=== PATIENT | female | born 1945 | race Caucasian/White ===

== ENCOUNTER 2022-03-13 11:51 | Inpatient (IN) | payer MEDICARE, MEDICAID, SELFPAY ==
[2022-03-13] VITALS (14 sets, daily range): BP systolic 117–139; BP diastolic 43–86; PULSE 43–91; RESP 13–18; TEMP 36.3–37.3; O2SAT 95–99; BMI 39.4; BMI 38.9
--- NOTE | 2022-03-13 12:01 | EKG12_ITS ---
Test Reason : GENERAL ILLNESS Blood Pressure : / mmHG Vent. Rate : 044 BPM Atrial Rate : 100 BPM P-R Int : 000 ms QRS Dur : 076 ms QT Int : 490 ms P-R-T Axes : 041 -04 045 degrees QTc Int : 418 ms Sinus rhythm with complete heart block and Junctional bradycardia Abnormal ECG Confirmed by PRECIOUS MORGAN, LUCY ([id number]), online editor ELIZABETH STOUT ([id number]) on 03/16/2022 11:29:36 AM Referred By: YENNIFER Confirmed By:LUCY LANG MD
[2022-03-13 12:40] LABS: Absolute Lymphocyte Count 2.33 X10^3/uL (0.83-4.51); Absolute Neutrophil Count 5.2 X10^3/uL (2.0-7.7); Basophil# 0.06 X10^3/uL; Basophil% 0.7 % (0-1); Eosinophils% 3.4 % (0-5); Hematocrit 32.7 % (37-47); Hemoglobin 10.4 g/dL (12.0-15.0); Lymphocyte # 2.33 X10^3/ul (0.83-4.51); Lymphocyte % 26.4 % (19-41); Mean Corp Hgb Conc 31.8 g/dL (32-36); Mean Corpuscular Hgb 30.1 pg (27.0-32.0); Mean Corpuscular Volume 94.8 fL (81-99); Mean Platelet Vol. 11.4 fl (6.2-12.0); Monocyte# 0.88 X10^3/uL; NRBC Flagged by Analyzer 0 % (0-5); Neutrophil # 5.18 X10^3/uL (2.7-7.7); Neutrophil % 58.6 % (47-70); Platelet Count 231 K/mm3 (150-450); RBC Distribution Width CV 15.1 % (11.6-14.6); RBC Distribution Width SD 52.3 fl (35.1-43.9); Red Blood Count 3.45 M/mm3 (4.2-5.4); White Blood Count 8.8 K/mm3 (4.4-11.0)
[2022-03-13 12:47] LABS: ALB/GLOB Ratio 0.7 RATIO (0.9-2.4); AST(SGOT) 10 U/L (15-37); Alanine Aminotransfer ALT/SGPT 12 U/L (13-56); Albumin, Serum 2.7 g/dL (3.2-5.0); Alkaline Phosphatase 60 U/L (45-117); Anion Gap 8 (5-15); BUN 64 mg/dL (7-18); BUN/Creat Ratio 21.7 RATIO (10-20); Calcium,Total 9.1 mg/dL (8.5-10.1); Chloride 104 mmol/L (98-107); Creatinine, Serum 2.95 mg/dL (0.55-1.02); EST Glomerular Filtration Rate 16 mL/min (>60); Est Glom Filt Rate - Afr Amer 20 mL/min (>60); Estimated Creatinine Clearance 22.01 ml/min; Globulin 3.8 g/dL (2.2-4.2); Glucose 221 mg/dL (74-106); Protein, Total 6.5 g/dL (6.4-8.2); Sodium Level 135 mmol/L (136-145); Troponin-I HS 49 pg/mL (3.0-54.0)
--- NOTE | 2022-03-13 12:53 | EX.ED.DYSGE1 ---
HPI History of Present Illness Chief Complaint: General Illness Informant: patient and family Narrative Narrative: Patient is a 76-year-old female with history of diabetes mellitus, hypertension, diverticulitis polyps, and osteoporosis presenting with increased weakness, decreased oral intake and generalized malaise. Patient arrived via EMS but is with her daughter. Patient has been complaining of stomach pain as well as some neck pain for the past few days. This is not completely abnormal to the patient. Daughter was concerned as she started having shaking today and seemed more confused. She was worried she may be had COVID or urinary tract infection. Patient denies any chest pain or shortness of breath. Daughter notes has had decreased oral intake for the past 3 days. No other complaints at this time. [facility] Medical History (Updated 03/13/22 @ 15:[address] Yadi Poole DO) Diabetes Essential hypertension Non-smoker Osteoarthritis Allergy/AdvReac Type Severity Reaction Status Date / Time Iodinated Contrast Media Allergy Rash Verified 03/13/22 12:50 [CONTRASTS] oxaprozin [From Daypro] AdvReac Upset Verified 03/13/22 12:50 Stomach Surgical History History of appendectomy History of cholecystectomy Social History Smoking Status: Never smoker ROS ROS ED Review of Systems ROS Unobtainable: due to mental status EXAM Physical Exam Const Vital Signs: 03/13/22 11:52 03/13/22 12:19 03/13/22 12:40 Temperature 97.3 F L Temperature Source Temporal Pulse Rate 44 L 43 L Respiratory Rate 13 17 Respiratory Effort Normal Respiratory Pattern Normal Blood Pressure 122/49 H 118/43 L Blood Pressure Mean 73 68 Pulse Ox 97 96 Oxygen Delivery Method Room Air Room Air 03/13/22 14:53 Temperature 98.3 F Temperature Source Temporal Pulse Rate 43 L Respiratory Rate 15 Respiratory Effort Respiratory Pattern Blood Pressure 125/78 H Blood Pressure Mean 93 Pulse Ox 98 Oxygen Delivery Method Room Air Positive well nourished and well developed Constitutional Narrative: Somnolent, pale General Appearance ED: well developed and pallor HEENT Reports dry mucous membranes Mouth ED: Yes dry mucous membranes Mouth: dry mucous membranes Eyes PERRL and EOMs intact bilaterally Neck supple and no JVD Chest Wall inspection of chest normal and palpation of chest normal Resp normal respiratory effort and clear to auscultation bilaterally Cardio regular rhythm and no murmurs Rate: bradycardia GI normal to inspection, nondistended, normoactive bowel sounds and non-tender Extremity Extremity Narrative: + pedal General Extremety ED: Yes edema; Negative for tenderness General Extremity: edema Neuro no sensory deficits noted Sensorium / Orientation: alert and orientation impaired Motor Exam: general weakness Psych mental status grossly normal Skin no rashes or lesions noted and no wounds General Skin Exam: pallor MDM MDM MDM Narrative Medical decision making narrative: Patient evaluated for generalized malaise. Telemetry and EKG concerning for third-degree heart block 4. Patient is hemodynamically stable right now. She is found to have NIKO with a creatinine of 2.95. She has no known history of kidney disease. Clinically she does appear dehydrated is given IV fluids. She is mildly anemic at 10.4. Case is discussed with cardiology who will evaluate the patient further to see if we can give her pacemaker here or will need to transfer. Patient was placed on pacer pads empirically. Case discussed with cardiology on-call, Dr. Perez, as well as Dr. Winchester who agreed that patient would benefit from a pacer. Patient is admitted to the ICU but will go to the Central Office Technician for pacer placement first. Patient is given IV fluid bolus in the emergency room. Patient and daughter in agreement this plan of care. Patient is maintaining her blood pressure so she does not require emergent external pacing at this time. Lab Data Attestation: I reviewed the patient's lab results. Labs: Laboratory Results - last 24 hr 03/13/22 03/13/22 03/13/22 12:15 12:15 12:15 WBC 8.8 RBC 3.45 L Hgb 10.4 L Hct 32.7 L MCV 94.8 MCH 30.1 MCHC 31.8 L RDW Std Deviation 52.3 H RDW Coeff of Zainab 15.1 H Plt Count 231 MPV 11.4 Immature Gran % (Auto) 0.900 Neut % (Auto) 58.6 Lymph % (Auto) 26.4 [place] % (Auto) 10.0 Eos % (Auto) 3.4 Baso % (Auto) 0.7 Absolute Neuts (auto) 5.2 Absolute Lymphs (auto) 2.33 Nucleated RBC % 0 Sodium 135 L Potassium 5.0 Chloride 104 Carbon Dioxide 23.0 Anion Gap 8 BUN 64 H Creatinine 2.95 H Estim Creat Clear Calc 22.01 Est GFR (MDRD) Af Amer 20 L Est GFR (MDRD) Non-Af 16 L BUN/Creatinine Ratio 21.7 H Glucose 221 H Calcium 9.1 Total Bilirubin 0.70 AST 10 L ALT 12 L Alkaline Phosphatase 60 Troponin I High Sens 49 Total Protein 6.5 Albumin 2.7 L Globulin 3.8 Albumin/Globulin Ratio 0.7 L TSH 1.90 Radiography Chest X-Ray - ED: 1 View, Read by ED Physician, Cardiomegaly and No Infiltrates Diagnostic Testing: Clinical Impression(s) from Imaging Studies Chest X-Ray 03/13/22 12:55 IMPRESSION: Peribronchial cuffing and bilateral hilar prominence is seen, would recommend clinical correlation for bronchitis, airway disease or perihilar infiltrates, Electronically Signed: Marty Schuster MD at 13:12 EDT Reading Location ID and State: [facility] / [place] Tel , Service support , Rhythm Strip Rhythm Strip: Bradycardia Rate: 44 Ectopy: None EKG Initial EKG: Attestation: I personally reviewed and interpreted this EKG as follows: Comments: Third-degree AV block at a rate of 44 QRS 76 QTC [address] segments Critical Care Time Critical Care Time: Yes Critical care time (excluding procedures): 30-74 minutes (40), Discussing w/Patient &/or Family/Quality Management Nurse, Discussing w/Consultants and Arranging Admission or Transfer Discharge Plan Dx/Rx/DC Orders Clinical Impression: Complete heart block, Essential hypertension, NIKO (acute kidney injury) Disposition Disposition: Acute Care Hospital [facility] Discharge Date/Time: 03/13/22 14:55
--- NOTE | 2022-03-13 12:55 | RAD_ITS ---
INDICATION: weakness EXAMINATION/TECHNIQUE: X-RAY - XR Chest 1 View COMPARISON: None. FINDINGS: LINES/DEVICES: None. LUNGS: Peribronchial cuffing and bilateral hilar prominence is seen. Would recommend clinical correlation for perihilar infiltrates, no evidence of focal consolidation is seen. No evidence of pneumothorax or pleural effusion. No evidence of parenchymal lung mass. MEDIASTINUM AND CARDIOVASCULAR STRUCTURES: Cardiac silhouette not enlarged. Central airways and mediastinal contour are unremarkable. BONES AND SOFT TISSUES: Degenerative bone changes seen. RAD/Chest 1 View (Portable) IMPRESSION: Peribronchial cuffing and bilateral hilar prominence is seen, would recommend clinical correlation for bronchitis, airway disease or perihilar infiltrates, Electronically Signed: Marty Schuster MD at 13:12 EDT ,
[2022-03-13] MEDS: 0.9% Normal Saline 1,000 ML 999 ML IV (13:51)
--- NOTE | 2022-03-13 13:58 | NURSING ---
PALLET REPAIRER [facility] PACEMAKER
--- NOTE | 2022-03-13 13:58 | NURSING ---
DR MARTINEZ FOR DR MARIN
--- NOTE | 2022-03-13 14:17 | ECHOL_ITS ---
Reason For Study: Arrhythmia Procedure This was a limited 2D transthoracic echocardiogram. Exam performed portable in ED. Left Ventricle Mild Apical Hypokinesia. The estimated ejection fraction is 50 %. Right Ventricle Normal right ventricle. Normal systolic function. Atria Normal left atrium. Normal right atrium. Mitral Valve The mitral valve is structurally normal. No prolapse or stenosis seen. No mitral valve insufficiency. Tricuspid Valve Normal tricuspid valve. No tricuspid valve insufficiency. Aortic Valve Normal aortic valve. Pulmonic Valve The pulmonic valve is not well visualized. Great Vessels Normal aortic root. Pericardium/Pleural No pericardial effusion. MMode/2D Measurements & Calculations LVIDd: 4.0 cm IVSd: 1.4 cm LVAd ap4: 18.8 cm2 LVIDs: 2.3 cm LVPWd: 1.4 cm LVLd ap4: 6.2 cm RVDd: 3.8 cm FS: 43.0 % EDV(MOD-sp4): 47.1 ml EDV(sp4-el): 48.1 ml LVAs ap4: 8.4 cm2 LVLs ap4: 4.8 cm ESV(MOD-sp4): 12.7 ml ESV(sp4-el): 12.3 ml EF(MOD-sp4): 73.1 % EF(sp4-el): 74.3 % SV(MOD-sp4): 34.4 ml SV(sp4-el): 35.7 ml Doppler Measurements & Calculations MV V2 max: 179.6 cm/sec Ao V2 max: 187.4 cm/sec LV V1 max: 146.6 cm/sec MV max P.9 mmHg Ao max P.0 mmHg LV V1 max P.6 mmHg MV V2 mean: 109.5 cm/sec Ao V2 mean: 132.6 cm/sec MV mean P.4 mmHg Ao mean P.8 mmHg MV V2 VTI: 61.9 cm Ao V2 VTI: 42.3 cm TR max slava: 265.6 cm/sec TR max P.2 mmHg ECHO/Echo, Limited Study Interpretation Summary Mild Apical Hypokinesia The estimated ejection fraction is 50 %. Ordering Physician: Obed Winchester Referring Physician: Pako Serrano Performed By: Gita Barrera, MARY GRACECS, RVT
--- NOTE | 2022-03-13 14:20 | NURSING ---
ICU TERELETSKY 3RD DEGREE HEART BLOCK, NIKO
--- NOTE | 2022-03-13 15:47 | CON.PCM.CA_ITS ---
Assessment & Plan Assessment/Plan (1) Complete heart block: PLAN: Patient presented with complete heart block. The etiology is likely se condary to conduction system disease. I discussed with the patient and her daughter the risk benefits alternatives and he agreed. A permanent pacemaker was implanted today uneventfully. (2) Essential hypertension: PLAN: Her blood pressure is under good control. Plan to be to continue the current medical therapy. Thank you for allowing me to participate in the care of your patient. Please don't hesitate to call if any issues arise. HPI Consult Data Date of Consult: 03/13/22 HPI Narrative HPI Narrative: DESIRE CHUNG, is a 76 F who presents to the emergency room due to 3 to 4 days of weakness and lethargy. She denies any chest pain no paroxysmal nocturnal dyspnea or pedal edema she was brought in by her daughter. In the emergency room she was noted to be bradycardic and her EKG demonstrated A-V dissociation. The lab aide on-call was contacted and I was called to see whether we could put in a permanent pacemaker. On evaluation in the emergency room she denied any dizziness or diaphoresis or near syncope though she has been tired. She has not been on any medications which would slow down her heart rate. She had been previously on lisinopril. Her EKG demonstrated A-V dissociation with a rate of approximately 34 bpm. A stat echocardiogram demonstrated overall preserved left ventricular systolic function [facility] Medical History Diabetes Essential hypertension Non-smoker Osteoarthritis Allergy/AdvReac Type Severity Reaction Status Date / Time Iodinated Contrast Media Allergy Rash Verified 03/13/22 12:50 [CONTRASTS] oxaprozin [From Daypro] AdvReac Upset Verified 03/13/22 12:50 Stomach Surgical History History of appendectomy History of cholecystectomy Social History Smoking Status: Never smoker ROS Constitutional Constitutional: Denies fever(s) or weight loss Eyes Eyes: Reports systems reviewed and no addt'l complaints, except as documented ENT HEENT: Reports systems reviewed and no addt'l complaints, except as documented Cardiovascular Cardiovascular: Denies chest pain at rest, chest pain with activity, dyspnea at rest, dyspnea on exertion, edema, palpitations or paroxysmal nocturnal dyspnea Respiratory/Chest Respiratory/Chest: Denies dyspnea on exertion, productive cough, shortness of breath at rest or shortness of breath with exertion Gastrointestinal Gastrointestinal: Denies change in bowel habits, nausea, vomiting or weight changes Genitourinary Genitourinary: Denies difficulty urinating Musculoskeletal Musculoskeletal: Denies joint stiffness or muscle weakness Integumentary Integumentary: Denies lesions Neurologic Neurologic: Reports weakness; Denies dizziness or syncope Psychiatric Psychiatric: Denies anxiety Endocrine Endocrinology: Denies excessive sweating or fatigue Hematologic/Lymphatic Hematologic/Lymphatic: Denies anemia Allergic/Immunologic Allergic/Immunologic: Denies seasonal rhinorrhea Physical Exam Const alert, oriented x3 and no apparent distress General Appearance: cooperative HEENT hearing grossly normal bilaterally Head and Scalp: atraumatic Eyes EOMs intact bilaterally Neck General: normal visual inspection Chest inspection of chest normal and palpation of chest normal Resp normal respiratory effort Auscultation: clear to auscultation bilaterally Cardio regular rhythm, S1 normal heart sound and S2 normal heart sound Jugular Venous Distention: JVD Rate: bradycardia GI normal to inspection, nondistended, normoactive bowel sounds Extremity normal capillary refill and no pedal edema Peripheral Pulses: Yes pulses 2+ throughout and femoral pulses present Skin no rashes or lesions noted Neuro oriented x3 and CN's II-XII intact bilaterally Psych Appearance: grossly normal and appropriate Risk Stratification Risk Stratification Applicable: No Objective Data Vital Signs: Vital Signs Temp Pulse Resp BP Pulse Ox O2 Del Method 98.3 F 43 L 15 125/78 H 98 Room Air 03/13/22 14:53 03/13/22 14:53 03/13/22 14:53 03/13/22 14:53 03/13/22 14:53 03/13/22 14:53 Oxygen Delivery Method Room Air Weight: 195 lb 8.8 oz Body Mass Index (BMI) 39.4 Lab / Micro Data Result Diagrams: 03/13/22 12:15 03/13/22 12:15 Labs: Laboratory Results - last 24 hr 03/13/22 12:15: WBC 8.8, RBC 3.45 L, Hgb 10.4 L, Hct 32.7 L, MCV 94.8, MCH 30.1, MCHC 31.8 L, RDW Std Deviation 52.3 H, RDW Coeff of Zainab 15.1 H, Plt Count 231, MPV 11.4, Immature Gran % (Auto) 0.900, Neut % (Auto) 58.6, Lymph % (Auto) 26.4, [place] % (Auto) 10.0, Eos % (Auto) 3.4, Baso % (Auto) 0.7, Absolute Neuts (auto) 5.2, Absolute Lymphs (auto) 2.33, Nucleated RBC % 0 03/13/22 12:15: Sodium 135 L, Potassium 5.0, Chloride 104, Carbon Dioxide 23.0, Anion Gap 8, BUN 64 H, Creatinine 2.95 H, Estim Creat Clear Calc 22.01, Est GFR (MDRD) Af Amer 20 L, Est GFR (MDRD) Non-Af 16 L, BUN/Creatinine Ratio 21.7 H, Glucose 221 H, Calcium 9.1, Total Bilirubin 0.70, AST 10 L, ALT 12 L, Alkaline Phosphatase 60, Troponin I High Sens 49, Total Protein 6.5, Albumin 2.7 L, Globulin 3.8, Albumin/Globulin Ratio 0.7 L 03/13/22 12:15: TSH 1.90 Micro: Microbiology 03/13/22 12:53 Nasal Secretion SARS-CoV-2 Antigen (Rapid) - Final Rhythm Strip Rhythm Strip: Bradycardia Rate: 44 Ectopy: None Cardiology Labs/Tests 03/13/22 12:15: WBC 8.8, RBC 3.45 L, Hgb 10.4 L, Hct 32.7 L, MCV 94.8, MCH 30.1, MCHC 31.8 L, Plt Count 231, MPV 11.4, Immature Gran % (Auto) 0.900, Neut % (Auto) 58.6, Lymph % (Auto) 26.4, [place] % (Auto) 10.0, Eos % (Auto) 3.4, Baso % (Auto) 0.7, Absolute Neuts (auto) 5.2, Nucleated RBC % 0 03/13/22 12:15: Sodium 135 L, Potassium 5.0, Chloride 104, Carbon Dioxide 23.0, Anion Gap 8, BUN 64 H, Creatinine 2.95 H, Est GFR (MDRD) Af Amer 20 L, Est GFR (MDRD) Non-Af 16 L, BUN/Creatinine Ratio 21.7 H, Glucose 221 H, Calcium 9.1, Total Bilirubin 0.70 Rhythm: EKG: ECHO: Stress Test: Cardiac Cath: PCI: CT Surgery: Holter monitor: EPS: PPM: CXR: Chest CT Scan: Radiography Diagnostic Testing: Radiology Impression Chest X-Ray 03/13/22 12:55 IMPRESSION: Peribronchial cuffing and bilateral hilar prominence is seen, would recommend clinical correlation for bronchitis, airway disease or perihilar infiltrates, Electronically Signed: Marty Schuster MD at 13:12 EDT , Echocardiogram 03/13/22 14:17 Interpretation Summary Mild Apical Hypokinesia The estimated ejection fraction is 50 %. Ordering Physician: Obed Winchester Referring Physician: Pako Serrano Performed By: Gita Barrera, IRA, RVT
--- NOTE | 2022-03-13 17:06 | PCM.DC ---
Discharge Instructions Diet Discharge Diet: No restrictions Activity Discharge Activity: May Not Drive Additional Activity Instructions:: May shower or bathe on [day 3]. Do not scrub the incision or soak in the tub. Just wash with soap and let the water run over the incision. Gently pat dry with towel. Medications: Take your pain medication as directed. Refer to your discharge instruction sheet for a list of medications you are to take. Dressing / Incision Call your doctor if your incision/area has: Continuous Slow Oozing, Sudden Increased Bleeding, Increased Pain/ Swelling, Increased Redness, Foul Smelling Discharge and Swelling at the incision site Call your doctor if you observe: Fever of 101 or Higher, Shortness of breath, Dizziness, Fainting spells, Swelling in the ankles, Chest pain, Prolonged hiccupping and Increased palpitations (irregular heartbeat) Suture Line Care: Avoid Pulling/Pushing and Avoid Pinching/Bending Cleanse incision/area with: Keep Dressing Clean & Dry Additional Dressing/Incision Instructions:: When dressing is removed, wash and dry incision. Keep covered with a light bandage if it is rubbing against your clothing. Do not cover the incision with an airtight bandage. Change the bandage daily. Do not remove steri strips. The strips will fall off on their own. Follow Up Care Please Follow Up With: Obed Winchester MD When: Pacer follow up on at 9:30 AM at the pacer clinic Test Results: Test results from this visit will be discussed in further detail at your follow-up appointment, if applicable. Discharge Plan Admission Admit Date/Time: 03/13/22 15:44 Attending Provider: Eleazar Jamison Primary Care Provider: Pako Serrano NP Discharge Orders/Prescriptions Referrals / Follow Up: Pako Serrano NP, [facility] [Primary Care Provider] -
--- NOTE | 2022-03-13 17:16 | PCM.HP.STD ---
HPI - General General Date of Admission: 03/13/22 Date of Service: 03/13/22 Chief Complaint: Generalized weakness and malaise HPI Narrative DESIRE CHUNG, is a 76 F who presents to the emergency room at [facility] with a chief complaint of generalized weakness and malaise over the past few days. Patient denied any fevers or chills. EKG was obtained as part of the work-up in the emergency room, showed a third-degree heart block at 44, patient was hemodynamically stable however, her creatinine was found to be elevated at 2.95, hemoglobin was 10.4. Patient was taken to the [facility] and a pacemaker was inserted, there were no complications and the patient was admitted to PCU for further care. [facility] Medical History (Updated 03/13/22 @ 15:57 by Jazmine Tinajero) Diabetes Essential hypertension Non-smoker Osteoarthritis Home Medications atorvastatin 40 mg tablet 40 mg PO QHS cholesterol 03/13/22 [History Last Taken 03/12/22] furosemide 20 mg tablet 20 mg PO DAILY Check with primary doctor 03/13/22 [History Last Taken 03/13/22] gabapentin 300 mg capsule 300 mg PO TID Check with primary doctor 03/13/22 [History Last Taken 03/13/22] glipizide 5 mg tablet 7.5 mg PO DAILY Check with primary doctor 03/13/22 [History Last Taken 03/13/22] lisinopril 5 mg tablet 5 mg PO DAILY Check with primary doctor 03/13/22 [History Last Taken 03/13/22] metformin 1,000 mg tablet 1,000 mg PO BID Check with primary doctor 03/13/22 [History Last Taken 03/13/22] multivitamin 1 cap PO DAILY Check with primary doctor 03/13/22 [History Last Taken 03/13/22] pantoprazole 40 mg tablet,delayed release 40 mg PO DAILY Check with primary doctor 03/13/22 [History Last Taken 03/13/22] sucralfate 1 gram tablet 1 g PO DAILY Check with primary doctor 03/13/22 [History Last Taken 03/13/22] tramadol 50 mg tablet 50 mg PO QHS Check with primary doctor 03/13/22 [History Last Taken 03/12/22] Allergy/AdvReac Type Severity Reaction Status Date / Time Iodinated Contrast Media Allergy Rash Verified 03/13/22 12:50 [CONTRASTS] oxaprozin [From Daypro] AdvReac Upset Verified 03/13/22 12:50 Stomach Surgical History (Updated 03/13/22 @ 15:57 by Jazmine Tinajero) History of appendectomy History of cholecystectomy History of permanent cardiac pacemaker placement (03/13/22) Social History Smoking Status: Never smoker ROS Constitutional Constitutional: Reports fatigue, malaise and weakness; Denies anorexia, change in weight, fever(s) or night sweats Eyes Eyes: Denies blurry vision, change in vision, discharge from eye(s) or eye pain Cardiovascular Cardiovascular: Denies chest pain, claudication, dyspnea on exertion, edema, lightheadedness or palpitations Respiratory/Chest Respiratory/Chest: Denies cough, hemoptysis, shortness of breath at rest or shortness of breath with exertion Gastrointestinal Gastrointestinal: Denies abdominal pain, constipation, diarrhea, hematemesis, hematochezia, melena, nausea or vomiting Genitourinary Genitourinary: Denies dysuria, hematuria, urinary frequency, urinary hesitancy, urinary incontinence or urinary urgency Musculoskeletal Musculoskeletal: Denies back pain, joint pain, joint stiffness, joint swelling, myalgias or neck pain Neurologic Neurologic: Denies abnormal gait, abnormal speech, confusion, disequilibrium, dizziness, focal weakness, headache(s), loss of vision, numbness, other visual disturbances, paresthesias, syncope or tingling Psychiatric Psychiatric: Denies anxiety, cognitive impairment, depression, irritability, mood swings or suicidal ideation Endocrine Endocrinology: Denies change in body appearance, cold intolerance, excessive sweating, heat intolerance, polydipsia or polyuria Hematologic/Lymphatic Hematologic/Lymphatic: Denies none, anemia, easy bleeding, easy bruising or lymphadenopathy Allergic/Immunologic Allergic/Immunologic: Denies rhinitis, urticaria, eczemia or asthma Vital Signs Vital Signs Vital Signs: 03/13/22 11:52 03/13/22 12:19 03/13/22 12:40 Temperature 97.3 F L Temperature Source Temporal Pulse Rate 44 L 43 L Respiratory Rate 13 17 Respiratory Effort Normal Respiratory Pattern Normal Blood Pressure 122/49 H 118/43 L Blood Pressure [BP] Blood Pressure Mean 73 68 Blood Pressure Mean [BP] Blood Pressure Source Blood Pressure Source [BP] Blood Pressure Position Blood Pressure Position [BP] Blood Pressure Location Blood Pressure Location [BP] Pulse Ox 97 96 Oxygen Delivery Method Room Air Room Air 03/13/22 14:53 03/13/22 16:30 03/13/22 16:45 Temperature 98.3 F 98.3 F Temperature Source Temporal Oral Pulse Rate 43 L 84 79 Respiratory Rate 15 18 18 Respiratory Effort Respiratory Pattern Blood Pressure 125/78 H 128/52 H Blood Pressure [BP] 126/45 H Blood Pressure Mean 93 77 Blood Pressure Mean [BP] 72 Blood Pressure Source Monitor Blood Pressure Source [BP] Monitor Blood Pressure Position Semi-Fowlers Blood Pressure Position [BP] Semi-Fowlers Blood Pressure Location Right Arm Blood Pressure Location [BP] Right Arm Pulse Ox 98 96 96 Oxygen Delivery Method Room Air Room Air Room Air 03/13/22 17:00 Temperature Temperature Source Pulse Rate 81 Respiratory Rate 18 Respiratory Effort Respiratory Pattern Blood Pressure Blood Pressure [BP] 127/57 H Blood Pressure Mean Blood Pressure Mean [BP] 80 Blood Pressure Source Blood Pressure Source [BP] Monitor Blood Pressure Position Blood Pressure Position [BP] Semi-Fowlers Blood Pressure Location Blood Pressure Location [BP] Right Arm Pulse Ox 97 Oxygen Delivery Method Room Air Weight Weight: 87.6 kg Body Mass Index (BMI) 38.9 Physical Exam Const alert, oriented x3, no apparent distress, average body habitus and healthy appearing General Appearance: cooperative, well kempt and well developed Orientation / Consciousness: awake, oriented to person, oriented to place and oriented to time HEENT normocephalic and moist oral mucous membranes Eyes PERRL, EOMs intact bilaterally and conjunctivae normal Neck supple, no JVD, thyroid normal and no carotid bruits General: trachea midline Resp normal respiratory effort, no retractions, no use of accessory muscles and clear to auscultation bilaterally Auscultation: Negative for rales, rhonchi or wheezes Cardio regular rate, regular rhythm, S1 normal heart sound, S2 normal heart sound, no murmurs, no rub and no gallops GI normal to inspection, nondistended, normoactive bowel sounds, soft to palpation, non-tender and non-distended Extremity no clubbing, cyanosis or edema Skin no rashes or lesions noted General Skin Exam: no breakdown Neuro oriented x3, CN's II-XII intact bilaterally, moves all extremities, no focal motor deficits and no sensory deficits noted Sensorium / Orientation: awake and alert Speech: speech normal Psych affect normal Results Lab / Micro Data Result Diagrams: 03/13/22 12:15 03/13/22 12:15 Labs: Laboratory Results - last 24 hr 03/13/22 12:15: WBC 8.8, RBC 3.45 L, Hgb 10.4 L, Hct 32.7 L, MCV 94.8, MCH 30.1, MCHC 31.8 L, RDW Std Deviation 52.3 H, RDW Coeff of Zainab 15.1 H, Plt Count 231, MPV 11.4, Immature Gran % (Auto) 0.900, Neut % (Auto) 58.6, Lymph % (Auto) 26.4, [place] % (Auto) 10.0, Eos % (Auto) 3.4, Baso % (Auto) 0.7, Absolute Neuts (auto) 5.2, Absolute Lymphs (auto) 2.33, Nucleated RBC % 0 03/13/22 12:15: Sodium 135 L, Potassium 5.0, Chloride 104, Carbon Dioxide 23.0, Anion Gap 8, BUN 64 H, Creatinine 2.95 H, Estim Creat Clear Calc 22.01, Est GFR (MDRD) Af Amer 20 L, Est GFR (MDRD) Non-Af 16 L, BUN/Creatinine Ratio 21.7 H, Glucose 221 H, Calcium 9.1, Total Bilirubin 0.70, AST 10 L, ALT 12 L, Alkaline Phosphatase 60, Troponin I High Sens 49, Total Protein 6.5, Albumin 2.7 L, Globulin 3.8, Albumin/Globulin Ratio 0.7 L 03/13/22 12:15: TSH 1.90 Micro: Microbiology 03/13/22 12:53 Nasal Secretion SARS-CoV-2 Antigen (Rapid) - Final Rhythm Strip Rhythm Strip: Bradycardia Rate: 44 Ectopy: None Radiology Impression Chest X-Ray 03/13/22 12:55 IMPRESSION: Peribronchial cuffing and bilateral hilar prominence is seen, would recommend clinical correlation for bronchitis, airway disease or perihilar infiltrates, Electronically Signed: Marty Schuster MD at 13:12 EDT Reading Location ID and State: [facility] / [place] Tel , Service support , Echocardiogram 03/13/22 14:17 Interpretation Summary Mild Apical Hypokinesia The estimated ejection fraction is 50 %. Ordering Physician: Obed Winchester Referring Physician: Pako Serrano Performed By: Gita Barrera RDCS, RVT Assessment & Plan Assessment/Plan (1) Complete heart block: PLAN: Plan 1. Third-degree heart block-status post insertion of permanent pacemaker, patient will be admitted to PCU, she will be monitored., Patient will be seen by cardiology. #2 elevated creatinine-we do not have a baseline for the patient's creatinine, she states she has never had a history of kidney problems, patient will be given IV fluids, labs will be followed #3 type 2 diabetes-patient's oral diabetic medications will be held due to her renal function, patient's blood sugars will be monitored, sliding scale insulin will be administered as needed #4 hyperlipidemia-patient is on atorvastatin #5 essential hypertension-patient is on lisinopril, this will be held due to the patient's renal function #6 GERD-patient will continue on a PPI, I have elected to hold her Carafate-I am not sure why she is on this medication Charges/Coding Visit Charges Inpatient E&M: 18150 Init Hosp L3
[2022-03-13] MEDS: 0.9% Normal Saline 1,000 ML 100 ML IV (18:03)
[2022-03-13] MEDS: Heparin Injection (Vial) 5,000 UNIT/ML VIAL 5000 UNIT SC (22:44)
[2022-03-13] MEDS: 0.9% Saline Lock 10 ML Syringe IV (22:45)
[2022-03-13] MEDS: Atorvastatin Calcium 40 MG Tablet PO (22:50)
[2022-03-13] MEDS: Gabapentin 300 MG Capsule PO (22:50)
[2022-03-13] MEDS: oxyCODONE 5 MG Tablet PO (23:00)
[2022-03-13] MEDS: Acetaminophen 325 MG Tablet PO (23:00)
[2022-03-13 23:25] LABS: Bedside Glucose 120 mg/dL (74-106)
[2022-03-14] VITALS (7 sets, daily range): BP systolic 130–161; BP diastolic 60–77; PULSE 60–104; RESP 16–18; TEMP 36.8–37.2; O2SAT 97–98
[2022-03-14] MEDS: Gabapentin 300 MG Capsule PO ×3 (06:09→21:40)
[2022-03-14] MEDS: 0.9% Normal Saline 1,000 ML 100 ML IV ×2 (06:16→18:43)
--- NOTE | 2022-03-14 06:25 | RAD_ITS ---
EXAM: XR CHEST, 3 VIEWS CLINICAL INDICATION: Post permanant ICD/Pacemaker -- inspiration/expiration. Arms Down. Wet read to MD TECHNIQUE: Frontal, lateral and one additional view of the chest. This report was created using Ac[employer] report generation technology. COMPARISON: XR Chest dated 03/13/2022 FINDINGS: LUNGS AND PLEURAL SPACES: Normal. No consolidation or edema. No pneumothorax. No effusion. HEART: Normal. Normal heart size. MEDIASTINUM: Central airways and mediastinal contour are unremarkable. BONES/JOINTS: Normal. SOFT TISSUES: Normal. TUBES, LINES AND DEVICES: Interval placement of a 2-lead ventricular pacemaker wires. RAD/Chest 3 View IMPRESSION: Satisfactory pacemaker placement. No evidence of pneumothorax. Electronically Signed: Stevie El MD at 9:32 EDT ,
[2022-03-14 06:48] LABS: Anion Gap 6 (5-15); BUN 49 mg/dL (7-18); BUN/Creat Ratio 24.6 RATIO (10-20); Calcium,Total 8.8 mg/dL (8.5-10.1); Chloride 110 mmol/L (98-107); Creatinine, Serum 1.99 mg/dL (0.55-1.02); EST Glomerular Filtration Rate 26 mL/min (>60); Est Glom Filt Rate - Afr Amer 31 mL/min (>60); Estimated Creatinine Clearance 32.22 ml/min; Glucose 101 mg/dL (74-106); Potassium 4.7 mmol/L (3.5-5.1); Sodium Level 141 mmol/L (136-145)
[2022-03-14] MEDS: Heparin Injection (Vial) 5,000 UNIT/ML VIAL 5000 UNIT SC ×2 (08:58→21:38)
[2022-03-14] MEDS: Pantoprazole Sodium 40 MG Tablet PO (08:58)
[2022-03-14] MEDS: 0.9% Saline Lock 10 ML Syringe IV (08:59)
--- NOTE | 2022-03-14 10:30 | CASEMGMT ---
RN CHELITA Face to Face with patient for initial transition planning/care coordination assessment. RN CM introduced self and role at [facility]. Patient lying in bed, alert and oriented, daughter at bedside. Patient and daughter willing to participate in assessment and is able to answer all questions appropriately. Care providers, pharmacy, and demographics verified. Patient wishes to discharge home, denies need for home health at this time. Patient states she has no further needs or concerns at this time. CM to follow for discharge planning needs that may arise. PCP: Maggie [employer] Specialists: [facility] podiatry; Haider, GI; Mitchell, pain [facility] Insurance: [employer] Prescription Benefit: yes Living Will/HPOA: yes, daughter Mili Sanabria HPOA LNOK: daughter Living Arrangements: Patient lives with daughter in a mobile home with 4 steps and railing to enter the home. Per daughter, patient independent at home but daughter helps with bathing. Transportation: daughter DME/HHC: Patient states she has shower chair, BSC, raised toilet, walker, rollator, and medical alert at home. No previous HHC. Daughter refusing HHC at discharge and states she is able to care for patient. Patient is active with [employer] and has Cindy cazares CM at [facility]. Disposition Plan: Patient to discharge home with family support and follow-up plans in place. Cindy WALKER, RN, CM
[2022-03-14 11:09] LABS: Absolute Lymphocyte Count 2.48 X10^3/uL (0.83-4.51); Absolute Neutrophil Count 3.5 X10^3/uL (2.0-7.7); Basophil# 0.06 X10^3/uL; Basophil% 0.8 % (0-1); Eosinophil# 0.32 X10^3/uL; Eosinophils% 4.5 % (0-5); Hematocrit 29.5 % (37-47); Hemoglobin 9.5 g/dL (12.0-15.0); Lymphocyte # 2.48 X10^3/ul (0.83-4.51); Lymphocyte % 34.6 % (19-41); Mean Corp Hgb Conc 32.2 g/dL (32-36); Mean Corpuscular Hgb 30.2 pg (27.0-32.0); Mean Corpuscular Volume 93.7 fL (81-99); Mean Platelet Vol. 11.1 fl (6.2-12.0); Monocyte# 0.82 X10^3/uL; Monocyte% 11.5 % (0-10); NRBC Flagged by Analyzer 0 % (0-5); Neutrophil # 3.45 X10^3/uL (2.7-7.7); Neutrophil % 48.2 % (47-70); Platelet Count 204 K/mm3 (150-450); RBC Distribution Width CV 14.9 % (11.6-14.6); Red Blood Count 3.15 M/mm3 (4.2-5.4); White Blood Count 7.2 K/mm3 (4.4-11.0)
[2022-03-14 12:00] LABS: Bedside Glucose 97 mg/dL (74-106)
[2022-03-14] MEDS: Insulin Lispro 100 UNIT/ML INSULN.PEN SC ×3 (12:11→21:42)
[2022-03-14 12:36] LABS: Bedside Glucose 210 mg/dL (74-106)
--- NOTE | 2022-03-14 14:32 | PN.HOSP_ITS ---
Subjective Subjective Patient was seen and examined today, she appears weak and mildly confused. I talked with the daughter who was visiting her in her room today during the time my examination. Patient lives with her daughter, her daughter states that she does have some memory issues but she has never been diagnosed with dementia. T alked with cardiology briefly today, they stated from a cardiology standpoint that the patient was okay to be discharged. I called the patient's family practitioner's office and found out that her creatinine in July of last year was 1.06. Objective Data Objective Data Vital Signs: Vital Signs Temp Pulse Resp BP Pulse Ox O2 Del Method 98.2 F 88 16 146/76 H 97 Room Air 03/14/22 08:41 03/14/22 08:41 03/14/22 08:41 03/14/22 08:41 03/14/22 08:41 03/14/22 08:43 Oxygen Delivery Method Room Air Weight: 87.6 kg Body Mass Index (BMI) 38.9 Intake & Output: Intake and Output for Last 24 Hours 03/12/22 03/13/22 03/14/22 23:59 23:59 23:59 Intake Total 1000 / 1000 1550 / 1550 Output Total 450 / 650 1350 / 1350 Balance 550 / 350 200 / 200 Lab / Micro Data Result Diagrams: 03/14/22 05:59 03/14/22 05:39 Labs: Laboratory Results - last 24 hr 03/13/22 22:41: POC Glucose 120 H 03/14/22 05:39: Sodium 141, Potassium 4.7, Chloride 110 H, Carbon Dioxide 25.0, Anion Gap 6, BUN 49 H, Creatinine 1.99 H, Estim Creat Clear Calc 32.22, Est GFR (MDRD) Af Amer 31 L, Est GFR (MDRD) Non-Af 26 L, BUN/Creatinine Ratio 24.6 H, Glucose 101, Calcium 8.8 03/14/22 05:59: WBC 7.2, RBC 3.15 L, Hgb 9.5 L, Hct 29.5 L, MCV 93.7, MCH 30.2, MCHC 32.2, RDW Std Deviation 51.0 H, RDW Coeff of Zainab 14.9 H, Plt Count 204, MPV 11.1, Immature Gran % (Auto) 0.400, Neut % (Auto) 48.2, Lymph % (Auto) 34.6, [place] % (Auto) 11.5 H, Eos % (Auto) 4.5, Baso % (Auto) 0.8, Absolute Neuts (auto) 3.5, Absolute Lymphs (auto) 2.48, Nucleated RBC % 0 03/14/22 06:14: POC Glucose 97 03/14/22 12:10: POC Glucose 210 H Micro: Microbiology 03/13/22 12:53 Nasal Secretion SARS-CoV-2 Antigen (Rapid) - Final Radiography Diagnostic Testing: Radiology Impression Echocardiogram 03/13/22 14:17 Interpretation Summary Mild Apical Hypokinesia The estimated ejection fraction is 50 %. Ordering Physician: Obed Winchester Referring Physician: Pako Serrano Performed By: Gita Barrera, RDCS, RVT Chest X-Ray 03/14/22 06:25 IMPRESSION: Satisfactory pacemaker placement. No evidence of pneumothorax. Electronically Signed: Stevie El MD at 9:32 EDT , Rhythm Strip Rhythm Strip: Bradycardia Rate: 44 Ectopy: None Physical Exam Const alert, oriented x3, no apparent distress, average body habitus and healthy appearing Constitutional Narrative: Patient appears older than her stated age, she appears frail and unwell, she exhibits mild confusion General Appearance: cooperative, well kempt and well developed Orientation / Consciousness: awake HEENT normocephalic, head/scalp atraumatic and moist oral mucous membranes Eyes PERRL, EOMs intact bilaterally and conjunctivae normal Neck supple, no JVD and thyroid normal General: trachea midline Resp normal respiratory effort, no retractions, no use of accessory muscles and clear to auscultation bilaterally Auscultation: Negative for rales, rhonchi or wheezes Cardio regular rate, regular rhythm, S1 normal heart sound, S2 normal heart sound, no murmurs, no rub and no gallops GI normal to inspection, nondistended, normoactive bowel sounds, soft to palpation, non-tender and non-distended Extremity no clubbing, cyanosis or edema Skin no rashes or lesions noted General Skin Exam: no breakdown Neuro oriented x3, CN's II-XII intact bilaterally, moves all extremities, no focal motor deficits and no sensory deficits noted Sensorium / Orientation: awake and alert Speech: speech normal Psych affect normal Psych Narrative: Patient has flat affect, she exhibits mild confusion Assessment & Plan Assessment/Plan (1) Complete heart block: PLAN: Plan 1. Third-degree heart block-status post insertion of permanent pacemaker postop day #1, continue present care, cardiology states that from a cardiovascular standpoint she is stable at this time #2 Acute kidney injury-probably secondary to dehydration-continue patient's IV fluids for now, repeat labs tomorrow, patient's creatinine has improved to 1.99 today #3 type 2 diabetes-patient's oral diabetic medications will be held due to her renal function, patient's blood sugars will be monitored, sliding scale insulin will be administered as needed #4 hyperlipidemia-patient is on atorvastatin #5 essential hypertension-patient is on lisinopril, this will be held due to the patient's renal function #6 GERD-patient will continue on a PPI, I have elected to hold her Carafate-I am not sure why she is on this medication #7 anemia-etiology unclear, I will obtain serum iron and TIBC #8 mild metabolic encephalopathy-secondary to dehydration/acute kidney injury- complicates care, management, recovery, and prognosis. Physical therapy will see the patient today Charges/Coding Visit Charges Inpatient E&M: 75142 Subs Hosp L2
--- NOTE | 2022-03-14 15:03 | PCM.PN.CARD ---
Subjective Subjective Seen and evaluated at bedside along with the nursing staff, daughter at bedside at time of evaluation Minor discomfort at the site of the pacer implant. Objective Data Vital Signs: Vital Signs Temp Pulse Resp BP Pulse Ox O2 Del Method 98.2 F 88 16 146/76 H 97 Room Air 03/14/22 08:41 03/14/22 08:41 03/14/22 08:41 03/14/22 08:41 03/14/22 08:41 03/14/22 08:43 Oxygen Delivery Method Room Air Weight: 193 lb 1.999 oz Body Mass Index (BMI) 38.9 Intake & Output: Intake and Output for Last 24 Hours 03/12/22 03/13/22 03/14/22 23:59 23:59 23:59 Intake Total 1000 / 1000 1550 / 1550 Output Total 450 / 650 1350 / 1350 Balance 550 / 350 200 / 200 Lab / Micro Data Result Diagrams: 03/14/22 05:59 03/14/22 05:39 Labs: Laboratory Results - last 24 hr 03/13/22 22:41: POC Glucose 120 H 03/14/22 05:39: Sodium 141, Potassium 4.7, Chloride 110 H, Carbon Dioxide 25.0, Anion Gap 6, BUN 49 H, Creatinine 1.99 H, Estim Creat Clear Calc 32.22, Est GFR (MDRD) Af Amer 31 L, Est GFR (MDRD) Non-Af 26 L, BUN/Creatinine Ratio 24.6 H, Glucose 101, Calcium 8.8 03/14/22 05:59: WBC 7.2, RBC 3.15 L, Hgb 9.5 L, Hct 29.5 L, MCV 93.7, MCH 30.2, MCHC 32.2, RDW Std Deviation 51.0 H, RDW Coeff of Zainab 14.9 H, Plt Count 204, MPV 11.1, Immature Gran % (Auto) 0.400, Neut % (Auto) 48.2, Lymph % (Auto) 34.6, [place] % (Auto) 11.5 H, Eos % (Auto) 4.5, Baso % (Auto) 0.8, Absolute Neuts (auto) 3.5, Absolute Lymphs (auto) 2.48, Nucleated RBC % 0 03/14/22 06:14: POC Glucose 97 03/14/22 12:10: POC Glucose 210 H Micro: Microbiology 03/13/22 12:53 Nasal Secretion SARS-CoV-2 Antigen (Rapid) - Final Rhythm Strip Rhythm Strip: Bradycardia Rate: 44 Ectopy: None Cardiology Labs/Tests 03/14/22 05:39: Sodium 141, Potassium 4.7, Chloride 110 H, Carbon Dioxide 25.0, Anion Gap 6, BUN 49 H, Creatinine 1.99 H, Est GFR (MDRD) Af Amer 31 L, Est GFR (MDRD) Non-Af 26 L, BUN/Creatinine Ratio 24.6 H, Glucose 101, Calcium 8.8 03/14/22 05:59: WBC 7.2, RBC 3.15 L, Hgb 9.5 L, Hct 29.5 L, MCV 93.7, MCH 30.2, MCHC 32.2, Plt Count 204, MPV 11.1, Immature Gran % (Auto) 0.400, Neut % (Auto) 48.2, Lymph % (Auto) 34.6, [place] % (Auto) 11.5 H, Eos % (Auto) 4.5, Baso % (Auto) 0.8, Absolute Neuts (auto) 3.5, Nucleated RBC % 0 Rhythm: EKG: ECHO: Stress Test: Cardiac Cath: PCI: CT Surgery: Holter monitor: EPS: PPM: CXR: Chest CT Scan: Radiography Diagnostic Testing: Radiology Impression Echocardiogram 03/13/22 14:17 Interpretation Summary Mild Apical Hypokinesia The estimated ejection fraction is 50 %. Ordering Physician: Obed Winchester Referring Physician: Pako Serrano Performed By: Gita Barrera, RDCS, RVT Chest X-Ray 03/14/22 06:25 IMPRESSION: Satisfactory pacemaker placement. No evidence of pneumothorax. Electronically Signed: Stevie El MD at 9:32 EDT , Physical Exam Narrative Patient alert orientated x3 No evidence of hematoma noted at the site of the pacer implant/left pectoral region quality assurance monitor body showed paced, electronic ventricular cardiac rhythm. Cardiovascular exam; S1-S2 regular, no systolic or diastolic murmur Chest examination; clear to auscultation bilateral. Assessment & Plan Assessment/Plan (1) Essential hypertension: (2) Diabetes: (3) NIKO (acute kidney injury): (4) Complete heart block: (5) History of permanent cardiac pacemaker placement: PLAN: 76-year-old patient who presented to the ER with symptoms of fatigue. Patient seen and evaluated today at bedside with nursing staff and daughter at bedside at time of evaluation She had a history of hypertension also noted she has acute EKG in the ER revealed evidence of complete heart block She underwent bare-metal pacemaker by Dr. Winchester Cardiac care plan; 1. Chest x-ray showed no evidence of pneumothorax 2. Pacemaker interrogation normal function 3. From cardiac standpoint patient stable clinically we will follow-up with the primary haul cane brakeman for continuation of cardiac care And for monitoring of the pacemaker
[2022-03-14] MEDS: Acetaminophen 325 MG Tablet PO (15:27)
[2022-03-14] MEDS: Atorvastatin Calcium 40 MG Tablet PO (21:38)
[2022-03-14] MEDS: oxyCODONE 5 MG Tablet PO (22:16)
[2022-03-15 03:15] VITALS: BP 124/59; PULSE 84; RESP 16; TEMP 36.6; O2SAT 95
[2022-03-15 03:26] VITALS: PULSE 86
[2022-03-15] MEDS: 0.9% Normal Saline 1,000 ML 100 ML IV (04:20)
[2022-03-15] MEDS: Gabapentin 300 MG Capsule PO ×2 (05:52→13:52)
[2022-03-15 06:14] LABS: Absolute Lymphocyte Count 2.14 X10^3/uL (0.83-4.51); Absolute Neutrophil Count 3.7 X10^3/uL (2.0-7.7); Basophil# 0.03 X10^3/uL; Basophil% 0.4 % (0-1); Eosinophils% 2.9 % (0-5); Hematocrit 28.4 % (37-47); Hemoglobin 9.1 g/dL (12.0-15.0); Lymphocyte # 2.14 X10^3/ul (0.83-4.51); Lymphocyte % 31.5 % (19-41); Mean Corpuscular Hgb 29.5 pg (27.0-32.0); Mean Corpuscular Volume 92.2 fL (81-99); Mean Platelet Vol. 10.7 fl (6.2-12.0); Monocyte# 0.77 X10^3/uL; Monocyte% 11.3 % (0-10); NRBC Flagged by Analyzer 0 % (0-5); Neutrophil # 3.65 X10^3/uL (2.7-7.7); Neutrophil % 53.8 % (47-70); Platelet Count 201 K/mm3 (150-450); RBC Distribution Width CV 14.6 % (11.6-14.6); Red Blood Count 3.08 M/mm3 (4.2-5.4); White Blood Count 6.8 K/mm3 (4.4-11.0)
[2022-03-15 06:46] LABS: Anion Gap 5 (5-15); BUN 30 mg/dL (7-18); BUN/Creat Ratio 23.4 RATIO (10-20); Calcium,Total 8.4 mg/dL (8.5-10.1); Chloride 113 mmol/L (98-107); Creatinine, Serum 1.28 mg/dL (0.55-1.02); EST Glomerular Filtration Rate 43 mL/min (>60); Est Glom Filt Rate - Afr Amer 52 mL/min (>60); Estimated Creatinine Clearance 50.09 ml/min; Glucose 140 mg/dL (74-106); Iron 30 ug/dL (50-170); Iron Binding Capacity,Total 288 ug/dL (250-450); PERCENT IRON SATURATION 10.4 % (15.0-55.0); Potassium 4.3 mmol/L (3.5-5.1); Sodium Level 142 mmol/L (136-145)
[2022-03-15 07:00] VITALS: PULSE 87
--- NOTE | 2022-03-15 09:04 | PCM.PN.HOSP ---
Subjective Subjective Patient was seen and examined today, her creatinine is improved to 1.28, patient's iron level was low today, I have ordered Venofir for the patient. PT will reevaluate the patient today. Objective Data Objective Data Vital Signs: Vital Signs Temp Pulse Resp BP Pulse Ox O2 Del Method 97.9 F 87 16 124/59 H 95 Room Air 03/15/22 03:15 03/15/22 07:00 03/15/22 03:15 03/15/22 03:15 03/15/22 03:15 03/15/22 03:15 Oxygen Delivery Method Room Air Weight: 87.6 kg Body Mass Index (BMI) 38.9 Intake & Output: Intake and Output for Last 24 Hours 03/13/22 03/14/22 03/15/22 23:59 23:59 23:59 Intake Total 1000 / 1000 2790 / 2790 1081.67 / 1081.67 Output Total 450 / 650 2200 / 2200 350 / 350 Balance 550 / 350 590 / 590 731.67 / 731.67 Lab / Micro Data Result Diagrams: 03/15/22 04:58 03/15/22 04:58 Labs: Laboratory Results - last 24 hr 03/14/22 05:59: WBC 7.2, RBC 3.15 L, Hgb 9.5 L, Hct 29.5 L, MCV 93.7, MCH 30.2, MCHC 32.2, RDW Std Deviation 51.0 H, RDW Coeff of Zainab 14.9 H, Plt Count 204, MPV 11.1, Immature Gran % (Auto) 0.400, Neut % (Auto) 48.2, Lymph % (Auto) 34.6, [place] % (Auto) 11.5 H, Eos % (Auto) 4.5, Baso % (Auto) 0.8, Absolute Neuts (auto) 3.5, Absolute Lymphs (auto) 2.48, Nucleated RBC % 0 03/14/22 06:14: POC Glucose 97 03/14/22 12:10: POC Glucose 210 H 03/15/22 04:58: WBC 6.8, RBC 3.08 L, Hgb 9.1 L, Hct 28.4 L, MCV 92.2, MCH 29.5, MCHC 32.0, RDW Std Deviation 49.0 H, RDW Coeff of Zainab 14.6, Plt Count 201, MPV 10.7, Immature Gran % (Auto) 0.100, Neut % (Auto) 53.8, Lymph % (Auto) 31.5, [place] % (Auto) 11.3 H, Eos % (Auto) 2.9, Baso % (Auto) 0.4, Absolute Neuts (auto) 3.7, Absolute Lymphs (auto) 2.14, Nucleated RBC % 0 03/15/22 04:58: Sodium 142, Potassium 4.3, Chloride 113 H, Carbon Dioxide 24.0, Anion Gap 5, BUN 30 H, Creatinine 1.28 H, Estim Creat Clear Calc 50.09, Est GFR (MDRD) Af Amer 52 L, Est GFR (MDRD) Non-Af 43 L, BUN/Creatinine Ratio 23.4 H, Glucose 140 H, Calcium 8.4 L, Iron 30 L, TIBC 288, Iron Saturation 10.4 L Micro: Microbiology 03/13/22 12:53 Nasal Secretion SARS-CoV-2 Antigen (Rapid) - Final Radiography Diagnostic Testing: Radiology Impression Chest X-Ray 03/14/22 06:25 IMPRESSION: Satisfactory pacemaker placement. No evidence of pneumothorax. Electronically Signed: Stevie El MD at 9:32 EDT , Rhythm Strip Rhythm Strip: Bradycardia Rate: 44 Ectopy: None Physical Exam Const alert, oriented x3 and no apparent distress Constitutional Narrative: Patient appears older than her stated age, she appears frail and unwell, she exhibits mild confusion General Appearance: cooperative, well kempt and well developed Orientation / Consciousness: awake, oriented to person, oriented to place and oriented to time HEENT normocephalic, head/scalp atraumatic and moist oral mucous membranes Eyes PERRL, EOMs intact bilaterally and conjunctivae normal Neck supple, no JVD, thyroid normal and no carotid bruits General: trachea midline Resp normal respiratory effort, no retractions, no use of accessory muscles and clear to auscultation bilaterally Auscultation: Negative for rales, rhonchi or wheezes Cardio regular rate, regular rhythm, S1 normal heart sound, S2 normal heart sound, no murmurs, no rub and no gallops Cardio Narrative: Paced rhythm GI normal to inspection, nondistended, normoactive bowel sounds, soft to palpation, non-tender and non-distended Extremity no clubbing, cyanosis or edema Skin no rashes or lesions noted General Skin Exam: no breakdown Neuro oriented x3, CN's II-XII intact bilaterally, no focal motor deficits and no sensory deficits noted Sensorium / Orientation: awake and alert Speech: speech normal Psych affect normal Psych Narrative: Patient has flat affect, she exhibits mild confusion Assessment & Plan Assessment/Plan (1) History of permanent cardiac pacemaker placement: (2) Complete heart block: PLAN: Plan 1. Third-degree heart block-status post insertion of permanent pacemaker postop day #2, continue present care #2 Acute kidney injury-probably secondary to dehydration-continue patient's IV fluids for now, repeat labs tomorrow, patient's creatinine has improved to 1.28 today. #3 type 2 diabetes-patient's oral diabetic medications will be held due to her renal function, patient's blood sugars will be monitored, sliding scale insulin will be administered as needed #4 hyperlipidemia-patient is on atorvastatin #5 essential hypertension-patient is on lisinopril, this will be held due to the patient's renal function #6 GERD-patient will continue on a PPI, I have elected to hold her Carafate-I am not sure why she is on this medication #7 anemia-iron deficiency-patient was given Venofir today, she will need to take oral iron supplementation when she is discharged #8 mild metabolic encephalopathy-secondary to dehydration/acute kidney injury-complicates care, management, recovery, and prognosis. Physical therapy will see the patient today Charges/Coding Visit Charges Inpatient E&M: 21076 Subs Hosp L2
[2022-03-15 09:15] VITALS: BP 175/86; PULSE 91; RESP 17; TEMP 37.2; O2SAT 95
[2022-03-15] MEDS: Pantoprazole Sodium 40 MG Tablet PO (09:28)
[2022-03-15] MEDS: oxyCODONE 5 MG Tablet PO (09:30)
[2022-03-15] MEDS: Acetaminophen 325 MG Tablet 650 MG PO (09:30)
[2022-03-15] MEDS: Heparin Injection (Vial) 5,000 UNIT/ML VIAL 5000 UNIT SC (10:12)
--- NOTE | 2022-03-15 11:20 | DCINST_ITS ---
Discharge Instructions Diet Discharge Diet: No restrictions Activity Discharge Activity: Return to Normal Activity Additional Activity Instructions:: May shower or bathe on [day 3]. Do not scrub the incision or soak in the tub. Just wash with soap and let the water run over the incision. Gently pat dry with towel. Medications: Take your pain medication as directed. Refer to your discharge instruction sheet for a list of medications you are to take. Dressing / Incision Call your doctor if your incision/area has: Continuous Slow Oozing, Sudden Increased Bleeding, Increased Pain/ Swelling, Increased Redness, Foul Smelling Discharge and Swelling at the incision site Call your doctor if you observe: Fever of 101 or Higher, Shortness of breath, Dizziness, Fainting spells, Swelling in the ankles, Chest pain, Prolonged hiccupping and Increased palpitations (irregular heartbeat) Suture Line Care: Avoid Pulling/Pushing and Avoid Pinching/Bending Cleanse incision/area with: Keep Dressing Clean & Dry Additional Dressing/Incision Instructions:: When dressing is removed, wash and dry incision. Keep covered with a light bandage if it is rubbing against your clothing. Do not cover the incision with an airtight bandage. Change the bandage daily. Do not remove steri strips. The strips will fall off on their own. Follow Up Care Please Follow Up With: Obed Winchester MD Test Results: Test results from this visit will be discussed in further detail at your follow- up appointment, if applicable. Discharge Plan Admission Admit Date/Time: 03/13/22 16:50 Primary Reason for Your Visit: Third-degree heart block, pacemaker insertion Attending Provider: Eleazar Jamison Primary Care Provider: Pako Serrano NP Consulting Providers: Obed Winchester Discharge Orders/Prescriptions Prescriptions: New ferrous sulfate 324 mg (65 mg iron) tablet,delayed release (DR/EC) 324 mg PO BID Qty: 60 0RF Continued atorvastatin 40 mg tablet 40 mg PO QHS Label Comments: TAKE 1 TABLET BY MOUTH ONCE DAILY tramadol 50 mg tablet 50 mg PO QHS Label Comments: TAKE 1 TABLET BY MOUTH EVERY DAY AT BEDTIME NEEDED FOR PAIN pantoprazole 40 mg tablet,delayed release (DR/EC) 40 mg PO DAILY Label Comments: TAKE 1 TABLET BY MOUTH ONCE DAILY metformin 1,000 mg tablet 1,000 mg PO BID Label Comments: TAKE 1 TABLET BY MOUTH TWICE DAILY gabapentin 300 mg capsule 300 mg PO TID Label Comments: TAKE 1 CAPSULE BY MOUTH THREE TIMES DAILY lisinopril 5 mg tablet 5 mg PO DAILY Label Comments: TAKE 1 TABLET BY MOUTH ONCE DAILY furosemide 20 mg tablet 20 mg PO DAILY Label Comments: TAKE 1 TABLET BY MOUTH ONCE DAILY multivitamin Capsule 1 cap PO DAILY glipizide 5 mg tablet 7.5 mg PO DAILY Label Comments: TAKE 1.5 TABLETS BY MOUTH EVERY DAY Discontinued sucralfate 1 gram tablet 1 g PO DAILY Label Comments: TAKE 1 TABLET BY MOUTH TWICE DAILY BEFORE MEALS OR AT BEDTIME NEEDED FOR GASTRITIS Referrals / Follow Up: Obed Winchester MD [Med Staff - Active Staff] - See Referral Note (If you are not contacted by their office by Wednesday of this week, call to schedule a follow- up appointment) Pako Serrano NP, [employer] [Primary Care Provider] - See Referral Note (At your regularly scheduled appointment time) Disposition Disposition (needs filled in before D/C Order can be placed): Home, Self Care
[2022-03-15 12:06] VITALS: BP 145/77; PULSE 83; RESP 17; TEMP 37.2; O2SAT 95
[2022-03-16 00:30] LABS: Bedside Glucose 168 mg/dL (74-106)
--- NOTE | 2022-03-16 13:41 | CL.IE_ITS ---
Patient: DESIRE CHUNG Study Date: 03/13/2022 Performing: Obed Winchester MD : [id number] Age: 76 Gender: female PROCEDURES PERFORMED [id number])INITIAL PACER INSERT+DUAL LEADS INDICATIONS Atrioventricular (AV) block PROCEDURE DETAILS The patient was brought to the Catheterization Lab in the postabsorptive nonsedated state. Infor med consent was obtained prior to the procedure. Local anesthetic was given subcutaneously to the le ft subclavian region with Lidocaine 2%. Access was achieved and a guidewire was advanced into the lef t subclavian vein. Incision was made to the left upper chest. A peel-away sheath was inserted into th e left subclavian vein. PPM ventricular lead was inserted / positioned to right ventricular apex. PPM ventricular lead testing performed. PPM ventricular lead testing performed. The sheath was then olinda cecile. A peel-away sheath was inserted into the left subclavian vein. PPM atrial lead was inserted / po sitioned to the right atrial appendage. PPM atrial lead testing performed. The Atrial lead sutured in place with 2-0 Silk. The Ventricular PM lead sutured in place with 2-0 Silk. Device pocket was irrig ated with antibiotic. PPM generator was attached to the lead(s) and inserted into the pocket. PPM generator was then interrogated by the sql programmer analyst. Subcutaneous closure was completed wit h 3-0 Vicryl. Skin closure was completed with 4-0 Vicryl. The patient tolerated the procedure well. Estimated Blood Loss: 3 ml's IMPLANTED / EX-PLANTED DEVICES IMPLANTED DEVICE(S): PPM Generator - Shotblast Operator: [employer], Model # L111 , Serial # [id number] PPM Ventricular lead - Shotblast Operator: [employer], Model # [id number] , Serial # [id number] PPM Atrial lead - Shotblast Operator: [employer], Model # [id number] , Serial # [id number] DEVICE PARAMETERS ATRIAL LEAD PARAMETERS: P wave- 3.5 (mV) Current- 1.0 (mA) threshold- .6 (V) impedence- 623 (OHMS) VENTRICULAR LEAD PARAMETERS: Current- .6 (mA) threshold- .5 (V) impedence- 771 (OHMS) DEVICE PARAMETERS: Mode- ddd Lower rate- 60 Upper rate- 130 CONCLUSIONS / RECOMMENDATIONS Device Conclusions: Successful implantation of a dual chamber pacemaker Device Recommendations: Follow up with Primary Care Physician PROCEDURE MEDICATIONS Fentanyl 50 mcg IV Versed 1 mg IV Oxygen: 2 L/min via nasal cannula Ancef 2 Gm IV @ 03/13/2022 14:27:19 Signed By Obed Winchester MD On 03/16/2022 13:39:58 Obed Winchester MD
== END 2022-03-15 14:24 | disposition home or self-care (01) | DRG 242 ==
LOC: ED 13:36 → CLSP 13:45 → PCU 03-14 06:25
PROVIDERS: Admitting Provider Internal Medicine; Emergency Provider Emergency Medicine; PCP Nurse Practitioner Primary Care; Visit Provider Internal Medicine
DX: I44.2 Atrioventricular block, complete (principal); G93.41 Metabolic encephalopathy; N17.9 Acute kidney failure, unspecified; E11.9 Type 2 diabetes mellitus without complications; E78.5 Hyperlipidemia, unspecified; D64.9 Anemia, unspecified; I10 Essential (primary) hypertension; K21.9 Gastro-esophageal reflux disease without esophagitis; E86.0 Dehydration; Z87.19 Personal history of other diseases of the digestive system; M81.0 Age-related osteoporosis without current pathological fracture; Z79.84 Long term (current) use of oral hypoglycemic drugs; Z79.899 Other long term (current) drug therapy
CPT/HCPCS: 33208; 36415; 71045; 71047; 80048; 80053; 82962; 83540; 83550; 84443; 84484; 85025; 87811; 93005; 93308; 97162; 97530; 99152; 99153; 99285; J7030; J7050; A4216; C1894; J2916

== ENCOUNTER → 2022-08-17 | Outpatient (CLI) | payer MEDICARE, MEDICAID, SELFPAY ==
--- NOTE | 2022-08-17 17:54 | STRESSREP ---
Stress Test Report Pharmacologic myocardial perfusion stress test. 77-year-old lady with a history of chest pain and dyspnea Resting EKG demonstrates sinus rhythm with a rate of 72 bpm. Resting blood pressure is 138/74 mmHg. 0.4 mg of regadenoson was infused per usual protocol followed by rapid intravenous saline flush injection. Continuous EKG monitoring was performed. The maximum heart rate was 86 bpm which was 60% of max impacted heart rate the maximum workload was 1 metabolic equivalent. At rest there were no ST or T wave changes noted to suggest ischemia and at peak infusion nonspecific ST changes were noted with did not meet the criteria for ischemia. Occasional premature ventricular complexes noted. No clinical angina is noted. The final blood pressure was 122/64 mmHg. Myocardial perfusion protocol. 10.8 mCi of technetium 99m sestamibi was injected at rest. 0.4 mg of regadenoson was infused per usual protocol. At peak infusion 32.4 mCi of technetium 99m sestamibi was injected stress images were obtained stress and rest images were reconstructed and compared in the short axis vertical long and horizontal long axis. Gated images were also obtained. Perfusion SPECT analysis: Review of the stress images demonstrate normal uptake of tracer noted in all areas of the myocardium. The resting images similar demonstrated normal uptake of tracer noted in all areas of the myocardium. No areas of reversibility are noted to suggest ischemia and no previous infarct is noted. Gated SPECT analysis: The gated ejection fraction is 76%. Conclusion: Normal pharmacologic myocardial perfusion stress test. Preserved ejection fraction.
== END | disposition home or self-care (01) ==
LOC: CVS 07:15
PROVIDERS: PCP Nurse Practitioner Primary Care; Visit Provider Nurse Practitioner Family
DX: I49.3 Ventricular premature depolarization (principal); I44.2 Atrioventricular block, complete; E11.9 Type 2 diabetes mellitus without complications; R06.02 Shortness of breath; R53.83 Other fatigue; I10 Essential (primary) hypertension
CPT/HCPCS: 78452; 93017; A9500; A4216; J2785

== ENCOUNTER 2022-09-15 11:07 | Emergency (ER) | payer MEDICARE, MEDICAID, SELFPAY ==
[2022-09-15 11:08] VITALS: BP 147/66; PULSE 98; RESP 18; TEMP 36.8; O2SAT 100; BMI 38.1
[2022-09-15 12:36] LABS: Absolute Lymphocyte Count 1.33 X10^3/uL (0.83-4.51); Absolute Neutrophil Count 4.4 X10^3/uL (2.0-7.7); Basophil# 0.08 X10^3/uL; Basophil% 1.1 % (0-1); Eosinophil# 0.32 X10^3/uL; Eosinophils% 4.2 % (0-5); Hematocrit 37.3 % (37-47); Hemoglobin 11.9 g/dL (12.0-15.0); Lymphocyte # 1.33 X10^3/ul (0.83-4.51); Lymphocyte % 17.6 % (19-41); Mean Corp Hgb Conc 31.9 g/dL (32-36); Mean Corpuscular Hgb 30.7 pg (27.0-32.0); Mean Corpuscular Volume 96.1 fL (81-99); Mean Platelet Vol. 10.3 fl (6.2-12.0); Monocyte# 1.37 X10^3/uL; Monocyte% 18.2 % (0-10); NRBC Flagged by Analyzer 0 % (0-5); Neutrophil # 4.37 X10^3/uL (2.7-7.7); POSITIVE MORPHOLOGY YES; Platelet Count 203 K/mm3 (150-450); RBC Distribution Width CV 13.9 % (11.6-14.6); Red Blood Count 3.88 M/mm3 (4.2-5.4); White Blood Count 7.5 K/mm3 (4.4-11.0)
[2022-09-15 12:42] LABS: Differential Indicated SCAN CRITERIA MET
[2022-09-15 12:50] LABS: Anion Gap 9 (5-15); BUN 22 mg/dL (7-18); Calcium,Total 9.4 mg/dL (8.5-10.1); Chloride 106 mmol/L (98-107); Creatinine, Serum 1.69 mg/dL (0.55-1.02); EST Glomerular Filtration Rate 31 mL/min (>60); Est Glom Filt Rate - Afr Amer 38 mL/min (>60); Estimated Creatinine Clearance 36.53 ml/min; Glucose 106 mg/dL (74-106); Potassium 4.6 mmol/L (3.5-5.1); Sodium Level 140 mmol/L (136-145)
[2022-09-15 13:11] LABS: Differential Comment SCANNED
[2022-09-15 13:12] LABS: Atypical Lymphocyte 1+ %
--- NOTE | 2022-09-15 15:27 | CT_ITS ---
INDICATION: Abdominal pain, recent UTI EXAMINATION: CT ABDOMEN AND PELVIS WITHOUT CONTRAST - CT Abdomen And Pelvis W/O Contrast Injection TECHNIQUE: Helically acquired images were obtained of the abdomen and pelvis without oral or IV contrast. A radiation dose optimization technique was used for this scan. IV Contrast dosage and agent: None. Oral contrast: None. COMPARISON: None. FINDINGS: LOWER CHEST: Lung bases are clear. Mitral valve calcification. LIVER: Homogeneous. No focal mass. GALLBLADDER AND BILIARY TREE: Prior cholecystectomy. No intra- or extrahepatic biliary ductal dilation. PANCREAS: No focal cystic or solid mass. SPLEEN: Normal size without focal cystic or solid mass. ADRENAL GLANDS: No nodules. KIDNEYS AND URETERS: Normal renal size and position. No hydronephrosis. PERITONEUM: No ascites or free air. No other fluid collection. BOWEL: No evidence of acute appendicitis. No stomach or bowel distension. Low anterior small bowel anastomosis. No focal inflammatory change. LYMPH NODES: Prominent para-aortic lymph nodes. VESSELS: Aorta is non-dilated. Numerous prominent mesenteric vessels. URINARY BLADDER: Vague circumferential wall thickening and perivesical inflammatory stranding. REPRODUCTIVE ORGANS: Prior hysterectomy. Bilateral ovarian calcifications. ABDOMINAL WALL: No discrete abdominal or pelvic wall hernia. BONES: Lumbar scoliosis and degenerative change. CT/Abdomen/Pelvis without Cont IMPRESSION: 1. Appearance of the bladder and periaortic lymph nodes compatible with known recent UTI. 2. No other acute abnormal finding in the abdomen or pelvis. Electronically Signed: Kenn Briceño MD at 16:36 EST ,
--- NOTE | 2022-09-15 15:28 | ED.VIS.GI ---
HPI HPI - GI History of Present Illness Chief Complaint: Abd Pain Narrative Narrative: 77-year-old feels well presenting with abdominal pain. She describes it as suprapubic and left lower quadrant. Patient states she has had this pain for some time. Patient recently diagnosed with UTI by primary care physician. She has been on Bactrim for about 5 days but has been confused at home per her daughter. She is alert and oriented x3 however she is slow to respond per daughter and is a little bit confused even though she is alert. She had a slow fall yesterday which was controlled and she has not injured herself or hit her head. Has been ambulatory since then. Daughter is concerned for weakness. Patient has not had a fever. She also admits to constipation. [facility] Medical History Complete heart block Diabetes Essential hypertension Non-smoker Osteoarthritis Presence of permanent cardiac pacemaker Home Medications atorvastatin 40 mg tablet 40 mg PO QHS cholesterol 03/13/22 [History Last Taken 03/12/22] gabapentin 300 mg capsule 300 mg PO TID Check with primary doctor 03/13/22 [History Last Taken 03/13/22] multivitamin 1 cap PO DAILY Check with primary doctor 03/13/22 [History Last Taken 03/13/22] pantoprazole 40 mg tablet,delayed release 40 mg PO DAILY Check with primary doctor 03/13/22 [History Last Taken 03/13/22] tramadol 50 mg tablet 50 mg PO QHS Check with primary doctor 03/13/22 [History Last Taken 03/12/22] ferrous sulfate 324 mg (65 mg iron) tablet,delayed release 324 mg PO BID #60 tabs 03/15/22 [Rx Last Taken Unknown] furosemide 20 mg tablet 10 mg PO DAILY 04/14/22 [History Last Taken Unknown] glipizide 5 mg tablet 5 mg PO DAILY Check with primary doctor 04/14/22 [History Last Taken Unknown] multivitamin with minerals (Hair,Skin and Nails tablet) 1 tab PO DAILY 04/14/22 [History Last Taken Unknown] lisinopril 10 mg tablet 10 mg PO DAILY Check with primary doctor #30 tabs 07/17/22 [Rx Last Taken Unknown] metformin 1,000 mg tablet 500 mg PO DAILY Check with primary doctor 07/17/22 [History Last Taken Unknown] Allergy/AdvReac Type Severity Reaction Status Date / Time Iodinated Contrast Media Allergy Rash Verified 09/15/22 11:13 [CONTRASTS] oxaprozin [From Daypro] AdvReac Upset Verified 09/15/22 11:13 Stomach Family History Brother Cancer Brother Cancer Sister Cancer Mother Diabetes Asthma Surgical History (Updated 09/15/22 @ 15:40 by Julia Armenta) History of appendectomy History of carpal tunnel release of both wrists History of cholecystectomy History of hernia repair History of hysterectomy History of permanent cardiac pacemaker placement (03/13/22) Social History Smoking Status: Never smoker alcohol intake: never substance use type: does not use caffeine: Yes Type: tea ROS ROS ED Constitutional Constitutional ED: Denies chills or fever(s) ENT ENT ED: Denies rhinorrhea or sore throat Cardiovascular Cardiovascular: Denies chest pain or palpitations Respiratory/Chest Respiratory/Chest: Denies cough or dyspnea Gastrointestinal Gastrointestinal: Reports abdominal pain, constipation and nausea Genitourinary Genitourinary ED: Denies dysuria or hematuria Musculoskeletal Musculoskeletal: Denies arthralgias or back pain Integumentary Denies abscess or Abrasions Neurologic Neurologic: Denies headache(s) Psychiatric Psychiatric: Denies anxiety or depression Endocrine Endocrinology: Denies polydipsia or polyphagia EXAM Physical Exam Const Vital Signs: 09/15/22 11:08 09/15/22 15:38 09/15/22 17:15 Temperature 98.2 F 98 F Temperature Source Temporal Oral Pulse Rate 98 81 82 Respiratory Rate 18 18 16 Blood Pressure 147/66 H 134/55 H 121/48 H Blood Pressure Mean 93 81 72 Pulse Ox 100 98 99 Oxygen Delivery Method Room Air Nasal Cannula Room Air Positive well nourished General Appearance ED: Negative for pallor HEENT Reports moist mucous membranes Eyes PERRL and EOMs intact bilaterally Resp normal respiratory effort and clear to auscultation bilaterally Auscultation: Negative for rales, rhonchi or wheezes Cardio regular rate and regular rhythm GI Palpation: tender LLQ and suprapubic Back/Spine no CVA tenderness Neuro CN's II-XII intact bilaterally and moves all extremities Sensorium / Orientation: alert Psych mental status grossly normal Skin General Skin Exam: Negative for jaundice or pallor MDM MDM MDM Narrative Medical decision making narrative: Patient presenting with generalized weakness, and fall yesterday. Recently treated for UTI with Bactrim. This was for suspected UTI per primary care physician. Daughter states she is confused although she is alert and oriented. She is slow to respond and sometimes responds awkwardly. Patient presenting with abdominal pain as well. She also had some constipation. She declines analgesia or nausea medicine. Differential includes but not limited to UTI, urinary retention, diverticulitis, constipation, dehydration, NIKO, colitis. CBC for white blood cell count, differential which shows normal white blood cell count of 7.5. Hemoglobin normal 11.9. Platelets normal at 203. No left shift. BMP for renal function and electrolytes. Creatinine seems to be elevated today at 1.69. GFR is declined at 31. Creatinine 1.28 previously. GFR previously 43. Patient given a liter of IV fluids. Will obtain urinalysis. I suspect that the patient does have decreased p.o. intake but also that the Bactrim could be causing elevated creatinine. Will obtain CT pelvis due to the abdominal pain as she is very tender in the suprapubic and left lower quadrant region. Because of her GFR will not obtain with contrast. This was negative for acute findings. Discussed all lab work and imaging with the patient and her daughter. I did recommend a follow-up later this week or next week for repeat BMP to recheck her kidney function. Did recommend that they abstain from Bactrim in the near future this is likely what caused the NIKO. They do report that she has been drinking plenty of fluids. Patient discharged in stable condition with return precautions. Impression: 1. Abdominal pain 2. History of UTI Lab Data Attestation: I reviewed the patient's lab results. Labs: Laboratory Results - last 24 hr 09/15/22 09/15/22 09/15/22 12:30 12:30 15:42 WBC 7.5 RBC 3.88 L Hgb 11.9 L Hct 37.3 MCV 96.1 MCH 30.7 MCHC 31.9 L RDW Std Deviation 49.0 H RDW Coeff of Zainab 13.9 Plt Count 203 MPV 10.3 Immature Gran % (Auto) 0.900 Neut % (Auto) 58.0 Lymph % (Auto) 17.6 L [place] % (Auto) 18.2 H Eos % (Auto) 4.2 Baso % (Auto) 1.1 H Absolute Neuts (auto) 4.4 Absolute Lymphs (auto) 1.33 Nucleated RBC % 0 Differential Comment SCANNED Atypical Lymphocytes 1+ Sodium 140 Potassium 4.6 Chloride 106 Carbon Dioxide 25.0 Anion Gap 9 BUN 22 H Creatinine 1.69 H Estim Creat Clear Calc 36.53 Est GFR (MDRD) Af Amer 38 L Est GFR (MDRD) Non-Af 31 L BUN/Creatinine Ratio 13.0 Glucose 106 Calcium 9.4 Urine Color Yellow Urine Clarity Clear Urine pH 6.0 Ur Specific [place] 1.010 Urine Protein Negative Urine Glucose (UA) Normal Urine Ketones Negative Urine Occult Blood Negative Urine Nitrite Negative Urine Bilirubin Negative Urine Urobilinogen Normal Ur Leukocyte Esterase 100 H Urine RBC 0-5 SEEN Urine WBC 0-5 SEEN Ur Squamous Epith Cells 0-5 SEEN Urine Bacteria RARE Urine Mucus 0 SEEN Radiography Diagnostic Testing: Clinical Impression(s) from Imaging Studies Abdomen/Pelvis CT 09/15/22 15:27 IMPRESSION: 1. Appearance of the bladder and periaortic lymph nodes compatible with known recent UTI. 2. No other acute abnormal finding in the abdomen or pelvis. Electronically Signed: Kenn Briceño MD at 16:36 EST , Discharge Plan Triage Chief Complaint: Abd Pain ED Provider: Chadwick Fermin Dx/Rx/DC Orders Instructions: ED Abdominal Pain Unkn Cause Fem Prescriptions: No Action Hair,Skin and Nails Tablet 1 tab PO DAILY lisinopril 10 mg tablet 10 mg PO DAILY Qty: 30 11RF atorvastatin 40 mg tablet 40 mg PO QHS Label Comments: TAKE 1 TABLET BY MOUTH ONCE DAILY tramadol 50 mg tablet 50 mg PO QHS Label Comments: TAKE 1 TABLET BY MOUTH EVERY DAY AT BEDTIME NEEDED FOR PAIN pantoprazole 40 mg tablet,delayed release (DR/EC) 40 mg PO DAILY Label Comments: TAKE 1 TABLET BY MOUTH ONCE DAILY gabapentin 300 mg capsule 300 mg PO TID Label Comments: TAKE 1 CAPSULE BY MOUTH THREE TIMES DAILY multivitamin Capsule 1 cap PO DAILY ferrous sulfate 324 mg (65 mg iron) tablet,delayed release (DR/EC) 324 mg PO BID Qty: 60 0RF furosemide 20 mg tablet 10 mg PO DAILY glipizide 5 mg tablet 5 mg PO DAILY metformin 1,000 mg tablet 500 mg PO DAILY Primary Care Provider: Pako Serrano NP Referrals: Pako Serrano LEARNING AND DEVELOPMENT OFFICER, [employer]ARNING AND DEVELOPMENT OFFICER-C [Primary Care Provider] - Disposition Disposition: Home, Self Care
[2022-09-15] MEDS: 0.9% Normal Saline 1,000 ML 999 ML IV (15:37)
[2022-09-15 15:38] VITALS: BP 134/55; PULSE 81; RESP 18; TEMP 36.6; O2SAT 98
[2022-09-15 15:47] LABS: Mucous, Urine 0 SEEN /hpf (<or=2+)
[2022-09-15 15:52] LABS: Color, Urine Yellow (Yellow); Glucose, Dipstick Normal (Normal); Ketone-Dipstick Negative (Negative); Leukocyte Esterase-Dipstick 100 /ul (Negative); Nitrite-Dipstick Negative (Negative); Occult Blood-Urine Negative /ul (Negative); Protein-Dipstick Negative (Negative); Urine Bilirubin Dipstick Negative (Negative); Urine Clarity Clear (Clear); Urine Urobilinogen Normal (Normal)
[2022-09-15 16:03] LABS: Red Blood Cells-Urine 0-5 SEEN /hpf (0-5); Squamous Epithelial Cells - UA 0-5 SEEN /hpf (5-10); White Blood Cells 0-5 SEEN /hpf (0-5)
[2022-09-15 16:04] LABS: Bacteria RARE /hpf (None Seen)
[2022-09-15 17:15] VITALS: BP 121/48; PULSE 82; RESP 16; O2SAT 99
[2022-09-15 18:16] LABS: Bedside Glucose 98 mg/dL (74-106)
== END 2022-09-15 18:37 | disposition home or self-care (01) ==
PROVIDERS: Emergency Provider Student in an Organized Health Care Education/Training Program; PCP Nurse Practitioner Primary Care; Visit Provider Student in an Organized Health Care Education/Training Program
DX: R10.32 Left lower quadrant pain (principal); E11.9 Type 2 diabetes mellitus without complications; N39.0 Urinary tract infection, site not specified; I10 Essential (primary) hypertension; R53.1 Weakness; R41.0 Disorientation, unspecified; Z79.899 Other long term (current) drug therapy
CPT/HCPCS: 74176; 80048; 81001; 82962; 85025; 99283; J7030; A4216

== ENCOUNTER 2023-01-12 15:34 | Emergency (ER) | payer MEDICARE, MEDICAID, SELFPAY ==
[2023-01-12 15:36] VITALS: BP 155/76; PULSE 80; RESP 18; TEMP 36.1; O2SAT 100; BMI 37.6
[2023-01-12 15:46] VITALS: PULSE 79; RESP 15; O2SAT 100
--- NOTE | 2023-01-12 16:30 | EKG12_ITS ---
Test Reason : DIZZINESSS Blood Pressure : / mmHG Vent. Rate : 074 BPM Atrial Rate : 074 BPM P-R Int : 152 ms QRS Dur : 078 ms QT Int : 424 ms P-R-T Axes : 047 -18 037 degrees QTc Int : 470 ms Atrial-sensed ventricular-paced rhythm Abnormal ECG Confirmed by BLANCA MORGAN, KADI ([id number]), index editor ELIZABETH STOUT ([id number]) on 01/13/2023 9:40:24 AM Referred By: Confirmed By:KADI RIOS MD
--- NOTE | 2023-01-12 16:40 | RAD_ITS ---
STUDY: XR Chest 1 View 01/12/2023 4:40 PM REASON FOR EXAM: Female, 77 years old. CHEST PAIN chest pain COMPARISON: 8.6.22 TECHNIQUE: XR Chest 1 View FINDINGS: There is no demonstrated pleural abnormality. There is a left sided pacemaker batterypack. There is an elevated right hemidiaphragm. Normal heart size. Normal mediastinum. Normal priscilla. Prominent appearing increased interstitial lung markings. Normal visualized pulmonary arteries. There is atherosclerotic calcification of the aortic arch with tortuosity. There are diffuse degenerative changes of the visualized thoracic spine. There is degenerative osteoarthritis of the bilateral shoulders. There is no demonstrated abnormality of the visualized soft tissue structures of the upper abdomen. RAD/Chest 1 View (Portable) IMPRESSION: There are no acute findings. Electronically Signed: Gui Feliciano MD at 16:54 EDT ,
[2023-01-12 16:41] LABS: Absolute Lymphocyte Count 3.16 X10^3/uL (0.83-4.51); Absolute Neutrophil Count 4.3 X10^3/uL (2.0-7.7); Basophil# 0.05 X10^3/uL; Basophil% 0.6 % (0-1); Eosinophil# 0.33 X10^3/uL; Eosinophils% 3.8 % (0-5); Hematocrit 35.8 % (37-47); Hemoglobin 11.6 g/dL (12.0-15.0); Lymphocyte # 3.16 X10^3/ul (0.83-4.51); Lymphocyte % 36.3 % (19-41); Mean Corp Hgb Conc 32.4 g/dL (32-36); Mean Corpuscular Hgb 30.4 pg (27.0-32.0); Mean Corpuscular Volume 93.7 fL (81-99); Mean Platelet Vol. 10.4 fl (6.2-12.0); Monocyte# 0.83 X10^3/uL; Monocyte% 9.5 % (0-10); NRBC Flagged by Analyzer 0 % (0-5); Neutrophil % 49.5 % (47-70); Platelet Count 207 K/mm3 (150-450); RBC Distribution Width CV 13.8 % (11.6-14.6); RBC Distribution Width SD 47.2 fl (35.1-43.9); Red Blood Count 3.82 M/mm3 (4.2-5.4); White Blood Count 8.7 K/mm3 (4.4-11.0)
[2023-01-12 16:52] VITALS: BP 139/73; BP 140/63; BP 147/59; PULSE 77; PULSE 81; PULSE 84
[2023-01-12 17:05] LABS: Anion Gap 8 (5-15); BUN 15 mg/dL (7-18); BUN/Creat Ratio 11.7 RATIO (10-20); Calcium,Total 9.3 mg/dL (8.5-10.1); Chloride 105 mmol/L (98-107); Creatinine, Serum 1.28 mg/dL (0.55-1.02); EST Glomerular Filtration Rate 43 mL/min (>60); Est Glom Filt Rate - Afr Amer 52 mL/min (>60); Estimated Creatinine Clearance 47.54 ml/min; Glucose 229 mg/dL (74-106); Potassium 3.6 mmol/L (3.5-5.1); Sodium Level 139 mmol/L (136-145); Troponin-I HS 16 pg/mL (3.0-54.0)
--- NOTE | 2023-01-12 17:09 | EX.ED.DYSGE1 ---
HPI History of Present Illness Chief Complaint: Dizziness Narrative Narrative: 77-year-old female presenting with her daughter for lightheadedness. She states it started yesterday. She states she was also very cold yesterday. She denied chills or body aches. No fevers. No chest pain or shortness of breath. Patient does have a history of complete heart block but does have a permanent pacemaker. Her daughter checked her blood pressure at home and noted it was low. She states it was 90/40. This is not a new blood pressure cuff. Patient is not on any new medications. She takes lisinopril 10 mg for hypertension. [facility] Medical History Complete heart block Diabetes Essential hypertension Non-smoker Osteoarthritis Presence of permanent cardiac pacemaker Home Medications atorvastatin 40 mg tablet 40 mg PO QHS cholesterol 03/13/22 [History Last Taken 03/12/22] gabapentin 300 mg capsule 300 mg PO TID Check with primary doctor 03/13/22 [History Last Taken 03/13/22] multivitamin 1 cap PO DAILY Check with primary doctor 03/13/22 [History Last Taken 03/13/22] pantoprazole 40 mg tablet,delayed release 40 mg PO DAILY Check with primary doctor 03/13/22 [History Last Taken 03/13/22] tramadol 50 mg tablet 50 mg PO QHS Check with primary doctor 03/13/22 [History Last Taken 03/12/22] ferrous sulfate 324 mg (65 mg iron) tablet,delayed release 324 mg PO BID #60 tabs 03/15/22 [Rx Last Taken Unknown] glipizide 5 mg tablet 5 mg PO DAILY Check with primary doctor 04/14/22 [History Last Taken Unknown] multivitamin with minerals (Hair,Skin and Nails tablet) 1 tab PO DAILY 04/14/22 [History Last Taken Unknown] lisinopril 10 mg tablet 10 mg PO DAILY Check with primary doctor #30 tabs 07/17/22 [Rx Last Taken Unknown] metformin 1,000 mg tablet 500 mg PO DAILY Check with primary doctor 07/17/22 [History Last Taken Unknown] Allergy/AdvReac Type Severity Reaction Status Date / Time Iodinated Contrast Media Allergy Rash Verified 01/12/23 15:37 [CONTRASTS] oxaprozin [From Daypro] AdvReac Upset Verified 01/12/23 15:37 Stomach Family History Brother Cancer Brother Cancer Sister Cancer Mother Diabetes Asthma Surgical History History of appendectomy History of carpal tunnel release of both wrists History of cholecystectomy History of hernia repair History of hysterectomy History of permanent cardiac pacemaker placement (03/13/22) Social History Smoking Status: Never smoker alcohol intake: never substance use type: does not use caffeine: Yes Type: tea ROS ROS ED Constitutional Constitutional ED: Reports other Details: Feels cold ; Denies chills, fever(s) or sweats Eyes Eyes: Denies blurry vision or change in vision ENT ENT ED: Denies ear pain or sore throat Cardiovascular Cardiovascular: Reports other Details: Lightheadedness ; Denies chest pain, palpitations or racing heartbeat Respiratory/Chest Respiratory/Chest: Denies cough, dyspnea or sputum Gastrointestinal Gastrointestinal: Denies abdominal pain, constipation, diarrhea, nausea or vomiting Genitourinary Genitourinary ED: Denies dysuria, hematuria or urinary frequency Musculoskeletal Musculoskeletal: Denies arthralgias, myalgias or neck pain Integumentary Denies abscess, Abrasions or rash Neurologic Neurologic: Denies headache(s), paresthesias or weakness Psychiatric Psychiatric: Denies anxiety, depression, suicidal ideation or suicidal thoughts Endocrine Endocrinology: Denies polydipsia or polyuria EXAM Physical Exam Const Vital Signs: 01/12/23 15:36 01/12/23 15:46 01/12/23 15:46 Temperature 96.9 F L Temperature Source Temporal Pulse Rate 80 79 Pulse Rate [Lying] Pulse Rate [Sitting (for 1 minute prior to obtaining)] Pulse Rate [Standing (for 1 minute prior to obtaining)] Respiratory Rate 18 15 Respiratory Effort Normal Non-Labored Respiratory Pattern Normal Blood Pressure 155/76 H Blood Pressure [Lying] Blood Pressure [Sitting (for 1 minute prior to obtaining)] Blood Pressure [Standing (for 1 minute prior to obtaining)] Blood Pressure Mean 102 Blood Pressure Mean [Lying] Blood Pressure Mean [Sitting (for 1 minute prior to obtaining)] Blood Pressure Mean [Standing (for 1 minute prior to obtaining)] Pulse Ox 100 100 Oxygen Delivery Method Room Air Room Air 01/12/23 16:22 01/12/23 16:52 01/12/23 17:35 Temperature Temperature Source Pulse Rate 79 Pulse Rate [Lying] 77 Pulse Rate [Sitting (for 1 minute prior to obtaining)] 81 Pulse Rate [Standing (for 1 minute prior to obtaining)] 84 Respiratory Rate 17 Respiratory Effort Respiratory Pattern Blood Pressure 134/68 H Blood Pressure [Lying] 140/63 H Blood Pressure [Sitting (for 1 minute prior to obtaining)] 139/73 H Blood Pressure [Standing (for 1 minute prior to obtaining)] 147/59 H Blood Pressure Mean 90 Blood Pressure Mean [Lying] 88 Blood Pressure Mean [Sitting (for 1 minute prior to obtaining)] 95 Blood Pressure Mean [Standing (for 1 minute prior to obtaining)] 88 Pulse Ox 98 Oxygen Delivery Method Room Air Room Air MDM MDM MDM Narrative Medical decision making narrative: Patient presenting mass. Differential diagnosis includes but is not limited to dysrhythmia, electrolyte abnormalities, ACS, dehydration, anemia, UTI, pneumonia. CBC to assess white blood cell count, hemoglobin, platelets, differential. BMP to assess renal function, electrolytes, glucose, anion gap. High-sensitivity troponin and EKG will be obtained to rule out ischemic causes. Urinalysis to assess for UTI. Chest x-ray to rule out pneumonia. CBC unremarkable. BMP shows improved creatinine at 1.28. Urinalysis negative. High-sensitivity troponin is 16. EKG shows a atrial sensed ventricular paced rhythm at 74 bpm without sign of ischemic change on my interpretation. Orthostatic vital signs are negative. All findings discussed with the patient and family. I feel she stable for discharge home at this time. We did discuss that it is possible that her blood pressure cuff is not reading correctly. They will address this and keep a blood pressure diary at home. Impression: 1. Lightheadedness 2. Weakness unknown cause Lab Data Attestation: I reviewed the patient's lab results. Labs: Laboratory Results - last 24 hr 01/12/23 01/12/23 01/12/23 16:30 16:30 18:00 WBC 8.7 RBC 3.82 L Hgb 11.6 L Hct 35.8 L MCV 93.7 MCH 30.4 MCHC 32.4 RDW Std Deviation 47.2 H RDW Coeff of Zainab 13.8 Plt Count 207 MPV 10.4 Immature Gran % (Auto) 0.300 Neut % (Auto) 49.5 Lymph % (Auto) 36.3 [place] % (Auto) 9.5 Eos % (Auto) 3.8 Baso % (Auto) 0.6 Absolute Neuts (auto) 4.3 Absolute Lymphs (auto) 3.16 Nucleated RBC % 0 Sodium 139 Potassium 3.6 Chloride 105 Carbon Dioxide 26.0 Anion Gap 8 BUN 15 Creatinine 1.28 H Estim Creat Clear Calc 47.54 Est GFR (MDRD) Af Amer 52 L Est GFR (MDRD) Non-Af 43 L BUN/Creatinine Ratio 11.7 Glucose 229 H Calcium 9.3 Troponin I High Sens 16 Urine Color Yellow Urine Clarity Clear Urine pH 7.0 Ur Specific [place] 1.005 Urine Protein Negative Urine Glucose (UA) Normal Urine Ketones Negative Urine Occult Blood Negative Urine Nitrite Negative Urine Bilirubin Negative Urine Urobilinogen Normal Ur Leukocyte Esterase Negative Urine RBC 0 SEEN Urine WBC 0 SEEN Ur Squamous Epith Cells 0 SEEN Urine Bacteria 0 SEEN Urine Mucus 0 SEEN Radiography Diagnostic Testing: Clinical Impression(s) from Imaging Studies Chest X-Ray 01/12/23 16:40 IMPRESSION: There are no acute findings. Electronically Signed: Gui Feliciano MD at 16:54 EDT , Discharge Plan Triage Chief Complaint: Dizziness ED Provider: Chadwick Fermin Dx/Rx/DC Orders Prescriptions: No Action Hair,Skin and Nails Tablet 1 tab PO DAILY lisinopril 10 mg tablet 10 mg PO DAILY Qty: 30 11RF atorvastatin 40 mg tablet 40 mg PO QHS Label Comments: TAKE 1 TABLET BY MOUTH ONCE DAILY tramadol 50 mg tablet 50 mg PO QHS Label Comments: TAKE 1 TABLET BY MOUTH EVERY DAY AT BEDTIME NEEDED FOR PAIN pantoprazole 40 mg tablet,delayed release (DR/EC) 40 mg PO DAILY Label Comments: TAKE 1 TABLET BY MOUTH ONCE DAILY gabapentin 300 mg capsule 300 mg PO TID Label Comments: TAKE 1 CAPSULE BY MOUTH THREE TIMES DAILY multivitamin Capsule 1 cap PO DAILY ferrous sulfate 324 mg (65 mg iron) tablet,delayed release (DR/EC) 324 mg PO BID Qty: 60 0RF glipizide 5 mg tablet 5 mg PO DAILY metformin 1,000 mg tablet 500 mg PO DAILY Primary Care Provider: Pako Serrano NP Referrals: Pako Serarno PAYMENT PROCESSOR, PAYMENT PROCESSOR-C [Primary Care Provider] -
[2023-01-12 17:35] VITALS: BP 134/68; PULSE 79; RESP 17; O2SAT 98
[2023-01-12 18:08] LABS: Bacteria 0 SEEN /hpf (None Seen); Mucous, Urine 0 SEEN /hpf (<or=2+); Red Blood Cells-Urine 0 SEEN /hpf (0-5); Squamous Epithelial Cells - UA 0 SEEN /hpf (5-10); White Blood Cells 0 SEEN /hpf (0-5)
[2023-01-12 18:14] LABS: Color, Urine Yellow (Yellow); Glucose, Dipstick Normal (Normal); Ketone-Dipstick Negative (Negative); Leukocyte Esterase-Dipstick Negative /ul (Negative); Nitrite-Dipstick Negative (Negative); Occult Blood-Urine Negative /ul (Negative); Protein-Dipstick Negative (Negative); Specific Gravity, Urine 1.005 (1.002-1.030); Urine Bilirubin Dipstick Negative (Negative); Urine Clarity Clear (Clear); Urine Urobilinogen Normal (Normal)
[2023-01-12 19:00] VITALS: BP 126/75; PULSE 80; RESP 11; O2SAT 99
[2023-01-12 19:21] VITALS: BP 126/70; PULSE 72
== END 2023-01-12 19:22 | disposition home or self-care (01) ==
PROVIDERS: Emergency Provider Student in an Organized Health Care Education/Training Program; PCP Nurse Practitioner Primary Care; Visit Provider Student in an Organized Health Care Education/Training Program
DX: R42 Dizziness and giddiness (principal); E11.9 Type 2 diabetes mellitus without complications; I10 Essential (primary) hypertension; R53.1 Weakness; Z79.899 Other long term (current) drug therapy; Z79.84 Long term (current) use of oral hypoglycemic drugs; Z90.49 Acquired absence of other specified parts of digestive tract; Z90.710 Acquired absence of both cervix and uterus; Z95.0 Presence of cardiac pacemaker
CPT/HCPCS: 71045; 80048; 81001; 84484; 85025; 93005; 99283; A4216

== ENCOUNTER 2023-06-21 09:03 | Emergency (ER) | payer MEDICARE, MEDICAID, SELFPAY ==
[2023-06-21] VITALS (10 sets, daily range): BP systolic 135–154; BP diastolic 56–72; PULSE 67–92; RESP 10–19; TEMP 36.6–37.1; O2SAT 77–100; BMI 38.3
--- NOTE | 2023-06-21 09:14 | EX.ED.DYSGE1 ---
HPI History of Present Illness Chief Complaint: General Illness Informant: patient and EMS Narrative Narrative: Patient has been on an antibiotic for a urinary tract infection. She states she is on it now but she does not know what it is. Last night she started having diarrhea and has not felt well ever since, she has had somewhere between 5 and 10 bouts since then, presenting early by EMS she lives at home, she is here by herself at this time so history is relatively limited. She states she has the following symptoms: Myalgias, malaise, headache, diffuse abdominal pain, nausea without vomiting, nonbloody nonmelanotic diarrhea, lightheadedness without syncope, and neck glands are sore. She denies any chest complaints, focal neurologic symptoms, speech difficulty, rashes, recent travel, falls or injuries. [facility] Medical History Complete heart block Diabetes Essential hypertension Non-smoker Osteoarthritis Presence of permanent cardiac pacemaker Home Medications atorvastatin 40 mg tablet 40 mg PO QHS cholesterol 03/13/22 [History Last Taken 03/12/22] gabapentin 300 mg capsule 300 mg PO TID Check with primary doctor 03/13/22 [History Last Taken 03/13/22] multivitamin 1 cap PO DAILY Check with primary doctor 03/13/22 [History Last Taken 03/13/22] pantoprazole 40 mg tablet,delayed release 40 mg PO DAILY Check with primary doctor 03/13/22 [History Last Taken 03/13/22] tramadol 50 mg tablet 50 mg PO QHS Check with primary doctor 03/13/22 [History Last Taken 03/12/22] ferrous sulfate 324 mg (65 mg iron) tablet,delayed release 324 mg PO BID #60 tabs 03/15/22 [Rx Last Taken Unknown] glipizide 5 mg tablet 5 mg PO DAILY Check with primary doctor 04/14/22 [History Last Taken Unknown] multivitamin with minerals (Hair,Skin and Nails tablet) 1 tab PO DAILY 04/14/22 [History Last Taken Unknown] lisinopril 10 mg tablet 10 mg PO DAILY Check with primary doctor #30 tabs 07/17/22 [Rx Last Taken Unknown] metformin 1,000 mg tablet 500 mg PO DAILY Check with primary doctor 07/17/22 [History Last Taken Unknown] escitalopram oxalate 5 mg tablet 5 mg PO DAILY 04/28/23 [History Last Taken Unknown] furosemide 20 mg tablet 10 mg PO DAILY 04/28/23 [History Last Taken Unknown] Allergy/AdvReac Type Severity Reaction Status Date / Time Iodinated Contrast Media Allergy Rash Verified 06/21/23 09:04 [CONTRASTS] oxaprozin [From Daypro] AdvReac Upset Verified 06/21/23 09:04 Stomach Family History Brother Cancer Brother Cancer Sister Cancer Mother Diabetes Asthma Surgical History History of appendectomy History of carpal tunnel release of both wrists History of cholecystectomy History of hernia repair History of hysterectomy History of permanent cardiac pacemaker placement (03/13/22) Social History Smoking Status: Never smoker alcohol intake: never substance use type: does not use caffeine: Yes Type: tea ROS ROS ED Constitutional Constitutional ED: Reports body ache(s), chills, fatigue, headache(s) and malaise; Denies fever(s) Eyes Eyes: Denies change in vision or diplopia ENT ENT ED: Denies rhinorrhea or sore throat Cardiovascular Cardiovascular: Denies chest pain or palpitations Respiratory/Chest Respiratory/Chest: Denies cough or dyspnea Gastrointestinal Gastrointestinal: Reports abdominal pain, diarrhea and nausea; Denies melena or vomiting Genitourinary Genitourinary ED: Denies dysuria or hematuria Musculoskeletal Musculoskeletal: Reports neck pain; Denies back pain Integumentary Denies abscess or rash Neurologic Neurologic: Reports headache(s); Denies paresthesias or weakness Psychiatric Psychiatric: Denies suicidal ideation or suicidal thoughts EXAM Physical Exam Const Vital Signs: 06/21/23 09:05 06/21/23 09:09 06/21/23 09:12 Temperature 97.8 F 98.7 F Temperature Source Temporal Temporal Pulse Rate 82 74 Respiratory Rate 16 18 Respiratory Effort Normal Respiratory Pattern Normal Blood Pressure 135/56 H Blood Pressure Mean 82 Pulse Ox 97 99 Oxygen Delivery Method Room Air Room Air Oxygen Flow Rate (L/min) 06/21/23 10:09 06/21/23 10:38 06/21/23 10:38 Temperature 98.0 F Temperature Source Oral Pulse Rate 92 Respiratory Rate 15 Respiratory Effort Respiratory Pattern Blood Pressure 144/57 H Blood Pressure Mean 86 Pulse Ox 97 77 100 Oxygen Delivery Method Room Air Room Air Nasal Cannula Oxygen Flow Rate (L/min) 5 06/21/23 12:08 06/21/23 12:08 06/21/23 12:12 Temperature 98.2 F Temperature Source Oral Pulse Rate 85 86 Respiratory Rate 19 H 16 Respiratory Effort Respiratory Pattern Blood Pressure 137/58 H 137/58 H Blood Pressure Mean 84 84 Pulse Ox 99 100 98 Oxygen Delivery Method Nasal Cannula Nasal Cannula Nasal Cannula Oxygen Flow Rate (L/min) 5 5 5 06/21/23 14:15 06/21/23 15:13 Temperature 98.0 F Temperature Source Oral Pulse Rate 82 67 Respiratory Rate 17 10 L Respiratory Effort Respiratory Pattern Blood Pressure 142/72 H 154/64 H Blood Pressure Mean 95 94 Pulse Ox 95 98 Oxygen Delivery Method Room Air Room Air Oxygen Flow Rate (L/min) Positive well nourished and well developed General Appearance ED: well developed and NAD HEENT Reports moist mucous membranes normocephalic and atraumatic Eyes PERRL and EOMs intact bilaterally Neck full ROM, supple and no JVD Resp normal respiratory effort and clear to auscultation bilaterally Cardio regular rate, regular rhythm and no murmurs Rate: Negative for tachycardic GI non-distended GI Narrative: Diffusely tender no guarding or rebound tenderness. Obese. Auscultation: normoactive bowel sounds Palpation: soft Back/Spine no CVA tenderness General Back: other FROM Extremity normal to inspection General Extremety ED: Negative for edema, pulses abnormal or tenderness General Extremity: Negative for edema or pulses abnormal Neuro oriented x3, CN's II-XII intact bilaterally and no sensory deficits noted Sensorium / Orientation: awake and alert Motor Exam: general weakness Skin no rashes or lesions noted and no wounds MDM MDM MDM Narrative Medical decision making narrative: I do not think any of this is cardiac-related especially with the diarrhea and body aches, however while drawing blood and obtaining the work-up, the patient's monitored alarmed because her heart rate went down into the 40s. She has a history of complete heart block but she has a permanent cardiac pacemaker that should not allow that to happen, nursing asked me for an EKG which I thought was reasonable so that was obtained at that time and I added a troponin to her blood work. While working her up she was given IV fluids, dicyclomine, morphine 2 mg and prophylactic Zofran 4 mg. Apparently she became so sleepy that she dropped her pulse oximetry into the 70s, nursing placed 5 liters nasal cannula placing her at 100%, I obtained a chest x-ray which shows mild cephalization, 1 view on my interpretation, but still I suspect this was due to the morphine although she was given a very reasonable amount, adjusted for her age. On reevaluation later, she was more alert I removed her oxygen and she is not hypoxic, consistent with this being related to the pain medication. Her labs show a mild leukocytosis, her total bilirubin is a little higher than her baseline, but just outside of the normal range of 1.3 and the rest of her liver enzymes are normal. Creatinine is a little elevated. My main concern would be for C. difficile being that she has acute profuse diarrhea while on an antibiotic. Awaiting for her to provide us a specimen. Patient was able to give us a urine specimen. In looking at the urinalysis, she does not appear to have any infection anymore. She has been on antibiotics for about 5 days. At this time, the patient is doing a little better, she is able to get up and walk, her daughter is here we discussed all of this at length, she has been here for a total of almost 6.5 hours and she has had no diarrhea to send. Given this, my suspicion for C. difficile is a lot less. I recommend discontinuing the antibiotics and eating yogurt couple times a day or a probiotic, 2 to 3 days if she has no more diarrhea, longer if it persist, and follow-up with her doctor or return if worse, she is comfortable with that plan and staying hydrated. Lab Data Attestation: I reviewed the patient's lab results. Labs: Laboratory Results - last 24 hr 06/21/23 06/21/23 09:24 13:26 WBC 13.3 H RBC 4.32 Hgb 13.0 Hct 40.7 MCV 94.2 MCH 30.1 MCHC 31.9 L RDW Std Deviation 49.6 H RDW Coeff of Zainab 14.3 Plt Count 229 MPV 10.2 Immature Gran % (Auto) 0.500 Neut % (Auto) 81.9 H Lymph % (Auto) 6.4 L [place] % (Auto) 9.6 Eos % (Auto) 1.1 Baso % (Auto) 0.5 Absolute Neuts (auto) 10.9 H Absolute Lymphs (auto) 0.85 Nucleated RBC % 0 Sodium 139 Potassium 4.0 Chloride 105 Carbon Dioxide 25.0 Anion Gap 9 BUN 16 Creatinine 1.47 H Estim Creat Clear Calc 42.23 Est GFR (MDRD) Af Amer 44 L Est GFR (MDRD) Non-Af 36 L BUN/Creatinine Ratio 10.9 Glucose 214 H Calcium 9.7 Total Bilirubin 1.30 H AST 32 ALT 25 Alkaline Phosphatase 56 Troponin I High Sens 19 Total Protein 6.6 Albumin 3.5 Globulin 3.1 Albumin/Globulin Ratio 1.1 Lipase 58 Urine Color Yellow Urine Clarity Clear Urine pH 6.0 Ur Specific [place] 1.015 Urine Protein 30 H Urine Glucose (UA) Normal Urine Ketones Negative Urine Occult Blood Negative Urine Nitrite Negative Urine Bilirubin Negative Urine Urobilinogen Normal Ur Leukocyte Esterase 25 H Urine RBC 0 SEEN Urine WBC 0-5 SEEN Ur Squamous Epith Cells 0-5 SEEN Urine Bacteria 0 SEEN Urine Mucus 0 SEEN Radiography Diagnostic Testing: Clinical Impression(s) from Imaging Studies Chest X-Ray 06/21/23 11:25 IMPRESSION: Borderline cardiomegaly. Vascular congestion and mild degree of CHF. Electronically Signed: Christ Frye MD at 12:36 EST , Rhythm Strip Rhythm Strip: Ventricular pacing Rate: 70 Ectopy: None EKG Initial EKG: Attestation: I personally reviewed and interpreted this EKG as follows: Interpretation: Sinus Rhythm (rate 74), No Acute Injury Pattern and Paced Discharge Plan Triage Chief Complaint: General Illness ED Provider: Alfa Jara Dx/Rx/DC Orders Clinical Impression: Generalized weakness, Acute diarrhea Instructions: ED Diarrhea, Unknown Cause Prescriptions: No Action Hair,Skin and Nails Tablet 1 tab PO DAILY Hold Instructions: Pt has been DC'd lisinopril 10 mg tablet 10 mg PO DAILY Qty: 30 11RF furosemide 20 mg tablet 10 mg PO DAILY Hold Instructions: Pt has been DC'd escitalopram oxalate 5 mg tablet 5 mg PO DAILY atorvastatin 40 mg tablet 40 mg PO QHS Patient Comments: TAKE 1 TABLET BY MOUTH ONCE DAILY tramadol 50 mg tablet 50 mg PO QHS Patient Comments: TAKE 1 TABLET BY MOUTH EVERY DAY AT BEDTIME NEEDED FOR PAIN pantoprazole 40 mg tablet,delayed release (DR/EC) 40 mg PO DAILY Patient Comments: TAKE 1 TABLET BY MOUTH ONCE DAILY gabapentin 300 mg capsule 300 mg PO TID Patient Comments: TAKE 1 CAPSULE BY MOUTH THREE TIMES DAILY multivitamin Capsule 1 cap PO DAILY ferrous sulfate 324 mg (65 mg iron) tablet,delayed release (DR/EC) 324 mg PO BID Qty: 60 0RF glipizide 5 mg tablet 5 mg PO DAILY metformin 1,000 mg tablet 500 mg PO DAILY Primary Care Provider: Pako Serrano NP Referrals: Pako Serrano NP, LOADING CHECKER-C [Primary Care Provider] - 3-5 Days Activity Restrictions/Additional Instructions: Either take a probiotic according to the instructions on the chart, or take 1 serving of yogurt twice daily for the next 2 or 3 days if you have no more diarrhea, or until the diarrhea resolves if you continue to have some. Discontinue the antibiotic cephalexin you are on. Disposition Disposition: Home, Self Care
[2023-06-21] MEDS: Morphine 2 MG/ML Syringe IV (09:21)
[2023-06-21] MEDS: Ondansetron 4 MG/2 ML Vial IV (09:21)
[2023-06-21] MEDS: Dicyclomine 10 MG Capsule 20 MG PO (09:22)
[2023-06-21] MEDS: 0.9% Normal Saline (1000mL) 1,000 ML 1000 ML IV (09:24)
--- NOTE | 2023-06-21 09:30 | EKG12_ITS ---
Test Reason : Blood Pressure : / mmHG Vent. Rate : 074 BPM Atrial Rate : 075 BPM P-R Int : 000 ms QRS Dur : 066 ms QT Int : 452 ms P-R-T Axes : 007 -14 054 degrees QTc Int : 501 ms Ventricular-paced rhythm Abnormal ECG Confirmed by BLANCA MORGAN, KADI ([id number]), copy editor ELIZABETH STOUT ([id number]) on 06/30/2023 9:41:19 AM Referred By: BRITNI/REZA Confirmed By:KADI RIOS MD
[2023-06-21 09:41] LABS: Absolute Lymphocyte Count 0.85 X10^3/uL (0.83-4.51); Absolute Neutrophil Count 10.9 X10^3/uL (2.0-7.7); Basophil# 0.07 X10^3/uL; Basophil% 0.5 % (0-1); Eosinophil# 0.14 X10^3/uL; Eosinophils% 1.1 % (0-5); Hematocrit 40.7 % (37-47); Lymphocyte # 0.85 X10^3/ul (0.83-4.51); Lymphocyte % 6.4 % (19-41); Mean Corp Hgb Conc 31.9 g/dL (32-36); Mean Corpuscular Hgb 30.1 pg (27.0-32.0); Mean Corpuscular Volume 94.2 fL (81-99); Mean Platelet Vol. 10.2 fl (6.2-12.0); Monocyte# 1.27 X10^3/uL; Monocyte% 9.6 % (0-10); NRBC Flagged by Analyzer 0 % (0-5); Neutrophil # 10.87 X10^3/uL (2.7-7.7); Neutrophil % 81.9 % (47-70); Platelet Count 229 K/mm3 (150-450); RBC Distribution Width CV 14.3 % (11.6-14.6); RBC Distribution Width SD 49.6 fl (35.1-43.9); Red Blood Count 4.32 M/mm3 (4.2-5.4); White Blood Count 13.3 K/mm3 (4.4-11.0)
[2023-06-21 09:55] LABS: ALB/GLOB Ratio 1.1 RATIO (0.9-2.4); AST(SGOT) 32 U/L (15-37); Alanine Aminotransfer ALT/SGPT 25 U/L (13-56); Albumin, Serum 3.5 g/dL (3.2-5.0); Alkaline Phosphatase 56 U/L (45-117); Anion Gap 9 (5-15); BUN 16 mg/dL (7-18); BUN/Creat Ratio 10.9 RATIO (10-20); Calcium,Total 9.7 mg/dL (8.5-10.1); Chloride 105 mmol/L (98-107); Creatinine, Serum 1.47 mg/dL (0.55-1.02); EST Glomerular Filtration Rate 36 mL/min (>60); Est Glom Filt Rate - Afr Amer 44 mL/min (>60); Estimated Creatinine Clearance 42.23 ml/min; Globulin 3.1 g/dL (2.2-4.2); Glucose 214 mg/dL (74-106); Lipase 58 U/L (13-75); Protein, Total 6.6 g/dL (6.4-8.2); Sodium Level 139 mmol/L (136-145)
[2023-06-21] MEDS: 0.9% Normal Saline (1000mL) 1,000 ML 150 ML IV (10:41)
--- NOTE | 2023-06-21 11:25 | RAD_ITS ---
STUDY: X-RAY CHEST REASON FOR EXAM: Female, 77 years old. Low pulse ox, gen weakness TECHNIQUE: Single AP portable view of the chest. COMPARISON: Comparison is made with prior study dated January 12, 2023. FINDINGS: EKG electrodes are seen. Mild elevation of the right hemidiaphragm. Vascular congestion and mild degree of CHF. There is no demonstrated pleural abnormality. There is borderline cardiomegaly. A left-sided dual-chamber pacemaker is seen. Normal mediastinum and priscilla. Normal visualized pulmonary arteries. There is atherosclerotic calcification of the aortic arch with tortuosity. There are diffuse degenerative changes of the visualized thoracic spine. Normal visualized ribs, clavicles, and shoulders. There is no demonstrated abnormality of the visualized soft tissue structures of the upper abdomen. RAD/Chest 1 View (Portable) IMPRESSION: Borderline cardiomegaly. Vascular congestion and mild degree of CHF. Electronically Signed: Christ Frye MD at 12:36 EST ,
[2023-06-21 13:25] LABS: Troponin-I HS 19 pg/mL (3.0-54.0)
[2023-06-21 13:52] LABS: Bacteria 0 SEEN /hpf (None Seen); Mucous, Urine 0 SEEN /hpf (<or=2+); Red Blood Cells-Urine 0 SEEN /hpf (0-5)
[2023-06-21 13:57] LABS: Color, Urine Yellow (Yellow); Glucose, Dipstick Normal (Normal); Ketone-Dipstick Negative (Negative); Leukocyte Esterase-Dipstick 25 /ul (Negative); Nitrite-Dipstick Negative (Negative); Occult Blood-Urine Negative /ul (Negative); Protein-Dipstick 30 mg/dl (Negative); Specific Gravity, Urine 1.015 (1.002-1.030); Urine Bilirubin Dipstick Negative (Negative); Urine Clarity Clear (Clear); Urine Urobilinogen Normal (Normal)
[2023-06-21 14:09] LABS: Squamous Epithelial Cells - UA 0-5 SEEN /hpf (5-10); White Blood Cells 0-5 SEEN /hpf (0-5)
[2023-06-21 15:44] LABS: Bedside Glucose 128 mg/dL (74-106)
== END 2023-06-21 15:41 | disposition home or self-care (01) ==
PROVIDERS: Emergency Provider Emergency Medicine; PCP Nurse Practitioner Primary Care; Visit Provider Emergency Medicine
DX: R19.7 Diarrhea, unspecified (principal); E11.9 Type 2 diabetes mellitus without complications; R53.1 Weakness; Z95.0 Presence of cardiac pacemaker; Z79.899 Other long term (current) drug therapy; Z79.84 Long term (current) use of oral hypoglycemic drugs; Z90.49 Acquired absence of other specified parts of digestive tract; Z90.710 Acquired absence of both cervix and uterus; I10 Essential (primary) hypertension
CPT/HCPCS: 71045; 80053; 81001; 82962; 83690; 84484; 85025; 93005; 96361; 96374; 96375; 99285; J7030; A4216; J2405

== ENCOUNTER 2023-12-09 01:56 | Observation (INO) | payer MEDICARE, MEDICAID, SELFPAY ==
[2023-12-09] VITALS (14 sets, daily range): BP systolic 76–150; BP diastolic 44–72; PULSE 60–91; RESP 15–19; TEMP 36.1–37.3; O2SAT 92–98; BMI 38.5; BMI 38.6; BMI 38.8
--- NOTE | 2023-12-09 02:25 | RAD_ITS ---
EXAM: XR BILATERAL HIPS WITH PELVIS WHEN PERFORMED, 2 OR 3 VIEWS CLINICAL INDICATION: FALL, PAIN TECHNIQUE: Three or four views of the bilateral hips with pelvis when performed. COMPARISON: No relevant prior studies available. FINDINGS: BONES/JOINTS: Unremarkable. No displaced fracture. No destructive or sclerotic lesions. Note that overlapping bowel shadows may however obscure fine detail. Sacroiliac joint is unremarkable. No widening of the pubic symphysis. The articular structures are unremarkable. SOFT TISSUES: Unremarkable. No soft tissue swelling or gas. RAD/HIP, UNI W/ Pelvis 2-3 Views IMPRESSION: No evidence of displaced pelvic or hip fracture. Electronically Signed: Gui Gorman MD at 3:18 EDT ,
--- NOTE | 2023-12-09 02:25 | RAD_ITS ---
EXAM: XR SACRUM AND COCCYX, 2 OR MORE VIEWS CLINICAL INDICATION: PAIN,FALL TECHNIQUE: Frontal and lateral views of the sacrum and coccyx. COMPARISON: No relevant prior studies available. FINDINGS: SACRUM/COCCYX: Unremarkable. No displaced fracture. No destructive or sclerotic lesions. Note that overlapping bowel shadows may however obscure fine detail in the frontal view. Sacroiliac joints are unremarkable. SOFT TISSUES: Unremarkable. No soft tissue swelling or gas. RAD/Sacrum-Coccyx min 2 Views IMPRESSION: Unremarkable sacro-coccygeal spine. Electronically Signed: Gui Gorman MD at 3:11 EDT ,
--- NOTE | 2023-12-09 02:26 | RAD_ITS ---
EXAM: XR LEFT KNEE, 1 OR 2 VIEWS CLINICAL INDICATION: PAIN, FALL TECHNIQUE: Frontal and/or lateral views of the left knee. COMPARISON: No relevant prior studies available. FINDINGS: BONES/JOINTS: Mild tricompartmental degenerative changes. No acute fracture. No subluxation. Normal alignment. No sclerotic or destructive changes observed. SOFT TISSUES: Unremarkable. No soft tissue swelling or gas. No radiopaque foreign body. RAD/Knee 1 or 2 Views IMPRESSION: 1. No acute injuries identified involving the left knee. 2. Mild tricompartmental degenerative changes. Electronically Signed: Gui Gorman MD at 3:28 EDT ,
--- NOTE | 2023-12-09 02:26 | ED.VIS.FALL ---
HPI HPI - Fall History of Present Illness Chief Complaint: Fall Informant: patient, family (Daughter, POA), friend and EMS Narrative Narrative: Patient brought just after having a fall. She lives at home with her daughter, she got up out of bed to use bedside commode, and fell next to it. She does not know why she fell but denies any prodromal symptoms or recent illness. Daughter was unable to get her up on her own, she states she would not bend her knees or really put forth much effort to try to stand so she called her neighbor who accompanies her here, and together they were unable to get her up so they called EMS. While all of this was going on she was complaining of increased pain in her low back. She has chronic pain in her low back and actually saw the pain management doctor this past day for it and is planning on scheduling another injection there. Right now here the patient denies having any pain. She is very difficult to get straight answers out of, and the daughter states this is her baseline. Additionally at baseline, she walks without any assistance. [facility] Medical History (Updated 12/09/23 @ 04:[address] Alfa Jara MD) Anxiety and depression Chronic anemia Chronic peripheral neuropathic pain CKD (chronic kidney disease), stage III Complete heart block Diabetes mellitus, type 2 Essential hypertension GERD (gastroesophageal reflux disease) HLD (hyperlipidemia) Non-smoker Obesity Osteoarthritis Presence of permanent cardiac pacemaker Home Medications atorvastatin 40 mg tablet 40 mg PO QHS cholesterol 03/13/22 [History Last Taken 03/12/22] gabapentin 300 mg capsule 300 mg PO TID Check with primary doctor 03/13/22 [History Last Taken 03/13/22] multivitamin 1 cap PO DAILY Check with primary doctor 03/13/22 [History Last Taken 03/13/22] pantoprazole 40 mg tablet,delayed release 40 mg PO DAILY Check with primary doctor 03/13/22 [History Last Taken 03/13/22] tramadol 50 mg tablet 50 mg PO QHS Check with primary doctor 03/13/22 [History Last Taken 03/12/22] ferrous sulfate 324 mg (65 mg iron) tablet,delayed release 324 mg PO BID #60 tabs 03/15/22 [Rx Last Taken Unknown] glipizide 5 mg tablet 5 mg PO DAILY Check with primary doctor 04/14/22 [History Last Taken Unknown] multivitamin with minerals (Hair,Skin and Nails tablet) 1 tab PO DAILY 04/14/22 [History Last Taken Unknown] lisinopril 10 mg tablet 10 mg PO DAILY Check with primary doctor #30 tabs 07/17/22 [Rx Last Taken Unknown] escitalopram oxalate 5 mg tablet 20 mg PO DAILY 04/28/23 [History Last Taken Unknown] metformin 500 mg tablet,extended release 24 hr 500 mg PO DAILY 12/09/23 [History Last Taken Unknown] Allergy/AdvReac Type Severity Reaction Status Date / Time Iodinated Contrast Media Allergy Rash Verified 12/09/23 01:56 [CONTRASTS] oxaprozin [From Daypro] AdvReac Upset Verified 12/09/23 01:56 Stomach Family History Brother Cancer Brother Cancer Sister Cancer Mother Diabetes Asthma Surgical History History of appendectomy History of carpal tunnel release of both wrists History of cholecystectomy History of hernia repair History of hysterectomy History of permanent cardiac pacemaker placement (03/13/22) Social History (Updated 12/09/23 @ 04:[address] Marivel Raymond MD) household members: family Smoking Status: Never smoker alcohol intake: never substance use type: does not use caffeine: Yes Type: tea ROS ROS ED Constitutional Constitutional ED: Denies chills or fever(s) Eyes Eyes: Denies change in vision or diplopia ENT ENT ED: Denies ear pain, epistaxis, facial pain or rhinorrhea Cardiovascular Cardiovascular: Denies chest pain or palpitations Respiratory/Chest Respiratory/Chest: Denies cough or dyspnea Gastrointestinal Gastrointestinal: Denies abdominal pain, diarrhea, melena, nausea or vomiting Genitourinary Genitourinary ED: Denies dysuria or hematuria Musculoskeletal Musculoskeletal: Reports back pain; Denies extremity pain or neck pain Integumentary Denies abscess, Abrasions, laceration or rash Neurologic Neurologic: Denies headache(s), paresthesias or weakness EXAM Physical Exam Const Vital Signs: 12/09/23 01:57 12/09/23 01:57 12/09/23 03:54 Temperature 97 F L 98.1 F Temperature Source Temporal Pulse Rate 78 87 Respiratory Rate 19 H 16 Respiratory Effort Normal Non-Labored Respiratory Depth Normal Respiratory Pattern Normal Blood Pressure 142/66 H 149/72 H Blood Pressure Mean 91 97 Pulse Ox 98 97 Oxygen Delivery Method Room Air Room Air Positive well nourished, well developed and obese General Appearance ED: well developed and NAD Nutritional Appearance: obese HEENT Reports nasal mucous membranes and turbinates normal atraumatic Face and Sinus: Negative for facial tenderness Eyes PERRL and EOMs intact bilaterally Visual Acuity: other Other Details: no entrapment or pain with extraocular movements Neck full ROM and supple General: Negative for tenderness Chest Wall inspection of chest normal and palpation of chest normal Chest: symmetrical chest wall rise; Negative for crepitus or tenderness Resp normal respiratory effort and clear to auscultation bilaterally Percussion: other equal BS bilat Cardio no murmurs Rate: regular rate Rhythm: regular rhythm GI normal to inspection, nondistended, normoactive bowel sounds, soft to palpation and non-tender Back/Spine normal ROM Cervical Spine: Negative for cervical spine tenderness Thoracic Spine / Upper Back: Negative for thoracic spinal tenderness Lumbar Spine / Lower Back: Negative for lumbar spinal tenderness Extremity normal to inspection Extremity Narrative: Tender right greater trochanter more than the left. Tender both ASIS but pelvis stable to AP compression. When attempting to range her lower extremities, she winces in pain and is extremely difficult to get a straight answer out of. For instance, the patient states I am not in pain, but it hurts. Difficult to get her to tell me where but she appears to objectively have pain when ranging both hips, more so on the right, and the left knee. No reproducible bony tenderness in the left knee, no definite effusion but obesity limits this part of the exam. General Extremety ED: Yes tenderness Neuro oriented x3, CN's II-XII intact bilaterally, moves all extremities, no focal motor deficits and no sensory deficits noted Prewitt Coma Scale: document GCS findings Spontaneous Obeys Commands Oriented 15 Sensorium / Orientation: awake and alert Psych Mood & Affect: anxious Skin no wounds Lesions: no lesions Rashes: no rashes MDM MDM MDM Narrative Medical decision making narrative: I obtained x-ray series of both hips, 6 views on my interpretation shows no acute fracture to explain her pain. I obtained 2 view x-ray series of the left knee which similarly on my interpretation reveal no acute fractures. Radiology in agreement on both of these studies. I obtained some basic labs, discussed with the hospitalist for admitting her. Initially I considered the possibility of neurologic compromise. However she is able to move her legs, she has normal reflexes, and when confronting sensory in all 4 extremities to sharp sensation, she states everything feels symmetric. Therefore I feel this is less likely to be acutely neurologic and more likely to be related to pain, it is just very difficult based on the patient's answers to sort out where exactly she is experiencing pain. She seems to be in discomfort whenever I palpate the pelvis or range both hips but not severely so to where it limits my ability to passively range her. My suspicion is that this is not true joint-related, and more likely related to the chronic pain she has in her low back which is now worse since her fall. Lab Data Attestation: I reviewed the patient's lab results. Labs: Laboratory Results - last 24 hr 12/09/23 03:55 WBC 8.4 RBC 3.83 L Hgb 11.5 L Hct 35.1 L MCV 91.6 MCH 30.0 MCHC 32.8 RDW Std Deviation 48.4 H RDW Coeff of Zainab 14.5 Plt Count 179 MPV 10.1 Immature Gran % (Auto) 0.400 Neut % (Auto) 60.5 Lymph % (Auto) 22.1 Hyde % (Auto) 11.8 H Eos % (Auto) 4.4 Baso % (Auto) 0.8 Absolute Neuts (auto) 5.1 Absolute Lymphs (auto) 1.85 Nucleated RBC % 0 Sodium 141 Potassium 3.5 Chloride 106 Carbon Dioxide 29.0 Anion Gap 6 BUN 18 Creatinine 1.04 H Estim Creat Clear Calc 42.19 Est GFR (MDRD) Af Amer 66 Est GFR (MDRD) Non-Af 54 L BUN/Creatinine Ratio 17.3 Glucose 182 H Calcium 9.1 Magnesium 1.8 Management Discussion w/another healthcare provider: Hospitalist Discharge Plan Dx/Rx/DC Orders Clinical Impression: Coccyx contusion, Chronic low back pain, Unable to stand up, Accidental fall, Debility Disposition Disposition: Acute Care Hospital [facility]
[2023-12-09 04:11] LABS: Absolute Lymphocyte Count 1.85 X10^3/uL (0.83-4.51); Absolute Neutrophil Count 5.1 X10^3/uL (2.0-7.7); Basophil# 0.07 X10^3/uL; Basophil% 0.8 % (0-1); Eosinophil# 0.37 X10^3/uL; Eosinophils% 4.4 % (0-5); Hematocrit 35.1 % (37-47); Hemoglobin 11.5 g/dL (12.0-15.0); Lymphocyte # 1.85 X10^3/ul (0.83-4.51); Lymphocyte % 22.1 % (19-41); Mean Corp Hgb Conc 32.8 g/dL (32-36); Mean Corpuscular Volume 91.6 fL (81-99); Mean Platelet Vol. 10.1 fl (6.2-12.0); Monocyte# 0.99 X10^3/uL; Monocyte% 11.8 % (0-10); NRBC Flagged by Analyzer 0 % (0-5); Neutrophil # 5.06 X10^3/uL (2.7-7.7); Neutrophil % 60.5 % (47-70); Platelet Count 179 K/mm3 (150-450); RBC Distribution Width CV 14.5 % (11.6-14.6); RBC Distribution Width SD 48.4 fl (35.1-43.9); Red Blood Count 3.83 M/mm3 (4.2-5.4); White Blood Count 8.4 K/mm3 (4.4-11.0)
--- NOTE | 2023-12-09 04:11 | PCM.HP.STD ---
HPI - General General Date of Admission: 12/09/23 Date of Service: 12/09/23 Chief Complaint: Fall, intractable back, sacral and knee pain. HPI Narrative The patient is an 78 y/o F w/ PMHx: Anxiety and Depression, GERD, Diabetes mellitus type II with chronic neuropathy, Chronic pain syndrome following with Pain management with recent evaluation on 12/08/23 with planned upcoming caudal injection, HTN, HLD, Hx Complete HB s/p pacemaker status, Obesity, Chronic anemia who presents to the [facility] ED on 12/09/23 with history of getting out of bed to use the commode unfortunately she fell next to it with no lightheadedness or dizziness or any recent illness nor any urinary frequency, dysuria but unfortunately she was unable to get up on her own and and reports that she had difficulty bending her knee secondary to discomfort prompting daughter to call and her neighbor and together unfortunately despite attempts they were unable to prompting eventual EMS call. Upon EMS arrival they noted that she was having discomfort to both knees left greater than right and increased lumbar back pain. She notes pain is aching dull in nature, more sharp and severe with attempted movement. Pain currently rated 3-4/10. Workup in the ED included T97, heart rate 78, BP 150 42/66, respiratory rate 19, 98% on room air, CBC with WBC 8.4, hemoglobin 0.5, MCV 91.6, platelet 179 without marked shift, BMP with BUN/creatinine 18/1.04, GFR 54, glucose 182, pending plain film of the left knee, plain film sacrum and coccyx and plain film of the hip and pelvis upon requested evaluation of patient. [facility] Medical History (Updated 12/09/23 @ 04:[address] Alfa Jara MD) Anxiety and depression Chronic anemia Chronic peripheral neuropathic pain CKD (chronic kidney disease), stage III Complete heart block Diabetes mellitus, type 2 Essential hypertension GERD (gastroesophageal reflux disease) HLD (hyperlipidemia) Non-smoker Obesity Osteoarthritis Presence of permanent cardiac pacemaker Home Medications atorvastatin 40 mg tablet 40 mg PO QHS cholesterol 03/13/22 [History Last Taken 03/12/22] gabapentin 300 mg capsule 300 mg PO TID Check with primary doctor 03/13/22 [History Last Taken 03/13/22] multivitamin 1 cap PO DAILY Check with primary doctor 03/13/22 [History Last Taken 03/13/22] pantoprazole 40 mg tablet,delayed release 40 mg PO DAILY Check with primary doctor 03/13/22 [History Last Taken 03/13/22] tramadol 50 mg tablet 50 mg PO QHS Check with primary doctor 03/13/22 [History Last Taken 03/12/22] ferrous sulfate 324 mg (65 mg iron) tablet,delayed release 324 mg PO BID #60 tabs 03/15/22 [Rx Last Taken Unknown] glipizide 5 mg tablet 5 mg PO DAILY Check with primary doctor 04/14/22 [History Last Taken Unknown] multivitamin with minerals (Hair,Skin and Nails tablet) 1 tab PO DAILY 04/14/22 [History Last Taken Unknown] lisinopril 10 mg tablet 10 mg PO DAILY Check with primary doctor #30 tabs 07/17/22 [Rx Last Taken Unknown] escitalopram oxalate 5 mg tablet 20 mg PO DAILY 04/28/23 [History Last Taken Unknown] metformin 500 mg tablet,extended release 24 hr 500 mg PO DAILY 12/09/23 [History Last Taken Unknown] Allergy/AdvReac Type Severity Reaction Status Date / Time Iodinated Contrast Media Allergy Rash Verified 12/09/23 01:56 [CONTRASTS] oxaprozin [From Daypro] AdvReac Upset Verified 12/09/23 01:56 Stomach Family History Brother Cancer Brother Cancer Sister Cancer Mother Diabetes Asthma Surgical History History of appendectomy History of carpal tunnel release of both wrists History of cholecystectomy History of hernia repair History of hysterectomy History of permanent cardiac pacemaker placement (03/13/22) Social History (Updated 12/09/23 @ 04:[address] Marivel Raymond MD) household members: family Smoking Status: Never smoker alcohol intake: never substance use type: does not use caffeine: Yes Type: tea ROS ROS Narrative Admission Review of Systems: CONSTITUTIONAL: No weight loss, fever, chills, + weakness or fatigue. HEENT: Eyes: No visual loss, blurred vision, double vision or yellow sclerae. Ears, Nose, Throat: No hearing loss, sneezing, congestion, runny nose or sore throat. SKIN: No rash or itching, lesions, wounds. CARDIOVASCULAR: No chest pain, chest pressure or chest discomfort, palpitations, edema, orthopnea, syncopal events. RESPIRATORY: No shortness of breath, cough or sputum, wheezing, hemoptysis. GASTROINTESTINAL: No anorexia, nausea, vomiting or diarrhea, abdominal pain, melena, BRBPR. GENITOURINARY: No dysuria, frequency, urgency or retention. NEUROLOGICAL: + Daughter reporting confusion although patient oriented in the ED, chronic neuropathy. No headache, dizziness, syncope, paralysis, ataxia, numbness or tingling in the extremities, focal weakness, change in bowel or bladder control, seizure. MUSCULOSKELETAL: + muscle, back pain, joint pain or stiffness. HEMATOLOGIC: + Chronic anemia, easy bleeding/bruising. LYMPHATICS: No enlarged nodes. No history of splenectomy. PSYCHIATRIC: + History of anxiety and depression. ENDOCRINOLOGIC: No reports of sweating, cold or heat intolerance. No polyuria or polydipsia. ALLERGIES: + Allergic rhinitis. Vital Signs Vital Signs Vital Signs: 12/09/23 01:57 12/09/23 01:57 12/09/23 03:54 Temperature 97 F L 98.1 F Temperature Source Temporal Pulse Rate 78 87 Respiratory Rate 19 H 16 Respiratory Effort Normal Non-Labored Respiratory Depth Normal Respiratory Pattern Normal Blood Pressure 142/66 H 149/72 H Blood Pressure Mean 91 97 Pulse Ox 98 97 Oxygen Delivery Method Room Air Room Air Weight Weight: 190 lb 14.725 oz Body Mass Index (BMI) 38.5 Physical Exam Narrative Physical Examination: General: Awake, alert, oriented to self, place, month, year, slow responses but appropriate, remains cooperative, laying in the ED bed, uncomfortable with movement attempts primarily she notes to the lumbar back, sacral region and left medial knee. Skin: Normal color, normal turgor, no icterus, no cyanosis except occasional staged ecchymoses, abrasion. HEENT: AT/NC, EOMI, PERRLA, mildly dry MM, no carotid bruits or JVD noted. Lungs: Diminished, distant, possibly secondary to habitus, appropriate effort, no rales, ronchi or wheezing. Heart: Regular rate and rhythm; no gallop, rub audible. Abdomen: Soft, obese, NTTP, ND, distant normal BS, no appreciated HSM however habitus makes evaluation difficult. Extremities: No cyanosis, no clubbing, no marked peripheral edema and no marked edema to the knees, discomfort primarily to the left medial knee with palpation and reports discomfort/osteoarthritic like with attempted bending of both knees, discomfort to palpation of the lateral spinous muscles bilaterally, discomfort with straight leg attempts. Neurological: Patient awake, alert, oriented as noted, cognitive function despite reported confusion per daughter seems currently baseline intact; pupils equally reactive to light and accommodation, cranial nerves grossly normal, moving all 4 extremities although limited bilateral lower extremity movement given pain elicited, no focal deficits, strength accordingly severely globally decreased. Psychiatric: Affect appears fatigued otherwise normal, no acute evidence of depressive or anxiety feelings but does have underlying history. Results Lab / Micro Data 12/09/23 03:55 12/09/23 03:55 Assessment & Plan Assessment/Plan (1) Intractable back pain: (2) Adult failure to thrive: PLAN: Plan The patient is an 78 y/o F w/ PMHx: Anxiety and Depression, GERD, Diabetes mellitus type II with chronic neuropathy, Chronic pain syndrome following with Pain management with recent evaluation on 12/08/23 with planned upcoming caudal injection, HTN, HLD, Hx Complete HB s/p pacemaker status, Obesity, Chronic anemia who presents to the [facility] ED on 12/09/23 with history of getting out of bed to use the commode unfortunately she fell next to it with no lightheadedness or dizziness or any recent illness nor any urinary frequency, dysuria but unfortunately she was unable to get up on her own and and reports that she had difficulty bending her knee secondary to discomfort prompting daughter to call and her neighbor and together unfortunately despite attempts they were unable to prompting eventual EMS call. #1. Adult FTT, multifactorial, secondary to Acute on Chronic Intractable Lumbar Back Pain, Sacral pain, Knee pain, L>R: Pending plain film of the left knee, plain film sacrum and coccyx and plain film of the hip and pelvis upon requested evaluation of patient but low suspicion for trauma; however still pending. Given debility, will admit to [facility], maintain on fall precautions, frequent positioning, initiate lidoacine patches, low dose tizanidine, arthritic compound cream to L knee, increase home gabapentin regimen to 400 mg TID, medrol dose pack, po/IV narcotic pain regimen, anti-emetics, bowel regimen. If films demonstrate concerning findings/require orthopedic involvement will initiate. May need to consider pain management consultation and earlier intervention while inpatient to see if assists with ambulatory ability. Will consult PT and OT for evaluation as well as Case management for discharge planning. #2. Chronic normocytic anemia/iron deficiency anemia: Admission hemoglobin 11.5, MCV 91.6, baseline hemoglobin previously had been 11 earlier in 2022 but most recently 06/21/2023 hemoglobin 13, continue to trend CBC. Continue iron supplementation. #3. Chronic Kidney Disease Stage III, unclear subtype: Admission BUN/Cr 18/1.04, GFR 54, baseline renal function appears primarily 1.2-1.6, most recently 06/21/2023 creatinine 1.47, repeat BMP in AM. #4. History complete heart block: Status post pacemaker placement, encourage continued follow-up with cardiology and interrogation as previously arranged. #5. Diabetes mellitus type II with chronic neuropathy: Hold oral home regimen, ADA diet, accu checks w/ ISS. #6. Hypertension: Continue home regimen including lisinopril, PRN hydralazine. #7. Hyperlipidemia: Will continuation of statin therapy. #8. Anxiety and depression: We will continue patient home escitalopram regimen. #9. Obesity: Weight loss and lifestyle changes encouraged. #10. GERD: We will continue patient on PPI. #11. DVT prophylaxis: Heparin. #12. CODE status: Patient LAURA is her daughter who is present and living will is currently in place. Discussed CODE status at length including difference between FULL code, DNR-CCA and DNR-CC status. Following discussions about the differences in these status, requested DNR-CCA, no intubation status. Advanced Care Planning Face to Face Time: 16 minutes. Charges/Coding Visit Charges Inpatient E&M: 16250 Init Hosp L2 Procedures Hospitalists Procedures: 97228 Advncd Care Plan 30 Min
[2023-12-09 04:31] LABS: Bacteria 0 SEEN /hpf (None Seen); Mucous, Urine 0 SEEN /hpf (<or=2+); Red Blood Cells-Urine 0 SEEN /hpf (0-5); Squamous Epithelial Cells - UA 0 SEEN /hpf (5-10); White Blood Cells 0 SEEN /hpf (0-5)
[2023-12-09 04:32] LABS: Anion Gap 6 (5-15); BUN 18 mg/dL (7-18); BUN/Creat Ratio 17.3 RATIO (10-20); Calcium,Total 9.1 mg/dL (8.5-10.1); Chloride 106 mmol/L (98-107); Creatinine, Serum 1.04 mg/dL (0.55-1.02); EST Glomerular Filtration Rate 54 mL/min (>60); Est Glom Filt Rate - Afr Amer 66 mL/min (>60); Estimated Creatinine Clearance 42.19 ml/min; Glucose 182 mg/dL (74-106); Potassium 3.5 mmol/L (3.5-5.1); Sodium Level 141 mmol/L (136-145)
[2023-12-09 04:37] LABS: Magnesium 1.8 mg/dL (1.6-2.6)
[2023-12-09 04:48] LABS: Color, Urine Yellow (Yellow); Glucose, Dipstick Normal (Normal); Ketone-Dipstick Negative (Negative); Leukocyte Esterase-Dipstick Negative /ul (Negative); Nitrite-Dipstick Negative (Negative); Occult Blood-Urine Negative /ul (Negative); Protein-Dipstick 30 mg/dl (Negative); Urine Bilirubin Dipstick Negative (Negative); Urine Clarity Clear (Clear); Urine Urobilinogen Normal (Normal)
--- NOTE | 2023-12-09 05:38 | NURSING ---
Pt unsure of meds. states her daughter takes care of her meds.
[2023-12-09] MEDS: tiZANidine HCl 2 MG Tablet PO (06:51)
[2023-12-09] MEDS: Insulin Lispro 100 UNIT/ML INSULN.PEN SC ×4 (06:51→22:27)
[2023-12-09] MEDS: Gabapentin 400 MG Capsule PO (06:51)
[2023-12-09 07:03] LABS: Bedside Glucose 165 mg/dL (74-106)
[2023-12-09] MEDS: Heparin Injection (Vial) 5,000 UNIT/ML VIAL 5000 UNIT SC ×2 (07:51→22:25)
[2023-12-09] MEDS: Escitalopram Oxalate 20 MG Tablet PO (07:51)
[2023-12-09] MEDS: MethylPREDNISolone DosePak 4 MG BOX PO ×4 (07:51→22:22)
[2023-12-09] MEDS: Ferrous Sulfate 325 MG Tablet PO ×2 (07:51→16:20)
[2023-12-09] MEDS: Pantoprazole Sodium 40 MG Tablet PO (07:51)
[2023-12-09] MEDS: 0.9% Normal Saline (1000mL) 1,000 ML 999 ML IV (08:13)
[2023-12-09] MEDS: 0.9% Saline Lock 10 ML Syringe IV (08:13)
[2023-12-09] MEDS: 0.9% Normal Saline (1000mL) 1,000 ML 125 ML IV ×2 (09:52→17:33)
[2023-12-09 11:26] LABS: Bedside Glucose 182 mg/dL (74-106)
--- NOTE | 2023-12-09 12:00 | CASEMGMT ---
NIKI MERLOS NOTE: RN CM to room to meet with patient for initial transition planning/care coordination assessment. RN CM introduced self and role at [facility]. Patient lying in bed, alert and oriented, daughter at bedside. Patient and daughter willing to participate in assessment and is able to answer all questions appropriately. Care providers, pharmacy, and demographics verified. PCP: Pako Serrano DIRECTOR OF SAFETY AND SECURITY Specialists: BEENA/Dr Winchester- cardiology, Dr Hutcihns, podiatry; Dr Medrano, pain Preferred Pharmacy: [facility] Insurance: [employer] [facility] Prescription Benefit: yes Living Will/HPOA: daughter, Mili Sanabria, is HPOA LNOK: daughter Living Arrangements: Patient lives with daughter in a mobile home with ramp entrance. Per daughter, patient mostly independent @ home w/self-care. Dtr does assist pt w/showering, over-sees pt's medications, gets groceries, and does other home mgnt tasks. Pt able to prepare light meals/warms up food. Transportation: daughter DME: Patient has a shower chair, BSC, raised toilet, walker, rollator, BP machine, lift chair, adjustable bed, bedrail, functioning glucometer w/supplies, and medical alert at home. HHC/SNF: Pt has had HHC in the past when she was @ an assisted living facility. No hx of SNF. Patient is active with [employer] and Cindy is her CM at [facility]. SW, Lashay, made aware. Pt receives 14 meals Q 2 weeks from [employer]. Daughter states pt qualifies for aides, but currently there are not available. Discussed discharge plan w/pt and daughter and questions answered re: SNF and HHC. PT/OT evals pending. Both dtr and pt agreeable to SNF, if recommended, or HHC, if pt able to discharge home. Plan: TBD by progress w/therapy. Paula ESPINOZAN NIKI MERLOS
[2023-12-09] MEDS: Lidocaine 5% Patch 2 PATCH TOPICAL (13:40)
[2023-12-09] MEDS: Arthritis Pain Compound 60 CLICK TUBE TOPICAL ×2 (13:43→22:23)
--- NOTE | 2023-12-09 14:02 | CASEMGMT ---
Discharge Planning A list of SNF & HH providers including quality and resource use data and consistent with the patient's preferred geographic region, medical needs, and insurance network was created in [employer] Guide.? This list was provided to the SW and RN CM. Gris Del Angel, Discharge Planning Asst.
--- NOTE | 2023-12-09 14:21 | PN_ITS ---
Subjective Subjective Patient seen and examined. She was very lethargic today and was also hypotensive. This was thought to be due to the pain meds and muscle relaxants she has resumed. She received tizanidine, her gabapentin dose was increased and she also received oxycodone and IV morphine. These have been held. Her BP is down in the 70s systolic. She was given a bolus of normal saline 1L and started on IV NS @ 125cc/hr. Objective Data Objective Data Vital Signs: Vital Signs Temp Pulse Resp BP Pulse Ox O2 Del Method 98.7 F 65 16 130/57 H 93 Room Air 12/09/23 11:23 12/09/23 11:23 12/09/23 11:23 12/09/23 11:23 12/09/23 11:23 12/09/23 13:54 Oxygen Delivery Method Room Air Weight: 184 lb 15.485 oz Body Mass Index (BMI) 38.8 Intake & Output: Intake and Output for Last 24 Hours 12/07/23 12/08/23 12/09/23 23:59 23:59 23:59 Intake Total 1050 / 1050 Output Total 950 / 950 Balance 100 / 100 Lab / Micro Data 12/09/23 03:55 12/09/23 03:55 Labs: Laboratory Results - last 24 hr 12/09/23 03:55: WBC 8.4, RBC 3.83 L, Hgb 11.5 L, Hct 35.1 L, MCV 91.6, MCH 30.0, MCHC 32.8, RDW Std Deviation 48.4 H, RDW Coeff of Zainab 14.5, Plt Count 179, MPV 10.1, Immature Gran % (Auto) 0.400, Neut % (Auto) 60.5, Lymph % (Auto) 22.1, Citrus % (Auto) 11.8 H, Eos % (Auto) 4.4, Baso % (Auto) 0.8, Absolute Neuts (auto) 5.1, Absolute Lymphs (auto) 1.85, Nucleated RBC % 0, Sodium 141, Potassium 3.5, Chloride 106, Carbon Dioxide 29.0, Anion Gap 6, BUN 18, Creatinine 1.04 H, Estim Creat Clear Calc 42.19, Est GFR (MDRD) Af Amer 66, Est GFR (MDRD) Non-Af 54 L, BUN/Creatinine Ratio 17.3, Glucose 182 H, Calcium 9.1, Magnesium 1.8 12/09/23 04:25: Urine Color Yellow, Urine Clarity Clear, Urine pH 7.0, Ur Specific Spencer 1.010, Urine Protein 30 H, Urine Glucose (UA) Normal, Urine Ketones Negative, Urine Occult Blood Negative, Urine Nitrite Negative, Urine Bilirubin Negative, Urine Urobilinogen Normal, Ur Leukocyte Esterase Negative, Urine RBC 0 SEEN, Urine WBC 0 SEEN, Ur Squamous Epith Cells 0 SEEN, Urine Bacteria 0 SEEN, Urine Mucus 0 SEEN 12/09/23 06:42: POC Glucose 165 H 12/09/23 11:04: POC Glucose 182 H Radiography Diagnostic Testing: Radiology Impression Hip/Pelvis X-Ray 12/09/23 02:25 IMPRESSION: No evidence of displaced pelvic or hip fracture. Electronically Signed: Gui Gorman MD at 3:18 EDT Reading Location ID and State: [facility] / [place] Tel , Service support , Sacrum and Coccyx X-Ray 12/09/23 02:25 IMPRESSION: Unremarkable sacro-coccygeal spine. Electronically Signed: Gui Gorman MD at 3:11 EDT Reading Location ID and State: [facility] / [place] Tel , Service support , Knee X-Ray 12/09/23 02:26 IMPRESSION: 1. No acute injuries identified involving the left knee. 2. Mild tricompartmental degenerative changes. Electronically Signed: Gui Gorman MD at 3:28 EDT Reading Location ID and State: [place] / [place] Tel , Service support , Physical Exam Const Constitutional Narrative: frail, weak and lethargic, minimally responsive. HEENT normocephalic and head/scalp atraumatic Mouth: dry mucous membranes Eyes PERRL and EOMs intact bilaterally Neck no lymphadenopathy and supple Lymph Lymphatic: no lymphadenopathy noted and no lymphedema noted Resp Resp Narrative: mildly diminished breath sound bilaterally, no wheezes or crackles. On room air. Cardio regular rate, regular rhythm, S1 normal heart sound, S2 normal heart sound and no murmurs GI normal to inspection, nondistended, normoactive bowel sounds, soft to palpation and non-tender Extremity normal capillary refill, no clubbing, cyanosis or edema and no calf tenderness General Extremity: no tenderness to palpation of joints or extremities Neuro CN's II-XII intact bilaterally Neuro Narrative: lethargic, frail Motor Exam: general weakness Assessment & Plan Assessment/Plan (1) Debility: (2) Adult failure to thrive: (3) Hypotension: PLAN: Plan # Acute encephalopathy * likely medication induced. gabapentin was increased on admission, and she was also on tizanidine and pain meds. These have all been discontinued * PT OT on board. No evidence of infection. Will monitor closely for now to see if she becomes more responsive as his symptoms after she was given all the pain meds and muscle relaxants as above. * #Hypotension: * Likely due to decreased intake in pain medication. * BP meds held. * Patient given a bolus of normal saline after which her blood pressure improved. * Blood pressure was in the 70s systolic this morning. * Continue hydration with normal saline at 125 cc/h. * #Debility due to mechanical fall with resultant back pain * PT OT on board. Fall precautions. * #History of heart block: Status post pacemaker insertion. 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 On insulin sliding scale. Accu-Cheks ACHS. #Hypertension: BP meds held due to hypotension this morning. #Hyperlipidemia: On statin #Anxiety depression: On escitalopram #GERD; on PPI #DVT prophylaxis: Heparin Charges/Coding Visit Charges Inpatient E&M: 06456 Subs Hosp L2
[2023-12-09] MEDS: Glucerna Shake 120 ML LIQUID PO (16:23)
[2023-12-09 16:41] LABS: Bedside Glucose 282 mg/dL (74-106)
--- NOTE | 2023-12-09 16:52 | CASEMGMT ---
Social Work SW met with pt and dgt and introduced self and role of SW. Pt's dgt requesting SNF placement. SW addressed pt who is resistant to SNF but agreeable to comply with dgts wishes. A list of SNF providers including quality and resource use data and consistent with the patient?s preferred geographic region, medical needs, and insurance network were provided from the [employer] Guide. Pt and dgt to review list and SW will follow up tomorrow for choices. HERMINIA Liu
[2023-12-09] MEDS: Atorvastatin Calcium 40 MG Tablet PO (22:23)
[2023-12-09] MEDS: oxyCODONE 5 MG Tablet PO (22:40)
[2023-12-09] MEDS: MELATONIN 3 MG TABLET PO (22:40)
[2023-12-09 23:49] LABS: Bedside Glucose 228 mg/dL (74-106)
[2023-12-10] MEDS: 0.9% Normal Saline (1000mL) 1,000 ML 125 ML IV (01:59)
[2023-12-10] MEDS: Acetaminophen 325 MG Tablet 650 MG PO ×3 (01:59→20:47)
[2023-12-10 05:05] VITALS: BP 155/66; PULSE 80; RESP 18; TEMP 37.1; O2SAT 94
[2023-12-10] MEDS: Insulin Lispro 100 UNIT/ML INSULN.PEN SC ×4 (05:11→20:42)
[2023-12-10 06:00] VITALS: BMI 38.8
[2023-12-10 06:12] LABS: Bedside Glucose 172 mg/dL (74-106)
[2023-12-10 07:12] LABS: Absolute Lymphocyte Count 1.56 X10^3/uL (0.83-4.51); Absolute Neutrophil Count 5.9 X10^3/uL (2.0-7.7); Basophil# 0.03 X10^3/uL; Basophil% 0.4 % (0-1); Eosinophil# 0.02 X10^3/uL; Eosinophils% 0.2 % (0-5); Lymphocyte # 1.56 X10^3/ul (0.83-4.51); Lymphocyte % 18.8 % (19-41); Mean Corp Hgb Conc 32.3 g/dL (32-36); Mean Corpuscular Hgb 29.7 pg (27.0-32.0); Mean Platelet Vol. 10.7 fl (6.2-12.0); Monocyte# 0.77 X10^3/uL; Monocyte% 9.3 % (0-10); NRBC Flagged by Analyzer 0 % (0-5); Neutrophil # 5.91 X10^3/uL (2.7-7.7); Neutrophil % 70.9 % (47-70); Platelet Count 184 K/mm3 (150-450); RBC Distribution Width CV 14.4 % (11.6-14.6); RBC Distribution Width SD 48.5 fl (35.1-43.9); Red Blood Count 3.37 M/mm3 (4.2-5.4); White Blood Count 8.3 K/mm3 (4.4-11.0)
[2023-12-10 07:40] VITALS: BP 138/64; PULSE 75; RESP 16; TEMP 37.4; O2SAT 94
[2023-12-10] MEDS: Ferrous Sulfate 325 MG Tablet PO ×2 (07:53→16:39)
[2023-12-10] MEDS: MethylPREDNISolone DosePak 4 MG BOX PO ×4 (07:53→20:38)
[2023-12-10] MEDS: Glucerna Shake 120 ML LIQUID PO ×3 (07:53→16:43)
[2023-12-10 08:21] LABS: AST(SGOT) 22 U/L (15-37); Alanine Aminotransfer ALT/SGPT 13 U/L (13-56); Albumin, Serum 2.8 g/dL (3.2-5.0); Alkaline Phosphatase 49 U/L (45-117); Anion Gap 9 (5-15); BUN 16 mg/dL (7-18); BUN/Creat Ratio 15.2 RATIO (10-20); Calcium,Total 8.6 mg/dL (8.5-10.1); Chloride 107 mmol/L (98-107); Creatinine, Serum 1.05 mg/dL (0.55-1.02); EST Glomerular Filtration Rate 54 mL/min (>60); Est Glom Filt Rate - Afr Amer 65 mL/min (>60); Estimated Creatinine Clearance 41.06 ml/min; Globulin 2.9 g/dL (2.2-4.2); Glucose 183 mg/dL (74-106); Potassium 3.8 mmol/L (3.5-5.1); Protein, Total 5.7 g/dL (6.4-8.2); Sodium Level 139 mmol/L (136-145)
--- NOTE | 2023-12-10 08:30 | CASEMGMT ---
Social Work Phone call received from pt dgt requesting 1. [facility]. [facility] 3. [facility]. Referarals to be made. [facility]
[2023-12-10 08:58] VITALS: O2SAT 94
--- NOTE | 2023-12-10 10:47 | CASEMGMT ---
Social Work- SW placed referral per pt request to [facility] aidan Mora. HERMINIA Alva
--- NOTE | 2023-12-10 11:21 | PN_ITS ---
Subjective Subjective Patient seen and examined. She was alert but confused. She could not tell me where she was or what her date of was but knew her name. She did not have any active complaints though. Unable to do comprehensive review of systems due to her confusion. She has remained hemodynamically stable. Objective Data Objective Data Vital Signs: Vital Signs Temp Pulse Resp BP Pulse Ox O2 Del Method 99.3 F H 75 16 138/64 H 94 Room Air 12/10/23 07:40 12/10/23 07:40 12/10/23 07:40 12/10/23 07:40 12/10/23 08:58 12/10/23 07:40 Oxygen Delivery Method Room Air Weight: 184 lb 15.485 oz Body Mass Index (BMI) 38.8 Intake & Output: Intake and Output for Last 24 Hours 12/08/23 12/09/23 12/10/23 23:59 23:59 23:59 Intake Total 2360.42 / 2360.42 1000 / 1000 Output Total 1250 / 1250 1100 / 1100 Balance 1110.42 / 1110.42 -100 / -100 Lab / Micro Data 12/10/23 06:06 12/10/23 06:06 Labs: Laboratory Results - last 24 hr 12/09/23 11:04: POC Glucose 182 H 12/09/23 16:17: POC Glucose 282 H 12/09/23 22:26: POC Glucose 228 H 12/10/23 05:10: POC Glucose 172 H 12/10/23 06:06: WBC 8.3, RBC 3.37 L, Hgb 10.0 L, Hct 31.0 L, MCV 92.0, MCH 29.7, MCHC 32.3, RDW Std Deviation 48.5 H, RDW Coeff of Zainab 14.4, Plt Count 184, MPV 10.7, Immature Gran % (Auto) 0.400, Neut % (Auto) 70.9 H, Lymph % (Auto) 18.8 L, [place]rell % (Auto) 9.3, Eos % (Auto) 0.2, Baso % (Auto) 0.4, Absolute Neuts (auto) 5.9, Absolute Lymphs (auto) 1.56, Nucleated RBC % 0, Sodium 139, Potassium 3.8, Chloride 107, Carbon Dioxide 23.0, Anion Gap 9, BUN 16, Creatinine 1.05 H, Estim Creat Clear Calc 41.06, Est GFR (MDRD) Af Amer 65, Est GFR (MDRD) Non-Af 54 L, BUN/Creatinine Ratio 15.2, Glucose 183 H, Calcium 8.6, Total Bilirubin 0.80, AST 22, ALT 13, Alkaline Phosphatase 49, Total Protein 5.7 L, Albumin 2.8 L, Globulin 2.9, Albumin/Globulin Ratio 1.0 Physical Exam Const alert Constitutional Narrative: frail Orientation / Consciousness: confused HEENT normocephalic and head/scalp atraumatic Eyes PERRL and EOMs intact bilaterally Neck no lymphadenopathy and supple Lymph Lymphatic: no lymphadenopathy noted and no lymphedema noted Resp Resp Narrative: mildly diminished breath sound bilaterally, no wheezes or crackles. On room air. Cardio regular rate, regular rhythm, S1 normal heart sound, S2 normal heart sound and no murmurs GI normal to inspection, nondistended, normoactive bowel sounds, soft to palpation and non-tender Extremity normal capillary refill, no clubbing, cyanosis or edema and no calf tenderness General Extremity: no tenderness to palpation of joints or extremities Skin General Skin Exam: no breakdown Neuro CN's II-XII intact bilaterally Neuro Narrative: frail, confused Motor Exam: general weakness Psych Psych Narrative: confused Assessment & Plan Assessment/Plan (1) Debility: (2) Adult failure to thrive: (3) Hypotension: PLAN: Plan # Acute encephalopathy * resolved. She still does remain confused. * Continue holding pain meds and muscle relaxants. * PT OT on board. No evidence of infection. Will monitor closely for now to see if she becomes more responsive as his symptoms after she was given all the pain meds and muscle relaxants as above. * #Hypotension: * Likely due to decreased intake in pain medication. * resolved. BP meds on hold. BP has started going up with BP being 155/66 today. * resume BP meds * #Debility due to mechanical fall with resultant back pain * PT OT on board. Fall precautions. * #History of heart block: Status post pacemaker insertion. 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 On insulin sliding scale. Accu-Cheks ACHS. #Hypertension: resume BP meds as hypotension has resolved. #Hyperlipidemia: On statin #Anxiety depression: On escitalopram #GERD; on PPI #DVT prophylaxis: Heparin Charges/Coding Visit Charges Inpatient E&M: 34266 Subs Hosp L2
--- NOTE | 2023-12-10 11:39 | CASEMGMT ---
Social Work- [facility] accepted and began precert. SW started HENS. HERMINIA Alva
[2023-12-10] MEDS: Escitalopram Oxalate 20 MG Tablet PO (11:54)
[2023-12-10] MEDS: Heparin Injection (Vial) 5,000 UNIT/ML VIAL 5000 UNIT SC ×2 (11:54→20:47)
[2023-12-10] MEDS: Pantoprazole Sodium 40 MG Tablet PO (11:55)
[2023-12-10] MEDS: Lidocaine 5% Patch 2 PATCH TOPICAL (11:55)
[2023-12-10] MEDS: Nystatin Powder 15gm Bottle 1 APPLIC TOPICAL ×2 (12:00→20:39)
--- NOTE | 2023-12-10 12:03 | CASEMGMT ---
Social Work- DONTA called dtr Mili to update that [facility] has accepted and is working on insurance authorization. DONTA discussed living will and HCPOA with Mili. Mili states that she has papers. Mili states that she will be visiting pt this afternoon and will bring papers to be scanned into pt chart. HERMINIA Alva
--- NOTE | 2023-12-10 13:39 | CASEMGMT ---
Met with?patient to complete RENE form. RENE form explained to patient who voiced understanding and signed form. Original form placed in pt?s chart and copy provided to patient.? Gris Del Angel, Discharge Planning Asst
[2023-12-10 14:05] LABS: Bedside Glucose 304 mg/dL (74-106)
[2023-12-10 14:36] VITALS: BP 162/84; PULSE 73; RESP 16; TEMP 36.8; O2SAT 96
--- NOTE | 2023-12-10 16:45 | CASEMGMT ---
Social Work Pts dgt brought in pt's living will and health care POA naming son Mustapha Romo as primary and Mili Chamberlain as secondary. Copies placed on pt chart. HERMINIA Liu
--- NOTE | 2023-12-10 17:00 | CASEMGMT ---
Social Work Precert has been obtained for admission to [facility]. Physician notified. Pt is not ready for dc today. CC and pt dgt updated. Green sheet on chart to facilitate a weekend discharge. PASRR completed in HENS. Plan: [facility], when medically ready HERMINIA Duran
[2023-12-10 17:04] LABS: Bedside Glucose 225 mg/dL (74-106)
[2023-12-10 20:35] VITALS: BP 178/90; PULSE 77; RESP 18; TEMP 36.9; O2SAT 92
[2023-12-10] MEDS: Atorvastatin Calcium 40 MG Tablet PO (20:38)
[2023-12-10] MEDS: Arthritis Pain Compound 60 CLICK TUBE TOPICAL (20:39)
[2023-12-10] MEDS: Lisinopril 10 MG Tablet PO (20:39)
[2023-12-10] MEDS: MELATONIN 3 MG TABLET PO (20:47)
[2023-12-10 22:02] LABS: Bedside Glucose 306 mg/dL (74-106)
[2023-12-11 00:30] VITALS: BMI 39.6
[2023-12-11 04:00] VITALS: BP 178/92; PULSE 84; RESP 18; TEMP 36.9; O2SAT 95
[2023-12-11] MEDS: Insulin Lispro 100 UNIT/ML INSULN.PEN SC ×2 (05:07→11:56)
[2023-12-11 05:10] VITALS: BP 178/92; PULSE 84
[2023-12-11] MEDS: hydrALAZINE 20 MG/ML Vial 10 MG IV (05:10)
[2023-12-11 06:04] LABS: Absolute Neutrophil Count 8.9 X10^3/uL (2.0-7.7); Basophil# 0.02 X10^3/uL; Basophil% 0.2 % (0-1); Eosinophil# 0.01 X10^3/uL; Eosinophils% 0.1 % (0-5); Hematocrit 36.6 % (37-47); Lymphocyte % 13.9 % (19-41); Mean Corp Hgb Conc 32.8 g/dL (32-36); Mean Corpuscular Hgb 29.3 pg (27.0-32.0); Mean Corpuscular Volume 89.5 fL (81-99); Mean Platelet Vol. 10.6 fl (6.2-12.0); Monocyte# 0.83 X10^3/uL; Monocyte% 7.2 % (0-10); NRBC Flagged by Analyzer 0 % (0-5); Neutrophil # 8.94 X10^3/uL (2.7-7.7); Neutrophil % 77.5 % (47-70); Platelet Count 214 K/mm3 (150-450); RBC Distribution Width CV 14.4 % (11.6-14.6); RBC Distribution Width SD 46.8 fl (35.1-43.9); Red Blood Count 4.09 M/mm3 (4.2-5.4); White Blood Count 11.5 K/mm3 (4.4-11.0)
[2023-12-11 06:22] LABS: Bedside Glucose 199 mg/dL (74-106)
[2023-12-11 06:50] LABS: Anion Gap 7 (5-15); BUN 18 mg/dL (7-18); BUN/Creat Ratio 17.6 RATIO (10-20); Calcium,Total 9.1 mg/dL (8.5-10.1); Chloride 104 mmol/L (98-107); Creatinine, Serum 1.02 mg/dL (0.55-1.02); EST Glomerular Filtration Rate 55 mL/min (>60); Est Glom Filt Rate - Afr Amer 67 mL/min (>60); Estimated Creatinine Clearance 42.76 ml/min; Glucose 212 mg/dL (74-106); Potassium 3.6 mmol/L (3.5-5.1); Sodium Level 138 mmol/L (136-145)
[2023-12-11 07:54] VITALS: O2SAT 93
[2023-12-11 08:21] VITALS: BP 144/71; PULSE 85; RESP 18; TEMP 36.8; O2SAT 95
--- NOTE | 2023-12-11 09:58 | TREXTCAR_ITS ---
Diet Diet Order/Speech Therapy: 12/09/23 05:21 Diet: Consistent Carb - Calorie Controlled Food consistency:: Regular Liquid Consistency:: Regular/Thin How many daily calories?: 1800 calorie Routine Orders/Code Status Enema Type: Fleetz Enema Frequency: Daily PRN Suppository Type: Dulcolax 10mg Suppository Frequency: Daily PRN O2 Frequency: PRN Keep PO Greater than or Equal to (%): 90 Therapies Weight Bearing: Weight bearing as tolerated Physical Therapy: Eval and Treat Occupational Therapy: Eval and Treat Problem/Diagnosis (1) Debility: Status: Acute Code(s): R53.81 - Other malaise (2) Adult failure to thrive: Status: Acute Code(s): R62.7 - Adult failure to thrive (3) Hypotension: Status: Acute Code(s): I95.9 - Hypotension, unspecified Plan # Acute encephalopathy * resolved. She still does remain confused. * Continue holding pain meds and muscle relaxants. * PT OT on board. No evidence of infection. Will monitor closely for now to see if she becomes more responsive as his symptoms after she was given all the pain meds and muscle relaxants as above. * #Hypotension: * Likely due to decreased intake in pain medication. * resolved. BP meds on hold. BP has started going up with BP being 155/66 today. * resume BP meds * #Debility due to mechanical fall with resultant back pain * PT OT on board. Fall precautions. * #History of heart block: Status post pacemaker insertion. 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 On insulin sliding scale. Accu-Cheks ACHS. #Hypertension: resume BP meds as hypotension has resolved. #Hyperlipidemia: On statin #Anxiety depression: On escitalopram #GERD; on PPI #DVT prophylaxis: Heparin Allergies/Procedures Done in Hospital Allergies Iodinated Contrast Media [CONTRASTS] Allergy (Verified 12/09/23 01:56) Rash oxaprozin [From Daypro] Adverse Reaction (Verified 12/09/23 01:56) Upset Stomach Procedures: None Type of Care/Length of Stay Estimated LOS: Convalescent Care Less Than 30 days Type of Care Needed: Skilled Rehab Potential: Fair Prognosis: Fair Additional Orders/Day of Discharge Day of Discharge: 12/11/23 Dietary and Speech Recommendations Dietitian Recommendations/Changes: Continue 1800 CCD diet to manage medical conditions. Will change ONS to Glucerna and continue per family request. Discharge Plan Admission Admit Date/Time: 12/09/23 04:05 Primary Reason for Your Visit: failure to thrive, debility and weakness Attending Provider: Tona Wells Primary Care Provider: Pako Serrano NP Consulting Providers: Marivel Raymond Instructions Patient Instructions: ED FALL-from [id number] Discharge Orders/Prescriptions Prescriptions: Continued Hair,Skin and Nails Tablet 1 tab PO DAILY Hold Instructions: Pt has been DC'd lisinopril 10 mg tablet 10 mg PO DAILY Qty: 30 11RF escitalopram oxalate 5 mg tablet 20 mg PO DAILY atorvastatin 40 mg tablet 40 mg PO QHS Patient Comments: TAKE 1 TABLET BY MOUTH ONCE DAILY tramadol 50 mg tablet 50 mg PO QHS Patient Comments: TAKE 1 TABLET BY MOUTH EVERY DAY AT BEDTIME NEEDED FOR PAIN pantoprazole 40 mg tablet,delayed release (DR/EC) 40 mg PO DAILY Patient Comments: TAKE 1 TABLET BY MOUTH ONCE DAILY gabapentin 300 mg capsule 300 mg PO TID Patient Comments: TAKE 1 CAPSULE BY MOUTH THREE TIMES DAILY multivitamin Capsule 1 cap PO DAILY ferrous sulfate 324 mg (65 mg iron) tablet,delayed release (DR/EC) 324 mg PO BID Qty: 60 0RF glipizide 5 mg tablet 5 mg PO DAILY metformin 500 mg tablet extended release 24 hr 500 mg PO DAILY Referrals / Follow Up: Pako Serrano FOOD SERVICE MANAGER, FOOD SERVICE MANAGER-C [Primary Care Provider] - Within 1 Week Disposition Disposition (needs filled in before D/C Order can be placed): [facility]
--- NOTE | 2023-12-11 10:05 | PCM.DC.SUM ---
Providers Date of Admission: 12/09/23 Date of Discharge: 12/11/23 Primary Care Physician: Pako Serrano MUD ANALYSIS SUPERVISORKaitC Reason For Visit: ADULT FTT, ACUTE ON CHRONIC LUMBAR/SACRAL PAIN Diagnosis Discharge Diagnosis (1) Debility: Status: Acute Code(s): R53.81 - Other malaise (2) Adult failure to thrive: Status: Acute Code(s): R62.7 - Adult failure to thrive (3) Hypotension: Status: Acute Code(s): I95.9 - Hypotension, unspecified Plan # Acute encephalopathy resolved. She still does remain confused. Continue holding pain meds and muscle relaxants. PT OT on board. No evidence of infection. Will monitor closely for now to see if she becomes more responsive as his symptoms after she was given all the pain meds and muscle relaxants as above. #Hypotension: Likely due to decreased intake in pain medication. resolved. BP meds on hold. BP has started going up with BP being 155/66 today. resume BP meds #Debility due to mechanical fall with resultant back pain PT OT on board. Fall precautions. #History of heart block: Status post pacemaker insertion. 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 On insulin sliding scale. Accu-Cheks ACHS. #Hypertension: resume BP meds as hypotension has resolved. #Hyperlipidemia: On statin #Anxiety depression: On escitalopram #GERD; on PPI #DVT prophylaxis: Heparin Medications at Discharge Home Medications atorvastatin 40 mg tablet 40 mg PO QHS cholesterol 03/13/22 gabapentin 300 mg capsule 300 mg PO TID Check with primary doctor 03/13/22 multivitamin 1 cap PO DAILY Check with primary doctor 03/13/22 pantoprazole 40 mg tablet,delayed release 40 mg PO DAILY Check with primary doctor 03/13/22 tramadol 50 mg tablet 50 mg PO QHS Check with primary doctor 03/13/22 ferrous sulfate 324 mg (65 mg iron) tablet,delayed release 324 mg PO BID #60 tabs 03/15/22 glipizide 5 mg tablet 5 mg PO DAILY Check with primary doctor 04/14/22 multivitamin with minerals (Hair,Skin and Nails tablet) 1 tab PO DAILY 04/14/22 lisinopril 10 mg tablet 10 mg PO DAILY Check with primary doctor #30 tabs 12/09/22 escitalopram oxalate 5 mg tablet 20 mg PO DAILY 04/28/23 metformin 500 mg tablet,extended release 24 hr 500 mg PO DAILY 12/09/23 Hospital Course Operations None Procedures None Summary of Care Provided Minutes Spent on Discharge: 55 Hospital Course: Patient is an 78-year-old female with past medical history as outlined was admitted through the ED on 12/09/2023 with a complaint of weakness and debility after she had a mechanical fall. She was trying to get out of bed to use the commode but she fell next to the commode. She did not have any lightheadedness or dizziness and did not hit her head. She did not have any urinary symptoms or any evidence of infection. Patient was unable to get up on the abdominal so her family called the EMS. On arrival in the ED she complained of pain in both knees with the left being greater than the right and increased lumbar back pain. Plain x-ray of the knee and sacrum and coccyx did not reveal any evidence of fractures. She was admitted and managed for debility and weakness in the setting of mechanical fall with acute on chronic congestive lumbar and back pain as well as knee pain. Patient is home gabapentin dose was increased and she was also placed on a Medrol Dosepak and IV narcotics. Hospital course was complicated by acute encephalopathy which was thought to be due to the multiple pain medication she was receiving. Her gabapentin was held and her pain medications were also held. Her altered mental status resolved and patient became alert and oriented to self only. She remained confused and could not tell where she was during her hospital stay. Physical therapy worked with patient and deemed that she needed skilled therapy. [facility]. She is follow-up with her primary care doctor within 1 to 2 weeks. Patient seen and examined prior to discharge. She had no active complaints. She was alert and oriented to self only. Review of systems otherwise negative. Labs and vitals reviewed. Home medication reviewed and reconciled. Physical Exam Const alert and no apparent distress Constitutional Narrative: frail General Appearance: cooperative and comfortable Orientation / Consciousness: confused HEENT normocephalic, head/scalp atraumatic and hearing grossly normal bilaterally Mouth: oral and palatal mucosa normal Eyes PERRL, EOMs intact bilaterally and conjunctivae normal Neck no lymphadenopathy and supple Lymph Lymphatic: no lymphadenopathy noted and no lymphedema noted Resp Resp Narrative: mildly diminished breath sound bilaterally, no wheezes or crackles. On room air. Cardio regular rate, regular rhythm, S1 normal heart sound, S2 normal heart sound and no murmurs GI normal to inspection, nondistended, normoactive bowel sounds, soft to palpation and non-tender Extremity full ROM, normal capillary refill, no clubbing, cyanosis or edema and no calf tenderness General Extremity: no tenderness to palpation of joints or extremities Skin no rashes or lesions noted General Skin Exam: no breakdown Neuro CN's II-XII intact bilaterally and moves all extremities Neuro Narrative: frail, confused Motor Exam: general weakness Psych Psych Narrative: confused Weight / BMI Weight Weight: 188 lb 14.978 oz Body Mass Index (BMI) 39.6 ABG / Lab / Microbiology Data 12/11/23 05:40 12/11/23 05:40 Laboratory: Laboratory Results - last 24 hr 12/10/23 11:51: POC Glucose 304 H 12/10/23 16:33: POC Glucose 225 H 12/10/23 20:41: POC Glucose 306 H 12/11/23 05:06: POC Glucose 199 H 12/11/23 05:40: WBC 11.5 H, RBC 4.09 L, Hgb 12.0, Hct 36.6 L, MCV 89.5, MCH 29.3, MCHC 32.8, RDW Std Deviation 46.8 H, RDW Coeff of Zainab 14.4, Plt Count 214, MPV 10.6, Immature Gran % (Auto) 1.100 H, Neut % (Auto) 77.5 H, Lymph % (Auto) 13.9 L, [place] % (Auto) 7.2, Eos % (Auto) 0.1, Baso % (Auto) 0.2, Absolute Neuts (auto) 8.9 H, Absolute Lymphs (auto) 1.60, Nucleated RBC % 0, Sodium 138, Potassium 3.6, Chloride 104, Carbon Dioxide 27.0, Anion Gap 7, BUN 18, Creatinine 1.02, Estim Creat Clear Calc 42.76, Est GFR (MDRD) Af Amer 67, Est GFR (MDRD) Non-Af 55 L, BUN/Creatinine Ratio 17.6, Glucose 212 H, Calcium 9.1 Microbiology: Microbiology 12/09/23 04:25 Urine, Catheterized Urine Culture - Final Culture exhibits no growth. D/C Instructions Discharge Diet: Low fat / Low cholesterol Discharge Activity: Return to Normal Activity Weight Bearing Status: Weight bearing as tolerated Call your doctor if you observe: Fever of 101 or Higher, Shortness of breath, Dizziness, Swelling in the ankles and Chest pain Meaningful Use Info Meaningful Use Meaningful Use Diagnoses (Choose all that apply): None applicable Ischemic Stroke Statin Dosing Therapy Reference: STATIN DOSE THERAPY REFERENCE: * Patients > 75 years receive moderate or high dose statin therapy. * Patients 75 years or YOUNGER should receive HIGH intensity statin dose unless contraindicated. You will be required to document reason for non-treatment if statin daily dose does not meet guidelines. HIGH DOSE STATIN THERAPY DAILY Atorvastatin > than or = to 40 mg Rosuvastatin > than or = to 20 mg Amlodipine + Atorvastatin > than or = to 2.5/40 mg Ezetimibe + Simvastatin 10/80 mg Simvastatin 80mg Discharge Plan Admission Admit Date/Time: 12/09/23 04:05 Primary Reason for Your Visit: failure to thrive, debility and weakness Attending Provider: Tona Wells Primary Care Provider: Pako Serrano NP Consulting Providers: Marivel Raymond Instructions Patient Instructions: ED FALL-from [id number] Discharge Orders/Prescriptions Prescriptions: Continued Hair,Skin and Nails Tablet 1 tab PO DAILY Hold Instructions: Pt has been DC'd lisinopril 10 mg tablet 10 mg PO DAILY Qty: 30 11RF escitalopram oxalate 5 mg tablet 20 mg PO DAILY atorvastatin 40 mg tablet 40 mg PO QHS Patient Comments: TAKE 1 TABLET BY MOUTH ONCE DAILY tramadol 50 mg tablet 50 mg PO QHS Patient Comments: TAKE 1 TABLET BY MOUTH EVERY DAY AT BEDTIME NEEDED FOR PAIN pantoprazole 40 mg tablet,delayed release (DR/EC) 40 mg PO DAILY Patient Comments: TAKE 1 TABLET BY MOUTH ONCE DAILY gabapentin 300 mg capsule 300 mg PO TID Patient Comments: TAKE 1 CAPSULE BY MOUTH THREE TIMES DAILY multivitamin Capsule 1 cap PO DAILY ferrous sulfate 324 mg (65 mg iron) tablet,delayed release (DR/EC) 324 mg PO BID Qty: 60 0RF glipizide 5 mg tablet 5 mg PO DAILY metformin 500 mg tablet extended release 24 hr 500 mg PO DAILY Referrals / Follow Up: Pako Serrano NP, MUD ANALYSIS SUPERVISOR-C [Primary Care Provider] - Within 1 Week Disposition Disposition (needs filled in before D/C Order can be placed): [facility] Charges/Coding Visit Charges Inpatient E&M: 94485 Disch Hosp >30min
[2023-12-11 10:45] VITALS: BP 144/71; PULSE 85; RESP 18; TEMP 36.8; O2SAT 95
[2023-12-11] MEDS: Arthritis Pain Compound 60 CLICK TUBE TOPICAL (10:59)
[2023-12-11] MEDS: Ferrous Sulfate 325 MG Tablet PO (10:59)
[2023-12-11] MEDS: MethylPREDNISolone DosePak 4 MG BOX PO ×2 (10:59→12:01)
[2023-12-11] MEDS: Escitalopram Oxalate 20 MG Tablet PO (11:00)
[2023-12-11] MEDS: Lidocaine 5% Patch 2 PATCH TOPICAL (11:01)
[2023-12-11] MEDS: Nystatin Powder 15gm Bottle 1 APPLIC TOPICAL (11:02)
[2023-12-11] MEDS: Pantoprazole Sodium 40 MG Tablet PO (11:02)
[2023-12-11] MEDS: Glucerna Shake 120 ML LIQUID PO (11:56)
[2023-12-11] MEDS: Lisinopril 10 MG Tablet PO (11:56)
[2023-12-11] MEDS: Acetaminophen 325 MG Tablet 650 MG PO (11:57)
[2023-12-11 12:25] LABS: Bedside Glucose 196 mg/dL (74-106)
== END 2023-12-11 12:45 | disposition skilled nursing facility (03) ==
LOC: ED 04:34 → MS3 05:21
PROVIDERS: Admitting Provider Family Medicine; Emergency Provider Emergency Medicine; PCP Nurse Practitioner Primary Care; Visit Provider Student in an Organized Health Care Education/Training Program
DX: R53.81 Other malaise (principal); E11.42 Type 2 diabetes mellitus with diabetic polyneuropathy; E11.22 Type 2 diabetes mellitus with diabetic chronic kidney disease; N18.30 Chronic kidney disease, stage 3 unspecified; W18.11XA Fall from or off toilet without subsequent striking against object, initial encounter; R62.7 Adult failure to thrive; R53.1 Weakness; E78.5 Hyperlipidemia, unspecified; G89.29 Other chronic pain; G93.40 Encephalopathy, unspecified; S30.0XXA Contusion of lower back and pelvis, initial encounter; Z79.891 Long term (current) use of opiate analgesic; I12.9 Hypertensive chronic kidney disease with stage 1 through stage 4 chronic kidney disease, or unspecified chronic kidney disease; I95.9 Hypotension, unspecified; Z79.84 Long term (current) use of oral hypoglycemic drugs; M25.562 Pain in left knee; D50.9 Iron deficiency anemia, unspecified; Z79.899 Other long term (current) drug therapy; M25.561 Pain in right knee; Y93.89 Activity, other specified; Y92.009 Unspecified place in unspecified non-institutional (private) residence as the place of occurrence of the external cause; K21.9 Gastro-esophageal reflux disease without esophagitis; Z95.0 Presence of cardiac pacemaker; F41.8 Other specified anxiety disorders; E66.9 Obesity, unspecified; Z68.38 Body mass index [BMI] 38.0-38.9, adult
CPT/HCPCS: 36415; 72220; 73502; 73560; 80048; 80053; 81001; 82962; 83735; 85025; 87086; 94668; 96361; 96372; 96374; 97162; 97166; 97530; 97535; 97802; 99221; 99252; 99284; J7030; A4216; G0378; G0463

== ENCOUNTER 2024-02-10 11:09 | Emergency (ER) | payer MEDICARE, MEDICAID, SELFPAY ==
[2024-02-10 11:10] VITALS: BP 165/90; PULSE 77; RESP 16; TEMP 36.6; O2SAT 96
--- NOTE | 2024-02-10 11:28 | CT_ITS ---
EXAM: CT HEAD WITHOUT INTRAVENOUS CONTRAST CLINICAL INDICATION: HEAD INJURY TECHNIQUE: Multiple axial images were obtained of the head without intravenous contrast. This CT exam was performed using one or more of the following dose reduction techniques: automated exposure control, adjustment of the mA and/or kV according to patient size, and/or use of iterative reconstruction technique. COMPARISON: No relevant prior studies available. FINDINGS: BRAIN AND EXTRA-AXIAL SPACES: No hemorrhage or mass effect. No acute ischemia. Areas of diminished white matter density noted within both cerebral hemispheres suggestive of chronic microvascular change. Prominence of the cortical sulci and ventricles related to volume loss change. BONES/JOINTS: Normal calvarium. SINUSES: No acute sinusitis. MASTOID AIR CELLS: Normal. Clear. IMPRESSION: 1. No acute intracranial abnormality. 2. Senescent changes. EXAM: CT HEAD WITHOUT INTRAVENOUS CONTRAST CLINICAL INDICATION: HEAD INJURY TECHNIQUE: Multiple axial images were obtained of the head without intravenous contrast. This CT exam was performed using one or more of the following dose reduction techniques: automated exposure control, adjustment of the mA and/or kV according to patient size, and/or use of iterative reconstruction technique. COMPARISON: No relevant prior studies available. FINDINGS: BRAIN AND EXTRA-AXIAL SPACES: No hemorrhage or mass effect. No acute ischemia. Areas of diminished white matter density noted within both cerebral hemispheres suggestive of chronic microvascular change. Prominence of the cortical sulci and ventricles related to volume loss change. BONES/JOINTS: Normal calvarium. SINUSES: No acute sinusitis. MASTOID AIR CELLS: Normal. Clear. CT/Brain/Head without Contrast IMPRESSION: 1. No acute intracranial abnormality. 2. Senescent changes. Electronically Signed: Stevie El MD at 12:28 EDT ,
--- NOTE | 2024-02-10 11:28 | CT_ITS ---
EXAM: CT CERVICAL SPINE WITHOUT INTRAVENOUS CONTRAST CLINICAL INDICATION: NECK INJURY TECHNIQUE: Helically acquired images were obtained of the cervical spine without intravenous contrast. 2D reformatted images were reviewed. This CT exam was performed using one or more of the following dose reduction techniques: automated exposure control, adjustment of the mA and/or kV according to patient size, and/or use of iterative reconstruction technique. COMPARISON: No relevant prior studies available. FINDINGS: VERTEBRAE: Mild diffuse spondylosis without spinal or neural foraminal stenosis. No acute fracture or subluxation. DISCS/SPINAL CANAL/NEURAL FORAMINA: See above. SOFT TISSUES: Normal. No prevertebral soft tissue swelling. LYMPH NODES: Normal. No cervical adenopathy. LUNG APICES: Unremarkable as visualized. CT/Spine Cervical without Contras IMPRESSION: No acute fracture or subluxation of the cervical spine. Electronically Signed: Stevie El MD at 12:41 EDT ,
--- NOTE | 2024-02-10 11:28 | CT_ITS ---
EXAM: CT CHEST WITHOUT INTRAVENOUS CONTRAST CLINICAL INDICATION: LEFT RIBJ PAIN, FALL TECHNIQUE: Helically acquired images were obtained of the chest without intravenous contrast. This CT exam was performed using one or more of the following dose reduction techniques: automated exposure control, adjustment of the mA and/or kV according to patient size, and/or use of iterative reconstruction technique. COMPARISON: No relevant prior studies available. FINDINGS: LUNGS AND PLEURAL SPACES: There is mild bibasilar atelectasis. No pleural effusion or pneumothorax. No mass. HEART: Mild cardiomegaly. Prominent coronary artery calcification. MEDIASTINUM: Normal. No mediastinal or hilar adenopathy. Esophagus is unremarkable. No hiatal hernia. BONES/JOINTS: Acute fractures of the left eighth through 12th ribs noted. The 10th rib fracture is mildly displaced. Chronic compression fracture of the L2 vertebral body. Prominent disc degeneration noted at L2-3. VASCULATURE: No aortic aneurysm. TUBES, LINES AND DEVICES: Atrial and ventricular pacemaker wires are in place. CT/Chest without Contrast IMPRESSION: 1. Acute fractures of the left eighth through 12th ribs. No evidence of acute intrathoracic injury. 2. Cardiomegaly. Electronically Signed: Stevie El MD at 12:55 EDT ,
--- NOTE | 2024-02-10 11:32 | EDS_ITS ---
HPI <ANDRÉS Hawk - Last Filed: 02/10/24 17:19> History of Present Illness Chief Complaint: Fall Narrative Narrative: Patient presenting today due to a mechanical fall that occurred this morning. She was ambulating in her bathroom and was holding onto the lid of the toilet when it moved causing her to lose her balance and fall. She hit the left side of her torso against the lip of the bathtub. She does think that she hit her head but denies LOC or use of blood thinners. She was able to call for help with her life alert necklace. She reports pain to her left lateral rib cage and left side of her neck. PFSH <ANDRÉS Hawk - Last Filed: 02/10/24 17:19> PFS Medical History Pacemaker Anxiety Depression Hypertension Debility Accidental fall Unable to stand up Chronic low back pain Coccyx contusion GERD (gastroesophageal reflux disease) Chronic peripheral neuropathic pain Diabetes mellitus, type 2 Chronic anemia CKD (chronic kidney disease), stage III Obesity Anxiety and depression HLD (hyperlipidemia) Adult failure to thrive Intractable back pain Presence of permanent cardiac pacemaker Essential hypertension Complete heart block Osteoarthritis Non-smoker Home Medications ?Medication ?Instructions ?Recorded ?Last Taken ?Type atorvastatin 40 mg tablet 40 mg PO QHS cholesterol 03/13/22 03/12/22 History gabapentin 300 mg capsule 300 mg PO TID Check with primary 03/13/22 03/13/22 History doctor pantoprazole 40 mg tablet,delayed 40 mg PO DAILY Check with primary 03/13/22 03/13/22 History release doctor tramadol 50 mg tablet 50 mg PO QHS Check with primary 03/13/22 03/12/22 History doctor ferrous sulfate 324 mg (65 mg 324 mg PO BID #60 tabs 03/15/22 Unknown Rx iron) tablet,delayed release glipizide 5 mg tablet 5 mg PO DAILY Check with primary 04/14/22 Unknown History doctor multivitamin with minerals 1 tab PO DAILY 04/14/22 Unknown History (Hair,Skin and Nails tablet) lisinopril 10 mg tablet 10 mg PO DAILY Check with primary 07/17/22 Unknown Rx doctor #30 tabs escitalopram oxalate 5 mg tablet 20 mg PO DAILY 04/28/23 Unknown History metformin 500 mg tablet,extended 500 mg PO DAILY 12/09/23 Unknown History release 24 hr Allergy/AdvReac Type Severity Reaction Status Date / Time Iodinated Contrast Media Allergy Rash Verified 02/10/24 11:14 (CONTRASTS) oxaprozin (From Daypro) AdvReac Upset Verified 02/10/24 11:14 Stomach Family History Brother Cancer Brother Cancer Sister Cancer Mother Diabetes Asthma Surgical History History of hernia repair History of carpal tunnel release of both wrists History of hysterectomy History of permanent cardiac pacemaker placement (03/13/22) History of appendectomy History of cholecystectomy Social History household members: family Smoking Status: Never smoker alcohol intake: never substance use type: does not use caffeine: Yes Type: tea ROS <ANDRÉS Hawk - Last Filed: 02/10/24 17:19> ROS ED Constitutional Constitutional ED: Denies chills or fever(s) Cardiovascular Cardiovascular: Denies chest pain or palpitations Respiratory/Chest Respiratory/Chest: Denies dyspnea Gastrointestinal Gastrointestinal: Denies abdominal pain, nausea or vomiting Genitourinary Genitourinary ED: Denies dysuria, hematuria or urinary urgency Musculoskeletal Musculoskeletal: Reports neck pain and other Details: Pain to the left lateral rib cage ; Denies arthralgias or back pain Integumentary Denies Abrasions Neurologic Neurologic: Denies headache(s) or paresthesias EXAM <ANDRÉS Hawk - Last Filed: 02/10/24 17:19> Physical Exam Const Vital Signs: 02/10/24 11:10 02/10/24 11:14 02/10/24 13:01 Temperature 97.9 F Temperature Source Temporal Pulse Rate 77 79 Respiratory Rate 16 18 Respiratory Effort Normal Non-Labored Respiratory Depth Normal Respiratory Pattern Normal Blood Pressure 165/90 H 155/84 H Blood Pressure Mean 115 107 Pulse Ox 96 95 Oxygen Delivery Method Room Air Room Air Room Air 02/10/24 13:59 Temperature 97.9 F Temperature Source Pulse Rate 83 Respiratory Rate 21 H Respiratory Effort Respiratory Depth Respiratory Pattern Blood Pressure 151/86 H Blood Pressure Mean 107 Pulse Ox 92 Oxygen Delivery Method Positive well nourished, well developed and no apparent distress General Appearance ED: well developed HEENT Reports normocephalic and head/scalp atraumatic Mouth ED: Yes moist mucous membranes normal Eyes PERRL and EOMs intact bilaterally Neck full ROM and supple Neck Narrative: No midline cervical tenderness Chest Wall inspection of chest normal Chest Narrative: Pain to palpation to the left lateral rib cage, no crepitus, no ecchymosis Resp normal respiratory effort and clear to auscultation bilaterally Cardio regular rate and regular rhythm GI soft to palpation, non-tender, non-distended and no masses Back/Spine normal ROM and normal to inspection Extremity normal to inspection and full ROM Extremity Narrative: No pain to palpation to the upper or lower extremities, hips, or pelvis Neuro oriented x3, CN's II-XII intact bilaterally, moves all extremities, no focal motor deficits and no sensory deficits noted Sensorium / Orientation: awake and alert Psych mental status grossly normal and thought process normal Skin no rashes or lesions noted and no wounds <Ghanshyam Toscano MD - Last Filed: 02/10/24 14:44> Physical Exam Const Vital Signs: 02/10/24 11:10 02/10/24 11:14 02/10/24 13:01 Temperature 97.9 F Temperature Source Temporal Pulse Rate 77 79 Respiratory Rate 16 18 Respiratory Effort Normal Non-Labored Respiratory Depth Normal Respiratory Pattern Normal Blood Pressure 165/90 H 155/84 H Blood Pressure Mean 115 107 Pulse Ox 96 95 Oxygen Delivery Method Room Air Room Air Room Air 02/10/24 13:59 Temperature 97.9 F Temperature Source Pulse Rate 83 Respiratory Rate 21 H Respiratory Effort Respiratory Depth Respiratory Pattern Blood Pressure 151/86 H Blood Pressure Mean 107 Pulse Ox 92 Oxygen Delivery Method [facility] <ANDRÉS Hawk - Last Filed: 02/10/24 17:19> [facility] Narrative Medical decision making narrative: Patient presenting after a mechanical fall that occurred this morning. She reports pain to her left lateral rib cage and also left side of her neck. She thinks that she may have hit her head but is not 100% sure. There was no LOC. Head, cervical spine, and chest CTs will be obtained to rule out intracranial bleed, cervical fracture, and rib fracture. She was given [place] for pain. Head and neck CT negative for any acute findings, chest CT shows fractures to the left eighth through 12th ribs. Hip x-ray negative for fracture. Given she has 5 rib fractures she does meet criteria for geriatric trauma. I did speak with ED physician, Dr. Paredes at [facility], he is excepting the patient for transfer. She will be transferred in stable condition and was given additional analgesia. She is comfortable with this plan. Lab Data Labs: Laboratory Results - last 24 hr 02/10/24 13:15 WBC 12.2 H RBC 4.66 Hgb 13.6 Hct 42.1 MCV 90.3 MCH 29.2 MCHC 32.3 RDW Std Deviation 47.7 H RDW Coeff of Zainab 14.4 Plt Count 210 MPV 10.2 Immature Gran % (Auto) 0.700 Neut % (Auto) 73.8 H Lymph % (Auto) 13.5 L Bee % (Auto) 9.2 Eos % (Auto) 2.2 Baso % (Auto) 0.6 Absolute Neuts (auto) 9.0 H Absolute Lymphs (auto) 1.65 Nucleated RBC % 0 Sodium 141 Potassium 3.9 Chloride 104 Carbon Dioxide 27.0 Anion Gap 10 BUN 20 H Creatinine 1.08 H Est GFR (MDRD) Af Amer 63 Est GFR (MDRD) Non-Af 52 L BUN/Creatinine Ratio 18.5 Glucose 157 H Calcium 9.3 Radiography Diagnostic Testing: Clinical Impression(s) from Imaging Studies Brain CT 02/10/24 11:28 IMPRESSION: 1. No acute intracranial abnormality. 2. Senescent changes. Electronically Signed: Stevie El MD at 12:28 EDT , Cervical Spine CT 02/10/24 11:28 IMPRESSION: No acute fracture or subluxation of the cervical spine. Electronically Signed: Stevie El MD at 12:41 EDT , Chest CT 02/10/24 11:28 IMPRESSION: 1. Acute fractures of the left eighth through 12th ribs. No evidence of acute intrathoracic injury. 2. Cardiomegaly. Electronically Signed: Stevie El MD at 12:55 EDT , Hip/Pelvis X-Ray 02/10/24 11:39 IMPRESSION: No evidence of pelvic or hip fracture. Electronically Signed: Stevie El MD at 12:41 EDT , <Ghanshyam Toscano MD - Last Filed: 02/10/24 14:44> [facility] Lab Data Labs: Laboratory Results - last 24 hr 02/10/24 13:15 WBC 12.2 H RBC 4.66 Hgb 13.6 Hct 42.1 MCV 90.3 MCH 29.2 MCHC 32.3 RDW Std Deviation 47.7 H RDW Coeff of Zainab 14.4 Plt Count 210 MPV 10.2 Immature Gran % (Auto) 0.700 Neut % (Auto) 73.8 H Lymph % (Auto) 13.5 L Bee % (Auto) 9.2 Eos % (Auto) 2.2 Baso % (Auto) 0.6 Absolute Neuts (auto) 9.0 H Absolute Lymphs (auto) 1.65 Nucleated RBC % 0 Sodium 141 Potassium 3.9 Chloride 104 Carbon Dioxide 27.0 Anion Gap 10 BUN 20 H Creatinine 1.08 H Est GFR (MDRD) Af Amer 63 Est GFR (MDRD) Non-Af 52 L BUN/Creatinine Ratio 18.5 Glucose 157 H Calcium 9.3 Radiography X-Ray: Left Hip, Read by ED Physician and No Fracture Diagnostic Testing: Clinical Impression(s) from Imaging Studies Brain CT 02/10/24 11:28 IMPRESSION: 1. No acute intracranial abnormality. 2. Senescent changes. Electronically Signed: Stevie El MD at 12:28 EDT , Cervical Spine CT 02/10/24 11:28 IMPRESSION: No acute fracture or subluxation of the cervical spine. Electronically Signed: Stevie El MD at 12:41 EDT , Chest CT 02/10/24 11:28 IMPRESSION: 1. Acute fractures of the left eighth through 12th ribs. No evidence of acute intrathoracic injury. 2. Cardiomegaly. Electronically Signed: Stevie El MD at 12:55 EDT , Hip/Pelvis X-Ray 02/10/24 11:39 IMPRESSION: No evidence of pelvic or hip fracture. Electronically Signed: Stevie El MD at 12:41 EDT , Treatment and Re-Evaluation Narrative: Dr. Toscano: I have personally performed a face to face assessment of the patient and have reviewed the EUFEMIA Note. I performed a substantive portion of the visit including all aspects of the following. My arreaga findings include: History is mechanical fall in bathroom while trying to get up from toilet, fell into the shower hitting the left side. No loss of consciousness, complains of left rib pain. Exam is GCS 15. ABCs intact. Neurological examination shows her to be awake, alert, oriented x 3. Regular rate and rhythm. Lungs clear to auscultation bilaterally. Abdomen soft nontender with normoactive bowel sounds. Positive tenderness to palpation left ribs, no crepitance. No pain with logrolling of femur. Pelvis stable. Mild tenderness palpation left hip. Medical Decision Making: Check CT brain, check CT cervical spine and chest. X-rays of the left hip interpreted by myself independently as well as pelvis shows no evidence of acute fracture. I reviewed the radiology report which confirms my independent interpretation. In review of the radiology report of the left chest/ribs there are fractures in ribs 8 through 12. I do feel that she meets geriatric trauma criteria. Patient was discussed with [facility] physician who accepts her in transfer. CT of the brain and cervical spine shows no evidence of acute hemorrhage or cervical spine fracture. Disposition is transferred in stable condition. Other additions or changes: [None] Discharge Plan Triage Chief Complaint: Fall ED Midlevel Provider: Ashlee Oreilly ED Provider: Ghanshyam Toscano Dx/Rx/DC Orders Clinical Impression: Fall, Head injury, Multiple fractures of ribs, Contusion of left hip Prescriptions: No Action Hair,Skin and Nails Tablet 1 tab PO DAILY lisinopril 10 mg tablet 10 mg PO DAILY Qty: 30 11RF escitalopram oxalate 5 mg tablet 20 mg PO DAILY atorvastatin 40 mg tablet 40 mg PO QHS Patient Comments: TAKE 1 TABLET BY MOUTH ONCE DAILY tramadol 50 mg tablet 50 mg PO QHS Patient Comments: TAKE 1 TABLET BY MOUTH EVERY DAY AT BEDTIME NEEDED FOR PAIN pantoprazole 40 mg tablet,delayed release (DR/EC) 40 mg PO DAILY Patient Comments: TAKE 1 TABLET BY MOUTH ONCE DAILY gabapentin 300 mg capsule 300 mg PO TID Patient Comments: TAKE 1 CAPSULE BY MOUTH THREE TIMES DAILY ferrous sulfate 324 mg (65 mg iron) tablet,delayed release (DR/EC) 324 mg PO BID Qty: 60 0RF glipizide 5 mg tablet 5 mg PO DAILY metformin 500 mg tablet extended release 24 hr 500 mg PO DAILY Primary Care Provider: Pako Serrano NP Referrals: Pako Serrano FRENCH LECTURER, FRENCH LECTURER-C [Primary Care Provider] - Print Language: Turkmen Disposition Disposition: Acute Care Hospital Discharge Location: [facility] Discharge Date/Time: 02/10/24 14:26
--- NOTE | 2024-02-10 11:39 | RAD_ITS ---
EXAM: XR LEFT HIP WITH PELVIS WHEN PERFORMED, 2 OR 3 VIEWS CLINICAL INDICATION: L HIP PAIN TECHNIQUE: Two or three views of the left hip with pelvis when performed. COMPARISON: No relevant prior studies available. FINDINGS: BONES/JOINTS: No acute abnormality. SOFT TISSUES: Normal. No soft tissue swelling or gas. RAD/HIP, UNI W/ Pelvis 2-3 Views IMPRESSION: No evidence of pelvic or hip fracture. Electronically Signed: Stevie El MD at 12:41 EDT ,
[2024-02-10] MEDS: HYDROcodone Bitartrate/Apap 5/325 Tablet PO (11:43)
[2024-02-10 13:01] VITALS: BP 155/84; PULSE 79; RESP 18; O2SAT 95
[2024-02-10 13:26] LABS: Absolute Lymphocyte Count 1.65 X10^3/uL (0.83-4.51); Basophil# 0.07 X10^3/uL; Basophil% 0.6 % (0-1); Eosinophil# 0.27 X10^3/uL; Eosinophils% 2.2 % (0-5); Hematocrit 42.1 % (37-47); Hemoglobin 13.6 g/dL (12.0-15.0); Lymphocyte # 1.65 X10^3/ul (0.83-4.51); Lymphocyte % 13.5 % (19-41); Mean Corp Hgb Conc 32.3 g/dL (32-36); Mean Corpuscular Hgb 29.2 pg (27.0-32.0); Mean Corpuscular Volume 90.3 fL (81-99); Mean Platelet Vol. 10.2 fl (6.2-12.0); Monocyte# 1.12 X10^3/uL; Monocyte% 9.2 % (0-10); NRBC Flagged by Analyzer 0 % (0-5); Neutrophil # 8.99 X10^3/uL (2.7-7.7); Neutrophil % 73.8 % (47-70); Platelet Count 210 K/mm3 (150-450); RBC Distribution Width CV 14.4 % (11.6-14.6); RBC Distribution Width SD 47.7 fl (35.1-43.9); Red Blood Count 4.66 M/mm3 (4.2-5.4); White Blood Count 12.2 K/mm3 (4.4-11.0)
[2024-02-10] MEDS: 0.9% Normal Saline (1000mL) 1,000 ML 150 ML IV (13:32)
[2024-02-10 13:41] LABS: Anion Gap 10 (5-15); BUN 20 mg/dL (7-18); BUN/Creat Ratio 18.5 RATIO (10-20); Calcium,Total 9.3 mg/dL (8.5-10.1); Chloride 104 mmol/L (98-107); Creatinine, Serum 1.08 mg/dL (0.55-1.02); EST Glomerular Filtration Rate 52 mL/min (>60); Est Glom Filt Rate - Afr Amer 63 mL/min (>60); Glucose 157 mg/dL (74-106); Potassium 3.9 mmol/L (3.5-5.1); Sodium Level 141 mmol/L (136-145)
[2024-02-10 13:59] VITALS: BP 151/86; PULSE 83; RESP 21; TEMP 36.6; O2SAT 92
[2024-02-10] MEDS: fentaNYL 100 MCG/2 ML Ampul 50 MCG IV (14:21)
== END 2024-02-10 14:26 | disposition short-term general hospital (02) ==
LOC: ED 11:34
PROVIDERS: Physician Assistant; Emergency Provider Emergency Medicine; PCP Nurse Practitioner Primary Care; Visit Provider Emergency Medicine
DX: S22.42XA Multiple fractures of ribs, left side, initial encounter for closed fracture (principal); E11.22 Type 2 diabetes mellitus with diabetic chronic kidney disease; N18.30 Chronic kidney disease, stage 3 unspecified; I12.9 Hypertensive chronic kidney disease with stage 1 through stage 4 chronic kidney disease, or unspecified chronic kidney disease; E78.5 Hyperlipidemia, unspecified; S70.02XA Contusion of left hip, initial encounter; S09.90XA Unspecified injury of head, initial encounter; W01.198A Fall on same level from slipping, tripping and stumbling with subsequent striking against other object, initial encounter; Y92.89 Other specified places as the place of occurrence of the external cause; Z79.899 Other long term (current) drug therapy; K21.9 Gastro-esophageal reflux disease without esophagitis; Z79.84 Long term (current) use of oral hypoglycemic drugs; F41.9 Anxiety disorder, unspecified; F32.A Depression, unspecified; Z90.710 Acquired absence of both cervix and uterus; Z95.0 Presence of cardiac pacemaker; Z90.49 Acquired absence of other specified parts of digestive tract
CPT/HCPCS: 70450; 71250; 72125; 73502; 80048; 85025; 96361; 96374; 99283; A4216

== ENCOUNTER 2024-02-23 11:47 | Inpatient (IN) | payer MEDICARE, MEDICAID, SELFPAY ==
[2024-02-23] VITALS (16 sets, daily range): BP systolic 101–131; BP diastolic 46–93; PULSE 72–102; RESP 18–29; TEMP 36.3–39.5; O2SAT 92–97; BMI 35.9
--- NOTE | 2024-02-23 12:14 | EKG12_ITS ---
Test Reason : Blood Pressure : / mmHG Vent. Rate : 097 BPM Atrial Rate : 097 BPM P-R Int : 120 ms QRS Dur : 116 ms QT Int : 398 ms P-R-T Axes : 000 -50 042 degrees QTc Int : 505 ms Atrial-sensed ventricular-paced rhythm Abnormal ECG Confirmed by BLANCA MORGAN, KADI ([id number]), subeditor MTATHIAS SILVEIRA ([id number]) on 02/28/2024 11:38:35 AM Referred By: Confirmed By:KADI RIOS MD
[2024-02-23] MEDS: 0.9% Normal Saline (1000mL) 1,000 ML 999 ML IV ×3 (12:25→15:54)
--- NOTE | 2024-02-23 12:30 | RAD_ITS ---
STUDY: X-RAY CHEST REASON FOR EXAM: Female, 78 years old. Fever TECHNIQUE: Single AP portable view of the chest. COMPARISON: Comparison is made with prior study dated June 21, 2023. FINDINGS: EKG electrodes are seen. Stable increased markings at the left lung base suggestive of scarring. Blunting of the left costophrenic angle. Normal size heart. A left-sided dual-chamber pacemaker is seen. Normal mediastinum and priscilla. Normal visualized pulmonary arteries. There is atherosclerotic calcification of the aortic arch with tortuosity. There are diffuse degenerative changes of the visualized thoracic spine. Normal visualized ribs, clavicles, and shoulders. There is no demonstrated abnormality of the visualized soft tissue structures of the upper abdomen. RAD/Chest 1 View (Portable) IMPRESSION: Stable increased markings at the left lung base suggestive of left basilar atelectasis and/or scarring with blunting of the left costophrenic angle. Electronically Signed: Christ Frye MD at 13:12 EDT ,
[2024-02-23 12:34] LABS: Absolute Lymphocyte Count 0.84 X10^3/uL (0.83-4.51); Absolute Neutrophil Count 10.4 X10^3/uL (2.0-7.7); Basophil# 0.02 X10^3/uL; Basophil% 0.2 % (0-1); Eosinophil# 0.02 X10^3/uL; Eosinophils% 0.2 % (0-5); Hematocrit 32.8 % (37-47); Hemoglobin 10.8 g/dL (12.0-15.0); Lymphocyte # 0.84 X10^3/ul (0.83-4.51); Lymphocyte % 6.6 % (19-41); Mean Corp Hgb Conc 32.9 g/dL (32-36); Mean Corpuscular Hgb 29.1 pg (27.0-32.0); Mean Corpuscular Volume 88.4 fL (81-99); Mean Platelet Vol. 10.5 fl (6.2-12.0); Monocyte# 1.35 X10^3/uL; Monocyte% 10.6 % (0-10); NRBC Flagged by Analyzer 0 % (0-5); Neutrophil # 10.38 X10^3/uL (2.7-7.7); Neutrophil % 81.8 % (47-70); Platelet Count 227 K/mm3 (150-450); RBC Distribution Width CV 15.1 % (11.6-14.6); RBC Distribution Width SD 48.4 fl (35.1-43.9); Red Blood Count 3.71 M/mm3 (4.2-5.4); White Blood Count 12.7 K/mm3 (4.4-11.0)
[2024-02-23 12:41] LABS: International Normalized Ratio 1.3; Prothrombin Time (Protime)PT. 15.9 SECONDS (11.7-14.9)
[2024-02-23 12:42] LABS: Partial Thromboplast Time 30.1 Seconds (24.1-36.2)
[2024-02-23] MEDS: Acetaminophen 650 MG Suppository RC (12:42)
[2024-02-23 12:52] LABS: ALB/GLOB Ratio 0.7 RATIO (0.9-2.4); AST(SGOT) 27 U/L (15-37); Alanine Aminotransfer ALT/SGPT 18 U/L (13-56); Albumin, Serum 2.8 g/dL (3.2-5.0); Alkaline Phosphatase 75 U/L (45-117); Anion Gap 11 (5-15); BUN 18 mg/dL (7-18); BUN/Creat Ratio 12.8 RATIO (10-20); Calcium,Total 8.9 mg/dL (8.5-10.1); Chloride 102 mmol/L (98-107); Creatinine, Serum 1.41 mg/dL (0.55-1.02); EST Glomerular Filtration Rate 38 mL/min (>60); Est Glom Filt Rate - Afr Amer 46 mL/min (>60); Estimated Creatinine Clearance 29.99 ml/min; Globulin 3.9 g/dL (2.2-4.2); Glucose 300 mg/dL (74-106); Potassium 3.7 mmol/L (3.5-5.1); Protein, Total 6.7 g/dL (6.4-8.2); Sodium Level 136 mmol/L (136-145)
--- NOTE | 2024-02-23 12:52 | CT_ITS ---
STUDY: CT ABDOMEN AND PELVIS WITHOUT CONTRAST REASON FOR EXAM: Female, 78 years old. Abd pain, fever. Possible UTI. RADIATION DOSAGE (If Supplied By Facility): CTDIvol = ( 15.49 ) mGy, DLP = ( 834.96 ) mGycm TECHNIQUE: Transaxial images were obtained from the dome of the diaphragm to the symphysis pubis without oral contrast, and without intravenous contrast. Sagittal and coronal images were reconstructed. Individualized dose optimization techniques were used for this CT. COMPARISON: Comparison is made with prior study dated September 15, 2022. FINDINGS: Small left pleural effusion with left basilar atelectasis and/or infiltrate. Minimal right pleural effusion with right basilar atelectasis. Coronary artery calcification. Normal liver. There are surgical clips in the gallbladder fossa consistent with a prior cholecystectomy. Normal spleen. Normal pancreas. Normal bilateral adrenal glands. Nonspecific bilateral perinephric stranding. Tiny nonobstructive calculus in the upper pole calyx of the left kidney. Normal visualized stomach. Normal small intestine. Normal colon. There is non-visualization of the appendix. There is diffuse atherosclerotic calcification of the abdominal aorta and its major visceral branches, without a demonstrated aneurysm. Normal inferior vena cava. Normal retroperitoneum. A Mccabe catheter seen within a decompressed urinary bladder. There is absence of the uterus consistent with a prior hysterectomy. Normal abdominal wall. There are degenerative changes of the visualized lumbar spine. CT/Abdomen/Pelvis without Cont IMPRESSION: Small bilateral pleural effusions left greater than right with left basilar atelectasis and/or infiltrate. Mild atelectasis at the right lung base. A Mccabe catheter is seen within the urinary bladder. Nonspecific bilateral perinephric stranding. Electronically Signed: Christ Frye MD at 13:32 EDT ,
--- NOTE | 2024-02-23 12:52 | EDS_ITS ---
HPI History of Present Illness Chief Complaint: Alt LOC Informant: patient Narrative Narrative: Patient is an 78-year-old female presenting from [facility] for fever and confusion. Patient had a fall on February 09 with 5 rib fractures. She was transferred to [facility]. She was discharged to inpatient rehab on Wednesday (2 days ago). Daughter who is her medical POA is at the bedside. She states that she was doing well and she talked her last night and seemed normal. She went to check on her this morning around 945 and states that she was very lethargic. Patient seemed confused. Patient was noted to have a fever and then sent to the emergency room for further workup and evaluation. Patient is continue to have left-sided rib pain associated with her recent fall/trauma. Does not complain of anything else at this time. Does know she is in [place]. Daughter states she is usually very alert and interactive. No report of any vomiting. Reportedly had a normal bowel movement yesterday. Per nursing report patient ate breakfast this morning. PFSH PFSH Medical History Pacemaker Anxiety Depression Hypertension Debility Accidental fall Unable to stand up Chronic low back pain Coccyx contusion GERD (gastroesophageal reflux disease) Chronic peripheral neuropathic pain Diabetes mellitus, type 2 Chronic anemia CKD (chronic kidney disease), stage III Obesity Anxiety and depression HLD (hyperlipidemia) Adult failure to thrive Intractable back pain Presence of permanent cardiac pacemaker Essential hypertension Complete heart block Osteoarthritis Non-smoker Home Medications ?Medication ?Instructions ?Recorded ?Last Taken ?Type atorvastatin 40 mg tablet 40 mg PO QHS cholesterol 03/13/22 03/12/22 History gabapentin 300 mg capsule 300 mg PO TID Check with primary 03/13/22 03/13/22 History doctor pantoprazole 40 mg tablet,delayed 40 mg PO DAILY Check with primary 03/13/22 03/13/22 History release doctor tramadol 50 mg tablet 50 mg PO QHS Check with primary 03/13/22 03/12/22 History doctor ferrous sulfate 324 mg (65 mg 324 mg PO BID #60 tabs 03/15/22 Unknown Rx iron) tablet,delayed release glipizide 5 mg tablet 5 mg PO DAILY Check with primary 04/14/22 Unknown History doctor multivitamin with minerals 1 tab PO DAILY 04/14/22 Unknown History (Hair,Skin and Nails tablet) lisinopril 10 mg tablet 10 mg PO DAILY Check with primary 07/17/22 Unknown Rx doctor #30 tabs escitalopram oxalate 5 mg tablet 20 mg PO DAILY 04/28/23 Unknown History metformin 500 mg tablet,extended 500 mg PO DAILY 12/09/23 Unknown History release 24 hr Allergy/AdvReac Type Severity Reaction Status Date / Time Iodinated Contrast Media Allergy Rash Verified 02/10/24 11:14 (CONTRASTS) oxaprozin (From Daypro) AdvReac Upset Verified 02/10/24 11:14 Stomach Family History Brother Cancer Brother Cancer Sister Cancer Mother Diabetes Asthma Surgical History History of hernia repair History of carpal tunnel release of both wrists History of hysterectomy History of permanent cardiac pacemaker placement (03/13/22) History of appendectomy History of cholecystectomy Social History household members: family Smoking Status: Never smoker alcohol intake: never substance use type: does not use caffeine: Yes Type: tea ROS ROS ED Constitutional Constitutional ED: Reports chills and fever(s) Cardiovascular Cardiovascular: Denies chest pain Respiratory/Chest Respiratory/Chest: Reports other Details: left sided rib pain ; Denies cough Gastrointestinal Gastrointestinal: Reports abdominal pain; Denies nausea or vomiting Genitourinary Genitourinary ED: Denies dysuria Musculoskeletal Musculoskeletal: Denies arthralgias, back pain or myalgias Integumentary Denies rash Neurologic Neurologic: Reports weakness; Denies headache(s) EXAM Physical Exam Const Vital Signs: 02/23/24 11:49 02/23/24 11:56 02/23/24 12:14 Temperature 102.3 F H 102.3 F H Temperature Source Axillary Axillary Pulse Rate 100 102 H Respiratory Rate 29 H 28 H Blood Pressure 122/50 H 122/50 H Blood Pressure Mean 74 74 Pulse Ox 93 93 94 Oxygen Delivery Method Room Air Room Air Room Air 02/23/24 12:48 02/23/24 12:56 02/23/24 13:00 Temperature 103.1 F H 103 F H 103 F H Temperature Source Core Core Core Pulse Rate 94 101 H 99 Respiratory Rate 27 H 26 H 28 H Blood Pressure 111/71 114/93 H 114/93 H Blood Pressure Mean 84 100 100 Pulse Ox 94 94 93 Oxygen Delivery Method Room Air Room Air Room Air 02/23/24 14:00 02/23/24 15:00 02/23/24 16:00 Temperature 103 F H 102.4 F H 101.4 F H Temperature Source Core Core Core Pulse Rate 100 88 87 Respiratory Rate 25 H 26 H 23 H Blood Pressure 101/88 H 114/60 103/46 L Blood Pressure Mean 92 78 65 Pulse Ox 92 92 92 Oxygen Delivery Method Room Air Room Air Room Air Positive well nourished and well developed General Appearance ED: well developed and NAD HEENT Reports dry mucous membranes Mouth ED: Yes dry mucous membranes Mouth: dry mucous membranes Eyes PERRL and EOMs intact bilaterally Neck supple Chest Wall inspection of chest normal Chest Narrative: left chest wall TTP Resp normal respiratory effort and clear to auscultation bilaterally Cardio regular rhythm Rate: tachycardic GI GI Narrative: Mildly distended abdomen. Unclear if this is pathologic versus just a protuberant abdomen on exam. No fluid wave appreciated. Diffuse tenderness to palpation that does not localize. Auscultation: normoactive bowel sounds Extremity normal to inspection General Extremety ED: Negative for edema General Extremity: Negative for edema Neuro Neuro Narrative: Somnolent Sensorium / Orientation: alert and orientation impaired Motor Exam: general weakness Skin no rashes or lesions noted and no wounds Sepsis Attestation Sepsis Alert: Yes Sepsis Attestation: Agree w/Sepsis Date exam was performed: 02/23/24 Time exam was performed: 13:00 Possible Source of Sepsis: Pulmonary Sepsis Organ Dysfunction Criteria Present: Lactic Acid > 2 mmol/L and New/Unexplained change in mental status Fluid Resuscitation Fluid resuscitation indicated?: Yes Fluid Resuscitation ordered: 30 ml/kg fluid bolus ordered Sepsis Note Date exam was performed: 02/23/24 Time exam was performed: 16:30 Sepsis Attestation: Sepsis re-evaluation was performed Response to fluids: Fluid responsive hypotension MDM MDM MDM Narrative Medical decision making narrative: Patient presents with altered mental status, fever from nurse facility. She had recent hospitalization for traumatic rib fractures and is only been at inpatient rehab for 2 days but had a mental status change today which is what brought her to the emergency room. Upon arrival patient is febrile, tachycardic and has a soft blood pressures. She does not have any lateralizing neurologic deficits. Septic workup is initiated. Patient does have leukocytosis of 12.7, mild but stable anemia with a hemoglobin of 10.8, elevation of her creatinine (1.41-hour her baseline is 1) and a significant elevated lactate of 4.7. Urinalysis obtained by catheterization is not consistent with infection. Blood cultures are pending. CT of the abdomen pelvis is obtained patient is complaining of diffuse abdominal pain on exam with palpation. Patient is given rectal Tylenol and a total of 30 cc/kg fluid bolus. CT abdomen pelvis shows small bilateral lateral pleural effusions left greater than right with left basilar atelectasis and/or infiltrate and nonspecific bilateral perinephric stranding. Given that urine is not consistent infection a lower suspicion for renal pathology as a cause of her fever and presentation. Will treat for commune acquired pneumonia. Patient started on Rocephin and azithromycin in the emergency room. Case discussed with my physician, Dr. Shrestha. Patient remains hemodynamic stable in the ER and I do not think requires ICU evaluation at this time. Lab Data Attestation: I reviewed the patient's lab results. Labs: Laboratory Results - last 24 hr 02/23/24 02/23/24 12:05 12:10 WBC 12.7 H RBC 3.71 L Hgb 10.8 L Hct 32.8 L MCV 88.4 MCH 29.1 MCHC 32.9 RDW Std Deviation 48.4 H RDW Coeff of Zainab 15.1 H Plt Count 227 MPV 10.5 Immature Gran % (Auto) 0.600 Neut % (Auto) 81.8 H Lymph % (Auto) 6.6 L Mccone % (Auto) 10.6 H Eos % (Auto) 0.2 Baso % (Auto) 0.2 Absolute Neuts (auto) 10.4 H Absolute Lymphs (auto) 0.84 Nucleated RBC % 0 PT 15.9 H INR 1.3 APTT 30.1 Sodium 136 Potassium 3.7 Chloride 102 Carbon Dioxide 23.0 Anion Gap 11 BUN 18 Creatinine 1.41 H Estim Creat Clear Calc 29.99 Est GFR (MDRD) Af Amer 46 L Est GFR (MDRD) Non-Af 38 L BUN/Creatinine Ratio 12.8 Glucose 300 H Lactic Acid 4.7 H* Calcium 8.9 Total Bilirubin 0.90 AST 27 ALT 18 Alkaline Phosphatase 75 Total Protein 6.7 Albumin 2.8 L Globulin 3.9 Albumin/Globulin Ratio 0.7 L Urine Color Yellow Urine Clarity Clear Urine pH 6.5 Ur Specific [place] 1.010 Urine Protein 30 H Urine Glucose (UA) Normal Urine Ketones Negative Urine Occult Blood 10 H Urine Nitrite Negative Urine Bilirubin Negative Urine Urobilinogen Normal Ur Leukocyte Esterase Negative Urine RBC 0-5 SEEN Urine WBC 0 SEEN Ur Squamous Epith Cells 0 SEEN Urine Bacteria 0 SEEN Urine Mucus 0 SEEN Radiography Chest X-Ray - ED: 1 View, Read by ED Physician and Read by Radiologist Diagnostic Testing: Clinical Impression(s) from Imaging Studies Chest X-Ray 02/23/24 12:30 IMPRESSION: Stable increased markings at the left lung base suggestive of left basilar atelectasis and/or scarring with blunting of the left costophrenic angle. Electronically Signed: Christ Frye MD at 13:12 EDT , Abdomen/Pelvis CT 02/23/24 12:52 IMPRESSION: Small bilateral pleural effusions left greater than right with left basilar atelectasis and/or infiltrate. Mild atelectasis at the right lung base. A Mccabe catheter is seen within the urinary bladder. Nonspecific bilateral perinephric stranding. Electronically Signed: Christ Frye MD at 13:32 EDT , Rhythm Strip Rhythm Strip: Sinus Rhythm Rate: 97 Ectopy: None EKG Initial EKG: Attestation: I personally reviewed and interpreted this EKG as follows: Comments: Atrial sensed ventricular paced rhythm at a rate of 97 bpm Left axis deviation Normal ST segments Management Discussion w/another healthcare provider: Hospitalist Discharge Plan Dx/Rx/DC Orders Clinical Impression: Pneumonia, Sepsis, Lactic acidosis Disposition Disposition: Acute Care Hospital [facility] Discharge Date/Time: 02/23/24 17:02
[2024-02-23 13:19] LABS: Lactic Acid 4.7 mmol/L (0.4-1.9)
[2024-02-23 13:29] LABS: Bacteria 0 SEEN /hpf (None Seen); Mucous, Urine 0 SEEN /hpf (<or=2+); Squamous Epithelial Cells - UA 0 SEEN /hpf (5-10); White Blood Cells 0 SEEN /hpf (0-5)
[2024-02-23 13:32] LABS: Color, Urine Yellow (Yellow); Glucose, Dipstick Normal (Normal); Ketone-Dipstick Negative (Negative); Leukocyte Esterase-Dipstick Negative /ul (Negative); Nitrite-Dipstick Negative (Negative); Occult Blood-Urine 10 /ul (Negative); Protein-Dipstick 30 mg/dl (Negative); Urine Bilirubin Dipstick Negative (Negative); Urine Clarity Clear (Clear); Urine Urobilinogen Normal (Normal); Urine pH 6.5 (5.0 - 8.0)
[2024-02-23 13:38] LABS: Red Blood Cells-Urine 0-5 SEEN /hpf (0-5)
[2024-02-23] MEDS: Ceftriaxone 2 GM in 0.9% Normal Saline (50mL MB+) 50 ML IV (15:15)
[2024-02-23] MEDS: Azithromycin 500 MG in Dextrose 5%-Water (250mL Bag) 250 ML 250 MG IV (16:11)
--- NOTE | 2024-02-23 16:15 | HP.PCM.HOS_ITS ---
[facility] - [facility] General Date of Admission: 02/23/24 Date of Service: 02/23/24 Chief Complaint: Fever and lethargy HPI Narrative DESIRE CHUNG, is a 78 F who presents with the fever and lethargy. Patient was just transferred from [facility] where she was admitted there status post rib fractures and hemothorax. That was on her left side and she did require chest tube placement at that time. She was transferred to [facility] assisted facility on Wednesday. Had been doing well up until today where the daughter came in and noted that the patient was very lethargic and started developing a fever. Fever got up to 103 Fahrenheit and was sent to the emergency room. In the emergency room, patient was noted to have pneumonia. Patient was also concerned to be septic with elevated lactic acid of 4.5. She received 2 L of IV fluid as well as antibiotics with ceftriaxone azithromycin. Fever has a started to break from 103 Fahrenheit down to 102. PFSH Medical History Pacemaker Anxiety Depression Hypertension Debility Accidental fall Unable to stand up Chronic low back pain Coccyx contusion GERD (gastroesophageal reflux disease) Chronic peripheral neuropathic pain Diabetes mellitus, type 2 Chronic anemia CKD (chronic kidney disease), stage III Obesity Anxiety and depression HLD (hyperlipidemia) Adult failure to thrive Intractable back pain Presence of permanent cardiac pacemaker Essential hypertension Complete heart block Osteoarthritis Non-smoker Home Medications ?Medication ?Instructions ?Recorded ?Last Taken ?Type atorvastatin 40 mg tablet 40 mg PO QHS cholesterol 03/13/22 03/12/22 History gabapentin 300 mg capsule 300 mg PO TID Check with primary 03/13/22 03/13/22 History doctor pantoprazole 40 mg tablet,delayed 40 mg PO DAILY Check with primary 03/13/22 03/13/22 History release doctor tramadol 50 mg tablet 50 mg PO QHS Check with primary 03/13/22 03/12/22 History doctor ferrous sulfate 324 mg (65 mg 324 mg PO BID #60 tabs 03/15/22 Unknown Rx iron) tablet,delayed release glipizide 5 mg tablet 5 mg PO DAILY Check with primary 04/14/22 Unknown History doctor multivitamin with minerals 1 tab PO DAILY 04/14/22 Unknown History (Hair,Skin and Nails tablet) lisinopril 10 mg tablet 10 mg PO DAILY Check with primary 07/17/22 Unknown Rx doctor #30 tabs escitalopram oxalate 5 mg tablet 20 mg PO DAILY 04/28/23 Unknown History metformin 500 mg tablet,extended 500 mg PO DAILY 12/09/23 Unknown History release 24 hr Allergy/AdvReac Type Severity Reaction Status Date / Time Iodinated Contrast Media Allergy Rash Verified 02/10/24 11:14 (CONTRASTS) oxaprozin (From Daypro) AdvReac Upset Verified 02/10/24 11:14 Stomach Family History Brother Cancer Brother Cancer Sister Cancer Mother Diabetes Asthma Surgical History History of hernia repair History of carpal tunnel release of both wrists History of hysterectomy History of permanent cardiac pacemaker placement (03/13/22) History of appendectomy History of cholecystectomy Social History household members: family Smoking Status: Never smoker alcohol intake: never substance use type: does not use caffeine: Yes Type: tea ROS ROS Narrative Coughing but nonproductive. Has difficulty moving due to the recent rib fractures. All review of systems were negative except as mentioned above in the history of present illness and the other review of systems. Vital Signs Vital Signs Vital Signs: 02/23/24 11:49 02/23/24 11:56 02/23/24 12:14 Temperature 39.1 C H 39.1 C H Temperature Source Axillary Axillary Pulse Rate 100 102 H Respiratory Rate 29 H 28 H Blood Pressure 122/50 H 122/50 H Blood Pressure Mean 74 74 Pulse Ox 93 93 94 Oxygen Delivery Method Room Air Room Air Room Air 02/23/24 12:48 02/23/24 12:56 02/23/24 13:00 Temperature 39.5 C H 39.4 C H 39.4 C H Temperature Source Core Core Core Pulse Rate 94 101 H 99 Respiratory Rate 27 H 26 H 28 H Blood Pressure 111/71 114/93 H 114/93 H Blood Pressure Mean 84 100 100 Pulse Ox 94 94 93 Oxygen Delivery Method Room Air Room Air Room Air 02/23/24 14:00 02/23/24 15:00 02/23/24 16:00 Temperature 39.4 C H 39.1 C H 38.6 C H Temperature Source Core Core Core Pulse Rate 100 88 87 Respiratory Rate 25 H 26 H 23 H Blood Pressure 101/88 H 114/60 103/46 L Blood Pressure Mean 92 78 65 Pulse Ox 92 92 92 Oxygen Delivery Method Room Air Room Air Room Air Weight Weight: 81 kg Body Mass Index (BMI) 35.9 Physical Exam Narrative - Physical Exam General: Alert, Oriented x3, Cooperative. Listless. HEENT: Atraumatic, PERRLA, EOMI, Normocephalic Oral: Moist Mucosa, some thrush on her soft palate. Neck: Supple, No JVD, Negative Carotid Bruits Lungs: Limited as patient was unable to sit up but clear anteriorly. Clear to auscultation, Normal air movement Cardiovascular: Regular rate, Normal S1, Normal S2, No murmurs Abdomen: Bowel Sounds Present, Soft, Non Tender, Non-Distended, No Hepato- splenomegaly Extremities: No clubbing, No cyanosis, No edema, Capillary Refill Less than 3 Seconds Skin: No rashes, No breakdown Musculoskeletal: No Tenderness to Palpation of Joints or Extremities Neurological: Neuro grossly intact Psych/Mental Status: Normal Affect, Appropriate Results Lab / Micro Data Attestation: I reviewed the patient's lab results. 02/23/24 12:05 02/23/24 12:05 Labs: Laboratory Results - last 24 hr 02/23/24 12:05: WBC 12.7 H, RBC 3.71 L, Hgb 10.8 L, Hct 32.8 L, MCV 88.4, MCH 29.1, MCHC 32.9, RDW Std Deviation 48.4 H, RDW Coeff of Zainab 15.1 H, Plt Count 227, MPV 10.5, Immature Gran % (Auto) 0.600, Neut % (Auto) 81.8 H, Lymph % (Auto) 6.6 L, [place] % (Auto) 10.6 H, Eos % (Auto) 0.2, Baso % (Auto) 0.2, A bsolute Neuts (auto) 10.4 H, Absolute Lymphs (auto) 0.84, Nucleated RBC % 0, PT 15.9 H, INR 1.3, APTT 30.1, Sodium 136, Potassium 3.7, Chloride 102, Carbon Dioxide 23.0, Anion Gap 11, BUN 18, Creatinine 1.41 H, Estim Creat Clear Calc 29.99, Est GFR (MDRD) Af Amer 46 L, Est GFR (MDRD) Non-Af 38 L, BUN/Creatinine Ratio 12.8, Glucose 300 H, Lactic Acid 4.7 H*, Calcium 8.9, Total Bilirubin 0.90, AST 27, ALT 18, Alkaline Phosphatase 75, Total Protein 6.7, Albumin 2.8 L, Globulin 3.9, Albumin/Globulin Ratio 0.7 L 02/23/24 12:10: Urine Color Yellow, Urine Clarity Clear, Urine pH 6.5, Ur Specific [place] 1.010, Urine Protein 30 H, Urine Glucose (UA) Normal, Urine Ketones Negative, Urine Occult Blood 10 H, Urine Nitrite Negative, Urine Bilirubin Negative, Urine Urobilinogen Normal, Ur Leukocyte Esterase Negative, Urine RBC 0-5 SEEN, Urine WBC 0 SEEN, Ur Squamous Epith Cells 0 SEEN, Urine Bacteria 0 SEEN, Urine Mucus 0 SEEN Micro: Microbiology 02/23/24 12:48 Mucosa - Nose SARS-CoV-2, Influenza & RSV (PCR) - Final Rhythm Strip Rhythm Strip: Sinus Rhythm Rate: 97 Ectopy: None EKG Initial EKG: Attestation: I personally reviewed and interpreted this EKG as follows: Prior EKG tracings: available for review EKG Rhythm Intrepretation: Sinus Rhythm Imaging Radiology Impression Chest X-Ray 02/23/24 12:30 IMPRESSION: Stable increased markings at the left lung base suggestive of left basilar atelectasis and/or scarring with blunting of the left costophrenic angle. Electronically Signed: Christ Frye MD at 13:12 EDT , Abdomen/Pelvis CT 02/23/24 12:52 IMPRESSION: Small bilateral pleural effusions left greater than right with left basilar atelectasis and/or infiltrate. Mild atelectasis at the right lung base. A Mccabe catheter is seen within the urinary bladder. Nonspecific bilateral perinephric stranding. Electronically Signed: Christ Frye MD at 13:32 EDT , Assessment & Plan Assessment/Plan (1) Pneumonia: (2) Sepsis: (3) Lactic acidosis: PLAN: Plan Sepsis: * Present on admission: qSOFA of 2, SIRS 4. * Secondary to pneumonia. Urinalysis was unremarkable. * Patient received total of 2 L in the emergency room remained stable. This was for 30 cc/kg bolus and based on her weight but additional bolus is not necessary at this time though we will continue with additional IV fluids. * Follow-up cultures Pneumonia * Noted on CT finding. * Patient high risk for gram-negative pneumonia given her recent hospitalization will change her antibiotics to pip-tazo and vancomycin. Patient received ceftriaxone and azithromycin in the emergency room. * Check sputum culture. Check antigens for strep and Legionella. Lactic acidosis * Concern for underlying sepsis but may be skewed due to her concomitant metformin use. Patient currently stable. Hold metformin for now. Rib fractures * Subsequent visit. Patient sustained a rib fractures after falling in the tub and sustained a hemothorax which required chest tube placement. * Pain control with scheduled Tylenol, oxycodone as needed, morphine as needed and Lidoderm patch. Diabetes mellitus type 2 * [id number]. Continue glipizide. Hold metformin given lactic acidosis. Sliding scale insulin. Debility * Patient is already in a assisted facility after a fall. PT OT evaluate and treat. Case management to assist on disposition. Chronic conditions * Hypertension: Hold the lisinopril for now * Anemia: Continue with ferrous sulfate. * Hyperlipidemia: Continue with statin. VTE prophylaxis: SCDs. Holding off on chemical prophylaxis given her recent hemothorax. CODE STATUS: detention records reflect the full CODE STATUS. Verified with patient and her daughter. Patient is full code. Discussed with the patient's daughter at bedside. Charges/Coding Visit Charges Inpatient E&M: 31753 Init Hosp L3
[2024-02-23 16:25] LABS: Reflex Lactate? Y
[2024-02-23] MEDS: 0.9% Normal Saline (1000mL) 1,000 ML 150 ML IV (17:26)
[2024-02-23] MEDS: Vancomycin HCl 1,250 MG in 0.9% Normal Saline (250mL Bag) 250 ML 167 MG IV (18:09)
[2024-02-23] MEDS: Ipratropium/Albuterol Sulfate 3 ML AMPUL.NEB INHALATION ×2 (19:10→22:40)
[2024-02-23] MEDS: Acetaminophen 500 MG Tablet 1000 MG PO (20:06)
--- NOTE | 2024-02-23 20:13 | PCM.RX.CS ---
Consult Antibiotic Management Pharmacy has been consulted to manage selected antibiotic: Vancomycin Type of Intervention Type of Consult: New start Suspected Infection Suspected Infection: Pneumonia Labs Labs: Sodium 136 mmol/L (136-145) 02/23/24 12:05 Potassium 3.7 mmol/L (3.5-5.1) 02/23/24 12:05 Chloride 102 mmol/L (98-107) 02/23/24 12:05 Carbon Dioxide 23.0 mmol/L (21.0-32.0) 02/23/24 12:05 Anion Gap 11 (5-15) 02/23/24 12:05 BUN 18 mg/dL (7-18) 02/23/24 12:05 Creatinine 1.41 mg/dL (0.55-1.02) H 02/23/24 12:05 Est GFR (MDRD) Af Amer 46 mL/min (>60) L 02/23/24 12:05 Est GFR (MDRD) Non-Af 38 mL/min (>60) L 02/23/24 12:05 BUN/Creatinine Ratio 12.8 RATIO (10-20) 02/23/24 12:05 Glucose 300 mg/dL (74-106) H 02/23/24 12:05 Microbiology Microbiology: Microbiology 02/23/24 17:45 Urine Catheter - Mccabe Legionella Antigen - Final 02/23/24 17:45 Urine Catheter - Mccabe Streptococcus pneumoniae Antigen (M - Final 02/23/24 12:48 Mucosa - Nose SARS-CoV-2, Influenza & RSV (PCR) - Final Pharmacy Plan for Drug Dosing Pharmacy Plan for Drug Dosing: NEW START IV VANCOMYCIN Consulting Physician: Dr. Shrestha Indication: Pneumonia Goal Trough: 15-20 SrCr: 1.41 CrCl: 29 mL/min Comments: Patient ordered 1250mg IV x1 administered 02/23/24 @1809 Vancomycin Dose: 1000mg IV Q24hr to start 02/24/24 @1800 Pending Level: 02/25/24 @1730, prior to 3rd total dose per protocol Pharmacy Service will continue to monitor and adjust dosing as required.
[2024-02-23 21:21] LABS: Lactic Acid 1.1 mmol/L (0.4-1.9)
[2024-02-23] MEDS: Gabapentin 300 MG Capsule PO (23:01)
[2024-02-23] MEDS: traMADol 50 MG Tablet PO (23:01)
[2024-02-23] MEDS: Piperacil/Tazobactam 3.375 GM in 0.9% Normal Saline (50mL MB+) 50 ML IV (23:02)
[2024-02-23] MEDS: NYSTATIN 500,000 UNIT/5 ML UDC 500000 UNIT PO (23:15)
[2024-02-23] MEDS: guaiFENesin 1,200 MG Tablet 1200 MG PO (23:15)
[2024-02-23] MEDS: Atorvastatin Calcium 40 MG Tablet PO (23:15)
[2024-02-24] VITALS (13 sets, daily range): BP systolic 118–147; BP diastolic 51–65; PULSE 69–103; RESP 16–20; TEMP 36.6–37.8; O2SAT 95–98
[2024-02-24 00:21] LABS: Bedside Glucose 132 mg/dL (74-106)
[2024-02-24] MEDS: Ipratropium/Albuterol Sulfate 3 ML AMPUL.NEB INHALATION ×6 (03:25→22:29)
[2024-02-24] MEDS: Gabapentin 300 MG Capsule PO ×3 (05:47→23:15)
[2024-02-24] MEDS: Acetaminophen 500 MG Tablet 1000 MG PO ×3 (05:47→23:15)
[2024-02-24] MEDS: Piperacil/Tazobactam 3.375 GM in 0.9% Normal Saline (50mL MB+) 50 ML IV ×3 (05:48→23:17)
--- NOTE | 2024-02-24 05:55 | RAD_ITS ---
STUDY: X-RAY CHEST REASON FOR EXAM: Female, 78 years old. Crackles TECHNIQUE: Frontal view of the chest COMPARISON: 02/23/2024 FINDINGS: There is a stable small left pleural effusion with overlying atelectasis. The right lung is clear. There is no pneumothorax. The heart is stable in size. Again noted is a pacemaker. The visualized osseous structures are within normal limits. RAD/Chest 1 View (Portable) IMPRESSION: Stable small left pleural effusion with overlying atelectasis. Electronically Signed: Kenneth Carrillo MD at 7:43 EDT ,
[2024-02-24 07:23] LABS: Bedside Glucose 89 mg/dL (74-106)
[2024-02-24] MEDS: glipiZIDE 5 MG Tablet PO (08:03)
[2024-02-24] MEDS: guaiFENesin 1,200 MG Tablet 1200 MG PO ×2 (08:03→23:17)
[2024-02-24] MEDS: Ferrous Sulfate 325 MG Tablet PO ×2 (08:03→16:40)
[2024-02-24] MEDS: Escitalopram Oxalate 20 MG Tablet PO (08:04)
[2024-02-24] MEDS: Pantoprazole Sodium 40 MG Tablet PO (08:04)
[2024-02-24] MEDS: Lidocaine 5% Patch 1 PATCH TOPICAL (08:05)
[2024-02-24 08:10] LABS: Absolute Lymphocyte Count 1.14 X10^3/uL (0.83-4.51); Basophil# 0.04 X10^3/uL; Basophil% 0.4 % (0-1); Eosinophil# 0.05 X10^3/uL; Eosinophils% 0.5 % (0-5); Hematocrit 28.9 % (37-47); Hemoglobin 9.5 g/dL (12.0-15.0); Lymphocyte # 1.14 X10^3/ul (0.83-4.51); Lymphocyte % 10.5 % (19-41); Mean Corp Hgb Conc 32.9 g/dL (32-36); Mean Corpuscular Hgb 29.3 pg (27.0-32.0); Mean Corpuscular Volume 89.2 fL (81-99); Mean Platelet Vol. 10.7 fl (6.2-12.0); Monocyte# 1.58 X10^3/uL; Monocyte% 14.5 % (0-10); NRBC Flagged by Analyzer 0 % (0-5); Neutrophil # 8.01 X10^3/uL (2.7-7.7); Neutrophil % 73.6 % (47-70); POSITIVE DIFFERENTIAL YES; Platelet Count 194 K/mm3 (150-450); RBC Distribution Width CV 15.7 % (11.6-14.6); RBC Distribution Width SD 51.1 fl (35.1-43.9); Red Blood Count 3.24 M/mm3 (4.2-5.4); White Blood Count 10.9 K/mm3 (4.4-11.0)
[2024-02-24 08:12] LABS: Differential Indicated SCAN CRITERIA MET
[2024-02-24] MEDS: oxyCODONE 5 MG Tablet PO (08:18)
[2024-02-24 08:37] LABS: ALB/GLOB Ratio 0.7 RATIO (0.9-2.4); AST(SGOT) 20 U/L (15-37); Alanine Aminotransfer ALT/SGPT 14 U/L (13-56); Albumin, Serum 2.3 g/dL (3.2-5.0); Alkaline Phosphatase 58 U/L (45-117); Anion Gap 8 (5-15); BUN 16 mg/dL (7-18); BUN/Creat Ratio 16.5 RATIO (10-20); Chloride 109 mmol/L (98-107); Creatinine, Serum 0.97 mg/dL (0.55-1.02); EST Glomerular Filtration Rate 59 mL/min (>60); Est Glom Filt Rate - Afr Amer 71 mL/min (>60); Globulin 3.5 g/dL (2.2-4.2); Glucose 117 mg/dL (74-106); Potassium 3.2 mmol/L (3.5-5.1); Protein, Total 5.8 g/dL (6.4-8.2); Sodium Level 140 mmol/L (136-145)
[2024-02-24 08:47] LABS: BNP,B-Type NATRIURETIC PEPTIDE 442.7 pg/mL (0-100)
--- NOTE | 2024-02-24 08:52 | CASEMGMT ---
Social Work- spoke with Agatha, [facility], to update on pt admit status. Agatha states that pt was d/c from [place] Wednesday and arrived at [place] late Wednesday evening. Pt CM is Cindy Gamez. HERMINIA Alva
--- NOTE | 2024-02-24 08:55 | CASEMGMT ---
Social Work- Pt has directives on chart naming Mili Sanabria as primary agent and Mustapha Sanabria as secondary agent. HERMINIA Alva
--- NOTE | 2024-02-24 09:15 | PCM.RX.CS ---
Consult Antibiotic Management Pharmacy has been consulted to manage selected antibiotic: Vancomycin Type of Intervention Type of Consult: Follow-up Suspected Infection Suspected Infection: Pneumonia Labs Labs: Sodium 140 mmol/L (136-145) 02/24/24 07:04 Potassium 3.2 mmol/L (3.5-5.1) L 02/24/24 07:04 Chloride 109 mmol/L (98-107) H 02/24/24 07:04 Carbon Dioxide 23.0 mmol/L (21.0-32.0) 02/24/24 07:04 Anion Gap 8 (5-15) 02/24/24 07:04 BUN 16 mg/dL (7-18) 02/24/24 07:04 Creatinine 0.97 mg/dL (0.55-1.02) 02/24/24 07:04 Est GFR (MDRD) Af Amer 71 mL/min (>60) 02/24/24 07:04 Est GFR (MDRD) Non-Af 59 mL/min (>60) L 02/24/24 07:04 BUN/Creatinine Ratio 16.5 RATIO (10-20) 02/24/24 07:04 Glucose 117 mg/dL (74-106) H 02/24/24 07:04 Microbiology Microbiology: Microbiology 02/23/24 17:45 Urine Catheter - Mccabe Legionella Antigen - Final 02/23/24 17:45 Urine Catheter - Mccabe Streptococcus pneumoniae Antigen (M - Final 02/23/24 12:48 Mucosa - Nose SARS-CoV-2, Influenza & RSV (PCR) - Final Pharmacy Plan for Drug Dosing Pharmacy Plan for Drug Dosing: DAILY ASSESSMENT Current Vancomycin Dose: 1000MG Q24 Number of Doses Received: 1250MG loading dose X1 Current Renal Function: SCr 0.97 mg/dL, CrCl 43 mL/min Renal Function Trend: improved, SCr 1.41 mg/dL (02/22) Lab/Micro: blood and urine CX pending Any Change in Vanc Plan: Yes, due to improved CrCl will adjust dose to 500mg Q12 and get a level prior to 4th total dose. Pending Level: 02/25/24 @ 0900 Pharmacy Service will continue to monitor and adjust dosing as required.
--- NOTE | 2024-02-24 09:42 | CASEMGMT ---
Social Work- SW met with pt and daughter to discuss references at discharge. Pt daughter, Mili, reports that the plan is to return to [facility] upon d/c prior to returning home with daughter. Pt lived with daughter prior to hospitalization and has [facility]. SW updated DCA on decision to return to [facility]. SW to follow. HERMINIA Alva
[2024-02-24] MEDS: Potassium Chloride Oral Tablet 20 MEQ 40 MEQ PO (09:51)
[2024-02-24] MEDS: Vancomycin IV 500 MG/100 ML BAG 100 MG IV ×2 (09:52→21:13)
--- NOTE | 2024-02-24 09:52 | CASEMGMT ---
Addendum entered by Gris Del Angel 02/24/24 11:05: Patient will need a precert to return. Requested that precert be submitted. SW updated. Gris Del Angel DC Planning Asst. Original Note: Discharge Planning Updates sent to [facility] via [facility]. Asked if precert will be needed to return. Gris Del Angel DC Planning Asst.
[2024-02-24 11:20] LABS: Bedside Glucose 268 mg/dL (74-106)
--- NOTE | 2024-02-24 12:01 | PN.HOSP_ITS ---
Reason for Visit Reason for Visit: Diagnoses Sepsis, unspecified organism (02/23/24) Acidosis, unspecified (02/23/24) Pneumonia, unspecified organism (02/23/24) Subjective Subjective Patient seen with family member at bedside, reports she still has a little bit of the back pain but overall feeling much better than previous with no focal complaints Objective Data Objective Data Vital Signs: Vital Signs Temp Pulse Resp BP Pulse Ox O2 Del Method 97.8 F 82 18 118/51 L 95 Room Air 02/24/24 07:49 02/24/24 11:25 02/24/24 11:25 02/24/24 07:49 02/24/24 07:49 02/24/24 07:49 Oxygen Delivery Method Room Air Weight: 81 kg Body Mass Index (BMI) 35.9 Intake & Output: Intake and Output for Last 24 Hours 02/22/24 02/23/24 02/24/24 23:59 23:59 23:59 Intake Total 3286.82 / 3386.82 300 / 300 Output Total 1125 / 1125 Balance 3286.82 / 2561.82 -825 / -825 Lab / Micro Data 02/24/24 07:04 02/24/24 07:04 Labs: Laboratory Results - last 24 hr 02/23/24 12:05: WBC 12.7 H, RBC 3.71 L, Hgb 10.8 L, Hct 32.8 L, MCV 88.4, MCH 29.1, MCHC 32.9, RDW Std Deviation 48.4 H, RDW Coeff of Zainab 15.1 H, Plt Count 227, MPV 10.5, Immature Gran % (Auto) 0.600, Neut % (Auto) 81.8 H, Lymph % (Auto) 6.6 L, [place] % (Auto) 10.6 H, Eos % (Auto) 0.2, Baso % (Auto) 0.2, A bsolute Neuts (auto) 10.4 H, Absolute Lymphs (auto) 0.84, Nucleated RBC % 0, PT 15.9 H, INR 1.3, APTT 30.1, Sodium 136, Potassium 3.7, Chloride 102, Carbon Dioxide 23.0, Anion Gap 11, BUN 18, Creatinine 1.41 H, Estim Creat Clear Calc 29.99, Est GFR (MDRD) Af Amer 46 L, Est GFR (MDRD) Non-Af 38 L, BUN/Creatinine Ratio 12.8, Glucose 300 H, Lactic Acid 4.7 H*, Calcium 8.9, Total Bilirubin 0.90, AST 27, ALT 18, Alkaline Phosphatase 75, Total Protein 6.7, Albumin 2.8 L, Globulin 3.9, Albumin/Globulin Ratio 0.7 L 02/23/24 12:10: Urine Color Yellow, Urine Clarity Clear, Urine pH 6.5, Ur Specific [place] 1.010, Urine Protein 30 H, Urine Glucose (UA) Normal, Urine Ketones Negative, Urine Occult Blood 10 H, Urine Nitrite Negative, Urine Bilirubin Negative, Urine Urobilinogen Normal, Ur Leukocyte Esterase Negative, Urine RBC 0-5 SEEN, Urine WBC 0 SEEN, Ur Squamous Epith Cells 0 SEEN, Urine Bacteria 0 SEEN, Urine Mucus 0 SEEN 02/23/24 20:40: Lactic Acid 1.1 02/23/24 23:10: POC Glucose 132 H 02/24/24 05:53: POC Glucose 89 02/24/24 07:04: WBC 10.9, RBC 3.24 L, Hgb 9.5 L, Hct 28.9 L, MCV 89.2, MCH 29.3, MCHC 32.9, RDW Std Deviation 51.1 H, RDW Coeff of Zainab 15.7 H, Plt Count 194, MPV 10.7, Immature Gran % (Auto) 0.500, Neut % (Auto) 73.6 H, Lymph % (Auto) 10.5 L, [place] % (Auto) 14.5 H, Eos % (Auto) 0.5, Baso % (Auto) 0.4, Absolute Neuts (auto) 8.0 H, Absolute Lymphs (auto) 1.14, Nucleated RBC % 0, Differential Comment , Diff Path Review December, Sodium 140, Potassium 3.2 L, Chloride 109 H, Carbon Dioxide 23.0, Anion Gap 8, BUN 16, Creatinine 0.97, Estim Creat Clear Calc 43.60, Est GFR (MDRD) Af Amer 71, Est GFR (MDRD) Non-Af 59 L, BUN/Creatinine Ratio 16.5, Glucose 117 H, Calcium 8.0 L, Total Bilirubin 0.80, AST 20, ALT 14, Alkaline Phosphatase 58, B-Natriuretic Peptide 442.7 H, Total Protein 5.8 L, A lbumin 2.3 L, Globulin 3.5, Albumin/Globulin Ratio 0.7 L 02/24/24 11:01: POC Glucose 268 H Micro: Microbiology 02/23/24 17:45 Urine Catheter - Mccabe Legionella Antigen - Final 02/23/24 17:45 Urine Catheter - Mccabe Streptococcus pneumoniae Antigen (M - Final 02/23/24 12:48 Mucosa - Nose SARS-CoV-2, Influenza & RSV (PCR) - Final Radiography Diagnostic Testing: Radiology Impression Chest X-Ray 02/23/24 12:30 IMPRESSION: Stable increased markings at the left lung base suggestive of left basilar atelectasis and/or scarring with blunting of the left costophrenic angle. Electronically Signed: Christ Frye MD at 13:12 EDT , Abdomen/Pelvis CT 02/23/24 12:52 IMPRESSION: Small bilateral pleural effusions left greater than right with left basilar atelectasis and/or infiltrate. Mild atelectasis at the right lung base. A Mccabe catheter is seen within the urinary bladder. Nonspecific bilateral perinephric stranding. Electronically Signed: Christ Frye MD at 13:32 EDT , Chest X-Ray 02/24/24 05:55 IMPRESSION: Stable small left pleural effusion with overlying atelectasis. Electronically Signed: Kenneth Carrillo MD at 7:43 EDT , Rhythm Strip Rhythm Strip: Sinus Rhythm Rate: 97 Ectopy: None Physical Exam Narrative General: Alert, no apparent distress HEENT: Atraumatic, normocephalic Eyes: Anicteric, normal conjunctiva, extraocular movements grossly intact Neck: Supple Respiratory: Somewhat diminished at the bases, normal respiratory effort Cardiovascular: Regular rate and rhythm GI: Soft, nontender, nondistended Extremities: No edema Musculoskeletal: Moving all extremities Neuro: No overt focal neurological deficits Skin: No rashes appreciated Psych: Cooperative Assessment & Plan Assessment/Plan (1) Pneumonia: (2) Sepsis: (3) Lactic acidosis: PLAN: Plan # Sepsis secondary to pneumonia -Patient was febrile, elevated lactic acid, and had a qSOFA of 2 with altered mental status and tachypnea -Noted on admission -Imaging suggestive of pneumonia -Given patient's recent hospitalizations she was started on broad-spectrum antibiotics and is improving -Cultures pending, urine antigens negative -COVID/influenza/RSV negative -Continue antibiotics at this time and de-escalate pending culture results and clinical progress #Debility -W/ recent hospitalizations and was transferred to SNF Wednesday -PT/OT -CM/SW- will need placed on discharge Chronic medical problems: #Hx CHB w/ PPM -No acute management # Recent hemothorax with chest tube placement -Patient was recently discharged to custodial facility -No further chest tube, pain control as needed #Type 2 diabetes mellitus -Glucose checks and sliding scale insulin #Hypertension -Holding lisinopril for now # Anemia -Continue ferrous sulfate, appears to be at baseline #DVT ppx: SCDs Marisela Gilmore MD Time spent in the patient's overall evaluation,decision-making process, review of diagnostic data, adjustment of management, discussion with other providers, nursing nursing and ancillary staff involved in patient's care documentation, 36 minutes Charges/Coding Visit Charges Inpatient E&M: 44393 Subs Hosp L2
[2024-02-24] MEDS: Morphine 2 MG/ML Syringe IV (12:15)
[2024-02-24] MEDS: Menthol/Lanolin/Calamine/Znox 113 GM Tube 1 APPLIC TOPICAL ×2 (12:37→23:29)
[2024-02-24] MEDS: NYSTATIN 500,000 UNIT/5 ML UDC 500000 UNIT PO ×4 (12:38→23:17)
[2024-02-24] MEDS: Insulin Lispro 100 UNIT/ML INSULN.PEN SC ×3 (12:38→23:29)
--- NOTE | 2024-02-24 15:10 | CHAPLAIN ---
Type of Pastoral Visit _x__ Initial Visit ___ Follow-up Visit ___ On-call Visit ___ General Patient Visit ___ Spiritual Assessment ___ Family Conference ___ Bereavement ___ Rapid Response ___ Code Blue ___ Other (describe below) Pastoral Care Referral From _x__ Patient ___ Family ___ Nurse ___ Physician ___ Heavy Repairer ___ Sand Analyst ___ Other (describe below) Sacrament/Intervention _x__ Active listening ___ Anointing ___ Mosque ___ Bereavement ___ Communion ___ Prabha exploration ___ ___ Life review _x__ Prayer ___ Reconciliation ___ Sacrament of Sick _x__ Supportive presence ___ Wedding ___ Other (describe below) Pastoral Comments patient has some difficulty in expressing herself fully but is focused on what channels she can get on the TV; time given to help her understand the channels on TV but she remained frustrated about it even after help; pt gave brief comments about her life and family but unable to focus much when questions were asked of her; pt did welcome prayer for her support; pt spoke of discomfort and this crossing gateman used call button to ask for assistance; response came
[2024-02-24 16:29] LABS: Bedside Glucose 167 mg/dL (74-106)
[2024-02-24] MEDS: Atorvastatin Calcium 40 MG Tablet PO (23:15)
[2024-02-24] MEDS: traMADol 50 MG Tablet PO (23:15)
[2024-02-25] VITALS (7 sets, daily range): BP systolic 128–156; BP diastolic 63–74; PULSE 71–96; RESP 16–20; TEMP 36.5–37.1; O2SAT 94–98
[2024-02-25 00:41] LABS: Bedside Glucose 202 mg/dL (74-106)
[2024-02-25 06:30] LABS: Absolute Lymphocyte Count 1.69 X10^3/uL (0.83-4.51); Absolute Neutrophil Count 6.7 X10^3/uL (2.0-7.7); Basophil# 0.04 X10^3/uL; Basophil% 0.4 % (0-1); Eosinophil# 0.22 X10^3/uL; Eosinophils% 2.2 % (0-5); Hematocrit 28.7 % (37-47); Hemoglobin 9.4 g/dL (12.0-15.0); Lymphocyte # 1.69 X10^3/ul (0.83-4.51); Lymphocyte % 16.7 % (19-41); Mean Corp Hgb Conc 32.8 g/dL (32-36); Mean Corpuscular Hgb 29.7 pg (27.0-32.0); Mean Corpuscular Volume 90.8 fL (81-99); Mean Platelet Vol. 10.3 fl (6.2-12.0); Monocyte# 1.43 X10^3/uL; Monocyte% 14.1 % (0-10); NRBC Flagged by Analyzer 0 % (0-5); Neutrophil # 6.73 X10^3/uL (2.7-7.7); Neutrophil % 66.3 % (47-70); Platelet Count 212 K/mm3 (150-450); RBC Distribution Width CV 15.6 % (11.6-14.6); RBC Distribution Width SD 51.9 fl (35.1-43.9); Red Blood Count 3.16 M/mm3 (4.2-5.4); White Blood Count 10.1 K/mm3 (4.4-11.0)
[2024-02-25] MEDS: Gabapentin 300 MG Capsule PO ×3 (06:43→21:44)
[2024-02-25] MEDS: Acetaminophen 500 MG Tablet 1000 MG PO ×3 (06:44→21:45)
[2024-02-25] MEDS: Piperacil/Tazobactam 3.375 GM in 0.9% Normal Saline (50mL MB+) 50 ML IV ×3 (06:46→21:44)
[2024-02-25 07:01] LABS: Anion Gap 7 (5-15); BUN 14 mg/dL (7-18); BUN/Creat Ratio 13.6 RATIO (10-20); Calcium,Total 8.4 mg/dL (8.5-10.1); Chloride 110 mmol/L (98-107); Creatinine, Serum 1.03 mg/dL (0.55-1.02); EST Glomerular Filtration Rate 55 mL/min (>60); Est Glom Filt Rate - Afr Amer 66 mL/min (>60); Estimated Creatinine Clearance 41.06 ml/min; Glucose 155 mg/dL (74-106); Potassium 3.6 mmol/L (3.5-5.1); Sodium Level 139 mmol/L (136-145)
[2024-02-25 07:16] LABS: Bedside Glucose 144 mg/dL (74-106)
[2024-02-25] MEDS: Ipratropium/Albuterol Sulfate 3 ML AMPUL.NEB INHALATION ×3 (07:36→19:06)
--- NOTE | 2024-02-25 08:05 | PN.HOSP_ITS ---
Reason for Visit Reason for Visit: Diagnoses Sepsis, unspecified organism (02/23/24) Acidosis, unspecified (02/23/24) Pneumonia, unspecified organism (02/23/24) Subjective Subjective Continues to improve, still has some generalized pain but is alert and oriented Objective Data Objective Data Vital Signs: Vital Signs Temp Pulse Resp BP Pulse Ox O2 Del Method 98.2 F 88 20 H 136/63 H 98 Room Air 02/25/24 06:36 02/25/24 06:36 02/25/24 06:36 02/25/24 06:36 02/25/24 06:36 02/25/24 06:36 Oxygen Delivery Method Room Air Weight: 81 kg Body Mass Index (BMI) 35.9 Intake & Output: Intake and Output for Last 24 Hours 02/23/24 02/24/24 02/25/24 23:59 23:59 23:59 Intake Total 3286.82 / 3386.82 670 / 670 50 / 50 Output Total 1675 / 2075 400 / 400 Balance 3286.82 / 2561.82 -1005 / -1405 -350 / -350 Lab / Micro Data 02/25/24 05:22 02/25/24 05:22 Labs: Laboratory Results - last 24 hr 02/24/24 07:04: WBC 10.9, RBC 3.24 L, Hgb 9.5 L, Hct 28.9 L, MCV 89.2, MCH 29.3, MCHC 32.9, RDW Std Deviation 51.1 H, RDW Coeff of Zainab 15.7 H, Plt Count 194, MPV 10.7, Immature Gran % (Auto) 0.500, Neut % (Auto) 73.6 H, Lymph % (Auto) 10.5 L, [place] % (Auto) 14.5 H, Eos % (Auto) 0.5, Baso % (Auto) 0.4, Absolute Neuts (auto) 8.0 H, Absolute Lymphs (auto) 1.14, Nucleated RBC % 0, Differential Comment , Diff Path Review May , Sodium 140, Potassium 3.2 L, Chloride 109 H, Carbon Dioxide 23.0, Anion Gap 8, BUN 16, Creatinine 0.97, Estim Creat Clear Calc 43.60, Est GFR (MDRD) Af Amer 71, Est GFR (MDRD) Non-Af 59 L, BUN/Creatinine Ratio 16.5, Glucose 117 H, Calcium 8.0 L, Total Bilirubin 0.80, AST 20, ALT 14, Alkaline Phosphatase 58, B-Natriuretic Peptide 442.7 H, Total Protein 5.8 L, A lbumin 2.3 L, Globulin 3.5, Albumin/Globulin Ratio 0.7 L 02/24/24 11:01: POC Glucose 268 H 02/24/24 16:09: POC Glucose 167 H 02/24/24 23:25: POC Glucose 202 H 02/25/24 05:22: WBC 10.1, RBC 3.16 L, Hgb 9.4 L, Hct 28.7 L, MCV 90.8, MCH 29.7, MCHC 32.8, RDW Std Deviation 51.9 H, RDW Coeff of Zainab 15.6 H, Plt Count 212, MPV 10.3, Immature Gran % (Auto) 0.300, Neut % (Auto) 66.3, Lymph % (Auto) 16.7 L, M ann % (Auto) 14.1 H, Eos % (Auto) 2.2, Baso % (Auto) 0.4, Absolute Neuts (auto) 6.7, Absolute Lymphs (auto) 1.69, Nucleated RBC % 0, Sodium 139, Potassium 3.6, Chloride 110 H, Carbon Dioxide 22.0, Anion Gap 7, BUN 14, Creatinine 1.03 H, Estim Creat Clear Calc 41.06, Est GFR (MDRD) Af Amer 66, Est GFR (MDRD) Non-Af 55 L, BUN/Creatinine Ratio 13.6, Glucose 155 H, Calcium 8.4 L 02/25/24 06:39: POC Glucose 144 H Micro: Microbiology 02/23/24 17:45 Urine Catheter - Mccabe Legionella Antigen - Final 02/23/24 17:45 Urine Catheter - Mccabe Streptococcus pneumoniae Antigen (M - Final 02/23/24 12:48 Mucosa - Nose SARS-CoV-2, Influenza & RSV (PCR) - Final Rhythm Strip Rhythm Strip: Sinus Rhythm Rate: 97 Ectopy: None Physical Exam Narrative General: Alert, oriented today, no apparent distress HEENT: Atraumatic, normocephalic Eyes: Anicteric, normal conjunctiva, extraocular movements grossly intact Neck: Supple Respiratory: Somewhat diminished at the bases, normal respiratory effort Cardiovascular: Regular rate and rhythm GI: Soft, nontender, nondistended Extremities: No edema Musculoskeletal: Moving all extremities Neuro: No overt focal neurological deficits Skin: No rashes appreciated Psych: Cooperative Assessment & Plan Assessment/Plan (1) Pneumonia: (2) Sepsis: (3) Lactic acidosis: PLAN: Plan # Sepsis secondary to pneumonia -Patient was febrile, elevated lactic acid, and had a qSOFA of 2 with altered mental status and tachypnea -Noted on admission -Imaging suggestive of pneumonia -Given patient's recent hospitalizations she was started on broad-spectrum antibiotics and is improving -Cultures pending, urine antigens negative -COVID/influenza/RSV negative -Continue antibiotics at this time and de-escalate pending culture results and clinical progress -02/24: Patient improving significantly with antibiotics, MRSA swab negative so will DC Vanco, continuing Zosyn, had 1 blood culture positive for coag negative staph which I suspect is a contaminant, cultures otherwise no growth. Patient significantly improved so we will pursue placement, can be transition to p.o. antibiotics on discharge #Debility -W/ recent hospitalizations and was transferred to SNF Wednesday -PT/OT -CM/SW- will need placed on discharge -02/24: Will need placed, discussed with social work and case management and insurance Auth pursued Chronic medical problems: #Hx CHB w/ PPM -No acute management # Recent hemothorax with chest tube placement -Patient was recently discharged to residential facility -No further chest tube, pain control as needed #Type 2 diabetes mellitus -Glucose checks and sliding scale insulin #Hypertension -Holding lisinopril for now # Anemia -Continue ferrous sulfate, appears to be at baseline #DVT ppx: SCDs Marisela Gilmore MD Time spent in the patient's overall evaluation,decision-making process, review of diagnostic data, adjustment of management, discussion with other providers, nursing nursing and ancillary staff involved in patient's care documentation, 32 minutes Charges/Coding Visit Charges Inpatient E&M: 43725 [facility] Hosp L1
[2024-02-25] MEDS: glipiZIDE 5 MG Tablet PO (08:45)
[2024-02-25] MEDS: Escitalopram Oxalate 20 MG Tablet PO (08:45)
[2024-02-25] MEDS: Ferrous Sulfate 325 MG Tablet PO ×2 (08:46→16:44)
[2024-02-25] MEDS: Menthol/Lanolin/Calamine/Znox 113 GM Tube 1 APPLIC TOPICAL ×2 (08:46→21:45)
[2024-02-25] MEDS: Pantoprazole Sodium 40 MG Tablet PO (08:47)
[2024-02-25] MEDS: NYSTATIN 500,000 UNIT/5 ML UDC 500000 UNIT PO ×4 (08:47→21:44)
[2024-02-25] MEDS: Nystatin Powder 15gm Bottle 1 APPLIC TOPICAL ×2 (08:48→21:45)
[2024-02-25] MEDS: guaiFENesin 1,200 MG Tablet 1200 MG PO ×2 (08:49→21:46)
[2024-02-25 09:53] LABS: Vancomycin, Trough Level 13.5 ug/mL (5.0-15.0)
--- NOTE | 2024-02-25 09:59 | PCM.RX.CS ---
Consult Antibiotic Management Pharmacy has been consulted to manage selected antibiotic: Vancomycin Type of Intervention Type of Consult: Follow-up Suspected Infection Suspected Infection: Pneumonia Prior Doses of Antibiotics Prior Doses of Antibiotics Received/Current Regimen: Vancomycin 500 mg given 02/23 @ 52 and 02/23 @ 2112 Labs Labs: Sodium 139 mmol/L (136-145) 02/25/24 05:22 Potassium 3.6 mmol/L (3.5-5.1) 02/25/24 05:22 Chloride 110 mmol/L (98-107) H 02/25/24 05:22 Carbon Dioxide 22.0 mmol/L (21.0-32.0) 02/25/24 05:22 Anion Gap 7 (5-15) 02/25/24 05:22 BUN 14 mg/dL (7-18) 02/25/24 05:22 Creatinine 1.03 mg/dL (0.55-1.02) H 02/25/24 05:22 Est GFR (MDRD) Af Amer 66 mL/min (>60) 02/25/24 05:22 Est GFR (MDRD) Non-Af 55 mL/min (>60) L 02/25/24 05:22 BUN/Creatinine Ratio 13.6 RATIO (10-20) 02/25/24 05:22 Glucose 155 mg/dL (74-106) H 02/25/24 05:22 Vancomycin Trough 13.5 ug/mL (5.0-15.0) 02/25/24 09:05 Microbiology Microbiology: Microbiology 02/23/24 17:45 Urine Catheter - Mccabe Legionella Antigen - Final 02/23/24 17:45 Urine Catheter - Mccabe Streptococcus pneumoniae Antigen (M - Final 02/23/24 12:48 Mucosa - Nose SARS-CoV-2, Influenza & RSV (PCR) - Final Dosing Weight Weight used for dosin kg Estimated Creatinine Clearance Estimated Creatinine Clearance: ~41 Goal Trough Goal Trough: 15-20 mcg/mL Pharmacy Plan for Drug Dosing Pharmacy Plan for Drug Dosing: Vancomycin trough = 13.5, will increase to 750 mg q12h. Pharmacy Service will continue to monitor and adjust dosing as required. Follow-Up Labs Follow-Up Labs: Trough: Vancomycin Date/Time Labs Ordered Labs to be done on [date and time ordered]: 02/26/24 @ 7733
[2024-02-25] MEDS: Lidocaine 5% Patch 1 PATCH TOPICAL (10:49)
[2024-02-25] MEDS: Vancomycin HCl 750 MG in 0.9% Normal Saline (250mL Bag) 250 ML 250 MG IV (10:57)
[2024-02-25] MEDS: Insulin Lispro 100 UNIT/ML INSULN.PEN SC ×3 (11:02→21:46)
[2024-02-25 11:36] LABS: Bedside Glucose 211 mg/dL (74-106)
--- NOTE | 2024-02-25 11:59 | CASEMGMT ---
Social Work- SW reached out to Brandi, [facility] Liaison?for [facility], to provide contact information for if percert is obtained d/t [employer] being down. Brandi reports that insurance companies are telling her that unless it is an emergency, they are bogged down to a standstill and will not be making decisions on authorizations until Wednesday. SW to update pt that precert is still pending. HERMINIA Alva
[2024-02-25 12:54] LABS: Pathologist Review Reviewed
[2024-02-25] MEDS: oxyCODONE 5 MG Tablet PO (16:44)
[2024-02-25 16:58] LABS: Bedside Glucose 205 mg/dL (74-106)
[2024-02-25] MEDS: traMADol 50 MG Tablet PO (21:44)
[2024-02-25] MEDS: 0.9% Saline Lock 10 ML Syringe IV (21:44)
[2024-02-25] MEDS: Atorvastatin Calcium 40 MG Tablet PO (21:45)
[2024-02-25 22:14] LABS: Bedside Glucose 181 mg/dL (74-106)
[2024-02-26 02:18] VITALS: BP 123/59; PULSE 78; RESP 16; TEMP 36.8; O2SAT 94
[2024-02-26] MEDS: Piperacil/Tazobactam 3.375 GM in 0.9% Normal Saline (50mL MB+) 50 ML IV ×2 (05:18→14:21)
[2024-02-26] MEDS: Acetaminophen 500 MG Tablet 1000 MG PO ×2 (05:18→14:23)
[2024-02-26] MEDS: Gabapentin 300 MG Capsule PO ×2 (05:18→14:23)
[2024-02-26] MEDS: 0.9% Saline Lock 10 ML Syringe IV (05:18)
[2024-02-26 06:30] LABS: Bedside Glucose 109 mg/dL (74-106)
[2024-02-26 07:04] VITALS: PULSE 81; RESP 17
[2024-02-26] MEDS: Ipratropium/Albuterol Sulfate 3 ML AMPUL.NEB INHALATION ×2 (07:04→11:09)
[2024-02-26 07:16] LABS: Mean Corp Hgb Conc 32.1 g/dL (32-36); Mean Corpuscular Hgb 29.4 pg (27.0-32.0); Mean Corpuscular Volume 91.5 fL (81-99); Mean Platelet Vol. 10.5 fl (6.2-12.0); Platelet Count 221 K/mm3 (150-450); RBC Distribution Width CV 15.6 % (11.6-14.6); RBC Distribution Width SD 51.9 fl (35.1-43.9); Red Blood Count 3.06 M/mm3 (4.2-5.4); White Blood Count 8.8 K/mm3 (4.4-11.0)
[2024-02-26 07:42] LABS: Anion Gap 7 (5-15); BUN 11 mg/dL (7-18); BUN/Creat Ratio 12.1 RATIO (10-20); Calcium,Total 8.5 mg/dL (8.5-10.1); Chloride 110 mmol/L (98-107); Creatinine, Serum 0.91 mg/dL (0.55-1.02); EST Glomerular Filtration Rate 63 mL/min (>60); Est Glom Filt Rate - Afr Amer 76 mL/min (>60); Estimated Creatinine Clearance 46.47 ml/min; Glucose 115 mg/dL (74-106); Potassium 3.6 mmol/L (3.5-5.1); Sodium Level 140 mmol/L (136-145)
[2024-02-26 08:47] VITALS: BP 135/54; PULSE 87; RESP 18; TEMP 37.1; O2SAT 96
[2024-02-26] MEDS: Menthol/Lanolin/Calamine/Znox 113 GM Tube 1 APPLIC TOPICAL (08:52)
[2024-02-26] MEDS: glipiZIDE 5 MG Tablet PO (08:52)
[2024-02-26] MEDS: Ferrous Sulfate 325 MG Tablet PO (08:52)
[2024-02-26] MEDS: Lidocaine 5% Patch 1 PATCH TOPICAL (08:53)
[2024-02-26] MEDS: Escitalopram Oxalate 20 MG Tablet PO (08:53)
[2024-02-26] MEDS: NYSTATIN 500,000 UNIT/5 ML UDC 500000 UNIT PO ×2 (08:54→14:24)
[2024-02-26] MEDS: Pantoprazole Sodium 40 MG Tablet PO (08:54)
[2024-02-26] MEDS: Nystatin Powder 15gm Bottle 1 APPLIC TOPICAL (08:54)
[2024-02-26] MEDS: guaiFENesin 1,200 MG Tablet 1200 MG PO (08:54)
[2024-02-26] MEDS: Glucerna Shake 120 ML LIQUID PO (09:25)
[2024-02-26 11:10] VITALS: PULSE 82; RESP 16
--- NOTE | 2024-02-26 11:34 | PCM.PN.HOSP ---
Reason for Visit Reason for Visit: Diagnoses Sepsis, unspecified organism (02/23/24) Acidosis, unspecified (02/23/24) Pneumonia, unspecified organism (02/23/24) Subjective Subjective Patient continues to report pain in her legs, is alert and respiratory status stable, medically is improved Objective Data Objective Data Vital Signs: Vital Signs Temp Pulse Resp BP Pulse Ox O2 Del Method 98.8 F 82 16 135/54 H 96 Room Air 02/26/24 08:47 02/26/24 11:10 02/26/24 11:10 02/26/24 08:47 02/26/24 08:47 02/26/24 08:47 Oxygen Delivery Method Room Air Weight: 81 kg Body Mass Index (BMI) 35.9 Intake & Output: Intake and Output for Last 24 Hours 02/24/24 02/25/24 02/26/24 23:59 23:59 23:59 Intake Total 670 / 670 415 / 415 100 / 100 Output Total 1675 / 2075 950 / 1200 500 / 500 Balance -1005 / -1405 -535 / -785 -400 / -400 Lab / Micro Data 02/26/24 06:31 02/26/24 06:31 Labs: Laboratory Results - last 24 hr 02/24/24 07:04: Diff Path Review Reviewed 02/25/24 10:56: POC Glucose 211 H 02/25/24 16:41: POC Glucose 205 H 02/25/24 21:42: POC Glucose 181 H 02/26/24 06:11: POC Glucose 109 H 02/26/24 06:31: WBC 8.8, RBC 3.06 L, Hgb 9.0 L, Hct 28.0 L, MCV 91.5, MCH 29.4, MCHC 32.1, RDW Std Deviation 51.9 H, RDW Coeff of Zainab 15.6 H, Plt Count 221, MPV 10.5, Sodium 140, Potassium 3.6, Chloride 110 H, Carbon Dioxide 23.0, Anion Gap 7, BUN 11, Creatinine 0.91, Estim Creat Clear Calc 46.47, Est GFR (MDRD) Af Amer 76, Est GFR (MDRD) Non-Af 63, BUN/Creatinine Ratio 12.1, Glucose 115 H, Calcium 8.5 Micro: Microbiology 02/23/24 12:20 Blood Culture (Wb) - Right Hand Bacteria Detection (PCR) - Final Staphylococcus epidermidis mecA Resistance Marker 02/23/24 12:20 Blood Culture (Wb) - Right Hand Blood Culture - Preliminary 02/25/24 11:07 Nasal Secretion MRSA (PCR) - Final 02/23/24 12:05 Blood Culture (Wb) - Venous Blood Culture - Preliminary No growth in 48 hours. 02/23/24 17:45 Urine Catheter - Mccabe Legionella Antigen - Final 02/23/24 17:45 Urine Catheter - Mccabe Streptococcus pneumoniae Antigen (M - Final 02/23/24 12:48 Mucosa - Nose SARS-CoV-2, Influenza & RSV (PCR) - Final Rhythm Strip Rhythm Strip: Sinus Rhythm Rate: 97 Ectopy: None Physical Exam Narrative General: Alert, oriented today, no apparent distress HEENT: Atraumatic, normocephalic Eyes: Anicteric, normal conjunctiva, extraocular movements grossly intact Neck: Supple Respiratory: Somewhat diminished at the bases, normal respiratory effort Cardiovascular: Regular rate and rhythm GI: Soft, nontender, nondistended Extremities: No edema Musculoskeletal: Moving all extremities Neuro: No overt focal neurological deficits Skin: No rashes appreciated Psych: Cooperative Assessment & Plan Assessment/Plan (1) Pneumonia: (2) Sepsis: (3) Lactic acidosis: PLAN: Plan # Sepsis secondary to pneumonia -Patient was febrile, elevated lactic acid, and had a qSOFA of 2 with altered mental status and tachypnea -Noted on admission -Imaging suggestive of pneumonia -Given patient's recent hospitalizations she was started on broad-spectrum antibiotics and is improving -Cultures pending, urine antigens negative -COVID/influenza/RSV negative -Continue antibiotics at this time and de-escalate pending culture results and clinical progress -02/24: Patient improving significantly with antibiotics, MRSA swab negative so will DC Vanco, continuing Zosyn, had 1 blood culture positive for coag negative staph which I suspect is a contaminant, cultures otherwise no growth. Patient significantly improved so we will pursue placement, can be transition to p.o. antibiotics on discharge -02/25: Respiratory status stable, patient on room air, afebrile and white count within normal limits. Patient appears Discharge, medically appropriate to process placement #Debility -W/ recent hospitalizations and was transferred to [facility] Wednesday -PT/OT -CM/SW- will need placed on discharge -02/24: Will need placed, discussed with social work and case management and insurance Auth pursued -02/25: Medically significantly improved, does have pain however had recent pneumothorax and chest tube placement and suspect back pain will take time to resolve, on scheduled Tylenol, lidocaine patch, as needed pain medication, continue work with physical therapy Chronic medical problems: #Hx CHB w/ PPM -No acute management # Recent hemothorax with chest tube placement -Patient was recently discharged to [facility] facility -No further chest tube, pain control as needed #Type 2 diabetes mellitus -Glucose checks and sliding scale insulin #Hypertension -Holding lisinopril for now # Anemia -Continue ferrous sulfate, appears to be at baseline #DVT ppx: SCDs Marisela Gilmore MD Charges/Coding Visit Charges Inpatient E&M: 95018 Subs Hosp L1
[2024-02-26 12:11] LABS: Bedside Glucose 233 mg/dL (74-106)
[2024-02-26] MEDS: Insulin Lispro 100 UNIT/ML INSULN.PEN SC ×2 (12:37→16:35)
[2024-02-26 14:11] VITALS: BP 126/43; PULSE 70; RESP 18; TEMP 36.7; O2SAT 98
--- NOTE | 2024-02-26 14:41 | CASEMGMT ---
Social Work Precert was attained for pt to return to [facility] today. DONTA let RN and physician know, physician will discharge pt today. DONTA updated green sheet. KOLE Nixon
--- NOTE | 2024-02-26 14:47 | TREXTCAR_ITS ---
Diet Diet Order/Speech Therapy: 02/23/24 17:14 Diet: Consistent Carb - Calorie Controlled Food consistency:: Regular Liquid Consistency:: Regular/Thin How many daily calories?: 1800 calorie Routine Orders/Code Status Suppository Type: Dulcolax 10mg Suppository Frequency: Daily PRN Wound(s) left chest: Wound Type: Surgical Incision Therapies Physical Therapy: Eval and Treat Occupational Therapy: Eval and Treat Problem/Diagnosis (1) Pneumonia: Status: Acute Code(s): J18.9 - Pneumonia, unspecified organism (2) Sepsis: Status: Acute Code(s): A41.9 - Sepsis, unspecified organism (3) Lactic acidosis: Status: Acute Code(s): E87.20 - Acidosis, unspecified Plan # Sepsis secondary to pneumonia #Debility #Hx CHB w/ PPM -No acute management # Recent hemothorax with chest tube placement #Type 2 diabetes mellitus #Hypertension # Anemia chronic Allergies/Procedures Done in Hospital Allergies Iodinated Contrast Media (CONTRASTS) Allergy (Verified 02/10/24 11:14) Rash oxaprozin (From Daypro) Adverse Reaction (Verified 02/10/24 11:14) Upset Stomach Dietary and Speech Recommendations Dietitian Recommendations/Changes: Adjust calorie controlled diet to 1800 to better fit pt nutritional needs. Add 240ml of chocolate Glucerna x2 between meals to increase PO acceptance. Reviewed and accepted by Rosemary Schultz RDN, [facility] Discharge Plan Admission Admit Date/Time: 02/23/24 16:06 Attending Provider: Marisela Gilmore Primary Care Provider: Pako Serrano BUILD MASTER Consulting Providers: Ildefonso Shrestha Discharge Orders/Prescriptions Prescriptions: No Action Hair,Skin and Nails Tablet 1 tab PO DAILY lisinopril 10 mg tablet 10 mg PO DAILY Qty: 30 11RF escitalopram oxalate 5 mg tablet 20 mg PO DAILY atorvastatin 40 mg tablet 40 mg PO QHS Patient Comments: TAKE 1 TABLET BY MOUTH ONCE DAILY tramadol 50 mg tablet 50 mg PO QHS Patient Comments: TAKE 1 TABLET BY MOUTH EVERY DAY AT BEDTIME NEEDED FOR PAIN pantoprazole 40 mg tablet,delayed release (DR/EC) 40 mg PO DAILY Patient Comments: TAKE 1 TABLET BY MOUTH ONCE DAILY gabapentin 300 mg capsule 300 mg PO TID Patient Comments: TAKE 1 CAPSULE BY MOUTH THREE TIMES DAILY ferrous sulfate 324 mg (65 mg iron) tablet,delayed release (DR/EC) 324 mg PO BID Qty: 60 0RF glipizide 5 mg tablet 5 mg PO DAILY metformin 500 mg tablet extended release 24 hr 500 mg PO DAILY Referrals / Follow Up: Pako Serrano BUILD MASTER, BUILD MASTER-C [Primary Care Provider] -
--- NOTE | 2024-02-26 14:47 | PCM.TXEXTCAR ---
Diet Diet Order/Speech Therapy: 02/23/24 17:14 Diet: Consistent Carb - Calorie Controlled Food consistency:: Regular Liquid Consistency:: Regular/Thin How many daily calories?: 1800 calorie Routine Orders/Code Status Suppository Type: Dulcolax 10mg Suppository Frequency: Daily PRN Change García Catheter: garcía d/c'd prior to discharged (placed in ED), void trial if poor UOP Wound(s) left chest: Wound Type: Surgical Incision Therapies Physical Therapy: Eval and Treat Occupational Therapy: Eval and Treat Problem/Diagnosis (1) Pneumonia: Status: Acute Code(s): J18.9 - Pneumonia, unspecified organism (2) Sepsis: Status: Acute Code(s): A41.9 - Sepsis, unspecified organism (3) Lactic acidosis: Status: Acute Code(s): E87.20 - Acidosis, unspecified Plan # Sepsis secondary to pneumonia #Debility #Hx CHB w/ PPM -No acute management # Recent hemothorax with chest tube placement #Type 2 diabetes mellitus #Hypertension # Anemia chronic 78-year-old female history of complete heart block with permanent pacemaker, type 2 diabetes, hypertension, chronic anemia with recent hospitalization in [place] due to left-sided hemothorax with chest tube placement who presented to [facility] ED 02/23/2024 with a fever of 103 and lethargy/altered mental status. She had just been discharged from [facility] the Wednesday prior to presenting and had been doing well until patient suddenly developed fever and lethargy and was brought to the ED. She is found to have pneumonia and she was started on broad-spectrum antibiotics given her recent hospitalization. Patient improved and MRSA swab negative so she was narrowed to Zosyn, cultures no growth to date. Patient has still had some pain in ribs that is residual from her last hospitalization and this was managed with Tylenol, tramadol, lidocaine patch. Given patient's improvement but cultures no growth patient transition to Augmentin for discharge. Pt also had garcía placed on arrival in ED, this was d/c'd prior to discharge given no indication for chronic garcía. If pt develops any urinary complaints can consider post void but no UTI or need for chronic garcía at this time. Discharge instructions as followed: -You had a garcía catheter in place when you arrived and this was taken out before you were discharged, if you have any difficulty with voiding, please preform post void bladder scan -You will be discharged on an additional 4 days of augmentin for your pneumonia (first dose tonight) Allergies/Procedures Done in Hospital Allergies Iodinated Contrast Media (CONTRASTS) Allergy (Verified 02/10/24 11:14) Rash oxaprozin (From Daypro) Adverse Reaction (Verified 02/10/24 11:14) Upset Stomach Type of Care/Length of Stay Estimated LOS: Convalescent Care Less Than 30 days Type of Care Needed: Skilled Rehab Potential: Fair Prognosis: Fair Additional Orders/Day of Discharge Day of Discharge: 02/26/24 Dietary and Speech Recommendations Dietitian Recommendations/Changes: Adjust calorie controlled diet to 1800 to better fit pt nutritional needs. Add 240ml of chocolate Glucerna x2 between meals to increase PO acceptance. Reviewed and accepted by Rosemary Schultz RDN, [facility] Discharge Plan Admission Admit Date/Time: 02/23/24 16:06 Primary Reason for Your Visit: Fever and lethargy Attending Provider: Marisela Gilmore Primary Care Provider: Pako Serrano SENIOR CONSUMER INSIGHTS CONSULTANT Consulting Providers: Ildefonso Shrestha Instructions Patient Instructions: ED Fall Prevention Additional Instructions / Restrictions: DISCHARGE INSTRUCTIONS PLEASE READ *Please take this with you to your next doctors appointment* -You had a garcía catheter in place when you arrived and this was taken out before you were discharged, if you have any difficulty with voiding, please preform post void bladder scan -You will be discharged on an additional 4 days of augmentin for your pneumonia (first dose tonight) -Please call your primary care provider's office upon discharge to schedule a hospital follow up within 1 week. -For any concerning signs or symptoms please call 911 or proceed to the nearest emergency department Discharge Orders/Prescriptions Prescriptions: New acetaminophen 500 mg Tablet 1,000 mg PO Q8 7 Days Qty: 0 0RF amoxicillin-pot clavulanate 875-125 mg tablet 1 tab PO BID 4 Days Qty: 9 0RF Continued pantoprazole 40 mg tablet,delayed release (DR/EC) 40 mg PO DAILY Patient Comments: TAKE 1 TABLET BY MOUTH ONCE DAILY gabapentin 300 mg capsule 300 mg PO TID 5 Days Qty: 15 0RF Patient Comments: TAKE 1 CAPSULE BY MOUTH THREE TIMES DAILY Changed tramadol 50 mg tablet 50 mg PO BID PRN PRN (Reason: pain) 3 Days Qty: 6 0RF Patient Comments: TAKE 1 TABLET BY MOUTH EVERY DAY AT BEDTIME NEEDED FOR PAIN No Action Hair,Skin and Nails Tablet 1 tab PO DAILY lisinopril 10 mg tablet 10 mg PO DAILY Qty: 30 11RF escitalopram oxalate 5 mg tablet 20 mg PO DAILY atorvastatin 40 mg tablet 40 mg PO QHS Patient Comments: TAKE 1 TABLET BY MOUTH ONCE DAILY ferrous sulfate 324 mg (65 mg iron) tablet,delayed release (DR/EC) 324 mg PO BID Qty: 60 0RF glipizide 5 mg tablet 5 mg PO DAILY metformin 500 mg tablet extended release 24 hr 500 mg PO DAILY Referrals / Follow Up: Pako Serrano NP, SENIOR CONSUMER INSIGHTS CONSULTANT-C [Primary Care Provider] - Disposition Disposition (needs filled in before D/C Order can be placed): Long-Term Facility
--- NOTE | 2024-02-26 15:21 | DS.PCM_ITS ---
Providers Date of Admission: 02/23/24 Date of Discharge: 02/26/24 Primary Care Physician: GODFREY Diego Reason For Visit: SEPSIS, PNEUMONIA Diagnosis Discharge Diagnosis (1) Pneumonia: Status: Acute Code(s): J18.9 - Pneumonia, unspecified organism (2) Sepsis: Status: Acute Code(s): A41.9 - Sepsis, unspecified organism (3) Lactic acidosis: Status: Acute Code(s): E87.20 - Acidosis, unspecified Plan # Sepsis secondary to pneumonia #Debility #Hx CHB w/ PPM -No acute management # Recent hemothorax with chest tube placement #Type 2 diabetes mellitus #Hypertension # Anemia chronic Medications at Discharge Home Medications atorvastatin 40 mg tablet 40 mg PO QHS cholesterol 03/13/22 pantoprazole 40 mg tablet,delayed release 40 mg PO DAILY Check with primary doctor 03/13/22 ferrous sulfate 324 mg (65 mg iron) tablet,delayed release 324 mg PO BID #60 tabs 03/15/22 glipizide 5 mg tablet 5 mg PO DAILY Check with primary doctor 04/14/22 multivitamin with minerals (Hair,Skin and Nails tablet) 1 tab PO DAILY vit 04/14/22 lisinopril 10 mg tablet 10 mg PO DAILY Check with primary doctor #30 tabs 07/17/22 escitalopram oxalate 5 mg tablet 20 mg PO DAILY depression 04/28/23 metformin 500 mg tablet,extended release 24 hr 500 mg PO DAILY diabetes 12/09/23 acetaminophen 500 mg tablet 1,000 mg (2 x 500 mg) PO Q8 7 days #0 tabs 02/26/24 amoxicillin 875 mg-potassium clavulanate 125 mg tablet 1 tab PO BID 4 days #9 tabs 02/26/24 gabapentin 300 mg capsule 300 mg PO TID Check with primary doctor 5 days #15 caps 02/26/24 tramadol 50 mg tablet 50 mg PO BID PRN PRN pain 3 days #6 tabs 02/26/24 Hospital Course Summary of Care Provided Minutes Spent on Discharge: 32 Hospital Course: 78-year-old female history of complete heart block with permanent pacemaker, type 2 diabetes, hypertension, chronic anemia with recent hospitalization in [place] due to left-sided hemothorax with chest tube placement who presented to [facility] ED 02/23/2024 with a fever of 103 and lethargy/altered mental status. She had just been discharged from [facility] the Wednesday prior to presenting and had been doing well until patient suddenly developed fever and lethargy and was brought to the ED. She is found to have pneumonia and she was started on broad-spectrum antibiotics given her recent hospitalization. Patient improved and MRSA swab negative so she was narrowed to Zosyn, cultures no growth to date. Patient has still had some pain in ribs that is residual from her last hospitalization and this was managed with Tylenol, tramadol, lidocaine patch. Given patient's improvement but cultures no growth patient transition to Augmentin for discharge. Pt also had garcía placed on arrival in ED, this was d/c'd prior to discharge given no indication for chronic garcía. If pt develops any urinary complaints can consider post void but no UTI or need for chronic garcía at this time. Discharge instructions as followed: -You had a garcía catheter in place when you arrived and this was taken out before you were discharged, if you have any difficulty with voiding, please preform post void bladder scan -You will be discharged on an additional 4 days of augmentin for your pneumonia (first dose tonight) Physical Exam Narrative General: Alert, oriented today, no apparent distress HEENT: Atraumatic, normocephalic Eyes: Anicteric, normal conjunctiva, extraocular movements grossly intact Neck: Supple Respiratory: Somewhat diminished at the bases, normal respiratory effort Cardiovascular: Regular rate and rhythm GI: Soft, nontender, nondistended Extremities: No edema Musculoskeletal: Moving all extremities Neuro: No overt focal neurological deficits Skin: No rashes appreciated Psych: Cooperative Weight / BMI Weight Weight: 81 kg Body Mass Index (BMI) 35.9 ABG / Lab / Microbiology Data 02/26/24 06:31 02/26/24 06:31 Laboratory: Laboratory Results - last 24 hr 02/25/24 16:41: POC Glucose 205 H 02/25/24 21:42: POC Glucose 181 H 02/26/24 06:11: POC Glucose 109 H 02/26/24 06:31: WBC 8.8, RBC 3.06 L, Hgb 9.0 L, Hct 28.0 L, MCV 91.5, MCH 29.4, MCHC 32.1, RDW Std Deviation 51.9 H, RDW Coeff of Zainab 15.6 H, Plt Count 221, MPV 10.5, Sodium 140, Potassium 3.6, Chloride 110 H, Carbon Dioxide 23.0, Anion Gap 7, BUN 11, Creatinine 0.91, Estim Creat Clear Calc 46.47, Est GFR (MDRD) Af Amer 76, Est GFR (MDRD) Non-Af 63, BUN/Creatinine Ratio 12.1, Glucose 115 H, Calcium 8.5 02/26/24 11:47: POC Glucose 233 H Microbiology: Microbiology 02/23/24 12:20 Blood Culture (Wb) - Right Hand Bacteria Detection (PCR) - Final Staphylococcus epidermidis mecA Resistance Marker 02/23/24 12:20 Blood Culture (Wb) - Right Hand Blood Culture - Preliminary 02/25/24 11:07 Nasal Secretion MRSA (PCR) - Final 02/23/24 12:05 Blood Culture (Wb) - Venous Blood Culture - Preliminary No growth in 48 hours. 02/23/24 17:45 Urine Catheter - García Legionella Antigen - Final 02/23/24 17:45 Urine Catheter - García Streptococcus pneumoniae Antigen (M - Final 02/23/24 12:48 Mucosa - Nose SARS-CoV-2, Influenza & RSV (PCR) - Final D/C Instructions Discharge Diet: Carb Control Diet Meaningful Use Info Meaningful Use Meaningful Use Diagnoses (Choose all that apply): None applicable Ischemic Stroke Statin Dosing Therapy Reference: STATIN DOSE THERAPY REFERENCE: * Patients > 75 years receive moderate or high dose statin therapy. * Patients 75 years or YOUNGER should receive HIGH intensity statin dose unless contraindicated. You will be required to document reason for non-treatment if statin daily dose does not meet guidelines. HIGH DOSE STATIN THERAPY DAILY Atorvastatin > than or = to 40 mg Rosuvastatin > than or = to 20 mg Amlodipine + Atorvastatin > than or = to 2.5/40 mg Ezetimibe + Simvastatin 10/80 mg Simvastatin 80mg Discharge Plan Admission Admit Date/Time: 02/23/24 16:06 Primary Reason for Your Visit: Fever and lethargy Attending Provider: Marisela Gilmore Primary Care Provider: Pako Serrano NP Consulting Providers: Ildefonso Shrestha Instructions Patient Instructions: ED Fall Prevention Additional Instructions / Restrictions: DISCHARGE INSTRUCTIONS PLEASE READ *Please take this with you to your next doctors appointment* -You had a garcía catheter in place when you arrived and this was taken out before you were discharged, if you have any difficulty with voiding, please preform post void bladder scan -You will be discharged on an additional 4 days of augmentin for your pneumonia (first dose tonight) -Please call your primary care provider's office upon discharge to schedule a hospital follow up within 1 week. -For any concerning signs or symptoms please call 911 or proceed to the nearest emergency department Discharge Orders/Prescriptions Prescriptions: New acetaminophen 500 mg Tablet 1,000 mg PO Q8 7 Days Qty: 0 0RF amoxicillin-pot clavulanate 875-125 mg tablet 1 tab PO BID 4 Days Qty: 9 0RF Continued pantoprazole 40 mg tablet,delayed release (DR/EC) 40 mg PO DAILY Patient Comments: TAKE 1 TABLET BY MOUTH ONCE DAILY gabapentin 300 mg capsule 300 mg PO TID 5 Days Qty: 15 0RF Patient Comments: TAKE 1 CAPSULE BY MOUTH THREE TIMES DAILY Changed tramadol 50 mg tablet 50 mg PO BID PRN PRN (Reason: pain) 3 Days Qty: 6 0RF Patient Comments: TAKE 1 TABLET BY MOUTH EVERY DAY AT BEDTIME NEEDED FOR PAIN No Action Hair,Skin and Nails Tablet 1 tab PO DAILY lisinopril 10 mg tablet 10 mg PO DAILY Qty: 30 11RF escitalopram oxalate 5 mg tablet 20 mg PO DAILY atorvastatin 40 mg tablet 40 mg PO QHS Patient Comments: TAKE 1 TABLET BY MOUTH ONCE DAILY ferrous sulfate 324 mg (65 mg iron) tablet,delayed release (DR/EC) 324 mg PO BID Qty: 60 0RF glipizide 5 mg tablet 5 mg PO DAILY metformin 500 mg tablet extended release 24 hr 500 mg PO DAILY Referrals / Follow Up: Pako Serrano MACHINE LEARNING INTERN, MACHINE LEARNING INTERN-C [Primary Care Provider] - Disposition Disposition (needs filled in before D/C Order can be placed): [facility] Charges/Coding Visit Charges Inpatient E&M: 21586 Disch Hosp >30min
--- NOTE | 2024-02-26 15:33 | NURSING ---
Nurse to nurse report given to Divya @ [facility] at [facility]
[2024-02-26 17:33] LABS: Bedside Glucose 150 mg/dL (74-106)
== END 2024-02-26 18:08 | disposition skilled nursing facility (03) | DRG 871 ==
LOC: ED 15:13 → MS3 16:38
PROVIDERS: Internal Medicine; Emergency Provider Emergency Medicine; PCP Nurse Practitioner Primary Care; Visit Provider Internal Medicine
DX: A41.9 Sepsis, unspecified organism (principal); J18.9 Pneumonia, unspecified organism; E11.22 Type 2 diabetes mellitus with diabetic chronic kidney disease; E11.42 Type 2 diabetes mellitus with diabetic polyneuropathy; D64.9 Anemia, unspecified; E78.5 Hyperlipidemia, unspecified; N18.30 Chronic kidney disease, stage 3 unspecified; I12.9 Hypertensive chronic kidney disease with stage 1 through stage 4 chronic kidney disease, or unspecified chronic kidney disease; R53.81 Other malaise; Z79.899 Other long term (current) drug therapy; Z79.84 Long term (current) use of oral hypoglycemic drugs; Z95.0 Presence of cardiac pacemaker
CPT/HCPCS: 36415; 71045; 74176; 80048; 80053; 80202; 81001; 82962; 83605; 83880; 85025; 85027; 85610; 85730; 87040; 87086; 87088; 87149; 87449; 87631; 87641; 93005; 94640; 94667; 94668; 97110; 97162; 97166; 97530; 97535; 97802; 99285; J7030; J7040; J7050; A4216; J0696

== ENCOUNTER 2024-09-07 16:31 | Inpatient (IN) | payer MEDICARE, MEDICAID, SELFPAY ==
[2024-09-07] VITALS (10 sets, daily range): BP systolic 81–118; BP diastolic 34–56; PULSE 76–86; RESP 12–18; TEMP 36.1–36.7; O2SAT 92–99; BMI 36.4; BMI 35.6
--- NOTE | 2024-09-07 17:10 | CT_ITS ---
EXAM: NONCONTRAST CT SCAN OF THE HEAD CLINICAL HISTORY: Left facial droop, slurred speech. COMPARISON: 02/10/2024 CT. TECHNIQUE: Serial axial series through the head were obtained without contrast. 2-D coronal and sagittal reformats were then obtained. FINDINGS: Brain: There is no acute large territorial infarct, intracranial hemorrhage, midline shift or mass effect. There are atherosclerotic vascular calcifications involving the bilateral carotid siphons. The sella and pineal gland regions appear unremarkable. Evaluation of the brainstem is limited due to beam hardening artifact. There is no evidence of cerebellar tonsillar herniation. Moderate global parenchymal atrophy and chronic microvascular ischemia. Ventricles: There is no acute hydrocephalus. Basilar cisterns are patent. Paranasal sinuses: Right maxillary sinus small fluid level. Mastoid air cells: Well-aerated. Calvarium: The bony calvarium is intact. Orbits: The bilateral globes are symmetric, without retrobulbar compressive mass lesion or hemorrhage. Miscellaneous: CT/STROKE Brain/Head without Cont IMPRESSION: No acute intracranial pathology. Parenchymal atrophy and chronic microvascular ischemia. Right maxillary sinus fluid level. Correlate clinically for acute sinusitis. Reading Location: [id number]
--- NOTE | 2024-09-07 17:10 | EKG12_ITS ---
Test Reason : PALPITATIONS Blood Pressure : */* mmHG Vent. Rate : 80 BPM Atrial Rate : 80 BPM P-R Int : 160 ms QRS Dur : 118 ms QT Int : 428 ms P-R-T Axes : 84 -4 32 degrees QTcB Int : 493 ms Sinus rhythm with Premature atrial complexes Right bundle branch block Abnormal ECG Confirmed by BLANCA MORGAN, KADI ([id number]), movie editor ELIZABETH STOUT ([id number]) on 09/11/2024 6:04:44 AM Referred By: Alfa Jara Confirmed By: KADI RIOS MD
--- NOTE | 2024-09-07 17:12 | EX.ED.DYSGE1 ---
HPI History of Present Illness Chief Complaint: Neuro S/Sx Informant: patient, family and EMS Narrative Narrative: 79-year-old female brought in for altered mental status. The daughter accompanies her and states she has slurred speech and is somewhat confused and this is not her. She resides in a halfway. The daughter saw her couple days ago, and she was not feeling well then either, but not quite like this. She states she has had gastroenteritis recently, as it spread throughout the halfway. The nursing staff here states that nurse from the halfway called report states when she saw her for the first time today less than an hour prior to my evaluation, she was like this. The last time she saw her normal was the day before yesterday. Therefore given all of this, the last known well is not exactly known. The patient states she is not in any pain but then admits that she has a headache. She is somewhat confused. She is awake and follows commands. She denies any focal complaints except for feeling tired, but then when asked if she has had any cough or shortness of breath she indicates yes. PFSH PFSH Medical History Pacemaker Anxiety Depression Hypertension Debility Accidental fall Unable to stand up Chronic low back pain Coccyx contusion GERD (gastroesophageal reflux disease) Chronic peripheral neuropathic pain Diabetes mellitus, type 2 Chronic anemia CKD (chronic kidney disease), stage III Obesity Anxiety and depression HLD (hyperlipidemia) Adult failure to thrive Intractable back pain Presence of permanent cardiac pacemaker Essential hypertension Complete heart block Osteoarthritis Non-smoker Home Medications ?Medication ?Instructions ?Recorded ?Last Taken ?Type atorvastatin 40 mg tablet 40 mg PO QHS cholesterol 03/13/22 02/22/24 History lisinopril 10 mg tablet 10 mg PO DAILY Check with primary 07/17/22 Unknown Rx doctor #30 tabs metformin 500 mg tablet,extended 500 mg PO DAILY diabetes 12/09/23 Unknown History release 24 hr acetaminophen 500 mg tablet 1,000 mg (2 x 500 mg) PO Q8 7 days 02/26/24 Unknown Rx #0 tabs gabapentin 300 mg capsule 300 mg PO TID Check with primary 02/26/24 Unknown Rx doctor 5 days #15 caps tramadol 50 mg tablet 50 mg PO BID PRN PRN pain 3 days 02/26/24 Unknown Rx #6 tabs cholecalciferol (vitamin D3) 50 50 mcg PO QDAY 05/01/24 Unknown History mcg (2,000 unit) capsule docusate sodium 100 mg capsule 100 mg PO BID 05/01/24 Unknown History (Colace) furosemide 20 mg tablet (Lasix) 20 mg PO DAILY 05/01/24 Unknown History lidocaine 4 % topical patch 1 patch topical QDAY PRN pain 05/01/24 Unknown History miconazole nitrate 2 % topical 1 applic topical QDAY 05/01/24 Unknown History powder omeprazole 20 mg capsule,delayed 20 mg PO QDAY 05/01/24 Unknown History release polyethylene glycol 3350 17 17 g PO ONCE 05/01/24 Unknown History gram/dose oral powder (Miralax) Lactobacillus acidophilus 100 mg PO DAILY 09/07/24 Unknown History (Acidophilus capsule) albuterol sulfate 2.5 mg/3 mL 2.5 mg continuous nebulization Q4H 09/07/24 Unknown History (0.083 %) solution for nebulization SOB cefdinir 300 mg capsule 300 mg PO Q12H 09/07/24 Unknown History escitalopram oxalate 10 mg tablet 10 mg PO DAILY 09/07/24 Unknown History furosemide 40 mg tablet 40 mg PO DAILY 09/07/24 Unknown History glipizide 2.5 mg tablet, extended 5 mg PO DAILY 09/07/24 Unknown History release 24 hr iron, carbonyl 45 mg tablet 45 mg PO DAILY 09/07/24 Unknown History Allergy/AdvReac Type Severity Reaction Status Date / Time Iodinated Contrast Media Allergy Rash Verified 09/07/24 16:44 (CONTRASTS) oxaprozin (From Daypro) AdvReac Upset Verified 09/07/24 16:44 Stomach Family History Brother Cancer Brother Cancer Sister Cancer Mother Diabetes Asthma Surgical History History of hernia repair History of carpal tunnel release of both wrists History of hysterectomy History of permanent cardiac pacemaker placement (03/13/22) History of appendectomy History of cholecystectomy Social History household members: family Smoking Status: Never smoker alcohol intake: never substance use type: does not use caffeine: Yes Type: tea ROS ROS ED Review of Systems ROS Unobtainable: due to mental status Constitutional Constitutional ED: Reports fatigue and weakness; Denies chills or fever(s) Eyes Eyes: Denies change in vision or diplopia ENT ENT ED: Denies sore throat Cardiovascular Cardiovascular: Denies chest pain or palpitations Respiratory/Chest Respiratory/Chest: Reports cough and dyspnea Gastrointestinal Gastrointestinal: Denies abdominal pain, diarrhea, nausea or vomiting Genitourinary Genitourinary ED: Denies dysuria or hematuria Musculoskeletal Musculoskeletal: Denies back pain or neck pain Integumentary Denies abscess or rash Neurologic Neurologic: Reports as per HPI, abnormal speech, confusion and headache(s); Denies paresthesias or weakness EXAM Physical Exam Const Vital Signs: 09/07/24 16:34 09/07/24 16:43 09/07/24 17:10 Temperature 98.1 F Temperature Source Temporal Pulse Rate 76 78 Respiratory Rate 15 16 Blood Pressure 115/34 L Blood Pressure Mean 61 Blood Pressure Source Blood Pressure Position Blood Pressure Location Pulse Ox 99 96 97 Oxygen Delivery Method Room Air Room Air Room Air 09/07/24 17:10 09/07/24 17:31 09/07/24 18:00 Temperature Temperature Source Pulse Rate 83 78 79 Respiratory Rate 15 12 14 Blood Pressure 81/56 L 118/45 L 113/47 L Blood Pressure Mean 64 69 69 Blood Pressure Source Blood Pressure Position Blood Pressure Location Pulse Ox 98 97 97 Oxygen Delivery Method Room Air Room Air Room Air 09/07/24 19:00 09/07/24 20:00 09/07/24 20:13 Temperature 98.1 F Temperature Source Pulse Rate 79 86 79 Respiratory Rate 12 12 12 Blood Pressure 116/45 L 112/55 L 116/45 L Blood Pressure Mean 68 74 68 Blood Pressure Source Blood Pressure Position Blood Pressure Location Pulse Ox 97 97 97 Oxygen Delivery Method Room Air 09/07/24 21:00 Temperature 96.9 F L Temperature Source Temporal Pulse Rate 79 Respiratory Rate 18 Blood Pressure 103/47 L Blood Pressure Mean 65 Blood Pressure Source Monitor Blood Pressure Position Semi-Fowlers Blood Pressure Location Right Forearm Pulse Ox 99 Oxygen Delivery Method Positive well nourished and well developed Constitutional Narrative: Somnolent, easily alerts to voice and follows commands General Appearance ED: well developed and NAD HEENT Reports moist mucous membranes normocephalic and atraumatic Eyes PERRL and EOMs intact bilaterally Neck full ROM, no lymphadenopathy and supple Resp normal respiratory effort and clear to auscultation bilaterally Cardio regular rate, regular rhythm and no murmurs Rate: Negative for tachycardic GI non-distended GI Narrative: Mild epigastric tenderness no pulsatile mass. The rest of her abdomen is benign. No guarding or rebound. Auscultation: normoactive bowel sounds Palpation: soft Back/Spine no CVA tenderness General Back: other FROM Extremity normal to inspection General Extremety ED: Negative for edema, pulses abnormal or tenderness General Extremity: Negative for edema or pulses abnormal Neuro CN's II-XII intact bilaterally and no sensory deficits noted Neuro Narrative: Seems weaker in left lower extremity than the right, both uppers are symmetrically weak. Mild left facial droop possibly, and sensation less sharp left lower face than right but symmetric on extremities. Dysarthria, not necessarily aphasic. Oriented to person, age but not the month. Sensorium / Orientation: awake and alert Motor Exam: general weakness Skin no rashes or lesions noted and no wounds NIHSS NIHSS Initial: 1a Level of Consciousness: 1 1b LOC Questions (Score 2 if aphasic/stupor): 1 1c LOC Commands (Only score 1st attempt): 0 2 Best Gaze (If aphasic, use reflexive mvmts.): 0 3 Visual: 0 4 Facial Palsy: 1 5 Motor Arm Right (UN = amputation/fusion): 1 5 Motor Arm Left: 1 6 Motor Leg Right: 2 6 Motor Leg Left: 3 7 Limb ataxia (Only + if out of proportion): 0 8 Sensory (Aphasia/stupor=0 or 1, coma=2): 1 9 Best Language: 0 10 Dysarthria (mute, coma=2, intubated=UN): 1 11 Extinction and Inattention (only scored if +): 0 Total Score: 12 MDM MDM MDM Narrative Medical decision making narrative: Stroke is in the differential diagnosis but in my judgment less likely due to her blood pressure being in the 90s and mildly tachycardic on my examination. Although I am obtaining a CT of her head to evaluate for hemorrhage and/or ischemic stroke, I am also evaluating her for infections and sepsis, as well as primary cardiopulmonary etiologies, metabolic, hematologic, and giving her a liter of IV fluids empirically while working her up. I reviewed the CT images and report which I agree with, basically negative for any acute. There is an air-fluid level in one of the maxillary sinuses but she is not presenting like sinus symptoms. Her urine shows no infection. Chest x-ray 1 view on my interpretation shows a small left pleural effusion no infiltrates radiology in agreement. Her workup shows NIKO and dehydration. We did give her IV fluids, she has a lactic acidosis that is nonspecific. She has a leukocytosis that is mild and nonspecific. There is no significant leftward shift. She does not have hyperkalemia. Her EKG shows no acute injury pattern, but her troponin is elevated this may be related to her renal injury. Given her condition and the NIKO I think admission warranted. Discussed with hospitalist who agrees and requests a CT of her abdomen/pelvis to be performed, which will be done without contrast given her NIKO. I reviewed the CT images and report which I agree with, it is negative for any acute. Lab Data Attestation: I reviewed the patient's lab results. Labs: Laboratory Results - last 24 hr 09/07/24 09/07/24 09/07/24 16:40 17:35 18:10 WBC 12.9 H RBC 3.98 L Hgb 11.2 L Hct 34.4 L MCV 86.4 MCH 28.1 MCHC 32.6 RDW Std Deviation 47.5 H RDW Coeff of Zainab 15.1 H Plt Count 243 MPV 10.4 Immature Gran % (Auto) 0.500 Neut % (Auto) 60.5 Lymph % (Auto) 22.5 [place] % (Auto) 13.9 H Eos % (Auto) 2.4 Baso % (Auto) 0.2 Absolute Neuts (auto) 7.8 H Absolute Lymphs (auto) 2.90 Nucleated RBC % 0 [address] Review May foll Atypical Lymphocytes 1+ Reactive Lymphocytes 1+ Plt Morphology Comment LARGE Anisocytosis 1+ PT 14.0 INR 1.1 APTT 24.8 Sodium 134 L Potassium 3.5 Chloride 94 L Carbon Dioxide 28.0 Anion Gap 12 BUN 60 H Creatinine 2.49 H Estim Creat Clear Calc 16.79 Est GFR (MDRD) Af Amer 24 L Est GFR (MDRD) Non-Af 20 L BUN/Creatinine Ratio 24.1 H Glucose 135 H Lactic Acid 3.0 H* Calcium 8.6 Total Bilirubin 0.60 AST 48 H ALT 28 Alkaline Phosphatase 80 Troponin I High Sens 123 H* Total Protein 6.0 L Albumin 2.8 L Globulin 3.2 Albumin/Globulin Ratio 0.9 Urine Color Yellow Urine Clarity Clear Urine pH 5.0 Ur Specific [place] 1.010 Urine Protein Negative Urine Glucose (UA) Normal Urine Ketones Negative Urine Occult Blood Negative Urine Nitrite Negative Urine Bilirubin Negative Urine Urobilinogen Normal Ur Leukocyte Esterase Negative Urine RBC 0 SEEN Urine WBC 0 SEEN Ur Squamous Epith Cells 0-5 SEEN Urine Bacteria 0 SEEN Urine Mucus 0 SEEN Radiography Diagnostic Testing: Clinical Impression(s) from Imaging Studies Brain CT 09/07/24 17:10 IMPRESSION: No acute intracranial pathology. Parenchymal atrophy and chronic microvascular ischemia. Right maxillary sinus fluid level. Correlate clinically for acute sinusitis. Reading Location: [facility] Chest X-Ray 09/07/24 17:23 IMPRESSION: Small left pleural effusion. Reading Location: [facility] Abdomen/Pelvis CT 09/07/24 19:49 IMPRESSION: No acute abnormalities of the abdomen or pelvis. Left basilar atelectasis versus infiltrate. One or more dose reduction techniques were used (e.g., Automated exposure control, adjustment of the mA and/or kV according to patient size, use of iterative reconstruction technique). Reading Location: [facility] Rhythm Strip Rhythm Strip: Sinus Rhythm Rate: 80 Ectopy: PAC(s) EKG Initial EKG: Attestation: I personally reviewed and interpreted this EKG as follows: Interpretation: Sinus Rhythm, No Acute Injury Pattern and RBBB Comments: Normal SD, borderline QTc Prior EKG tracings: available for review Prior: Unchanged Management Discussion w/another healthcare provider: Hospitalist Discharge Plan Dx/Rx/DC Orders Clinical Impression: Acute encephalopathy, NIKO (acute kidney injury), Acute dehydration, Elevated troponin, SIRS (systemic inflammatory response syndrome) Disposition Disposition: Acute Care Hospital [facility] Discharge Date/Time: 09/07/24 20:22 Stroke Documentation Questions Stroke Team Activated: No (Last known well unknown) Was Patient considered for Endovascular Intervention?: No-CTA not indicated IV Thrombolytic Administered: No (Last known well unknown)
--- NOTE | 2024-09-07 17:23 | RAD_ITS ---
PROCEDURE: CHEST 1 VIEW REASON FOR EXAM: Altered mental status. TECHNIQUE: Frontal view of the chest. COMPARISON: 02/24/2024. FINDINGS: The cardiac and mediastinal contours are normal. Blunting of the left costophrenic sulcus suspicious for a small pleural effusion. Left chest pacemaker. RAD/Chest 1 View IMPRESSION: Small left pleural effusion. Reading Location: [id number]
[2024-09-07 17:37] LABS: Absolute Neutrophil Count 7.8 X10^3/uL (2.0-7.7); Basophil# 0.02 X10^3/uL; Basophil% 0.2 % (0-1); Eosinophil# 0.31 X10^3/uL; Eosinophils% 2.4 % (0-5); Hematocrit 34.4 % (37-47); Hemoglobin 11.2 g/dL (12.0-15.0); Lymphocyte % 22.5 % (19-41); Mean Corp Hgb Conc 32.6 g/dL (32-36); Mean Corpuscular Hgb 28.1 pg (27.0-32.0); Mean Corpuscular Volume 86.4 fL (81-99); Mean Platelet Vol. 10.4 fl (6.2-12.0); Monocyte# 1.79 X10^3/uL; Monocyte% 13.9 % (0-10); NRBC Flagged by Analyzer 0 % (0-5); Neutrophil # 7.78 X10^3/uL (2.7-7.7); Neutrophil % 60.5 % (47-70); POSITIVE DIFFERENTIAL YES; Platelet Count 243 K/mm3 (150-450); RBC Distribution Width CV 15.1 % (11.6-14.6); RBC Distribution Width SD 47.5 fl (35.1-43.9); Red Blood Count 3.98 M/mm3 (4.2-5.4); White Blood Count 12.9 K/mm3 (4.4-11.0)
[2024-09-07 17:43] LABS: Differential Indicated SCAN CRITERIA MET
[2024-09-07] MEDS: 0.9% Normal Saline (1000mL) 1,000 ML 999 ML IV (17:49)
[2024-09-07 18:04] LABS: ALB/GLOB Ratio 0.9 RATIO (0.9-2.4); AST(SGOT) 48 U/L (15-37); Alanine Aminotransfer ALT/SGPT 28 U/L (13-56); Albumin, Serum 2.8 g/dL (3.2-5.0); Alkaline Phosphatase 80 U/L (45-117); Anion Gap 12 (5-15); BUN 60 mg/dL (7-18); BUN/Creat Ratio 24.1 RATIO (10-20); Calcium,Total 8.6 mg/dL (8.5-10.1); Chloride 94 mmol/L (98-107); Creatinine, Serum 2.49 mg/dL (0.55-1.02); EST Glomerular Filtration Rate 20 mL/min (>60); Est Glom Filt Rate - Afr Amer 24 mL/min (>60); Estimated Creatinine Clearance 16.79 ml/min; Globulin 3.2 g/dL (2.2-4.2); Glucose 135 mg/dL (74-106); International Normalized Ratio 1.1; Potassium 3.5 mmol/L (3.5-5.1); Sodium Level 134 mmol/L (136-145); Troponin-I HS 123 pg/mL (3.0-54.0)
[2024-09-07 18:14] LABS: Bacteria 0 SEEN /hpf (None Seen); Mucous, Urine 0 SEEN /hpf (<or=2+); Red Blood Cells-Urine 0 SEEN /hpf (0-5); White Blood Cells 0 SEEN /hpf (0-5)
[2024-09-07 18:14] LABS: Partial Thromboplast Time 24.8 Seconds (24.1-36.2)
[2024-09-07 18:21] LABS: Color, Urine Yellow (Yellow); Glucose, Dipstick Normal (Normal); Ketone-Dipstick Negative (Negative); Leukocyte Esterase-Dipstick Negative /ul (Negative); Nitrite-Dipstick Negative (Negative); Occult Blood-Urine Negative /ul (Negative); Protein-Dipstick Negative (Negative); Urine Bilirubin Dipstick Negative (Negative); Urine Clarity Clear (Clear); Urine Urobilinogen Normal (Normal)
[2024-09-07 18:46] LABS: Squamous Epithelial Cells - UA 0-5 SEEN /hpf (5-10)
[2024-09-07 19:24] LABS: Atypical Lymphocyte 1+ %; Reactive Lymphocyte 1+
[2024-09-07 19:25] LABS: Anisocytosis 1+; Platelet Morphology LARGE
--- NOTE | 2024-09-07 19:41 | HP.PCM.HOS_ITS ---
HPI - General General Date of Admission: 09/07/24 Date of Service: 09/07/24 HPI Narrative DESIRE CHNUG, is a 79 F who presents [facility] Medical History Pacemaker Anxiety Depression Hypertension Debility Accidental fall Unable to stand up Chronic low back pain Coccyx contusion GERD (gastroesophageal reflux disease) Chronic peripheral neuropathic pain Diabetes mellitus, type 2 Chronic anemia CKD (chronic kidney disease), stage III Obesity Anxiety and depression HLD (hyperlipidemia) Adult failure to thrive Intractable back pain Presence of permanent cardiac pacemaker Essential hypertension Complete heart block Osteoarthritis Non-smoker Home Medications ?Medication ?Instructions ?Recorded ?Last Taken ?Type atorvastatin 40 mg tablet 40 mg PO QHS cholesterol 12/2802/22/24 History ferrous sulfate 324 mg (65 mg 324 mg PO BID #60 tabs 0 03/15/22 Unknown Rx iron) tablet,delayed release glipizide 5 mg tablet 5 mg PO DAILY Check with josé miguel desire 04/14/22 Unknown History doctor lisinopril 10 mg tablet 10 mg PO DAILY Check with pr imary 07/17/22 Unknown Rx doctor #30 tabs escitalopram oxalate 5 mg tablet 20 mg PO DAILY depres tl 04/28/23 02/22/24 History metformin 500 mg tablet,extended 500 mg PO DAILY diabe zaki 12/09/23 Unknown History release 24 hr acetaminophen 500 mg tablet 1,000 mg (2 x 500 mg) PO Q 8 7 days 02/26/24 Unknown Rx #0 tabs gabapentin 300 mg capsule 300 mg PO TID Check with josé miguel desire 02/26/24 Unknown Rx doctor 5 days #15 caps tramadol 50 mg tablet 50 mg PO BID PRN PRN pain 3 days 02/26/24 Unknown Rx #6 tabs cholecalciferol (vitamin D3) 50 50 mcg PO QDAY 4 Unknown History mcg (2,000 unit) capsule docusate sodium 100 mg capsule 100 mg PO BID 05/01/24 Unknown History (Colace) furosemide 20 mg tablet (Lasix) 20 mg PO BID 05/01/24 Unknown History lidocaine 4 % topical patch 1 patch topical QDAY PRN 0 05/01/24 Unknown History mecobalamin (vitamin B12) 1,000 1,000 mcg PO QDAY 04/10 10/30 Unknown History mcg chewable tablet miconazole nitrate 2 % topical 1 applic topical QDAY 0 05/01/24 Unknown History powder omeprazole 20 mg capsule,delayed 20 mg PO QDAY 4 Unknown History release polyethylene glycol 3350 17 4 g PO ONCE 05/01/24 Unkno wn History gram/dose oral powder (Miralax) Allergy/AdvReac Type Severity Reaction Status Date / Time Iodinated Contrast Media Allergy Rash Verified 09/07/24 16:44 (CONTRASTS) oxaprozin (From Daypro) AdvReac Upset Verified 09/07/24 16:44 Stomach Family History (Reviewed 05/01/24 @ 10:24 by Jennifer Renteria SOCIAL SERVICE WORKER, SOCIAL SERVICE WORKER-C) Brother Cancer Brother Cancer Sister Cancer Mother Diabetes Asthma Surgical History History of hernia repair History of carpal tunnel release of both wrists History of hysterectomy History of permanent cardiac pacemaker placement (03/13/22) History of appendectomy History of cholecystectomy Social History household members: family Smoking Status: Never smoker alcohol intake: never substance use type: does not use caffeine: Yes Type: tea Vital Signs Vital Signs Vital Signs: 09/07/24 16:34 09/07/24 16:43 09/07/24 17:10 Temperature 98.1 F Temperature Source Temporal Pulse Rate 76 78 Respiratory Rate 15 16 Blood Pressure 115/34 L Blood Pressure Mean 61 Pulse Ox 99 96 97 Oxygen Delivery Method Room Air Room Air Room Air 09/07/24 17:10 09/07/24 17:31 09/07/24 18:00 Temperature Temperature Source Pulse Rate 83 78 79 Respiratory Rate 15 12 14 Blood Pressure 81/56 L 118/45 L 113/47 L Blood Pressure Mean 64 69 69 Pulse Ox 98 97 97 Oxygen Delivery Method Room Air Room Air Room Air 09/07/24 19:00 Temperature Temperature Source Pulse Rate 79 Respiratory Rate 12 Blood Pressure 116/45 L Blood Pressure Mean 68 Pulse Ox 97 Oxygen Delivery Method Weight Weight: 180 lb 5.41 oz Body Mass Index (BMI) 36.4 Results Lab / Micro Data 09/07/24 16:40 09/07/24 16:40 Labs: Laboratory Results - last 24 hr 09/07/24 16:40: WBC 12.9 H, RBC 3.98 L, Hgb 11.2 L, Hct 34.4 L, MCV 86.4, MCH 28.1, MCHC 32.6, RDW Std Deviation 47.5 H, RDW Coeff of Zainab 15.1 H, Plt Count 243, MPV 10.4, Immature Gran % (Auto) 0.500, Neut % (Auto) 60.5, Lymph % (Auto) 22.5, [place] % (Auto) 13.9 H, Eos % (Auto) 2.4, Baso % (Auto) 0.2, Absolute Neuts (auto) 7.8 H, Absolute Lymphs (auto) 2.90, Nucleated RBC % 0, Diff Path Review May foll, Atypical Lymphocytes 1+, Reactive Lymphocytes 1+, Plt Morphology Comment LARGE, Anisocytosis 1+, PT 14.0, INR 1.1, APTT 24.8, Sodium 134 L, Potassium 3.5, Chloride 94 L, Carbon Dioxide 28.0, Anion Gap 12, BUN 60 H, C reatinine 2.49 H, Estim Creat Clear Calc 16.79, Est GFR (MDRD) Af Amer 24 L, Est GFR (MDRD) Non-Af 20 L, BUN/Creatinine Ratio 24.1 H, Glucose 135 H, Calcium 8.6, Total Bilirubin 0.60, AST 48 H, ALT 28, Alkaline Phosphatase 80, Troponin I High Sens 123 H*, Total Protein 6.0 L, Albumin 2.8 L, Globulin 3.2, Albumin/Globulin Ratio 0.9 09/07/24 17:35: Lactic Acid 3.0 H* 09/07/24 18:10: Urine Color Yellow, Urine Clarity Clear, Urine pH 5.0, Ur Specific [place] 1.010, Urine Protein Negative, Urine Glucose (UA) Normal, Urine Ketones Negative, Urine Occult Blood Negative, Urine Nitrite Negative, Urine Bilirubin Negative, Urine Urobilinogen Normal, Ur Leukocyte Esterase Negative, Urine RBC 0 SEEN, Urine WBC 0 SEEN, Ur Squamous Epith Cells 0-5 SEEN, Urine Bacteria 0 SEEN, Urine Mucus 0 SEEN Micro: Microbiology 09/07/24 18:10 Mucosa - Nose SARS-CoV-2, Influenza & RSV (PCR) - Final Rhythm Strip Rhythm Strip: Sinus Rhythm Rate: 80 Ectopy: PAC(s) Imaging Radiology Impression Brain CT 09/07/24 17:10 IMPRESSION: No acute intracranial pathology. Parenchymal atrophy and chronic microvascular ischemia. Right maxillary sinus fluid level. Correlate clinically for acute sinusitis. Reading Location: [facility] Chest X-Ray 09/07/24 17:23 IMPRESSION: Small left pleural effusion. Reading Location: [facility]
--- NOTE | 2024-09-07 19:44 | PCM.HP.STD ---
[facility] - General General Date of Admission: 09/07/24 Date of Service: 09/07/24 Chief Complaint: Confusion, Headache, SOB and Cough. HPI Narrative DESIRE ROMO, is a 79 F with a past medical history of essential hypertension; on lisinopril and furosemide, hyperlipidemia; on atorvastatin, obesity; with BMI of 36.4 this admission, DM-2; of unknown control on metformin and glipizide, diabetic neuropathy; on gabapentin, history of CHB; s/p PPM, CKD; stage IIIb, chronic anemia, depression with anxiety; on escitalopram and trazodone, GERD; on omeprazole, listed allergy to iodinated contrast (rash), OA; with chronic back pain on prn tramadol with chronically poor mobility and history of adult [id number] recently diagnosed with gastroenteritis attributed to norovirus; which has been apparently been working through her ECF who presents to [facility] ER complaining of confusion, headache, SOB and cough. Ms. Romo is not a fully-reliable historian at this time so information was gathered from chart, medical staff and computer. According to the records the staff at her ECF noted altered mental status with additional mention of slurred speech. The ER physician spoke to the patient's daughter who last saw her ~2 days ago and she was notably mildly ill and fatigued - but not to the severe degree it has reached today. The patient is confused but she states she has a headache with no other significant complaints at at this time except for severe fatigue and malaise. There was no report of associated fever, chills, abdominal pain, nausea, vomiting, diarrhea, constipation, chest pain, back pain, neck pain, rash, paresthesias or focal neurologic weakness. In the ER she was noted to have SIRS criteria evidenced by: Leukocytosis of 12.9K and Lactic Acidosis of 3 mmol/L present on admission along with transient hypotension of 81/56 mmHg noted shortly after admission (but wit no Left-shift or obvious source of infection with negative UA and CXR showing only small Left pleural effusion) with the ER physician asked to obtain abdominal CT to ascertain source of possible underlying infection after recent documented gastroenteritis due to norovirus +/- possible Adverse Drug Reaction to metformin causing lactic acidosis with CT suggestive of Left Basilar Infiltrate with no other acute abnormalities consistent with suspected early Pneumonia complicated by laboratory evidence of NIKO; with elevated serum creatinine of 2.49 mg/dL with a BUN of 60 mg/dL (up form her baseline serum creatinine of 1.29 mg/dL and BUN of 16 mg/dL last admission) compounded by mildly elevated troponin of 123 pg/mL present on admission due to a combination of suspected Acute Cardiac Strain and renal impairment all culminating to cause Acute Metabolic Encephalopathy and she was then admitted to the PCU for ongoing care for a stay that is expected to extend beyond 2 midnights. PFSH Medical History Pacemaker Anxiety Depression Hypertension Debility Accidental fall Unable to stand up Chronic low back pain Coccyx contusion GERD (gastroesophageal reflux disease) Chronic peripheral neuropathic pain Diabetes mellitus, type 2 Chronic anemia CKD (chronic kidney disease), stage III Obesity Anxiety and depression HLD (hyperlipidemia) Adult failure to thrive Intractable back pain Presence of permanent cardiac pacemaker Essential hypertension Complete heart block Osteoarthritis Non-smoker Home Medications ?Medication ?Instructions ?Recorded ?Last Taken ?Type atorvastatin 40 mg tablet 40 mg PO QHS cholesterol 03/13/22 02/22/24 History lisinopril 10 mg tablet 10 mg PO DAILY Check with primary 07/17/22 Unknown Rx doctor #30 tabs metformin 500 mg tablet,extended 500 mg PO DAILY diabetes 12/09/23 Unknown History release 24 hr acetaminophen 500 mg tablet 1,000 mg (2 x 500 mg) PO Q8 7 days 02/26/24 Unknown Rx #0 tabs gabapentin 300 mg capsule 300 mg PO TID Check with primary 02/26/24 Unknown Rx doctor 5 days #15 caps tramadol 50 mg tablet 50 mg PO BID PRN PRN pain 3 days 02/26/24 Unknown Rx #6 tabs cholecalciferol (vitamin D3) 50 50 mcg PO QDAY 05/01/24 Unknown History mcg (2,000 unit) capsule docusate sodium 100 mg capsule 100 mg PO BID 05/01/24 Unknown History (Colace) furosemide 20 mg tablet (Lasix) 20 mg PO DAILY 05/01/24 Unknown History lidocaine 4 % topical patch 1 patch topical QDAY PRN pain 05/01/24 Unknown History miconazole nitrate 2 % topical 1 applic topical QDAY 05/01/24 Unknown History powder omeprazole 20 mg capsule,delayed 20 mg PO QDAY 05/01/24 Unknown History release polyethylene glycol 3350 17 17 g PO ONCE 05/01/24 Unknown History gram/dose oral powder (Miralax) Lactobacillus acidophilus 100 mg PO DAILY 09/07/24 Unknown History (Acidophilus capsule) albuterol sulfate 2.5 mg/3 mL 2.5 mg continuous nebulization Q4H 09/07/24 Unknown History (0.083 %) solution for nebulization SOB cefdinir 300 mg capsule 300 mg PO Q12H 09/07/24 Unknown History escitalopram oxalate 10 mg tablet 10 mg PO DAILY 09/07/24 Unknown History furosemide 40 mg tablet 40 mg PO DAILY 09/07/24 Unknown History glipizide 2.5 mg tablet, extended 5 mg PO DAILY 09/07/24 Unknown History release 24 hr iron, carbonyl 45 mg tablet 45 mg PO DAILY 09/07/24 Unknown History Allergy/AdvReac Type Severity Reaction Status Date / Time metformin Allergy Severe lactic Verified 09/07/24 23:56 acidosis Iodinated Contrast Media Allergy Rash Verified 09/07/24 16:44 (CONTRASTS) oxaprozin (From Daypro) AdvReac Upset Verified 09/07/24 16:44 Stomach Family History Brother Cancer Brother Cancer Sister Cancer Mother Diabetes Asthma Surgical History History of hernia repair History of carpal tunnel release of both wrists History of hysterectomy History of permanent cardiac pacemaker placement (03/13/22) History of appendectomy History of cholecystectomy Social History household members: family Smoking Status: Never smoker alcohol intake: never substance use type: does not use caffeine: Yes Type: tea ROS ROS Narrative Full Review of Systems was not possible due to patient's confusion attributed to metabolic encephalopathy. Vital Signs Vital Signs Vital Signs: 09/07/24 16:34 09/07/24 16:43 09/07/24 17:10 Temperature 98.1 F Temperature Source Temporal Pulse Rate 76 78 Respiratory Rate 15 16 Blood Pressure 115/34 L Blood Pressure Mean 61 Pulse Ox 99 96 97 Oxygen Delivery Method Room Air Room Air Room Air 09/07/24 17:10 09/07/24 17:31 09/07/24 18:00 Temperature Temperature Source Pulse Rate 83 78 79 Respiratory Rate 15 12 14 Blood Pressure 81/56 L 118/45 L 113/47 L Blood Pressure Mean 64 69 69 Pulse Ox 98 97 97 Oxygen Delivery Method Room Air Room Air Room Air 09/07/24 19:00 Temperature Temperature Source Pulse Rate 79 Respiratory Rate 12 Blood Pressure 116/45 L Blood Pressure Mean 68 Pulse Ox 97 Oxygen Delivery Method Weight Weight: 180 lb 5.41 oz Body Mass Index (BMI) 36.4 Physical Exam Const alert and no apparent distress Constitutional Narrative: Obese, confused and chronically ill in appearance. General Appearance: cooperative Orientation / Consciousness: confused HEENT normocephalic, head/scalp atraumatic, hearing grossly normal bilaterally and moist oral mucous membranes Eyes PERRL and EOMs intact bilaterally Neck no lymphadenopathy and supple Resp normal respiratory effort, no retractions, no use of accessory muscles and clear to auscultation bilaterally Cardio regular rate and regular rhythm GI normal to inspection, nondistended, normoactive bowel sounds, soft to palpation and non-distended GI Narrative: Mild epigastric tenderness to palpation with otherwise benign abdomen. Extremity normal to inspection, full ROM and no clubbing, cyanosis or edema Skin Skin Narrative: Patient has no evidence of rash, abscess or jaundice. Neuro CN's II-XII intact bilaterally, moves all extremities and no focal motor deficits Neuro Narrative: Patient confused with mildly dysarthric speech with generalized weakness. Sensorium / Orientation: awake, alert, oriented to person and oriented to place Psych affect normal Results Medical Records Data Attestation: I reviewed the patient's medical records Lab / Micro Data Attestation: I reviewed the patient's lab results. 09/07/24 16:40 09/07/24 16:40 Labs: Laboratory Results - last 24 hr 09/07/24 16:40: WBC 12.9 H, RBC 3.98 L, Hgb 11.2 L, Hct 34.4 L, MCV 86.4, MCH 28.1, MCHC 32.6, RDW Std Deviation 47.5 H, RDW Coeff of Zainab 15.1 H, Plt Count 243, MPV 10.4, Immature Gran % (Auto) 0.500, Neut % (Auto) 60.5, Lymph % (Auto) 22.5, O'Brien % (Auto) 13.9 H, Eos % (Auto) 2.4, Baso % (Auto) 0.2, Absolute Neuts (auto) 7.8 H, Absolute Lymphs (auto) 2.90, Nucleated RBC % 0, Diff Path Review May foll, Atypical Lymphocytes 1+, Reactive Lymphocytes 1+, Plt Morphology Comment LARGE, Anisocytosis 1+, PT 14.0, INR 1.1, APTT 24.8, Sodium 134 L, Potassium 3.5, Chloride 94 L, Carbon Dioxide 28.0, Anion Gap 12, BUN 60 H, Creatinine 2.49 H, Estim Creat Clear Calc 16.79, Est GFR (MDRD) Af Amer 24 L, Est GFR (MDRD) Non-Af 20 L, BUN/Creatinine Ratio 24.1 H, Glucose 135 H, Calcium 8.6, Total Bilirubin 0.60, AST 48 H, ALT 28, Alkaline Phosphatase 80, Troponin I High Sens 123 H*, Total Protein 6.0 L, Albumin 2.8 L, Globulin 3.2, Albumin/Globulin Ratio 0.9 09/07/24 17:35: Lactic Acid 3.0 H* 09/07/24 18:10: Urine Color Yellow, Urine Clarity Clear, Urine pH 5.0, Ur Specific [place] 1.010, Urine Protein Negative, Urine Glucose (UA) Normal, Urine Ketones Negative, Urine Occult Blood Negative, Urine Nitrite Negative, Urine Bilirubin Negative, Urine Urobilinogen Normal, Ur Leukocyte Esterase Negative, Urine RBC 0 SEEN, Urine WBC 0 SEEN, Ur Squamous Epith Cells 0-5 SEEN, Urine Bacteria 0 SEEN, Urine Mucus 0 SEEN Micro: Microbiology 09/07/24 18:10 Mucosa - Nose SARS-CoV-2, Influenza & RSV (PCR) - Final Rhythm Strip Rhythm Strip: Sinus Rhythm Rate: 80 Ectopy: PAC(s) Imaging Radiology Impression Brain CT 09/07/24 17:10 IMPRESSION: No acute intracranial pathology. Parenchymal atrophy and chronic microvascular ischemia. Right maxillary sinus fluid level. Correlate clinically for acute sinusitis. Reading Location: [facility] Chest X-Ray 09/07/24 17:23 IMPRESSION: Small left pleural effusion. Reading Location: [facility] Imaging Services [address] [place], [place] [id number] Abdomen/Pelvis without Cont MR#: [id number] Acct: [id number] Name: DESIRE ROMO Rep #: [id number] : 1945 F 79 From: Rashawn Mejia MD PCP: GODFREY Diego Status: ADM IN Study: Abdomen/Pelvis without Cont Date of Exam: 09/07/24 Exam# [id number] Ordering Dr: Alfa Jara MD PROCEDURE: ABDOMEN/PELVIS WITHOUT CONT REASON FOR EXAM: Hernia repair. TECHNIQUE: Abdomen and pelvis CT with intravenous contrast. COMPARISON: 02/07/2024. FINDINGS: Lung bases: Left basilar opacity which may represent atelectasis or infiltrate. Liver: Unremarkable. Gallbladder: Prior cholecystectomy. Spleen: Unremarkable. Pancreas: Unremarkable. Adrenals: Unremarkable. Kidneys: Unremarkable. Bladder: Unremarkable. Reproductive Organs: Surgically absent uterus. Bowel: Unremarkable. Appendix: Normal. Lymph nodes: No suspicious lymph node enlargement. Vasculature: Moderate to severe atherosclerosis. Left hemiabdomen varices. Peritoneum / Retroperitoneum: No ascites. No free air. Bones: Degenerative changes of the spine. Levoscoliosis. CT/Abdomen/Pelvis without Cont IMPRESSION: No acute abnormalities of the abdomen or pelvis. Left basilar atelectasis versus infiltrate. One or more dose reduction techniques were used (e.g., Automated exposure control, adjustment of the mA and/or kV according to patient size, use of iterative reconstruction technique). Reading Location: [facility] CC: GODFREY Serrano; Dr. Alfa Jara MD ~ Marketing Support Manager: Signed Assessment & Plan Assessment/Plan (1) SIRS (systemic inflammatory response syndrome): (2) Pneumonia: QUALIFIERS: Pneumonia type: due to unspecified organism Laterality: left Lung location: lower lobe of lung Qualified Code(s): J18.9 - Pneumonia, unspecified organism (3) Elevated troponin: (4) Acute dehydration: (5) NIKO (acute kidney injury): (6) Adverse drug reaction: QUALIFIERS: Encounter type: initial encounter Qualified Code(s): T50.905A - Adverse effect of unspecified drugs, medicaments and biological substances, initial encounter (7) Acute encephalopathy: (8) Hypoalbuminemia: (9) Diabetes: QUALIFIERS: Diabetes mellitus complication status: with other specified complication Diabetes mellitus intermediate project manager insulin use: without half-way use Diabetes mellitus type: type 2 Qualified Code(s): E11.69 - Type 2 diabetes mellitus with other specified complication PLAN: Plan 1. SIRS criteria evidenced by: Leukocytosis of 12.9K and Lactic Acidosis of 3 mmol/L present on admission along with transient hypotension of 81/56 mmHg noted shortly after admission (but wit no Left-shift or obvious source of infection with negative UA and CXR showing only small Left pleural effusion) with the ER physician asked to obtain abdominal CT to ascertain source of possible underlying infection after recent documented gastroenteritis due to norovirus +/- possible Adverse Drug Reaction to metformin causing lactic acidosis with CT positive for evidence of Left basilar infiltrate consistent with suspected early Pneumonia - Admit to PCU. Aggressively volume resuscitate and recheck lactate per protocol with second lactate down to 2.4 mmol/L. Start empiric IV Rocephin and IV azithromycin to avoid further deterioration until potential source and await culture and sensitivity data. Check urinary antigens to Streptococcus pneumonia and Legionella. Patient persistently afebrile throughout entire admission so far. Hold metformin and add to list of allergies. Continue current vitamin D supplementation and add vitamin C and zinc to help boost immunity and hopefuly speed recovery. 2. NIKO; suspected to be due at least in part to Dehydration evidenced by BUN/creatinine ratio of 24.1 present on admission with elevated serum creatinine of 2.49 mg/dL with a BUN of 60 mg/dL (up form her baseline serum creatinine of 1.29 mg/dL and BUN of 16 mg/dL last admission) in the setting of known CKD; stage IIIb complicating #1 - Aggressively volume resuscitate and follow strict I's & O's. Check renal indices daily to follow trend of hopeful improvement. We will avoid potentially nephrotoxic agents. 3. Mildly elevated troponin of 123 pg/mL present on admission due to a combination of suspected Acute Cardiac Strain compounding #1 & #2 - Give BASA and statin plus full renal dose of Lovenox. Serialize troponin. Check echocardiogram to evaluate LVEF. Patient should be considered for Lexiscan chemical NST once her condition improves. 4. Acute Metabolic Encephalopathy attributable to #1 - #3 - Continue supportive care as outlined above and monitor for improvement. Check TSH, B12, Folate, HgbA1c, UDS and SUSHMA to evaluate for potentially reversible causes of confusion. We will minimize SENIOR PRODUCTION SUPERVISOR-active medications in an effort to allow sensorium to clear. 5. Essential Hypertension; on lisinopril and furosemide with suspected Adverse Drug Reaction suspected to be at least partially driving #2 - Hold lisinopril and furosemide in light of #1 & #2. 6. Obesity; with BMI of 36.4 this admission adding to the medical complexity of #1 - #5 - Weight loss will be recommended when sensorium clears. Check TSH. This complicates her case and may hamper recovery. 7. OA; with chronic back pain on prn tramadol with chronically poor mobility and history of adult [id number] with Hypoalbuminemia of 2.8 g/dL present on admission suggestive of possible protein-calorie malnutrition adding to the already significant burden of disease outlined from #1 - #6 - Noted. Hold tramadol with confusion. Give acetaminophen prn. PT/OT and Case management to consult and treat on-rounds in the AM for further recommendations with help appreciated in advance. Finally, we will consult clinical dietitian to see patient on-rounds in AM for formal malnutrition screening with help appreciated in advance. 8. DM-2; of unknown control on metformin and glipizide and diabetic neuropathy; on gabapentin - Hold metformin due to lactic acidosis. Hold glipizide to prevent hypoglycemia with slow clearance in the setting of NIKO. FSBS q. AC/HS plus SSI. Check HgbA1c to objectively assess 9. Hyperlipidemia; on atorvastatin - Resume statin and check Lipid Profile in light of #3. 10. History of CHB; s/p PPM - Noted. 11. Chronic Anemia - Stable with hemoglobin of 11.2 g/dL and MCV 86.4 fL present on admission. 12. Depression with Anxiety; on escitalopram and trazodone - Hold these agents until patient improves. 13. GERD; on omeprazole - Continue PPI. 14. Listed allergy to iodinated contrast (rash) - Noted. 15. DVT prophylaxis - Patient on renally-dosed Lovenox for #2. Total time: Approximately (but not less than) 75 minutes. Sepsis Attestation Sepsis Attestation: Sepsis Ruled Out Date exam was performed: 09/07/24 Time exam was performed: 21:30 Possible Source of Sepsis: Unknown Sepsis Organ Dysfunction Criteria Present: SBP decrease of more than 40 mmHg, Creatinine > 2.0 mg/dL, Lactic Acid > 2 mmol/L and New/Unexplained change in mental status Fluid Resuscitation Fluid resuscitation indicated?: Yes Fluid Resuscitation ordered: 30 ml/kg fluid bolus ordered Amount of fluid ordered: 2 Sepsis Note Date exam was performed: 09/08/24 Time exam was performed: 01:30 Sepsis Attestation: Sepsis re-evaluation was performed Response to fluids: Fluid responsive hypotension Charges/Coding Visit Charges Inpatient E&M: 06869 Init Hosp L3
--- NOTE | 2024-09-07 19:49 | CT_ITS ---
PROCEDURE: ABDOMEN/PELVIS WITHOUT CONT REASON FOR EXAM: Hernia repair. TECHNIQUE: Abdomen and pelvis CT with intravenous contrast. COMPARISON: 02/07/2024. FINDINGS: Lung bases: Left basilar opacity which may represent atelectasis or infiltrate. Liver: Unremarkable. Gallbladder: Prior cholecystectomy. Spleen: Unremarkable. Pancreas: Unremarkable. Adrenals: Unremarkable. Kidneys: Unremarkable. Bladder: Unremarkable. Reproductive Organs: Surgically absent uterus. Bowel: Unremarkable. Appendix: Normal. Lymph nodes: No suspicious lymph node enlargement. Vasculature: Moderate to severe atherosclerosis. Left hemiabdomen varices. Peritoneum / Retroperitoneum: No ascites. No free air. Bones: Degenerative changes of the spine. Levoscoliosis. CT/Abdomen/Pelvis without Cont IMPRESSION: No acute abnormalities of the abdomen or pelvis. Left basilar atelectasis versus infiltrate. One or more dose reduction techniques were used (e.g., Automated exposure contr ol, adjustment of the mA and/or kV according to patient size, use of iterative reconstruction technique). Reading Location: [id number]
--- NOTE | 2024-09-07 21:34 | ECHOCS_ITS ---
Reason For Study: S/P [place] Procedure This was a 2D Doppler, Color Flow transthoracic echocardiogram. The study was technically difficult. Contrast injection was performed. Exam performed portable in patient room. Left Ventricle Normal left ventricle. The estimated ejection fraction is 55-???60 %. Right Ventricle Normal right ventricle. Normal systolic function. Atria Normal left atrium. Normal right atrium. Mitral Valve There is severe mitral annular calcification. Mild (1+) mitral valve insufficiency. Tricuspid Valve Normal tricuspid valve. Aortic Valve Mild diffuse aortic valve calcification. Pulmonic Valve The pulmonic valve is not well visualized. Great Vessels Normal aortic root. Pericardium/Pleural No pericardial effusion. Medication Diluted definity 2ml given slow IV push to enhance endocardial definition. MMode/2D Measurements & Calculations LVIDd: 3.8 cm IVSd: 1.2 cm LVOT diam: 1.9 cm LVIDs: 2.5 cm LVPWd: 1.1 cm FS: 34.3 % LVOT area: 2.9 cm2 _ Ao root diam: 2.7 cm LAV(MOD-bp): 50.2 ml LVAd ap4: 25.9 cm2 LAV(MOD-bp) Indexed: 29.1 ml/m2 LVLd ap4: 6.5 cm LAV(MOD-sp2): 41.9 ml EDV(MOD- sp4): 85.8 ml LAV(MOD-sp4): 57.8 ml EDV(sp4- el): 88.1 ml LVAs ap4: 10.0 cm2 LVLs ap4: 5.5 cm ESV(MOD- sp4): 15.7 ml ESV(sp4- el): 15.2 ml EF(MOD- sp4): 81.7 % EF(sp4- el): 82.7 % _ SV(MOD-sp4): 70.1 ml SV(sp4-el): 72.9 ml LA A4 area: 20.3 cm2 SI(MOD-sp4): 40.6 ml/m2 _ LA dimension(2D): 4.2 cm RA A4 area: 12.8 cm2 Doppler Measurements & Calculations MV V2 max: 199.1 cm/sec Ao V2 max: 172.1 cm/sec LV V1 max: 138.8 cm/sec MV max P.9 mmHg Ao max P.9 mmHg LV V1 max P.8 mmHg MV V2 mean: 134.0 cm/sec Ao V2 mean: 124.0 cm/sec LV V1 mean P.2 mmHg MV mean P.9 mmHg Ao mean P.9 mmHg LV V1 mean: 95.0 cm/sec MV V2 VTI: 59.3 cm Ao V2 VTI: 31.1 cm LV V1 VTI: 22.2 cm MVA(VTI): 1.1 cm2 AV (velocity ratio): 0.71 SUSANNE(I,D): 2.1 cm2 SUSANNE(V,D): 2.3 cm2 _ SV(LVOT): 64.2 ml PA V2 max: 123.0 cm/sec TR max slava: 263.8 cm/sec PA V2 mean: 73.3 cm/sec TR max P.8 mmHg ECHO/Echo Complete W/ Contrast Interpretation Summary The estimated ejection fraction is 55-60 %. Mild concentric low ventricular hypertrophy Normal LV systolic function Mild tricuspid dilatation Contrast echo used using [place] No significant difference from previous echocardiogram on March 13, 2022 Ordering Physician: Mik Lara Referring Physician: Alfa Jara Performed By: Clarita Briseno RCS
[2024-09-07 21:44] LABS: Reflex Lactate? Y
[2024-09-07 21:46] LABS: Bedside Glucose 105 mg/dL (74-106)
[2024-09-07] MEDS: Enoxaparin 80 MG/0.8 ML Syringe SC (22:24)
[2024-09-07] MEDS: Atorvastatin Calcium 40 MG Tablet PO (22:25)
[2024-09-07] MEDS: Gabapentin 300 MG Capsule PO (22:25)
[2024-09-07] MEDS: Aspirin E.C. 81 MG Tablet PO (22:26)
[2024-09-07] MEDS: 0.9% Normal Saline (1000mL) 1,000 ML 100 ML IV (22:27)
[2024-09-07] MEDS: Ceftriaxone 1 GM/50 ML BAG IV (22:42)
[2024-09-07 22:58] LABS: Lactic Acid 2.4 mmol/L (0.4-1.9)
[2024-09-07 23:20] LABS: Vitamin B12 1036 pg/mL (211-911)
[2024-09-07 23:32] LABS: Thyroid Stim Hormone (TSH) 0.611 uIU/mL (0.358-3.740); Troponin-I HS 140 pg/mL (3.0-54.0)
[2024-09-08] VITALS (7 sets, daily range): BP systolic 100–113; BP diastolic 42–52; PULSE 62–94; RESP 16–19; TEMP 36.1–37.1; O2SAT 93–99; BMI 36.0
[2024-09-08 00:11] LABS: Amphetamine Urine NEGATIVE (<1000 ng/mL); Barbiturate Urine VISTA NEGATIVE (< 200 ng/mL); Benzodiazepine Urine VISTA NEGATIVE (< 200 ng/mL); Cocaine Urine VISTA NEGATIVE (< 300 ng/mL); Ecstacy Urine VISTA NEGATIVE (< 500 ng/mL); Methadone Urine VISTA NEGATIVE (< 300 ng/mL); PCP Urine VISTA NEGATIVE (< 25 ng/mL); THC Urine VISTA NEGATIVE (< 50 ng/mL); Vista UDS pH Range 5
[2024-09-08 02:20] LABS: Reflex Lactate? Y
[2024-09-08 04:42] LABS: Lactic Acid 2.4 mmol/L (0.4-1.9)
[2024-09-08] MEDS: Gabapentin 300 MG Capsule PO (06:36)
[2024-09-08 06:57] LABS: Bedside Glucose 121 mg/dL (74-106)
[2024-09-08 07:30] LABS: Basophil# 0.01 X10^3/uL; Basophil% 0.1 % (0-1); Eosinophil# 0.27 X10^3/uL; Eosinophils% 3.3 % (0-5); Hematocrit 31.3 % (37-47); Hemoglobin 10.1 g/dL (12.0-15.0); Lymphocyte % 21.1 % (19-41); Mean Corp Hgb Conc 32.3 g/dL (32-36); Mean Corpuscular Hgb 27.9 pg (27.0-32.0); Mean Corpuscular Volume 86.5 fL (81-99); Mean Platelet Vol. 10.1 fl (6.2-12.0); Monocyte# 1.08 X10^3/uL; Monocyte% 13.4 % (0-10); NRBC Flagged by Analyzer 0 % (0-5); Neutrophil # 4.98 X10^3/uL (2.7-7.7); Neutrophil % 61.7 % (47-70); Platelet Count 194 K/mm3 (150-450); RBC Distribution Width CV 15.2 % (11.6-14.6); RBC Distribution Width SD 47.8 fl (35.1-43.9); Red Blood Count 3.62 M/mm3 (4.2-5.4); White Blood Count 8.1 K/mm3 (4.4-11.0)
[2024-09-08] MEDS: Albuterol 2.5 MG/3 ML VIAL.NEB. INHALATION ×3 (07:31→15:18)
[2024-09-08 08:04] LABS: ALB/GLOB Ratio 0.8 RATIO (0.9-2.4); AST(SGOT) 38 U/L (15-37); Alanine Aminotransfer ALT/SGPT 20 U/L (13-56); Albumin, Serum 2.3 g/dL (3.2-5.0); Alkaline Phosphatase 73 U/L (45-117); Anion Gap 8 (5-15); BUN 50 mg/dL (7-18); BUN/Creat Ratio 29.1 RATIO (10-20); Calcium,Total 8.3 mg/dL (8.5-10.1); Chloride 103 mmol/L (98-107); Cholesterol 130 mg/dL (200); Creatinine, Serum 1.72 mg/dL (0.55-1.02); EST Glomerular Filtration Rate 30 mL/min (>60); Est Glom Filt Rate - Afr Amer 37 mL/min (>60); Estimated Creatinine Clearance 24.16 ml/min; Globulin 2.8 g/dL (2.2-4.2); Glucose 128 mg/dL (74-106); High Density Lipoprotein 42 mg/dL; Magnesium 2.3 mg/dL (1.6-2.6); Phosphorus 4.5 mg/dL (2.5-4.9); Potassium 3.7 mmol/L (3.5-5.1); Protein, Total 5.1 g/dL (6.4-8.2); Sodium Level 139 mmol/L (136-145); Triglycerides 228 mg/dL; Very Low Density Lipoprotein 46 mg/dL (5-40)
[2024-09-08] MEDS: 0.9% Normal Saline (1000mL) 1,000 ML 100 ML IV (09:45)
[2024-09-08] MEDS: Pantoprazole Sodium 20 MG Tablet PO (09:46)
[2024-09-08] MEDS: Aspirin E.C. 81 MG Tablet PO (09:46)
[2024-09-08] MEDS: Docusate Sodium 100 MG Capsule PO ×2 (09:46)
[2024-09-08] MEDS: Cholecalciferol (VIT D3) 25 MCG TABLET (1,000 UNITS) 50 MCG PO (09:46)
[2024-09-08] MEDS: Lactobacillis Acidophilus 1 CAP PO (09:46)
[2024-09-08] MEDS: Polyethylene Glycol 3350 17 GM PACKET PO (09:46)
[2024-09-08] MEDS: Ferrous Sulfate 325 MG Tablet PO (09:47)
[2024-09-08] MEDS: Glucerna Shake 120 ML LIQUID PO ×3 (09:47→17:40)
[2024-09-08] MEDS: Ascorbic Acid 500 MG Tablet 1000 MG PO (09:48)
[2024-09-08] MEDS: Azithromycin 500 MG in 0.9% Normal Saline (250mL Bag) 250 ML 255 MG IV (09:49)
[2024-09-08] MEDS: Nystatin Powder 15gm Bottle 1 APPLIC TOPICAL (09:49)
[2024-09-08] MEDS: Zinc Sulfate 50 mg zinc (220 mg) ORAL capsule PO (09:49)
--- NOTE | 2024-09-08 10:11 | CASEMGMT ---
DONTA called patient's daughter Mili and left her a voice mail requesting a return call regarding d/c plan. Candace BAHENA
[2024-09-08 12:04] LABS: Bedside Glucose 263 mg/dL (74-106)
[2024-09-08] MEDS: Insulin Lispro 100 UNIT/ML INSULN.PEN SC ×3 (12:25→22:13)
--- NOTE | 2024-09-08 13:03 | CASEMGMT ---
SW received a message from patient's daughter Mili. She confirmed the plan is for patient to return to [facility] at discharge. Candace Guevara MSW JOSEF
[2024-09-08 13:24] LABS: Hemoglobin A1c 7.5 % (3.8-5.6)
--- NOTE | 2024-09-08 14:46 | PN.HOSP_ITS ---
Reason for Visit Reason for Visit: Diagnoses Type 2 diabetes mellitus with other specified complication (09/07/24) Other disorders of plasma-protein metabolism, not elsewhere classified (09/07/24) Pneumonia, unspecified organism (09/07/24) Adverse effect of unspecified drugs, medicaments and biological substances, initial encounter (09/07/24) Subjective Subjective Patient was seen and examined today, she knew what year it was but she could not tell me exactly where she was she stated she was in [place] but could not say that she was in the hospital. She did recognize her daughter. According to the daughter, she has been having a cognitive decline this year, she is a resident at a local intermediate. I talked to the intermediate nurse who was familiar with her, she denied that the patient has had a decline in cognitive status this year and said she only was confused yesterday. Patient's workup has been negative so far for a cause of the patient's confusion, I checked to see if she could have an MRI of her brain, her pacemaker is compatible but there is no pacemaker rep that can come in till Wednesday so the test will not be performed until this Wednesday. Patient appears dehydrated from her labs, I do not think this would cause her mental status change. Objective Data Objective Data Vital Signs: Vital Signs Temp Pulse Resp BP Pulse Ox O2 Del Method 97.9 F 88 19 H 101/52 L 97 Room Air 09/08/24 09:00 09/08/24 11:17 09/08/24 11:17 09/08/24 09:00 09/08/24 09:00 09/08/24 09:00 Oxygen Delivery Method Room Air Weight: 80.9 kg Body Mass Index (BMI) 36.0 Intake & Output: Intake and Output for Last 24 Hours 09/06/24 09/07/24 09/08/24 23:59 23:59 23:59 Intake Total 1125 / 1125 1590 / 1590 Output Total 300 / 300 600 / 600 Balance 825 / 825 990 / 990 Lab / Micro Data 09/08/24 06:53 09/08/24 06:53 Labs: Laboratory Results - last 24 hr 09/07/24 16:40: WBC 12.9 H, RBC 3.98 L, Hgb 11.2 L, Hct 34.4 L, MCV 86.4, MCH 28.1, MCHC 32.6, RDW Std Deviation 47.5 H, RDW Coeff of Zainab 15.1 H, Plt Count 243, MPV 10.4, Immature Gran % (Auto) 0.500, Neut % (Auto) 60.5, Lymph % (Auto) 22.5, [place] % (Auto) 13.9 H, Eos % (Auto) 2.4, Baso % (Auto) 0.2, Absolute Neuts (auto) 7.8 H, Absolute Lymphs (auto) 2.90, Nucleated RBC % 0, Diff Path Review May foll, Atypical Lymphocytes 1+, Reactive Lymphocytes 1+, Plt Morphology Comment LARGE, Anisocytosis 1+, PT 14.0, INR 1.1, APTT 24.8, Sodium 134 L, Potassium 3.5, Chloride 94 L, Carbon Dioxide 28.0, Anion Gap 12, BUN 60 H, C reatinine 2.49 H, Estim Creat Clear Calc 16.79, Est GFR (MDRD) Af Amer 24 L, Est GFR (MDRD) Non-Af 20 L, BUN/Creatinine Ratio 24.1 H, Glucose 135 H, Calcium 8.6, Total Bilirubin 0.60, AST 48 H, ALT 28, Alkaline Phosphatase 80, Troponin I High Sens 123 H*, Total Protein 6.0 L, Albumin 2.8 L, Globulin 3.2, Albumin/Globulin Ratio 0.9 09/07/24 17:35: Lactic Acid 3.0 H* 09/07/24 18:10: Urine Color Yellow, Urine Clarity Clear, Urine pH 5.0, Ur Specific [place] 1.010, Urine Protein Negative, Urine Glucose (UA) Normal, Urine Ketones Negative, Urine Occult Blood Negative, Urine Nitrite Negative, Urine Bilirubin Negative, Urine Urobilinogen Normal, Ur Leukocyte Esterase Negative, Urine RBC 0 SEEN, Urine WBC 0 SEEN, Ur Squamous Epith Cells 0-5 SEEN, Urine Bacteria 0 SEEN, Urine Mucus 0 SEEN 09/07/24 21:27: POC Glucose 105 09/07/24 22:05: Lactic Acid 2.4 H* 09/07/24 22:37: Hemoglobin A1c 7.5 H, Troponin I High Sens 140 H*, Vitamin B12 1036 H, Folate 8.10, TSH 0.611 09/07/24 23:00: Urine Opiates Screen NEGATIVE, Urine Methadone Screen NEGATIVE, Ur Barbiturates Screen NEGATIVE, Ur Phencyclidine Scrn NEGATIVE, Ur Amphetamines Screen NEGATIVE, MDMA (Ecstasy) Screen NEGATIVE, U Benzodiazepines Scrn NEGATIVE, Urine Cocaine Screen NEGATIVE, U Cannabinoids Screen NEGATIVE, Ur Drug Screen Comment 09/08/24 02:59: Lactic Acid 2.4 H* 09/08/24 06:35: POC Glucose 121 H 09/08/24 06:53: WBC 8.1, RBC 3.62 L, Hgb 10.1 L, Hct 31.3 L, MCV 86.5, MCH 27.9, MCHC 32.3, RDW Std Deviation 47.8 H, RDW Coeff of Zianab 15.2 H, Plt Count 194, MPV 10.1, Immature Gran % (Auto) 0.400, Neut % (Auto) 61.7, Lymph % (Auto) 21.1, M ann % (Auto) 13.4 H, Eos % (Auto) 3.3, Baso % (Auto) 0.1, Absolute Neuts (auto) 5.0, Absolute Lymphs (auto) 1.70, Nucleated RBC % 0, Sodium 139, Potassium 3.7, Chloride 103, Carbon Dioxide 28.0, Anion Gap 8, BUN 50 H, Creatinine 1.72 H, Estim Creat Clear Calc 24.16, Est GFR (MDRD) Af Amer 37 L, Est GFR (MDRD) Non-Af 30 L, BUN/Creatinine Ratio 29.1 H, Glucose 128 H, Calcium 8.3 L, Phosphorus 4.5, Magnesium 2.3, Total Bilirubin 0.50, AST 38 H, ALT 20, Alkaline Phosphatase 73, Total Protein 5.1 L, Albumin 2.3 L, Globulin 2.8, Albumin/Globulin Ratio 0.8 L, Triglycerides 228 H, Cholesterol 130, LDL Cholesterol 42, VLDL Cholesterol 46 H, HDL Cholesterol 42 09/08/24 11:45: POC Glucose 263 H Micro: Microbiology 09/07/24 23:15 Mucosa - Nasopharyngeal Respiratory Panel (PCR) - Final 09/07/24 18:10 Mucosa - Nose SARS-CoV-2, Influenza & RSV (PCR) - Final Radiography Diagnostic Testing: Radiology Impression Brain CT 09/07/24 17:10 IMPRESSION: No acute intracranial pathology. Parenchymal atrophy and chronic microvascular ischemia. Right maxillary sinus fluid level. Correlate clinically for acute sinusitis. Reading Location: [facility] Chest X-Ray 09/07/24 17:23 IMPRESSION: Small left pleural effusion. Reading Location: [facility] Abdomen/Pelvis CT 09/07/24 19:49 IMPRESSION: No acute abnormalities of the abdomen or pelvis. Left basilar atelectasis versus infiltrate. One or more dose reduction techniques were used (e.g., Automated exposure control, adjustment of the mA and/or kV according to patient size, use of iterative reconstruction technique). Reading Location: [facility] Echocardiogram 09/07/24 21:34 Interpretation Summary The estimated ejection fraction is 55-60 %. Mild concentric low ventricular hypertrophy Normal LV systolic function Mild tricuspid dilatation Contrast echo used using [employer] No significant difference from previous echocardiogram on March 13, 2022 Ordering Physician: Mik Lara Referring Physician: Alfa Jara Performed By: Clarita Briseno RCS Rhythm Strip Rhythm Strip: Sinus Rhythm Rate: 80 Ectopy: PAC(s) Physical Exam Const alert and no apparent distress Constitutional Narrative: Patient is oriented to two General Appearance: cooperative, well kempt and well developed Orientation / Consciousness: awake, oriented to person and oriented to time HEENT normocephalic, head/scalp atraumatic and moist oral mucous membranes Eyes PERRL, EOMs intact bilaterally and conjunctivae normal Neck supple, no JVD, thyroid normal and no carotid bruits General: trachea midline Resp normal respiratory effort, no retractions, no use of accessory muscles and clear to auscultation bilaterally Auscultation: Negative for rales, rhonchi or wheezes Cardio regular rate, regular rhythm, S1 normal heart sound, S2 normal heart sound, no murmurs, no rub and no gallops GI normal to inspection, nondistended, normoactive bowel sounds, soft to palpation, non-tender and non-distended Extremity no clubbing, cyanosis or edema Skin no rashes or lesions noted General Skin Exam: no breakdown Neuro CN's II-XII intact bilaterally, moves all extremities, no focal motor deficits and no sensory deficits noted Sensorium / Orientation: awake, alert, oriented to person and oriented to time Speech: speech normal Psych Psych Narrative: Patient has flat affect Assessment & Plan Assessment/Plan (1) Acute encephalopathy: PLAN: Plan 1. Acute encephalopathy-etiology unclear at this point, patient will continue to receive supportive care, her brain MRI will not be able to be performed until Wednesday #2 hyperlipidemia-patient currently is not on a statin #3 failure to thrive-patient currently resides in a intermediate, according to the nursing staff there, she needs help with ADLs #4 type 2 diabetes-patient is on sliding scale insulin per fingerstick blood sugars I do not feel the patient has an active infection at this time I have elected to discontinue her antibiotics Total clinical time spent by myself addressing the patient's medical issues, reviewing all of her data, and collaborating with patient's care team: 35 minutes Charges/Coding Visit Charges Inpatient E&M: 54575 Subs Hosp L2
--- NOTE | 2024-09-08 14:46 | CASEMGMT ---
Updates sent to [facility] with note that pt may return over the weekend. Green sheet and transport form completed and placed in chart. Gris Del Angel DC Planning Asst.
[2024-09-08 15:05] LABS: Pathologist Review Reviewed
--- NOTE | 2024-09-08 16:28 | CHAPLAIN ---
Type of Pastoral Visit _x__ Initial Visit ___ Follow-up Visit ___ On-call Visit ___ General Patient Visit ___ Spiritual Assessment ___ Family Conference ___ Bereavement ___ Rapid Response ___ Code Blue ___ Other (describe below) Pastoral Care Referral From _x__ Patient ___ Family ___ Nurse ___ Physician ___ Event Designer ___ Testing Director ___ Other (describe below) Sacrament/Intervention _x__ Active listening ___ Anointing ___ Scientologist ___ Bereavement ___ Communion ___ Prabha exploration ___ ___ Life review _x__ Prayer ___ Reconciliation ___ Sacrament of Sick _x__ Supportive presence ___ Wedding ___ Other (describe below) Pastoral Comments sat with this patient and gave calm presence and reassurances; referred patient to being in a good place and to trust God for her needs; pt is somewhat confused about where she is and what condition she is in; helped pt focus; offered a prayer; pt said thank you
[2024-09-08 18:07] LABS: Bedside Glucose 180 mg/dL (74-106)
[2024-09-08] MEDS: Atorvastatin Calcium 40 MG Tablet PO (21:59)
[2024-09-08 23:09] LABS: Bedside Glucose 165 mg/dL (74-106)
[2024-09-09 04:00] VITALS: BP 125/48; PULSE 79; RESP 16; TEMP 35.8; O2SAT 98
[2024-09-09 05:27] VITALS: BMI 36.4
[2024-09-09 06:38] LABS: Absolute Lymphocyte Count 1.95 X10^3/uL (0.83-4.51); Absolute Neutrophil Count 4.1 X10^3/uL (2.0-7.7); Basophil# 0.01 X10^3/uL; Basophil% 0.1 % (0-1); Eosinophil# 0.28 X10^3/uL; Eosinophils% 3.8 % (0-5); Hematocrit 29.8 % (37-47); Hemoglobin 9.4 g/dL (12.0-15.0); Lymphocyte # 1.95 X10^3/ul (0.83-4.51); Lymphocyte % 26.4 % (19-41); Mean Corp Hgb Conc 31.5 g/dL (32-36); Mean Corpuscular Hgb 28.1 pg (27.0-32.0); Mean Platelet Vol. 10.6 fl (6.2-12.0); Monocyte# 1.05 X10^3/uL; Monocyte% 14.2 % (0-10); NRBC Flagged by Analyzer 0 % (0-5); Neutrophil # 4.05 X10^3/uL (2.7-7.7); Platelet Count 179 K/mm3 (150-450); RBC Distribution Width CV 15.2 % (11.6-14.6); RBC Distribution Width SD 49.4 fl (35.1-43.9); Red Blood Count 3.35 M/mm3 (4.2-5.4); White Blood Count 7.4 K/mm3 (4.4-11.0)
[2024-09-09 07:03] LABS: Bedside Glucose 144 mg/dL (74-106)
[2024-09-09 07:07] LABS: Anion Gap 6 (5-15); BUN 31 mg/dL (7-18); BUN/Creat Ratio 26.1 RATIO (10-20); Calcium,Total 8.1 mg/dL (8.5-10.1); Chloride 108 mmol/L (98-107); Creatinine, Serum 1.19 mg/dL (0.55-1.02); EST Glomerular Filtration Rate 46 mL/min (>60); Est Glom Filt Rate - Afr Amer 56 mL/min (>60); Estimated Creatinine Clearance 35.15 ml/min; Glucose 147 mg/dL (74-106); Magnesium 2.1 mg/dL (1.6-2.6); Potassium 3.8 mmol/L (3.5-5.1); Sodium Level 140 mmol/L (136-145)
[2024-09-09] MEDS: Glucerna Shake 120 ML LIQUID PO ×3 (08:32→16:33)
[2024-09-09] MEDS: Pantoprazole Sodium 20 MG Tablet PO (08:32)
[2024-09-09] MEDS: Nystatin Powder 15gm Bottle 1 APPLIC TOPICAL ×2 (08:32→22:18)
[2024-09-09] MEDS: Aspirin E.C. 81 MG Tablet PO (08:32)
[2024-09-09] MEDS: Ferrous Sulfate 325 MG Tablet PO (08:34)
[2024-09-09 10:00] VITALS: BP 127/65; PULSE 76; RESP 17; TEMP 36.7; O2SAT 97
--- NOTE | 2024-09-09 11:28 | PN.HOSP_ITS ---
Reason for Visit Reason for Visit: Diagnoses Type 2 diabetes mellitus with other specified complication (09/07/24) Other disorders of plasma-protein metabolism, not elsewhere classified (09/07/24) Encephalopathy, unspecified (09/07/24) Pneumonia, unspecified organism (09/07/24) Adverse effect of unspecified drugs, medicaments and biological substances, initial encounter (09/07/24) Subjective Subjective Patient was seen and examined today, she appears more alert and knows she is in the hospital. She did get the year wrong however. Creatinine today was improved at 1.19 Objective Data Objective Data Vital Signs: Vital Signs Temp Pulse Resp BP Pulse Ox O2 Del Method 96.5 F L 79 16 125/48 H 98 Room Air 09/09/24 04:00 09/09/24 04:00 09/09/24 04:00 09/09/24 04:00 09/09/24 04:00 09/09/24 07:45 Oxygen Delivery Method Room Air Weight: 81.9 kg Body Mass Index (BMI) 36.4 Intake & Output: Intake and Output for Last 24 Hours 09/07/24 09/08/24 09/09/24 23:59 23:59 23:59 Intake Total 1125 / 1125 1710 / 1950 1240 / 1240 Output Total 300 / 300 600 / 600 200 / 200 Balance 825 / 825 1110 / 1350 1040 / 1040 Lab / Micro Data 09/09/24 05:50 09/09/24 05:50 Labs: Laboratory Results - last 24 hr 09/07/24 16:40: Diff Path Review Reviewed 09/07/24 22:37: Hemoglobin A1c 7.5 H 09/08/24 11:45: POC Glucose 263 H 09/08/24 17:38: POC Glucose 180 H 09/08/24 22:04: POC Glucose 165 H 09/09/24 05:50: WBC 7.4, RBC 3.35 L, Hgb 9.4 L, Hct 29.8 L, MCV 89.0, MCH 28.1, MCHC 31.5 L, RDW Std Deviation 49.4 H, RDW Coeff of Zainab 15.2 H, Plt Count 179, MPV 10.6, Immature Gran % (Auto) 0.500, Neut % (Auto) 55.0, Lymph % (Auto) 26.4, [place] % (Auto) 14.2 H, Eos % (Auto) 3.8, Baso % (Auto) 0.1, Absolute Neuts (auto) 4.1, Absolute Lymphs (auto) 1.95, Nucleated RBC % 0, Sodium 140, Potassium 3.8, Chloride 108 H, Carbon Dioxide 26.0, Anion Gap 6, BUN 31 H, Creatinine 1.19 H, Estim Creat Clear Calc 35.15, Est GFR (MDRD) Af Amer 56 L, Est GFR (MDRD) Non-Af 46 L, BUN/Creatinine Ratio 26.1 H, Glucose 147 H, Calcium 8.1 L, Phosphorus 3.0, Magnesium 2.1 09/09/24 06:43: POC Glucose 144 H Micro: Microbiology 09/07/24 23:15 Mucosa - Nasopharyngeal Respiratory Panel (PCR) - Final 09/07/24 18:10 Mucosa - Nose SARS-CoV-2, Influenza & RSV (PCR) - Final Radiography Diagnostic Testing: Radiology Impression Echocardiogram 09/07/24 21:34 Interpretation Summary The estimated ejection fraction is 55-60 %. Mild concentric low ventricular hypertrophy Normal LV systolic function Mild tricuspid dilatation Contrast echo used using [facility] No significant difference from previous echocardiogram on March 13, 2022 Ordering Physician: Mik Lara Referring Physician: Alfa Jara Performed By: Clarita Briseno RCS Rhythm Strip Rhythm Strip: Sinus Rhythm Rate: 80 Ectopy: PAC(s) Physical Exam Narrative alert and no apparent distress Constitutional Narrative: Patient is oriented to two General Appearance: cooperative, well kempt and well developed Orientation / Consciousness: awake, oriented to person and oriented to time HEENT normocephalic, head/scalp atraumatic and moist oral mucous membranes Eyes PERRL, EOMs intact bilaterally and conjunctivae normal Neck supple, no JVD, thyroid normal and no carotid bruits General: trachea midline Resp normal respiratory effort, no retractions, no use of accessory muscles and clear to auscultation bilaterally Auscultation: Negative for rales, rhonchi or wheezes Cardio regular rate, regular rhythm, S1 normal heart sound, S2 normal heart sound, no murmurs, no rub and no gallops GI normal to inspection, nondistended, normoactive bowel sounds, soft to palpation, non-tender and non-distended Extremity no clubbing, cyanosis or edema Skin no rashes or lesions noted General Skin Exam: no breakdown Neuro CN's II-XII intact bilaterally, moves all extremities, no focal motor deficits and no sensory deficits noted Sensorium / Orientation: awake, alert, oriented to person and oriented to time Speech: speech normal Psych Psych Narrative: Patient has flat affect Assessment & Plan Assessment/Plan (1) Acute encephalopathy: PLAN: Plan 1. Acute encephalopathy-etiology unclear at this point, patient will continue to receive supportive care, her brain MRI will not be able to be performed until Wednesday, patient is oriented as to self and place, she got the year wrong saying it was 2025. #2 hyperlipidemia-patient currently is not on a statin #3 failure to thrive-patient currently resides in a half-way, according to the nursing staff there, she needs help with ADLs #4 type 2 diabetes-patient is on sliding scale insulin per fingerstick blood sugars #5 elevated creatinine-this is improved today I do not feel the patient has an active infection at this time I have elected to discontinue her antibiotics Total clinical time spent by myself addressing the patient's medical issues, reviewing all of her data, and collaborating with patient's care team: 35 minutes Charges/Coding Visit Charges Inpatient E&M: 81878 Subs Hosp L2
[2024-09-09] MEDS: Insulin Lispro 100 UNIT/ML INSULN.PEN SC ×3 (11:43→22:08)
[2024-09-09 12:42] LABS: Bedside Glucose 196 mg/dL (74-106)
[2024-09-09 13:51] VITALS: O2SAT 94
[2024-09-09 16:00] VITALS: BP 114/52; PULSE 60; RESP 16; TEMP 36.7; O2SAT 97
[2024-09-09 18:07] LABS: Bedside Glucose 218 mg/dL (74-106)
[2024-09-09 22:05] VITALS: BP 154/48; PULSE 58; RESP 16; TEMP 37.1; O2SAT 97
[2024-09-09] MEDS: Docusate Sodium 100 MG Capsule PO (22:08)
[2024-09-09] MEDS: Atorvastatin Calcium 40 MG Tablet PO (22:08)
[2024-09-09 22:41] LABS: Bedside Glucose 153 mg/dL (74-106)
[2024-09-10] MEDS: Acetaminophen 325 MG Tablet 650 MG PO (03:40)
[2024-09-10 04:05] VITALS: BP 149/55; PULSE 90; RESP 18; TEMP 36.6; O2SAT 94
[2024-09-10 05:16] VITALS: BMI 36.3
[2024-09-10 06:48] LABS: Bedside Glucose 145 mg/dL (74-106)
[2024-09-10 09:54] VITALS: BP 130/37; PULSE 66; RESP 17; TEMP 36.8; O2SAT 98
[2024-09-10] MEDS: Glucerna Shake 120 ML LIQUID PO ×3 (10:00→16:07)
[2024-09-10] MEDS: Ferrous Sulfate 325 MG Tablet PO (10:00)
[2024-09-10] MEDS: Pantoprazole Sodium 20 MG Tablet PO (10:00)
[2024-09-10] MEDS: Aspirin E.C. 81 MG Tablet PO (10:00)
[2024-09-10] MEDS: Nystatin Powder 15gm Bottle 1 APPLIC TOPICAL (10:01)
[2024-09-10] MEDS: Menthol/Lanolin/Calamine/Znox 113 GM Tube 1 APPLIC TOPICAL (10:02)
[2024-09-10 10:22] VITALS: BP 130/37; PULSE 66; RESP 17; TEMP 36.8; O2SAT 98
[2024-09-10] MEDS: Insulin Lispro 100 UNIT/ML INSULN.PEN SC ×2 (11:07→16:07)
[2024-09-10 11:32] LABS: Bedside Glucose 243 mg/dL (74-106)
--- NOTE | 2024-09-10 12:42 | PN.HOSP_ITS ---
Reason for Visit Reason for Visit: Diagnoses Type 2 diabetes mellitus with other specified complication (09/07/24) Other disorders of plasma-protein metabolism, not elsewhere classified (09/07/24) Encephalopathy, unspecified (09/07/24) Pneumonia, unspecified organism (09/07/24) Adverse effect of unspecified drugs, medicaments and biological substances, initial encounter (09/07/24) Subjective Subjective Patient was seen and examined today, she is alert and knows she is in the hospital. She will be scheduled for a noncontrasted brain MRI tomorrow to rule out stroke. Objective Data Objective Data Vital Signs: Vital Signs Temp Pulse Resp BP Pulse Ox O2 Del Method 98.3 F 66 17 130/37 H 98 Room Air 09/10/24 10:22 09/10/24 10:22 09/10/24 10:22 09/10/24 10:22 09/10/24 10:22 09/10/24 10:22 Oxygen Delivery Method Room Air Weight: 81.7 kg Body Mass Index (BMI) 36.3 Intake & Output: Intake and Output for Last 24 Hours 09/08/24 09/09/24 09/10/24 23:59 23:59 23:59 Intake Total 1710 / 1950 1720 / 1840 270 / 270 Output Total 600 / 600 350 / 550 200 / 200 Balance 1110 / 1350 1370 / 1290 70 / 70 Lab / Micro Data 09/09/24 05:50 09/09/24 05:50 Labs: Laboratory Results - last 24 hr 09/09/24 11:41: POC Glucose 196 H 09/09/24 16:32: POC Glucose 218 H 09/09/24 22:07: POC Glucose 153 H 09/10/24 06:10: POC Glucose 145 H 09/10/24 11:06: POC Glucose 243 H Micro: Microbiology 09/07/24 17:35 Blood Culture (Wb) - Arm Left Blood Culture - Preliminary No growth in 48 hours. 09/07/24 17:45 Blood Culture (Wb) - Left Hand Blood Culture - Preliminary No growth in 48 hours. 09/09/24 22:25 Urine, Random Streptococcus pneumoniae Antigen (M - Final 09/09/24 22:25 Urine, Random Legionella Antigen - Final 09/07/24 23:15 Mucosa - Nasopharyngeal Respiratory Panel (PCR) - Final 09/07/24 18:10 Mucosa - Nose SARS-CoV-2, Influenza & RSV (PCR) - Final Rhythm Strip Rhythm Strip: Sinus Rhythm Rate: 80 Ectopy: PAC(s) Physical Exam Narrative alert and no apparent distress Constitutional Narrative: Patient is oriented x 3 General Appearance: cooperative, well kempt and well developed Orientation / Consciousness: awake, oriented to person and oriented to time and place HEENT normocephalic, head/scalp atraumatic and moist oral mucous membranes Eyes PERRL, EOMs intact bilaterally and conjunctivae normal Neck supple, no JVD, thyroid normal and no carotid bruits General: trachea midline Resp normal respiratory effort, no retractions, no use of accessory muscles and clear to auscultation bilaterally Auscultation: Negative for rales, rhonchi or wheezes Cardio regular rate, regular rhythm, S1 normal heart sound, S2 normal heart sound, no murmurs, no rub and no gallops GI normal to inspection, nondistended, normoactive bowel sounds, soft to palpation, non-tender and non-distended Extremity no clubbing, cyanosis or edema Skin no rashes or lesions noted General Skin Exam: no breakdown Neuro CN's II-XII intact bilaterally, moves all extremities, no focal motor deficits and no sensory deficits noted Sensorium / Orientation: awake, alert, oriented to person, place, and oriented to time Speech: speech normal Psych Psych Narrative: Patient has flat affect Assessment & Plan Assessment/Plan (1) Acute encephalopathy: PLAN: Plan 1. Acute encephalopathy-etiology unclear at this point, patient will continue to receive supportive care, I talked to her daughter by phone today, she states that the patient is adverse to loud noises so she would rather the MRI not be done. I think this is reasonable, patient appears more appropriate today and I believe she can go back to her extended care facility if they are willing to take her back today, I will check on this. #2 hyperlipidemia-patient currently is not on a statin #3 failure to thrive-patient currently resides in a halfway, according to the nursing staff there, she needs help with ADLs #4 type 2 diabetes-patient is on sliding scale insulin per fingerstick blood sugars #5 elevated creatinine-this is improved today I do not feel the patient has an active infection at this time I have elected to discontinue her antibiotics Total clinical time spent by myself addressing the patient's medical issues, reviewing all of her data, and collaborating with patient's care team: 35 minutes Charges/Coding Visit Charges Inpatient E&M: 74453 Subs Hosp L2
[2024-09-10 14:00] VITALS: BP 148/68; PULSE 84; RESP 15; TEMP 36.8; O2SAT 100
--- NOTE | 2024-09-10 14:03 | PCM.TXEXTCAR ---
Diet Diet Order/Speech Therapy: 09/08/24 15:49 Diet: Cardiac: Calorie-Controlled How many daily calories?: 1800 calorie Routine Orders/Code Status Routine Lab Work: CBC (In 1 week) Code Status: Full Code DC O2, CPAP, BIPAP needs Home O2 Discharge instructions: No Therapies Weight Bearing: Full weight bearing Problem/Diagnosis (1) Acute encephalopathy: Status: Acute Code(s): G93.40 - Encephalopathy, unspecified Plan 1. Acute encephalopathy-etiology unclear at this point, patient will continue to receive supportive care, I talked to her daughter by phone today, she states that the patient is adverse to loud noises so she would rather the MRI not be done. I think this is reasonable, patient appears more appropriate today and I believe she can go back to her extended care facility if they are willing to take her back today, I will check on this. #2 hyperlipidemia-patient currently is not on a statin #3 failure to thrive-patient currently resides in a [facility], according to the nursing staff there, she needs help with ADLs #4 type 2 diabetes-patient is on sliding scale insulin per fingerstick blood sugars #5 elevated creatinine-this is improved today I do not feel the patient has an active infection at this time I have elected to discontinue her antibiotics Total clinical time spent by myself addressing the patient's medical issues, reviewing all of her data, and collaborating with patient's care team: 35 minutes Allergies/Procedures Done in Hospital Allergies metformin Allergy (Severe, Verified 09/07/24 23:56) lactic acidosis Iodinated Contrast Media (CONTRASTS) Allergy (Verified 09/07/24 16:44) Rash oxaprozin (From Daypro) Adverse Reaction (Verified 09/07/24 16:44) Upset Stomach Procedures: None Type of Care/Length of Stay Estimated LOS: More Than 30 Days Type of Care Needed: Intermediate Rehab Potential: Fair Prognosis: Fair Additional Orders/Day of Discharge H&P will serve as current which was dated: 09/07/24 Day of Discharge: 09/10/24 Dietary and Speech Recommendations Dietitian Recommendations/Changes: Adjust to cardiac; 1600 calorie controlled diet to better meet estimated needs. Continue 120ml glucerna shake TID with medpass until PO is established. Reviewed and approved Tawnya Wolff RDN, LD. Discharge Plan Admission Admit Date/Time: 09/07/24 21:08 Primary Reason for Your Visit: Encephalopathy, acute kidney injury Attending Provider: Eleazar Jamison Primary Care Provider: Pako Serrano NP Consulting Providers: Mik Lara Discharge Orders/Prescriptions Prescriptions: New menthol-zinc oxide [Calmoseptine] 0.44-20.6 % Ointment 1 applic topical BID Qty: 0 0RF Protocol: *Topical Application Instructions APPLICATION INSTRUCTIONS: Apply to bilateral buttocks. Continued lisinopril 10 mg tablet 10 mg PO DAILY Qty: 30 11RF cholecalciferol (vitamin D3) 50 mcg (2,000 unit) capsule 50 mcg PO QDAY docusate sodium [Colace] 100 mg capsule 100 mg PO BID lidocaine 4 % adhesive patch,medicated 1 patch topical QDAY PRN (Reason: pain) miconazole nitrate 2 % powder 1 applic topical QDAY omeprazole 20 mg capsule,delayed release(DR/EC) 20 mg PO QDAY polyethylene glycol 3350 [Miralax] 17 gram/dose powder 17 g PO ONCE atorvastatin 40 mg tablet 40 mg PO QHS Patient Comments: TAKE 1 TABLET BY MOUTH ONCE DAILY metformin 500 mg tablet extended release 24 hr 500 mg PO DAILY acetaminophen 500 mg Tablet 1,000 mg PO Q8 7 Days Qty: 0 0RF tramadol 50 mg tablet 50 mg PO BID PRN PRN (Reason: pain) 3 Days Qty: 6 0RF Patient Comments: TAKE 1 TABLET BY MOUTH EVERY DAY AT BEDTIME NEEDED FOR PAIN gabapentin 300 mg capsule 300 mg PO TID 5 Days Qty: 15 0RF Patient Comments: TAKE 1 CAPSULE BY MOUTH THREE TIMES DAILY Acidophilus Capsule 100 mg PO DAILY albuterol sulfate 2.5 mg /3 mL (0.083 %) solution for nebulization 2.5 mg continuous nebulization Q4H Patient Comments: [NO ORIGINAL SIG] iron, carbonyl 45 mg tablet 45 mg PO DAILY furosemide 40 mg tablet 40 mg PO DAILY Rx Instructions: IN THE MORNING glipizide 2.5 mg tablet extended release 24hr 5 mg PO DAILY Patient Comments: [NO ORIGINAL SIG] escitalopram oxalate 10 mg tablet 10 mg PO DAILY Discontinued furosemide [Lasix] 20 mg tablet 20 mg PO DAILY Rx Instructions: IN THE EVENING cefdinir 300 mg capsule 300 mg PO Q12H Referrals / Follow Up: Pako Serrano NP, [facility] [Primary Care Provider] - Disposition Disposition (needs filled in before D/C Order can be placed): [facility]
--- NOTE | 2024-09-10 14:20 | PCM.DC.SUM ---
Providers Date of Admission: 09/07/24 Date of Discharge: 09/10/24 Primary Care Physician: GODFREY Diego Reason For Visit: SIRS WITH NO SOURCE OF INFECTION, [facility]FORMIN Diagnosis Discharge Diagnosis (1) Acute encephalopathy: Status: Acute Code(s): G93.40 - Encephalopathy, unspecified Plan 1. Acute metabolic encephalopathy-secondary to acute kidney injury #2 hyperlipidemia-patient currently is not on a statin #3 failure to thrive-patient currently resides in a jail, according to the nursing staff there, she needs help with ADLs #4 type 2 diabetes-patient is on sliding scale insulin per fingerstick blood sugars #5 elevated creatinine-this is improved today I do not feel the patient has an active infection at this time I have elected to discontinue her antibiotics Total clinical time spent by myself addressing the patient's medical issues, reviewing all of her data, and collaborating with patient's care team: 35 minutes Medications at Discharge Home Medications atorvastatin 40 mg tablet 40 mg PO QHS cholesterol 03/13/22 lisinopril 10 mg tablet 10 mg PO DAILY Check with primary doctor #30 tabs 07/17/22 metformin 500 mg tablet,extended release 24 hr 500 mg PO DAILY diabetes 12/09/23 acetaminophen 500 mg tablet 1,000 mg (2 x 500 mg) PO Q8 7 days #0 tabs 02/26/24 gabapentin 300 mg capsule 300 mg PO TID Check with primary doctor 5 days #15 caps 02/26/24 tramadol 50 mg tablet 50 mg PO BID PRN PRN pain 3 days #6 tabs 02/26/24 cholecalciferol (vitamin D3) 50 mcg (2,000 unit) capsule 50 mcg PO QDAY 05/01/24 docusate sodium 100 mg capsule (Colace) 100 mg PO BID 05/01/24 lidocaine 4 % topical patch 1 patch topical QDAY PRN pain 05/01/24 miconazole nitrate 2 % topical powder 1 applic topical QDAY 05/01/24 omeprazole 20 mg capsule,delayed release 20 mg PO QDAY 05/01/24 polyethylene glycol 3350 17 gram/dose oral powder (Miralax) 17 g PO ONCE 05/01/24 Lactobacillus acidophilus (Acidophilus capsule) 100 mg PO DAILY 09/07/24 albuterol sulfate 2.5 mg/3 mL (0.083 %) solution for nebulization 2.5 mg continuous nebulization Q4H SOB 09/07/24 escitalopram oxalate 10 mg tablet 10 mg PO DAILY 09/07/24 furosemide 40 mg tablet 40 mg PO DAILY 09/07/24 glipizide 2.5 mg tablet, extended release 24 hr 5 mg PO DAILY 09/07/24 iron, carbonyl 45 mg tablet 45 mg PO DAILY 09/07/24 menthol 0.44 %-zinc oxide 20.6 % topical ointment (Calmoseptine) 1 applic topical BID #0 grams 09/10/24 Hospital Course Operations None Procedures None Summary of Care Provided Minutes Spent on Discharge: 31 Hospital Course: This 79-year-old white female was seen in the emergency room at [facility] after being transported from an extended care facility where she was under intermediate care. She was brought in due to altered mental status, patient had slurred speech and was confused. Patient's NIH stroke score was 12 in the emergency room, white blood cell count was elevated at 12.9, chemistry profile was remarkable for a creatinine of 2.49 and a BUN of 60, patient's lactic acid was 3. Urinalysis unremarkable. Patient's brain CT revealed no acute intracranial pathology chest x-ray showed a small left pleural effusion. Patient was admitted to PCU, supportive care was given to the patient as she was seen by PT and OT. Arrangements are made for the patient undergo a brain MRI but this could not be performed until 09/11/2024 due to the fact that a pacemaker rep was not available to turn the patient's pacemaker off. In the meantime, patient's mental status improved with administration of IV fluids and her creatinine and BUN improved. On 09/10/2024, patient was seen and examined: On examination she appeared in good health and spirits, she does not appear to be in any distress. Vital signs as documented. Skin warm and dry and without overt rashes. Neck without JVD, thyroid appears normal, trachea is midline, neck is supple. Lungs clear, normal air movement was noted. Heart exam notable for regular rhythm, normal sounds and absence of murmurs, rubs or gallops. Abdomen unremarkable and without evidence of organomegaly, masses, or abdominal aortic enlargement, bowel sounds are present in all 4 quadrants, no abdominal tenderness was noted. Extremities nonedematous, no cyanosis was noted, no clubbing was noted. Neuro: Cranial nerves II through XII are grossly intact, no focal motor deficits were noted, sensation to light touch and pinprick is intact, motor exam 5/5 throughout. Psych: Patient is alert and oriented x3, she does not appear anxious or depressed, she does not appear agitated. On 09/10/2024, patient was alert, she knew the year, she knew she was in the hospital, and she was oriented to person. I contacted the daughter and had a discussion with her, the daughter stated that she preferred the patient not to have an MRI and so the patient was discharged back to her intermediate jail in stable condition on 09/10/2024. Weight / BMI Weight Weight: 81.7 kg Body Mass Index (BMI) 36.3 ABG / Lab / Microbiology Data 09/09/24 05:50 09/09/24 05:50 Laboratory: Laboratory Results - last 24 hr 09/09/24 16:32: POC Glucose 218 H 09/09/24 22:07: POC Glucose 153 H 09/10/24 06:10: POC Glucose 145 H 09/10/24 11:06: POC Glucose 243 H Microbiology: Microbiology 09/07/24 17:35 Blood Culture (Wb) - Arm Left Blood Culture - Preliminary No growth in 48 hours. 09/07/24 17:45 Blood Culture (Wb) - Left Hand Blood Culture - Preliminary No growth in 48 hours. 09/09/24 22:25 Urine, Random Streptococcus pneumoniae Antigen (M - Final 09/09/24 22:25 Urine, Random Legionella Antigen - Final 09/07/24 23:15 Mucosa - Nasopharyngeal Respiratory Panel (PCR) - Final 09/07/24 18:10 Mucosa - Nose SARS-CoV-2, Influenza & RSV (PCR) - Final D/C Instructions DC O2, CPAP, BIPAP Needs Home O2 Discharge instructions: No Meaningful Use Info Meaningful Use Meaningful Use Diagnoses (Choose all that apply): None applicable Ischemic Stroke Statin Dosing Therapy Reference: STATIN DOSE THERAPY REFERENCE: * Patients > 75 years receive moderate or high dose statin therapy. * Patients 75 years or YOUNGER should receive HIGH intensity statin dose unless contraindicated. You will be required to document reason for non-treatment if statin daily dose does not meet guidelines. HIGH DOSE STATIN THERAPY DAILY Atorvastatin > than or = to 40 mg Rosuvastatin > than or = to 20 mg Amlodipine + Atorvastatin > than or = to 2.5/40 mg Ezetimibe + Simvastatin 10/80 mg Simvastatin 80mg Discharge Plan Admission Admit Date/Time: 09/07/24 21:08 Primary Reason for Your Visit: Encephalopathy, acute kidney injury Attending Provider: Eleazar Jamison Primary Care Provider: Pako Serrano DRUG SAFETY PHYSICIAN Consulting Providers: Mik Lara Discharge Orders/Prescriptions Prescriptions: New menthol-zinc oxide [Calmoseptine] 0.44-20.6 % Ointment 1 applic topical BID Qty: 0 0RF Protocol: *Topical Application Instructions APPLICATION INSTRUCTIONS: Apply to bilateral buttocks. Continued lisinopril 10 mg tablet 10 mg PO DAILY Qty: 30 11RF cholecalciferol (vitamin D3) 50 mcg (2,000 unit) capsule 50 mcg PO QDAY docusate sodium [Colace] 100 mg capsule 100 mg PO BID lidocaine 4 % adhesive patch,medicated 1 patch topical QDAY PRN (Reason: pain) miconazole nitrate 2 % powder 1 applic topical QDAY omeprazole 20 mg capsule,delayed release(DR/EC) 20 mg PO QDAY polyethylene glycol 3350 [Miralax] 17 gram/dose powder 17 g PO ONCE atorvastatin 40 mg tablet 40 mg PO QHS Patient Comments: TAKE 1 TABLET BY MOUTH ONCE DAILY metformin 500 mg tablet extended release 24 hr 500 mg PO DAILY acetaminophen 500 mg Tablet 1,000 mg PO Q8 7 Days Qty: 0 0RF tramadol 50 mg tablet 50 mg PO BID PRN PRN (Reason: pain) 3 Days Qty: 6 0RF Patient Comments: TAKE 1 TABLET BY MOUTH EVERY DAY AT BEDTIME NEEDED FOR PAIN gabapentin 300 mg capsule 300 mg PO TID 5 Days Qty: 15 0RF Patient Comments: TAKE 1 CAPSULE BY MOUTH THREE TIMES DAILY Acidophilus Capsule 100 mg PO DAILY albuterol sulfate 2.5 mg /3 mL (0.083 %) solution for nebulization 2.5 mg continuous nebulization Q4H Patient Comments: [NO ORIGINAL SIG] iron, carbonyl 45 mg tablet 45 mg PO DAILY furosemide 40 mg tablet 40 mg PO DAILY Rx Instructions: IN THE MORNING glipizide 2.5 mg tablet extended release 24hr 5 mg PO DAILY Patient Comments: [NO ORIGINAL SIG] escitalopram oxalate 10 mg tablet 10 mg PO DAILY Discontinued furosemide [Lasix] 20 mg tablet 20 mg PO DAILY Rx Instructions: IN THE EVENING cefdinir 300 mg capsule 300 mg PO Q12H Referrals / Follow Up: Pako Serrano DRUG SAFETY PHYSICIAN, DRUG SAFETY PHYSICIAN-C [Primary Care Provider] - Disposition Disposition (needs filled in before D/C Order can be placed): Group Home Facility Charges/Coding Visit Charges Inpatient E&M: 24027 Disch Hosp >30min
--- NOTE | 2024-09-10 15:48 | NURSING ---
Report called to Jose Luis at [facility]. Transport scheduled for 17:30
[2024-09-10 16:31] LABS: Bedside Glucose 177 mg/dL (74-106)
[2024-09-10 17:39] VITALS: BP 109/85; PULSE 101; RESP 15; TEMP 36.9; O2SAT 100
== END 2024-09-10 18:57 | disposition skilled nursing facility (03) | DRG 682 ==
LOC: ED 19:44 → PCU 21:55
PROVIDERS: Admitting Provider Internal Medicine; Emergency Provider Emergency Medicine; PCP Nurse Practitioner Primary Care; Referring Provider Emergency Medicine; Visit Provider Internal Medicine
DX: N17.9 Acute kidney failure, unspecified (principal); G93.41 Metabolic encephalopathy; J18.9 Pneumonia, unspecified organism; R65.11 Systemic inflammatory response syndrome (SIRS) of non-infectious origin with acute organ dysfunction; R62.7 Adult failure to thrive; E88.09 Other disorders of plasma-protein metabolism, not elsewhere classified; E86.0 Dehydration; E11.42 Type 2 diabetes mellitus with diabetic polyneuropathy; N18.32 Chronic kidney disease, stage 3b; I12.9 Hypertensive chronic kidney disease with stage 1 through stage 4 chronic kidney disease, or unspecified chronic kidney disease; E66.9 Obesity, unspecified; E11.22 Type 2 diabetes mellitus with diabetic chronic kidney disease; M19.90 Unspecified osteoarthritis, unspecified site; E78.5 Hyperlipidemia, unspecified; F41.8 Other specified anxiety disorders; K21.9 Gastro-esophageal reflux disease without esophagitis; M54.50 Low back pain, unspecified; Z79.891 Long term (current) use of opiate analgesic; G89.29 Other chronic pain; R79.89 Other specified abnormal findings of blood chemistry; Z79.84 Long term (current) use of oral hypoglycemic drugs; Z90.710 Acquired absence of both cervix and uterus; Z68.36 Body mass index [BMI] 36.0-36.9, adult; Z95.0 Presence of cardiac pacemaker; Z79.899 Other long term (current) drug therapy; Z90.49 Acquired absence of other specified parts of digestive tract; T38.3X5A Adverse effect of insulin and oral hypoglycemic [antidiabetic] drugs, initial encounter
CPT/HCPCS: 36415; 70450; 71045; 74176; 80048; 80053; 80061; 80307; 81001; 82607; 82746; 82962; 83036; 83605; 83735; 84100; 84443; 84484; 85025; 85610; 85730; 87040; 87449; 87631; 87633; 93005; 93306; 94640; 94668; 97116; 97162; 97166; 97530; 97802; 99285; P9612; Q9957; A4216; C8929

== ENCOUNTER → 2025-05-07 | Outpatient (CLI) | payer MEDICARE, MEDICAID, SELFPAY ==
--- OUTSIDE RECORDS SUMMARY | 2025-02-14 10:18 | XMS RPT_ITS ---
Author Name Auto Generated Organization OHIP Care Team Providers Care Production Director Name Role Phone SONNY GALLO Attending Unavailable SELF Referring Unavailable GENIA FAUSTIN Primary Care Unavailable PROBLEMS DATE TYPE CONDITION / CODE ATTENDING STATUS SANDI [facility] 02/14/2025 Active PMB (postmenopau katie bleeding) / N95.0(ICD-10) SONNY GALLO Active [facility] 02/14/2025 Active Urinary frequenc y / R35.0(ICD-10) SONNY GALLO Active [facility] 02/14/2025 Active Dysuria / R30.0(ICD-10) SONNY GALLO Active [facility] PROCEDURES No Procedure Records Found RESULTS BACTERIA UR CULT Observed: 02/14/2025 12:07 PM Status: F Source: [facility] ORGANISM ID: 1 >=100,000 CFU/ml Escherichia coli Extended-spectrum beta-lactamase (ESBL) production detected in this isolate. ESBL producing strains are considered resistant to all cephalosporins, penicillins, and aztreonam. ORGANISM ID: 1 (ESCHERICHIA COLI) ----- ----- ANTIBIOTIC INTERPRETATION JASWINDER STATUS REFERENCE RANGE ----- ----- Ampicillin R >=32 F Susceptible <=8 , Intermediate >8 , Resistant >16 Cefazolin R >=64 F Susceptible 0-16 , Intermediate <0 or >16 , Resistant >16 For uncomplicated urinary tract infections, cefazolin results can be used to predict susceptibility or resistance to cephalexin. Ceftriaxone R >=64 F Susceptible <=1 , Intermediate >1 , Resistant >=4 Cefepime R F Ertapenem S <=0.5 F Susceptible <=0.5 , Intermediate >.5 , Resistant >1 Meropenem S <=0.25 F Susceptible <=1 , Intermediate >1 , Resistant >2 Gentamicin S <=1 F Susceptible <=2 , Intermediate >2 , Resistant >=8 Tobramycin S <=1 F Susceptible <4 , Intermediate >=4 , Resistant >=8 Trimeth sulfameth S <=20 F Susceptible <=40 , Resistant >40 Ciprofloxacin R >=4 F Susceptible <0.5 , Intermediate >=.5 , Resistant >=1 Nitrofurantoin S <=16 F Susceptible <=32 , Intermediate >32 , Resistant >64 Performed By: #### [id number] ### # [facility] CLIA [id number] [address] [place] [address] [place] URINALYSIS COMPLETE PNL UR Collected: 02/14/2025 12:0 7 PM Status: F Source: [facility] Order Comment: Specimen Type : URINE SPECIMEN Ordering Facility: [facility] Address: [address] [place] [address] TYPE CODE TESTS RESULT OUT OF RANGE REFERENCE UNITS LAB 5778-6(LOINC) Color Ur Yellow Yellow LAB 82567-9(LOINC) Clarity Spec Cloudy Abnormal Clear LAB 5792-7(LOINC) Glucose Ur Strip-mCnc Negative Negative LAB 5770-3(LOINC) Bilirub Ur Ql Strip Negative Negative LAB 2514-8(LOINC) Ketones Ur Strip Negative Negative LAB 5811-5(LOINC) Sp Gr Ur Strip 1.016 1.005-1.030 LAB 5794-3(LOINC) Hgb Ur Ql Strip Trace Abnormal Negative LAB 5803-2(LOINC) pH Ur Strip 6.0 <8.5 LAB 5804-0(LOINC) Prot Ur Strip-mCnc 1+ Abnormal Negative LAB 5818-0(LOINC) Urobilinogen Ur Strip 0.2 EU/dL 0.2-1.0 EU/dL LAB 5802-4(LOINC) Nitrite Ur Ql Strip Negative Negative LAB 5799-2(LOINC) Leukocyte esterase Ur Ql Strip 3+ Abnormal Negative LAB 5821-4(LOINC) WBC #/area UrnS HPF >20 /HPF Abnormal 0-5 /HPF LAB 44926-2(LOINC) RBC #/area UrnS HPF 0-2 /HPF 0-2 /HPF LAB [id number] BACTERIA UL 2554.5 High Negative uL LAB 5787-7(LOINC) Epi Cells #/area UrnS HPF None Seen /HPF LAB 5796-8(LOINC) Hyaline Casts #/area UrnS LPF >10 /LPF Abnormal 0 /LPF Performed By: #### [id number] # ### [facility] CLIA [id number] [address] [place] [address] [place] [facility] PROGRESS Observed: 02/14/2025 10:45 AM Status: COMPLETED Source: [facility] HNO ID: [id number] Author: SONNY GALLO MD Service: ? Author Type: Physician Type: Progress Notes Filed: 02/14/2025 11:31 Note Text: Desire Romo is a 79 year old female who presents for problem visit transported from [place] for evaluation of potential vaginal bleeding noted on her pad 3 weeks ago as an isolated episode. UA performed at the facility is reported as negative and no report of rectal bleeding. . HPI: as above OB History No obstetric history on file. Beam Racker History LMP: Age at Menarche: Age at First : Age at Menopause: Beam Racker History Comments: Sexual Activity: No sexual activity data on record; No partner data on record Contraception: No contraception data on record PAST MEDICAL HISTORY Diagnosis Date Anemia Anxiety Cataract CKD (chronic kidney disease) Depression Diabetes (HCC) GERD (gastroesophageal reflux disease) Heart disease Hemorrhoids Hyperlipemia Hypertension Iron deficiency Rectal bleeding Vitamin D deficiency PAST SURGICAL HISTORY Procedure Laterality Date ANESTH,PACEMAKER INSERTION APPENDECTOMY CHOLECYSTECTOMY HERNIA REPAIR HX HYSTERECTOMY REVISE MEDIAN N/CARPAL TUNNEL SURG Bilateral FAMILY HISTORY Problem Relation Age of Onset Cancer Father Social History Tobacco Use Smoking status: Never Smokeless tobacco: Never Substance Use Topics Alcohol use: Never Drug use: Never Current Outpatient Medications Medication Sig lisinopril (ZESTRIL) 10 mg tablet Take 10 mg by mouth once daily. omeprazole (PRILOSEC) 20 mg capsule acetaminophen (TYLENOL) 500 mg tablet Take 2 tablets by mouth every 8 hours. lidocaine (SALONPAS) 4 % patch Apply 1 Patch as directed once daily. miconazole 2 % powder Apply 1 application to affected area two times a day. escitalopram oxalate (LEXAPRO) 20 mg tablet Take 20 mg by mouth once daily. gabapentin (NEURONTIN) 100 mg capsule Take 300 mg by mouth three times a day. metformin HCl (METFORMIN ORAL) Take 500 mg by mouth once daily. atorvastatin (LIPITOR) 40 mg tablet Take 40 mg by mouth once daily. carbonyl iron (FEOSOL) 45 mg tab Take 45 mg by mouth once daily. furosemide (LASIX) 20 mg tablet Take 20 mg by mouth twice daily. polyethylene glycol 3350 (MIRALAX, GLYCOLAX) 17 gram packet Take 17 g by mouth once daily. cyanocobalamin (VITAMIN B-12) 1,000 mcg tab Take 1,000 mcg by mouth once daily. cholecalciferol (VITAMIN D-3) 2,000 unit tablet Take 2,000 Units by mouth once daily. glipiZIDE (GLUCOTROL XL) 2.5 mg 24 hr tablet Take 5 mg by mouth once daily. docusate sodium (COLACE) 100 mg capsule Take 100 mg by mouth twice daily. pantoprazole DR (PROTONIX) 40 mg tablet Take 40 mg by mouth once daily. (Patient not taking: Reported on 02/14/2025) traMADol 25 mg tablet Take 50 mg by mouth once daily as needed (pain). ranitidine (ZANTAC) 150 mg tablet Take 150 mg by mouth twice daily. (Patient not taking: Reported on 02/14/2025) No current facility-administered medications for this visit. Allergies As of Date: 02/14/2025 Allergen Noted Reaction IODINE CONTRAST [IODINE] 07/04/2019 Rash and Shortness of Breath LOXAPINE 07/04/2019 Unknown OXAPROZIN 07/04/2019 Unknown Fully Assessed 02/14/2025 REVIEW OF SYSTEMS Abdomen: No bloating, early satiety, indigestion, or increased flatulence. No abdominal pain, vomiting, diarrhea, or constipation. Occ nausea Bladder: No, gross hematuria. Reports burning on urination and frequency Breast: No breast lumps, nipple d/c, overlying skin changes, redness or skin retraction. Expanded ROS: N/A Allergies and current medication updated:Yes SENSITIVE EXAM: The sensitive examination was discussed with the Patient or Patient's Authorized Director Of Labor And Delivery. As applicable, any other physician, advance practice provider, medical student, or other health professional student that will be observing or involved in the sensitive examination for educational or training purposes was discussed with the Patient or Authorized Director Of Labor And Delivery. The Patient or Authorized Director Of Labor And Delivery has agreed to proceed with the sensitive examination. (Sensitive examination includes inspection and/or palpation of the breasts, pelvis, prostate and anorectal regions). EXAM: BP 152/68 GENERAL: pleasant, female in no apparent distress. Noting very difficult ambulation. PELVIC: external genitalia normal, normal Bartholin's glands, urethra, Regan's glands, no vulvar lesions, good vaginal support, physiologic discharge present, normal appearing perineal body and perianal region, cervix surgically absent, atrophic changes BIMANUAL: no adnexal masses, non-tender, uterus surgically absent, and urethral caruncle noted No evidence of blood in the vagina old or otherwise.Swab entirely white Cath urine colected and submitted. Urine dip +: Trace intacty blood 30 mg/dl protein Negative nitrites Moderate Serena. Estace: ASSESSMENT AND PLAN: potential UTI No evidence vaginal bleeding Cath UA submitted ftft with patient and daughter > 60 min Sonny Gallo MD CNOV Observed: 02/14/2025 10:30 AM Status: COMPLETED Source: [facility] Office Visit (OBGYWM) SHELDONDESIRE ([id number]) 1945 F Date Time Provider Department 02/14/25 10:30 AM SONNY GALLO OBGYWM During your visit today, we recorded the following information about you: Blood pressure 152/68 Sonny Gallo MD 02/14/2025 11:31 AM Signed Desire Romo is a 79 year old female who presents for problem visit transported from [place] for evaluation of potential vaginal bleeding noted on her pad 3 weeks ago as an isolated episode. UA performed at the facility is reported as negative and no report of rectal bleeding. . HPI: as above OB History No obstetric history on file. Beam Racker History LMP: Age at Menarche: Age at First : Age at Menopause: Beam Racker History Comments: Sexual Activity: No sexual activity data on record; No partner data on record Contraception: No contraception data on record PAST MEDICAL HISTORY Diagnosis Date Anemia Anxiety Cataract CKD (chronic kidney disease) Depression Diabetes (HCC) GERD (gastroesophageal reflux disease) Heart disease Hemorrhoids Hyperlipemia Hypertension Iron deficiency Rectal bleeding Vitamin D deficiency PAST SURGICAL HISTORY Procedure Laterality Date ANESTH,PACEMAKER INSERTION APPENDECTOMY CHOLECYSTECTOMY HERNIA REPAIR HX HYSTERECTOMY REVISE MEDIAN N/CARPAL TUNNEL SURG Bilateral FAMILY HISTORY Problem Relation Age of Onset Cancer Father Social History Tobacco Use Smoking status: Never Smokeless tobacco: Never Substance Use Topics Alcohol use: Never Drug use: Never Current Outpatient Medications Medication Sig lisinopril (ZESTRIL) 10 mg tablet Take 10 mg by mouth once daily. omeprazole (PRILOSEC) 20 mg capsule acetaminophen (TYLENOL) 500 mg tablet Take 2 tablets by mouth every 8 hours. lidocaine (SALONPAS) 4 % patch Apply 1 Patch as directed once daily. miconazole 2 % powder Apply 1 application to affected area two times a day. escitalopram oxalate (LEXAPRO) 20 mg tablet Take 20 mg by mouth once daily. gabapentin (NEURONTIN) 100 mg capsule Take 300 mg by mouth three times a day. metformin HCl (METFORMIN ORAL) Take 500 mg by mouth once daily. atorvastatin (LIPITOR) 40 mg tablet Take 40 mg by mouth once daily. carbonyl iron (FEOSOL) 45 mg tab Take 45 mg by mouth once daily. furosemide (LASIX) 20 mg tablet Take 20 mg by mouth twice daily. polyethylene glycol 3350 (MIRALAX, GLYCOLAX) 17 gram packet Take 17 g by mouth once daily. cyanocobalamin (VITAMIN B-12) 1,000 mcg tab Take 1,000 mcg by mouth once daily. cholecalciferol (VITAMIN D-3) 2,000 unit tablet Take 2,000 Units by mouth once daily. glipiZIDE (GLUCOTROL XL) 2.5 mg 24 hr tablet Take 5 mg by mouth once daily. docusate sodium (COLACE) 100 mg capsule Take 100 mg by mouth twice daily. pantoprazole DR (PROTONIX) 40 mg tablet Take 40 mg by mouth once daily. (Patient not taking: Reported on 02/14/2025) traMADol 25 mg tablet Take 50 mg by mouth once daily as needed (pain). ranitidine (ZANTAC) 150 mg tablet Take 150 mg by mouth twice daily. (Patient not taking: Reported on 02/14/2025) No current facility-administered medications for this visit. Allergies As of Date: 02/14/2025 Allergen Noted Reaction IODINE CONTRAST [IODINE] 07/04/2019 Rash and Shortness of Breath LOXAPINE 07/04/2019 Unknown OXAPROZIN 07/04/2019 Unknown Fully Assessed 02/14/2025 REVIEW OF SYSTEMS Abdomen: No bloating, early satiety, indigestion, or increased flatulence. No abdominal pain, vomiting, diarrhea, or constipation. Occ nausea Bladder: No, gross hematuria. Reports burning on urination and frequency Breast: No breast lumps, nipple d/c, overlying skin changes, redness or skin retraction. Expanded ROS: N/A Allergies and current medication updated:Yes SENSITIVE EXAM: The sensitive examination was discussed with the Patient or Patient's Authorized Director Of Labor And Delivery. As applicable, any other physician, advance practice provider, medical student, or other health professional student that will be observing or involved in the sensitive examination for educational or training purposes was discussed with the Patient or Authorized Director Of Labor And Delivery. The Patient or Authorized Director Of Labor And Delivery has agreed to proceed with the sensitive examination. (Sensitive examination includes inspection and/or palpation of the breasts, pelvis, prostate and anorectal regions). EXAM: BP 152/68 GENERAL: pleasant, female in no apparent distress. Noting very difficult ambulation. PELVIC: external genitalia normal, normal Bartholin's glands, urethra, Regan's glands, no vulvar lesions, good vaginal support, physiologic discharge present, normal appearing perineal body and perianal region, cervix surgically absent, atrophic changes BIMANUAL: no adnexal masses, non-tender, uterus surgically absent, and urethral caruncle noted No evidence of blood in the vagina old or otherwise.Swab entirely white Cath urine colected and submitted. Urine dip +: Trace intacty blood 30 mg/dl protein Negative nitrites Moderate Serena. Estace: ASSESSMENT AND PLAN: potential UTI No evidence vaginal bleeding Cath UA submitted ftft with patient and daughter > 60 min Sonny Gallo MD Referring Provider: SELF [[id number]] Allergies As of Date: 02/14/2025 Noted Allergy Reaction IODINE CONTRAST (IODINE) 07/04/2019 2 - Rash 12 - Shortness of Breath LOXAPINE 07/04/2019 16 - Unknown OXAPROZIN 07/04/2019 16 - Unknown Date Reviewed: 02/14/2025 Reviewed by: Falguni Armando LPN - Fully Assessed Visit Diagnoses:PMB (postmenopausal bleeding) [N95.0] Urinary frequency [R35.0] Dysuria [R30.0] Order(s):URINALYSIS, WITH MICROSCOPIC [SQUAWMIC] Order #: [id number] BACTERIAL CULTURE, URINE [SQURCUL] Order #: [id number] UA DIP, URINE (POC) [3602189] Order #: [id number]. #:[id number] Prescriptions as of 02/14/2025 - lisinopril (ZESTRIL) 10 mg tablet Take 10 mg by mouth once daily. - omeprazole (PRILOSEC) 20 mg capsule - acetaminophen (TYLENOL) 500 mg tablet Take 2 tablets by mouth every 8 hours. - lidocaine (SALONPAS) 4 % patch Apply 1 Patch as directed once daily. - miconazole 2 % powder Apply 1 application to affected area two times a day. - escitalopram oxalate (LEXAPRO) 20 mg tablet Take 20 mg by mouth once daily. - pantoprazole DR (PROTONIX) 40 mg tablet Take 40 mg by mouth once daily. - traMADol 25 mg tablet Take 50 mg by mouth once daily as needed (pain). - gabapentin (NEURONTIN) 100 mg capsule Take 300 mg by mouth three times a day. - ranitidine (ZANTAC) 150 mg tablet Take 150 mg by mouth twice daily. - metformin HCl (METFORMIN ORAL) Take 500 mg by mouth once daily. - atorvastatin (LIPITOR) 40 mg tablet Take 40 mg by mouth once daily. - carbonyl iron (FEOSOL) 45 mg tab Take 45 mg by mouth once daily. - furosemide (LASIX) 20 mg tablet Take 20 mg by mouth twice daily. - polyethylene glycol 3350 (MIRALAX, GLYCOLAX) 17 gram packet Take 17 g by mouth once daily. - cyanocobalamin (VITAMIN B-12) 1,000 mcg tab Take 1,000 mcg by mouth once daily. - cholecalciferol (VITAMIN D-3) 2,000 unit tablet Take 2,000 Units by mouth once daily. - glipiZIDE (GLUCOTROL XL) 2.5 mg 24 hr tablet Take 5 mg by mouth once daily. - docusate sodium (COLACE) 100 mg capsule Take 100 mg by mouth twice daily. Problem List As Of Date 02/14/2025 Noted Resolved Hemorrhoids [K64.9] Mild protein-calorie malnutrition (HCC) [E44.1] 02/11/2024 Fall [W19.XXXA] 02/11/2024 Closed fracture of multiple ribs of left side [*02/11/2024 Laceration of spleen [S36.039A] 02/11/2024 02/21/2024 Chronic pain of left knee [M25.562, G89.29] 02/12/2024 Hemothorax on left [J94.2] 02/13/2024 02/21/2024 Obesity, Class II, BMI 35-39.9 [E66.812] 02/15/[address] [Z96.89] 02/15/2024 02/21/2024 At risk for delirium [Z91.89] 02/16/2024 Depression [F32.A] 02/16/2024 Memory loss [R41.3] 02/16/2024 Frailty syndrome in geriatric patient [R54] 02/16/2024 Encounter Status:Closed by SONNY GALLO on 02/14/25 ALLERGIES DATE TYPE / CODE NAME / CODE REACTION SEVERITY SOURCE 07/04/2019 DRUG INGREDI/[id number](SN OMED CT) IODINE RASH [facility] 07/04/2019 DRUG INGREDI/[id number](SN OMED CT) LOXAPINE UNKNOWN [facility] 07/04/2019 DRUG INGREDI/[id number](SN OMED CT) OXAPROZIN UNKNOWN [facility] ENCOUNTERS ADMIT/DISCHARGE ACCOUNT NUMBER ADMITTING ENCOUNTER CLASS LOC ATION SOURCE 02/14/2025/ 5 [id number] [facility] PAYERS ENCOUNTER GUARANTOR PAYER SUBSCRIBER SOURCE 02/14/2025 Primary Insuranc e:[facility]LY [facility] MEDICAREPolicy Number: [id number] Date:[id number] Name:Janel DESIRE LEONCIO: [id number] [facility] [address] [facility] 02/14/2025 Secondary Insurance:[facility] MEDICAIDPolicy Number: [id number] Date:2017-58-15Emrw Name:Maddy FANG: [id number] [facility] [place] [address] [facility]
[2025-05-07 12:24] LABS: Hematocrit 39.9 % (37-47); Hemoglobin 12.2 g/dL (12.0-15.0); Immature Granulocytes Count 0.050 X10^3/uL (0.0-0.0); Mean Corp Hgb Conc 30.6 g/dL (32-36); Mean Corpuscular Volume 91.9 fL (81-99); Mean Platelet Vol. 9.6 fl (6.2-12.0); NRBC Flagged by Analyzer 0 % (0-5); Platelet Count 219 K/mm3 (150-450); RBC Distribution Width CV 19.7 % (11.6-14.6); RBC Distribution Width SD 64.7 fl (35.1-43.9); Red Blood Count 4.34 M/mm3 (4.2-5.4); White Blood Count 9.8 K/mm3 (4.4-11.0)
[2025-05-07 13:26] LABS: AST(SGOT) 134 U/L (<=31); Alanine Aminotransfer ALT/SGPT 17 U/L (<=34); Albumin, Serum 2.6 g/dL (3.4-4.8); Alkaline Phosphatase 233 U/L (35-104); Anion Gap 15 (5-15); BUN 47 mg/dL (4-19); BUN/Creat Ratio 19.0 RATIO (10-20); Calcium,Total 8.3 mg/dL (7.6-11.0); Carbon Dioxide 23.5 mmol/L (21.0-32.0); Chloride 104 mmol/L (98-108); Globulin 3.1 g/dL (2.2-4.2); Glucose 53 mg/dL (70-99); Potassium 4.5 mmol/L (3.3-5.1); Pro- Brain NATRIURETIC PEPTIDE 2963 pg/mL (<=1800)
== END | disposition home or self-care (01) ==
LOC: LAB 11:08
PROVIDERS: PCP Nurse Practitioner Primary Care; Referring Provider Nurse Practitioner Gerontology; Visit Provider Nurse Practitioner Gerontology
DX: R06.02 Shortness of breath (principal); R53.83 Other fatigue
CPT/HCPCS: 36415; 80053; 83880; 84443; 85025

== ENCOUNTER 2025-05-19 13:07 | Emergency (ER) | payer MEDICARE, MEDICAID, SELFPAY ==
[2025-05-19] VITALS (14 sets, daily range): BP systolic 87–122; BP diastolic 39–76; PULSE 73–110; RESP 12–38; TEMP 35.3–36.6; O2SAT 94–100; BMI 36.3
--- NOTE | 2025-05-19 13:34 | EKG12_ITS ---
Test Reason : LOW BS Blood Pressure : */* mmHG Vent. Rate : 76 BPM Atrial Rate : * BPM P-R Int : * ms QRS Dur : 128 ms QT Int : 432 ms P-R-T Axes : * 55 45 degrees QTcB Int : 486 ms Atrial fibrillation Right bundle branch block Abnormal ECG Confirmed by BLANCA MORGAN, KADI ([id number]), sound editor ELIZABETH STOUT ([id number]) on 05/22/2025 7:38:30 AM Referred By: Confirmed By: KADI RIOS MD
[2025-05-19 13:42] LABS: SITE Not entered; VBG BASE EXCESS 4 mmol/L (-1.0-3.5); VBG PO2 43 mmHg (25-40); VBG SO2 80 % (50-70); VBG TCO2 30 mmol/L (23-33)
[2025-05-19 13:53] LABS: Differential Indicated SCAN CRITERIA MET; Hematocrit 37.7 % (37-47); Hemoglobin 11.7 g/dL (12.0-15.0); Immature Granulocytes Count 0.080 X10^3/uL (0.0-0.0); Mean Corp Hgb Conc 31.0 g/dL (32-36); Mean Corpuscular Volume 92.6 fL (81-99); Mean Platelet Vol. 9.8 fl (6.2-12.0); NRBC Flagged by Analyzer 0 % (0-5); POSITIVE MORPHOLOGY YES; Platelet Count 153 K/mm3 (150-450); RBC Distribution Width CV 21.1 % (11.6-14.6); RBC Distribution Width SD 65.4 fl (35.1-43.9); Red Blood Count 4.07 M/mm3 (4.2-5.4); White Blood Count 10.9 K/mm3 (4.4-11.0)
[2025-05-19] MEDS: 0.9% Normal Saline (1000mL) 1,000 ML 999 ML IV (13:58)
[2025-05-19 14:01] LABS: Mucous, Urine 0 SEEN /hpf (<or=2+); Red Blood Cells-Urine 0 SEEN /hpf (0-5)
[2025-05-19 14:03] LABS: Color, Urine Yellow (Yellow); Glucose, Dipstick Normal (Normal); Ketone-Dipstick Negative (Negative); Leukocyte Esterase-Dipstick 25 /ul (Negative); Nitrite-Dipstick Negative (Negative); Occult Blood-Urine 10 /ul (Negative); Protein-Dipstick 30 mg/dl (Negative); Specific Gravity, Urine 1.020 (1.002-1.030)
[2025-05-19 14:05] LABS: Urine Bilirubin Dipstick 1 mg/dL (Negative)
[2025-05-19 14:05] LABS: Prothrombin Time (Protime)PT. 19.1 SECONDS (11.7-14.9)
--- NOTE | 2025-05-19 14:05 | CT_ITS ---
PROCEDURE: BRAIN/HEAD WITHOUT CONTRAST 05/19/2025 REASON FOR EXAM: Altered mental status TECHNIQUE: Procedure Code: CTBR Modality: CT Procedure: BRAIN/HEAD WITHOUT CONTRAST Coronal and Sagittal reconstruction series were provided. One or more dose reduction techniques were used (e.g., Automated exposure control, adjustment of the mA and/or kV according to patient size, use of iterative reconstruction technique. RADIATION DOSE SUMMARY: DLP: 2929.18 mGycm COMPARISON: CT head 09/07/2024 FINDINGS: No acute hemorrhage. No acute transcortical infarct. Patchy periventricular and subcortical white matter hypodensities in the cerebral hemispheres likely reflect chronic microvascular ischemic changes. No significant mass effect or brain herniation. Global cerebral volume loss. No hydrocephalus. No extra-axial fluid collection. The basal cisterns are patent. The mastoid air cells are clear. The paranasal sinuses are predominantly clear. The calvarium appears intact. Atherosclerotic calcification of the carotid siphons. CT/Brain/Head without Contrast IMPRESSION: No CT evidence of acute intracranial hemorrhage, transcortical infarct, or sign ificant mass effect. Global cerebral volume loss and chronic microvascular ischemic changes. Reading Location: [id number]
--- NOTE | 2025-05-19 14:05 | CT_ITS ---
PROCEDURE: CT CHEST, ABD, PELVIS WO CONT 05/19/2025 REASON FOR EXAM: AMS TECHNIQUE: Chest, abdomen and pelvis CT without intravenous contrast. Coronal and Sagittal reconstruction series were provided. One or more dose reduction techniques were used (e.g., Automated exposure control, adjustment of the mA and/or kV according to patient size, use of iterative reconstruction technique. RADIATION DOSE SUMMARY: CTDlvol: 27.6 mGy DLP: 2929 mGycm COMPARISON: CT abdomen and pelvis 09/07/2024 FINDINGS: CT CHEST: Lymph nodes: Mildly enlarged thoracic lymph nodes, to include pericardiophrenic nodes which are unchanged from visualized portions of the chest on 09/07/2024. Heart and Vasculature: Left chest cardiac device with leads terminating in the right atrium and right ventricle. Mitral annular calcifications. Moderate multivessel coronary artery calcifications. Enlarged main pulmonary artery measuring 3.4 cm. Lungs and Airways: Respiratory motion limits evaluation. Central airways are clear. There is consolidation with air bronchograms at the posterior aspect of the lower lobes bilaterally. Solid nodule in the lingula measuring 7 mm (axial image 64) Pleura: Moderate bilateral pleural effusions. Bones: Healed fractures of a few left lower ribs. Degenerative changes of the thoracic spine. CT ABDOMEN / PELVIS: Noncontrast technique limits evaluation of the abdominal and pelvic viscera. Liver: Nodular contour without definite focal lesion. Gallbladder: Surgically absent. Spleen: Unremarkable Pancreas: Unremarkable Adrenals: Unremarkable Kidneys/ureters/bladder: Punctate stone at the upper pole of the left kidney. No hydronephrosis or hydroureter. Urinary catheter balloon inflated within the bladder lumen. Reproductive Organs: Prior hysterectomy. Adnexal regions are unremarkable. Bowel: There is an ovoid hypodensity within the stomach measuring 3.2 cm. Wall thickening of the descending and transverse duodenum. No bowel obstruction. Postoperative changes of the small bowel. Appendix: The appendix is not identified. There is no inflammatory process identified in the right lower quadrant to suggest appendicitis. Lymph nodes: Mildly enlarged ilio caval lymph nodes. Vasculature: Diffuse atherosclerotic calcifications are noted. Peritoneum / Retroperitoneum: Moderate volume of ascites, most pronounced in the upper abdomen. No free air. Bones: Sclerosis of the L2 through L4 vertebral bodies is unchanged. Degenerative changes of the spine. Soft tissues: Anasarca. Healed fractures CT/CT Chest, Abd, Pelvis WO Cont IMPRESSION: 1. Moderate bilateral pleural effusions, and moderate ascites. There is a nod ular contour of the liver suggestive of cirrhosis. 2. Consolidation with air bronchograms at the posterior lower lobes may repres ent compressive atelectasis and/or infection. 3. Wall thickening of the duodenum, without significant surrounding inflammati on. Additionally there is an ovoid hypodensity in the stomach which could represent enteric contents, though neoplasm is not excl uded. Consider GI consultation and endoscopy. 4. Solid pulmonary nodule in the lingula measuring [address] in 6-12 months per Fleischner society guidelines. 5. Mildly enlarged thoracic and upper abdominal lymph nodes, which could be re active. Recommend attention on future exams. 6. Enlarged main pulmonary artery suggestive of pulmonary hypertension. Reading Location: [id number]
[2025-05-19 14:06] LABS: Partial Thromboplast Time 31.4 Seconds (24.1-36.2)
[2025-05-19 14:18] LABS: Anisocytosis 1+; Polychromasia 1+
[2025-05-19 14:19] LABS: Macrocytosis 1+
[2025-05-19 14:25] LABS: AST(SGOT) 181 U/L (<=31); Alanine Aminotransfer ALT/SGPT 21 U/L (<=34); Albumin, Serum 2.2 g/dL (3.4-4.8); Alkaline Phosphatase 276 U/L (35-104); Anion Gap 12 (5-15); BUN 79 mg/dL (4-19); BUN/Creat Ratio 26.0 RATIO (10-20); Calcium,Total 8.1 mg/dL (7.6-11.0); Carbon Dioxide 25.2 mmol/L (21.0-32.0); Chloride 107 mmol/L (98-108); Estimated Creatinine Clearance 13.69 ml/min (50-250); Globulin 3.1 g/dL (2.2-4.2); Glucose 85 mg/dL (70-99); Potassium 4.6 mmol/L (3.3-5.1); Troponin T High Sensitivity 34 ng/L (<=14)
[2025-05-19] MEDS: Piperacil/Tazobactam 3.375 GM in 0.9% Normal Saline (50mL MB+) 50 ML IV (14:25)
[2025-05-19 14:29] LABS: Squamous Epithelial Cells - UA 5-10 SEEN /hpf (5-10)
[2025-05-19 14:50] LABS: Free T3 1.2 pg/mL (2.18-3.98); Lipase 49 U/L (13-75)
--- NOTE | 2025-05-19 15:24 | EX.ED.DYSGE1 ---
HPI History of Present Illness Chief Complaint: Hypoglycemia Narrative Narrative: Patient is a 79-year-old female presenting to the emergency department for altered mental status. Daughter is at bedside and helps provide history due to the patient's altered mental status. She states that about 3 weeks ago she started to decline. She lives at a nursing facility. She has a past medical history of bilateral lower extremity edema, confusion, anemia, heart block with cardiac pacemaker and hypertension. Daughter states that about 3 weeks ago she was diagnosed with a UTI and was placed on antibiotics. States that the antibiotics did not really help with her generalized fatigue and declined. States that since patient has been unresponsive. Daughter reports that she is not a big talker at baseline but states she will really wake up for her anymore. She approached nursing facility staff today to question them about this and they sent her here for evaluation. On EMS arrival patient's blood glucose was in the 20s reportedly and she was unresponsive. She was given D50 and blood glucose on arrival here was 73. Last known well was on ? when daughter saw her last. She is not on any anticogulation. Patient unable to provide history. PFSH PFSH Medical History Adverse drug reaction Hypoalbuminemia Pneumonia SIRS (systemic inflammatory response syndrome) Elevated troponin Acute dehydration NIKO (acute kidney injury) Acute encephalopathy Diabetes Pacemaker Anxiety Depression Hypertension Debility Accidental fall Unable to stand up Chronic low back pain Coccyx contusion GERD (gastroesophageal reflux disease) Chronic peripheral neuropathic pain Diabetes mellitus, type 2 Chronic anemia CKD (chronic kidney disease), stage III Obesity Anxiety and depression HLD (hyperlipidemia) Adult failure to thrive Intractable back pain Presence of permanent cardiac pacemaker Essential hypertension Complete heart block Osteoarthritis Non-smoker Home Medications ?Medication ?Instructions ?Recorded ?Last Taken ?Type atorvastatin 40 mg tablet 40 mg PO QHS cholesterol 03/13/22 02/22/24 History metformin 500 mg tablet,extended 500 mg PO DAILY diabetes 12/09/23 Unknown History release 24 hr acetaminophen 500 mg tablet 1,000 mg (2 x 500 mg) PO Q8 7 days 02/26/24 Unknown Rx #0 tabs gabapentin 300 mg capsule 300 mg PO TID Check with primary 02/26/24 Unknown Rx doctor 5 days #15 caps cholecalciferol (vitamin D3) 50 50 mcg PO QDAY 05/01/24 Unknown History mcg (2,000 unit) capsule docusate sodium 100 mg capsule 100 mg PO BID 05/01/24 Unknown History (Colace) lidocaine 4 % topical patch 1 patch topical Q24H PRN pain 05/01/24 Unknown History miconazole nitrate 2 % topical 1 applic topical QDAY 05/01/24 Unknown History powder omeprazole 20 mg capsule,delayed 20 mg PO QDAY 05/01/24 Unknown History release polyethylene glycol 3350 17 17 g PO ONCE 05/01/24 Unknown History gram/dose oral powder (Miralax) Lactobacillus acidophilus 100 mg PO DAILY 09/07/24 Unknown History (Acidophilus capsule) albuterol sulfate 2.5 mg/3 mL 2.5 mg continuous nebulization Q6H 09/07/24 Unknown History (0.083 %) solution for nebulization PRN SOB escitalopram oxalate 10 mg tablet 10 mg PO DAILY 09/07/24 Unknown History furosemide 40 mg tablet 40 mg PO DAILY 09/07/24 Unknown History glipizide 2.5 mg tablet, extended 5 mg PO DAILY 09/07/24 Unknown History release 24 hr iron, carbonyl 45 mg tablet 45 mg PO DAILY 09/07/24 Unknown History menthol 0.44 %-zinc oxide 20.6 % 1 applic topical BID #0 grams 09/10/24 Unknown Rx topical ointment (Calmoseptine) tramadol 50 mg tablet 50 mg PO DAILY pain 05/19/25 Unknown History Allergy/AdvReac Type Severity Reaction Status Date / Time metformin Allergy Severe lactic Verified 05/07/25 11:23 acidosis Iodinated Contrast Media Allergy Rash Verified 05/07/25 11:23 (CONTRASTS) oxaprozin (From Daypro) AdvReac Upset Verified 05/07/25 11:23 Stomach Family History Brother Cancer Brother Cancer Sister Cancer Mother Diabetes Asthma Surgical History History of hernia repair History of carpal tunnel release of both wrists History of hysterectomy History of permanent cardiac pacemaker placement (03/13/22) History of appendectomy History of cholecystectomy Social History household members: family Smoking Status: Never smoker alcohol intake: never substance use type: does not use caffeine: Yes Type: tea ROS ROS ED ROS Narrative See HPI EXAM Physical Exam Narrative Exam Narrative: Vital signs: Reviewed General: Alert and oriented x 1. No acute distress. Chronically ill-appearing. HEENT: Head is normocephalic and atraumatic, sinuses nontender, pupils equal round and reactive. Nares are patent. Oropharynx and throat exams normal. Neck: Supple without lymphadenopathy nontender Cardiovascular: Tachycardic rate and irregular rhythm, no murmurs. No rubs or gallops. Normal S1 and S2 Respiratory: Clear to auscultation bilaterally. No wheezes, rales, rhonchi Abdominal: Soft and tender to palpation diffusely. Normal bowel sounds. No guarding or rebound. Extremities: Symmetric bilateral lower extremity edema with no erythema, warmth or drainage. No tenderness. No bruising. Skin: No rash or redness. Neurological: Unable to participate in full neuro exam. Moves all extremities. Will intermittently follow commands. GCS 11. [id number] The rest of the physical exam is unremarkable Const Vital Signs: 05/19/25 13:07 05/19/25 13:12 05/19/25 13:56 Temperature 97.6 F L 95.6 F L Temperature Source Oral Core Pulse Rate 97 76 Respiratory Rate 18 16 Respiratory Effort Normal Respiratory Pattern Normal Blood Pressure 87/39 L Blood Pressure Mean 55 Pulse Ox 100 97 Oxygen Delivery Method Room Air Room Air 05/19/25 14:07 05/19/25 15:00 05/19/25 16:00 Temperature 96.0 F L 97.6 F L 97.8 F Temperature Source Core Core Core Pulse Rate 110 H 89 89 Respiratory Rate 16 38 H 13 Respiratory Effort Respiratory Pattern Blood Pressure 87/49 L 105/45 L 100/50 L Blood Pressure Mean 61 65 66 Pulse Ox 94 100 100 Oxygen Delivery Method Room Air 05/19/25 16:45 05/19/25 17:00 Temperature 97.5 F L 97.4 F L Temperature Source Core Core Pulse Rate 77 77 Respiratory Rate 12 15 Respiratory Effort Respiratory Pattern Blood Pressure 120/76 112/64 Blood Pressure Mean 88 80 Pulse Ox 100 95 Oxygen Delivery Method Room Air MDM MDM MDM Narrative Medical decision making narrative: Patient is a 79-year-old female presenting to the emergency department for altered mental status. Patient was seen and examined. BP on arrival of 87/39. Pulse of 97. Respirate 18. Afebrile saturating 100% on room air. D10 hung by nursing staff prior to my evaluation of the patient. 1 L NS bolus also started on a pressure bag for her BP. Blood cultures x 2 obtained. Vancomycin and Zosyn given for unknown source of infection at this time. Differential includes but is not limited to: Hypoglycemia, sepsis from UTI, pneumonia, intra-abdominal source given the abdominal pain on palpation. Intracranial bleed or ischemic stroke. ACS. Thyroid dysfunction. Initially CT imaging of the brain and chest/abdomen/pelvis was ordered with contrast given concern for and a intra-abdominal source of infection causing the patient's sepsis. However she does have a contrast dye allergy, switched to noncontrast. EKG shows A-fib that is rate controlled at 76 and a right bundle branch block. No ischemic changes. VBG with normal pH and pCO2. CBC with no leukocytosis and acute on chronic anemia of 11.7 from 12.2 in April. Normal platelets. CMP with NIKO, worsening kidney function with a BUN of 79 and creatinine of 3.05. Normal potassium. Lactate of 2.9. Baseline transaminitis with AST of 181 and alk phos of 276, normal ALT. Troponin of 34, reflex pending. Urinalysis with no evidence of urinary tract infection. Lipase within normal limits. TSH and T4 within normal limits. CT brain with no acute intracranial abnormalities. CT chest abdomen pelvis shows moderate bilateral pleural effusions, and moderate ascites. There is a nodular contour of the liver suggestive of cirrhosis. Consolidation with air bronchograms at the posterior lower lobes may represent compressive atelectasis and/or infection. Wall thickening of the duodenum, without significant surrounding inflammation. Additionally there is an ovoid hypodensity in the stomach which could represent enteric contents, though neoplasm is not excluded. Consider GI consultation and endoscopy. Additional nonacute findings can be seen in the CT report. Daughter was updated on the findings of possible pneumonia with sepsis and hypoglycemia requiring admission. CODE STATUS was discussed with daughter who is POA. States the patient is DNR CCA with no intubation. Discussed patient with admitting hospitalist, Dr. Marmolejo, who asked that BNP, ammonia level and pacemaker be intterogated before admission. These were added on. Clinical impression: Hypoglycemia Sepsis pneumonia pleural effusion elevated lactate History & Record Review Discussion w/independent historian: Family Lab Data Attestation: I reviewed the patient's lab results. Labs: Laboratory Results - last 24 hr 05/19/25 05/19/25 05/19/25 13:10 13:40 13:50 WBC 10.9 RBC 4.07 L Hgb 11.7 L Hct 37.7 MCV 92.6 MCH 28.7 MCHC 31.0 L RDW Std Deviation 65.4 H RDW Coeff of Zainab 21.1 H Plt Count 153 MPV 9.8 Immature Gran % (Auto) 0.700 Neut % (Auto) 81.6 H Lymph % (Auto) 7.4 L Hubbard % (Auto) 9.6 Eos % (Auto) 0.4 Baso % (Auto) 0.3 Absolute Neuts (auto) 8.9 H Absolute Lymphs (auto) 0.81 L Nucleated RBC % 0 Polychromasia 1+ Anisocytosis 1+ Macrocytosis 1+ PT 19.1 H INR 1.6 APTT 31.4 Sodium 144 Potassium 4.6 Chloride 107 Carbon Dioxide 25.2 Anion Gap 12 BUN 79 H Creatinine 3.05 H Estim Creat Clear Calc 13.69 L Est GFR (MDRD) Non-Af 15 L BUN/Creatinine Ratio 26.0 H Glucose 85 Lactic Acid 2.9 H* Calcium 8.1 Total Bilirubin 0.58 AST 181 H ALT 21 Alkaline Phosphatase 276 H Troponin T High Sens 34 H Troponin T Hi Sens 2 Hr Total Protein 5.3 L Albumin 2.2 L Globulin 3.1 Albumin/Globulin Ratio 0.7 L Lipase TSH Free T4 Free T3 pg/dL Urine Color Yellow Urine Clarity Clear Urine pH 5.0 Ur Specific [place] 1.020 Urine Protein 30 H Urine Glucose (UA) Normal Urine Ketones Negative Urine Occult Blood 10 H Urine Nitrite Negative Urine Bilirubin 1 H Urine Urobilinogen Normal Ur Leukocyte Esterase 25 H Urine RBC 0 SEEN Urine WBC 0-5 SEEN Ur Squamous Epith Cells 5-10 SEEN Urine Bacteria RARE Urine Mucus 0 SEEN POC Glucose 05/19/25 05/19/25 05/19/25 14:03 14:04 15:50 WBC RBC Hgb Hct MCV MCH MCHC RDW Std Deviation RDW Coeff of Zainab Plt Count MPV Immature Gran % (Auto) Neut % (Auto) Lymph % (Auto) Hubbard % (Auto) Eos % (Auto) Baso % (Auto) Absolute Neuts (auto) Absolute Lymphs (auto) Nucleated RBC % Polychromasia Anisocytosis Macrocytosis PT INR APTT Sodium Potassium Chloride Carbon Dioxide Anion Gap BUN Creatinine Estim Creat Clear Calc Est GFR (MDRD) Non-Af BUN/Creatinine Ratio Glucose Lactic Acid Calcium Total Bilirubin AST ALT Alkaline Phosphatase Troponin T High Sens Troponin T Hi Sens 2 Hr 37 H Total Protein Albumin Globulin Albumin/Globulin Ratio Lipase 49 TSH 2.220 Free T4 0.90 Free T3 pg/dL 1.2 L Urine Color Urine Clarity Urine pH Ur Specific [place] Urine Protein Urine Glucose (UA) Urine Ketones Urine Occult Blood Urine Nitrite Urine Bilirubin Urine Urobilinogen Ur Leukocyte Esterase Urine RBC Urine WBC Ur Squamous Epith Cells Urine Bacteria Urine Mucus POC Glucose 77 05/19/25 16:59 WBC RBC Hgb Hct MCV MCH MCHC RDW Std Deviation RDW Coeff of Zainab Plt Count MPV Immature Gran % (Auto) Neut % (Auto) Lymph % (Auto) Hubbard % (Auto) Eos % (Auto) Baso % (Auto) Absolute Neuts (auto) Absolute Lymphs (auto) Nucleated RBC % Polychromasia Anisocytosis Macrocytosis PT INR APTT Sodium Potassium Chloride Carbon Dioxide Anion Gap BUN Creatinine Estim Creat Clear Calc Est GFR (MDRD) Non-Af BUN/Creatinine Ratio Glucose Lactic Acid Calcium Total Bilirubin AST ALT Alkaline Phosphatase Troponin T High Sens Troponin T Hi Sens 2 Hr Total Protein Albumin Globulin Albumin/Globulin Ratio Lipase TSH Free T4 Free T3 pg/dL Urine Color Urine Clarity Urine pH Ur Specific [place] Urine Protein Urine Glucose (UA) Urine Ketones Urine Occult Blood Urine Nitrite Urine Bilirubin Urine Urobilinogen Ur Leukocyte Esterase Urine RBC Urine WBC Ur Squamous Epith Cells Urine Bacteria Urine Mucus POC Glucose 58 L ABG Data ABG results: ABG 05/19/25 13:39 Specimen Type KAIN Sample Site Not entered VBG pH 7.43 H VBG pO2 43 H VBG HCO3 29 H VBG Total CO2 30 VBG O2 Sat (Calc) 80 H VBG Base Excess 4 H POC Mix VBG pCO2 Pt Tmp 43.3 O2 Delivery Device Not entered Radiography Diagnostic Testing: Clinical Impression(s) from Imaging Studies Brain CT 05/19/25 14:05 IMPRESSION: No CT evidence of acute intracranial hemorrhage, transcortical infarct, or significant mass effect. Global cerebral volume loss and chronic microvascular ischemic changes. Reading Location: [id number] Chest/Abdomen/Pelvis CT 05/19/25 14:05 IMPRESSION: 1. Moderate bilateral pleural effusions, and moderate ascites. There is a nodular contour of the liver suggestive of cirrhosis. 2. Consolidation with air bronchograms at the posterior lower lobes may represent compressive atelectasis and/or infection. 3. Wall thickening of the duodenum, without significant surrounding inflammation. Additionally there is an ovoid hypodensity in the stomach which could represent enteric contents, though neoplasm is not excluded. Consider GI consultation and endoscopy. 4. Solid pulmonary nodule in the lingula measuring [address] in 6-12 months per Fleischner society guidelines. 5. Mildly enlarged thoracic and upper abdominal lymph nodes, which could be reactive. Recommend attention on future exams. 6. Enlarged main pulmonary artery suggestive of pulmonary hypertension. Reading Location: [id number] Discharge Plan Triage Chief Complaint: Hypoglycemia ED Provider: Candace Altamirano Dx/Rx/DC Orders Prescriptions: No Action cholecalciferol (vitamin D3) 50 mcg (2,000 unit) capsule 50 mcg PO QDAY docusate sodium [Colace] 100 mg capsule 100 mg PO BID lidocaine 4 % adhesive patch,medicated 1 patch topical Q24H PRN (Reason: pain) miconazole nitrate 2 % powder 1 applic topical QDAY omeprazole 20 mg capsule,delayed release(DR/EC) 20 mg PO QDAY polyethylene glycol 3350 [Miralax] 17 gram/dose powder 17 g PO ONCE atorvastatin 40 mg tablet 40 mg PO QHS Patient Comments: TAKE 1 TABLET BY MOUTH ONCE DAILY metformin 500 mg tablet extended release 24 hr 500 mg PO DAILY acetaminophen 500 mg Tablet 1,000 mg PO Q8 7 Days Qty: 0 0RF gabapentin 300 mg capsule 300 mg PO TID 5 Days Qty: 15 0RF Patient Comments: TAKE 1 CAPSULE BY MOUTH THREE TIMES DAILY Acidophilus Capsule 100 mg PO DAILY albuterol sulfate 2.5 mg /3 mL (0.083 %) solution for nebulization 2.5 mg continuous nebulization Q6H PRN (Reason: SOB) Patient Comments: [NO ORIGINAL SIG] iron, carbonyl 45 mg tablet 45 mg PO DAILY furosemide 40 mg tablet 40 mg PO DAILY Rx Instructions: IN THE MORNING glipizide 2.5 mg tablet extended release 24hr 5 mg PO DAILY Patient Comments: [NO ORIGINAL SIG] escitalopram oxalate 10 mg tablet 10 mg PO DAILY menthol-zinc oxide [Calmoseptine] 0.44-20.6 % Ointment 1 applic topical BID Qty: 0 0RF Protocol: *Topical Application Instructions APPLICATION INSTRUCTIONS: Apply to bilateral buttocks. tramadol 50 mg tablet 50 mg PO DAILY Patient Comments: TAKE 1 TABLET BY MOUTH EVERY DAY AT BEDTIME NEEDED FOR PAIN Primary Care Provider: Pako Serrano NP Referrals: Pako Serrano [facility] [Primary Care Provider, Medical] Print Language: Micronesian
[2025-05-19] MEDS: Vancomycin HCl 2,000 MG in 0.9% Normal Saline (500mL Bag) 500 ML 250 MG IV (15:45)
[2025-05-19] MEDS: 0.9% Normal Saline (1000mL) 1,000 ML 1000 ML IV (15:50)
[2025-05-19 16:18] LABS: Troponin T High Sens 2 HR 37 ng/L (<=14)
[2025-05-19 17:48] LABS: Reflex Lactate? Y
[2025-05-19 18:32] LABS: Troponin T High Sens 4 HR 36 ng/L (<=14)
[2025-05-19 18:33] LABS: Ammonia 33.3 umol/L (11-51); Pro- Brain NATRIURETIC PEPTIDE 2307 pg/mL (<=1800)
[2025-05-20] VITALS: BP 106/52; PULSE 80; RESP 14; TEMP 36.5; O2SAT 100
[2025-05-20 01:03] VITALS: BP 104/47; PULSE 79; RESP 14; TEMP 36.5; O2SAT 92
[2025-05-20 02:56] LABS: Reflex Lactate? Y
--- NOTE | 2025-05-31 18:45 | CM.ED ---
Social Work Received a call from [facility] Coordinator inquiring about patients admission date and any discharge planning. production line manager Luisa [phone]. Luisa verified patient's name, date of , current living situation and both patients PETER Member ID and billing numbers. Updated Luisa that patient was transferred to [facility] [place]. Luisa will follow up there. -RONNIE Irizarry
== END 2025-05-20 02:24 | disposition short-term general hospital (02) ==
LOC: ED 13:34
PROVIDERS: Emergency Medicine; Hospitalist; Emergency Provider Student in an Organized Health Care Education/Training Program; PCP Nurse Practitioner Primary Care; Visit Provider Student in an Organized Health Care Education/Training Program
DX: E11.649 Type 2 diabetes mellitus with hypoglycemia without coma (principal); A41.9 Sepsis, unspecified organism; E11.22 Type 2 diabetes mellitus with diabetic chronic kidney disease; N18.30 Chronic kidney disease, stage 3 unspecified; Z90.710 Acquired absence of both cervix and uterus; J90 Pleural effusion, not elsewhere classified; E78.5 Hyperlipidemia, unspecified; I12.9 Hypertensive chronic kidney disease with stage 1 through stage 4 chronic kidney disease, or unspecified chronic kidney disease; J18.9 Pneumonia, unspecified organism; Z95.0 Presence of cardiac pacemaker; R41.82 Altered mental status, unspecified; Z79.899 Other long term (current) drug therapy; Z79.84 Long term (current) use of oral hypoglycemic drugs; K21.9 Gastro-esophageal reflux disease without esophagitis; Z90.49 Acquired absence of other specified parts of digestive tract; E87.20 Acidosis, unspecified
CPT/HCPCS: 51702; 70450; 71250; 74176; 80053; 81001; 82140; 82803; 82962; 83605; 83690; 83880; 84300; 84439; 84443; 84481; 84484; 85025; 85610; 85730; 87040; 87077; 87086; 87088; 87186; 87631; 93005; 93288; 96361; 96365; 96366; 96367; 99285; A4216